=== PATIENT | male | born 1965 | race Caucasian/White ===

== ENCOUNTER 2020-11-12 14:00 | Emergency (ER) | payer OTHER, SELFPAY | END 2020-11-12 17:39 | disposition left against medical advice (07) | PROVIDERS: Emergency Provider Emergency Medicine | DX: L02.91 Cutaneous abscess, unspecified (principal) ==

== ENCOUNTER 2022-01-31 15:34 | Outpatient (REF) | payer OTHER, SELFPAY ==
--- NOTE | ~2022-01-31 | US_ITS ---
EXAMINATION: US SCROTUM CLINICAL INFORMATION: Orchitis. COMPARISON: None TECHNIQUE: A sonogram of the scrotum was performed assessing diaz-scale appearance and color Doppler flow. Spectral Doppler analysis of the arterial and venous flow were performed in the testes bilaterally. FINDINGS: RIGHT: Right testicle appears atrophic and measures 3.0 x 1.4 x 1.8 cm, volume 4.0 mL. No focal testicular parenchymal lesions are visualized. Spectral Doppler analysis of the arterial and venous flow is normal in the right testis. Right epididymal head is normal in size. A 0.4 cm simple cyst in the right epididymal tail. No right hydrocele or varicocele is seen. Right epididymal Doppler flow is normal. LEFT: Left testicle appears atrophic and measures 3.2 x 1.4 x 1.9 cm, volume 3.2 mL. No focal testicular parenchymal lesions are visualized. Spectral Doppler analysis of the arterial and venous flow is normal in the left testis. Left epididymal head is remarkable for a 7 mm epididymal head cyst. The left epididymal tail is enlarged and hypervascular which could be seen in the setting of epididymitis. Calcifications are noted in the epididymal tail. No left hydrocele or varicocele is seen. Left epididymal Doppler flow is increased. US/US scrotum IMPRESSION: The left epididymal tail is enlarged and hypervascular which could be seen in the setting of epididymitis. Calcifications are also seen within the epididymal tail, which could be seen in the setting of superimposed chronic epididymitis. Testicles are atrophic bilaterally.
== END 2022-01-31 15:35 | disposition home or self-care (01) ==
LOC: HO.US 15:34
PROVIDERS: PCP General Practice; Visit Provider General Practice
DX: N45.2 Orchitis (principal)
CPT/HCPCS: 76870

== ENCOUNTER → 2022-04-09 13:27 | Outpatient (BNVA) | payer OTHER, SELFPAY | PROVIDERS: PCP General Practice; Referring Provider General Practice; Visit Provider Nurse Practitioner Family | DX: Z12.11 Encounter for screening for malignant neoplasm of colon (principal) | CPT/HCPCS: 99202 ==

== ENCOUNTER 2023-03-06 17:06 | Emergency (ER) | payer OTHER, SELFPAY ==
--- NOTE | ~2023-03-06 | XR_ITS ---
EXAMINATION: XR HIP, RIGHT CLINICAL INFORMATION: Fall yesterday COMPARISON: None available. TECHNIQUE: Frontal view of the pelvis with coned frontal and frog-leg lateral views the right hip obtained. FINDINGS: Patient is status post right proximal femoral intramedullary nail with single distal fixation screw. Compression screw seen through the femoral neck extending into the femoral head. Bones are in essentially anatomic alignment. I do not appreciate any evidence for acute superimposed fracture or dislocation. Unremarkable bowel gas pattern. XR/XR hip RT w PEL1V IMPRESSION: Postoperative changes to the right hip. I do not appreciate any acute superimposed fracture or dislocation.
--- NOTE | ~2023-03-06 | CT_ITS ---
EXAMINATION: CT ABDOMEN AND PELVIS WITHOUT CONTRAST CLINICAL INFORMATION: Right hip pain COMPARISON: None available. TECHNIQUE: Multidetector volumetric imaging was performed from the superior aspect of the liver through the pubic symphysis. Sagittal and coronal reformatted images were obtained on the technologist's workstation. This CT examination was performed using dose optimization techniques as appropriate, variously including the following: *Automated exposure control *Adjustment of mA and/or kV according to patient size (this includes techniques or standardized protocols for targeted exams where dose is matched to indication/reason for exam; i.e. extremities or head) *Use of iterative reconstruction technique DLP: 658 mGy-cm FINDINGS: LUNG BASES: The lung bases are clear.. LIVER, GALLBLADDER, AND BILIARY TREE: The liver is slightly heterogeneous and has a nodular contour with perihepatic fluid collection suspicious for cirrhosis. No focal lesion seen. There is no intrahepatic ductal dilatation. The gallbladder is slightly distended with multiple radiopaque gallstones. No pericholecystic fluid collection seen. PANCREAS: Unremarkable. SPLEEN: Unremarkable. ADRENAL GLANDS: Unremarkable. KIDNEYS AND URETERS: The kidneys are normal in size, shape, and attenuation. No hydronephrosis, hydroureter, or calculi seen. No perinephric stranding. BLADDER: Unremarkable. GASTROINTESTINAL TRACT: There is moderate scattered stool in colon without significant distention. The small bowel loops are normal caliber. Appendix is not visualized. There is no obstruction or free air. ABDOMINAL WALL: No significant hernia is appreciated. LYMPH NODES: There are small mesenteric lymph nodes measuring 1.2 x 0.5 cm. No abnormal retroperitoneal lymph nodes seen. VASCULAR: The abdominal aorta is of normal caliber. PELVIC VISCERA: There is small amount of free fluid in the pelvis. The prostate gland is mildly enlarged. No abnormal pelvic lymphadenopathy. OSSEOUS STRUCTURES: There is a right internal medullary femoral hazel and a hip nail for an old healed intertrochanteric/proximal femoral fracture. The hardware is intact. There is no joint space abnormality seen. CT/CT abdomen pelvis wo IV con IMPRESSION: 1. Cirrhotic liver with perihepatic fluid collection and small amount of free fluid in the pelvis. 2. Cholelithiasis without wall thickening. 3. Moderate constipation. 4. No radiopaque urolith or hydroureteronephrosis. 5. Intact right hip hardware. No fracture or joint abnormality seen. Fleischner guidelines were followed.
--- NOTE | ~2023-03-06 | XR_ITS ---
EXAMINATION: XR KNEE, RIGHT CLINICAL INFORMATION: Pain. COMPARISON: None available. TECHNIQUE: Four views of the right knee. FINDINGS: No fracture or joint effusion. Alignment is anatomic. Joint spaces are maintained. No abnormal soft tissue calcification. XR/XR knee RT 3V IMPRESSION: Normal right knee.
[2023-03-06 17:14] VITALS: BP 160/84; BP 167/56; PULSE 72; PULSE 85; RESP 18; TEMP 36.6; O2SAT 95; O2SAT 97; BMI 24.9
[2023-03-06 17:19] VITALS: PULSE 75
--- NOTE | 2023-03-06 17:29 | PC.NURSE ---
pt a&ox3, respirations even and unlabored. pt reports having a mechanical fall last night and hitting his head with no LOC. pt reports that he was walking to leave his house when he slipped. pt denies blood thinners. pt left hip tender to touch with swelling noted. pt reports having a hip replacement of the left hip in 2006 due to a fall. pt denies nausea, vomiting and chest pain. pt normal sinus on tele.
--- NOTE | 2023-03-06 17:48 | ED_ITS ---
HPI - General Adult General Chief complaint: Fall Stated complaint: FALL WITH POSSIBLE HIP FX Time Seen by Provider: 03/06/23 17:08 Source: patient and RN notes reviewed Mode of arrival: EMS Limitations: no limitations History of Present Illness HPI narrative: 57-year-old male presents for evaluation of right hip pain. Patient reports that he suffered a nonsyncopal fall yesterday. He reports that he was clumsy lost his balance and fell down. He denies hitting his head or losing consciousness His only complaint is right hip pain He reports he is unable to bear weight due to the pain The patient has a remote right hip arthroplasty from the year 2006 He states his pain is a 6/10 currently Patient denies any head or neck pain Related Data Home Medications Medication Instructions Recorded Confirmed albuterol sulfate 90 mcg/actuation 90 mcg inhalation NEEDED 04/09/22 03/06/23 aerosol inhaler insulin aspart U-100 100 unit/mL 10 - 12 unit subcut TID 04/09/22 03/06/23 (3 mL) subcutaneous pen (Novolog FlexPen U-100 Insulin aspart) insulin glargine 100 unit/mL (3 45 unit subcut DAILY 04/09/22 03/06/23 mL) subcutaneous pen (Lantus Solostar U-100 Insulin) sildenafil 100 mg tablet (Viagra) 100 mg PO DAILY PRN Erectile 04/09/22 03/06/23 Dysfunction ocrelizumab 30 mg/mL intravenous 600 mg IV [id number] 03/06/23 03/06/23 solution Allergies Allergy/AdvReac Type Severity Reaction Status Date / Time No Known Allergies Allergy Mild NONE Verified 03/06/23 17:19 Review of Systems Constitutional: Constitutional: Denies chills, Denies fever(s), Denies frequent falls and Denies headache(s) Eyes: Eyes: Denies blurry vision ENT: Denies headache(s) Cardiovascular: Cardiovascular: Denies chest pain, Denies syncope and Denies dyspnea Respiratory: Respiratory: Denies cough and Denies dyspnea Gastrointestinal: Gastrointestinal: Denies abdominal pain and Denies vomiting Musculoskeletal: Musculoskeletal: Reports arthralgias, Denies joint swelling, Reports limited range of motion and Reports stiffness Integumentary/Breasts: Skin/Breast: Denies wounds Neurologic: Denies syncope, Denies frequent falls and Denies headache(s) [facility] Past Medical History Medical History Diabetes mellitus Multiple sclerosis Surgical History History of hip surgery Family History Family History (Updated 04/09/22 @ 13:50 by Jorge Arteaga) Mother Diabetes Father HTN (hypertension) Social History Social History (Updated 04/09/22 @ 13:49 by Jorge Arteaga) Household Members: None Alcohol intake: current Alcohol intake frequency: a few times a week Patient Tobacco Use Status: Current everyday Tobacco user Cigarettes Per Day: 1.9 Smoked in Last 30 Days: Yes Use of substances other than those prescribed or required for medical reasons: No Advance Directives: No Advance Directives Information Provided: No Physical Exam ED Vital Signs: Vital Signs - 24 hr 03/06/23 17:14 03/06/23 17:19 03/06/23 19:03 Temperature 97.8 F Pulse Rate 85 75 86 Respiratory Rate 18 18 Blood Pressure 167/56 H 158/55 H Pulse Oximetry 95 94 Oxygen Delivery Method Room Air Room Air 03/06/23 20:25 03/06/23 21:09 03/06/23 22:07 Temperature 99.4 F 99.1 F Pulse Rate 74 89 73 Respiratory Rate 16 14 14 Blood Pressure 146/51 H 137/55 L 135/58 L Pulse Oximetry 96 95 97 Oxygen Delivery Method Room Air Room Air Room Air 03/07/23 04:47 03/07/23 05:45 03/07/23 07:44 Temperature 97.7 F Pulse Rate 75 71 71 Respiratory Rate 16 18 Blood Pressure 144/51 H 123/75 123/75 Pulse Oximetry 97 98 98 Oxygen Delivery Method Room Air Room Air 03/07/23 14:00 Temperature 98.2 F Pulse Rate 74 Respiratory Rate 18 Blood Pressure 134/65 Pulse Oximetry 97 Oxygen Delivery Method Room Air BMI result Body Mass Index 24.9 Const General: healthy appearing, comfortable, no acute distress, alert and awake Nutritional Appearance: well nourished Orientation/consciousness: patient oriented x3 HENMT Head: Yes normocephalic and Yes atraumatic Eyes Eyelids: Yes eyelids normal Conjunctivae: conjunctivae normal Sclerae: sclerae normal Corneas: corneas normal Pupils: Equal, round and reactive pupils present EOM: EOMs intact bilaterally Neck Neck: Yes full ROM Resp Effort & Inspection: normal respiratory effort, able to speak in complete sentences and not labored GI Inspection: No distended Palpation (GI): Soft to palpation, not firm, nontender, no guarding and not rigid Auscultation: normoactive bowel sounds Skin General skin exam: elasticity normal Neuro General: patient oriented x3 Cranial nerves: Yes Equal, round and reactive pupils present and Yes Bilaterally intact EOM present Cognition (Neuro): normal cognition Extrem Other: No shortening or rotation of the right lower extremity. Patient is tender to palpation of the right hip. There is no obvious visual or palpable deformity. He actually has quite good range of motion with flexion and extension of the right hip. He is able to lift the right lower extremity off the bed easily without any assistance. Course Course Course Narrative: 03/07/23--0946--Physician observation continued. Imaging reviewed. Physical therapy evaluated patient this morning and recommended short-term rehab. Pending case management consult -[id number]-- patient accepted to [facility] rehab. Reevaluation(s) Reevaluation #1: Patient's x-ray and CT scan did not show any traumatic injuries. There is no evidence of hardware failure, pelvic fracture. The patient had not been able to ambulate in the emergency department. He does have a walker and a wheelchair at home. I discussed the recommendation for remaining in the hospital overnight for physical therapy and case management evaluation and possibly short-term rehab. After discussing with his at bedside, they initially agreed to remain in the hospital but then recanted and expressed desire to be discharged home. To have wheelchair at home to help get around. I asked the patient if he is still unable to stand after few days he should return to the emergency department to reconsider short-term rehab Time: 22:13 Reevaluation #2: Patient reconsidered again and decided to stay in the hospital for physical therapy and case management evaluation after attempting to stand and fell being unable to do so. When attempting to stand he began complaining of right knee pain, this was not yet x-rays so we will get x-rays of the right knee Time: 22:18 Medications Administered Generic Name Dose Route Start Last Admin Trade Name Freq PRN Reason Stop Dose Admin Insulin Human Lispro 0 unit 03/07/23 11:30 03/07/23 11:45 Insulin Lispro 100 Unit/Ml 3 Ml Vial SUBCUT 8 unit [facility] Administration Protocol Discontinued Medications Generic Name Dose Route Start Last Admin Trade Name Savanna PRN Reason Stop Dose Admin Acetaminophen 650 mg 03/06/23 17:50 03/06/23 18:36 Acetaminophen 325 Mg Tablet PO 03/06/23 17:51 650 mg ONCE ONE Administration Ketorolac Tromethamine 30 mg 03/06/23 19:58 03/06/23 20:06 Ketorolac Tromethamine 30 Mg/Ml Vial IM 03/06/23 19:59 30 mg ONCE ONE Administration Medical Decision Making Medical Decision Making [facility] Narrative: 57-year-old male presents for evaluation of her a mechanical fall per his report. He denies any head strike or loss of consciousness. Denies any dizziness, chest pain or shortness of breath prior to falling. Plan for x-ray the right hip. Given that he is unable to bear weight will consider CT imaging of the pelvis if there is no evidence of hip fracture or hardware failure Differential Diagnosis Differential Diagnoses: The differential diagnosis associated with the presentation includes Hip fracture Hardware failure Hip pain Pelvic fracture Hip dislocation Lab Data Labs: Lab Results 03/07/23 03/07/23 03/07/23 Range/Units 07:19 10:19 11:36 POC Glucose 282 H 316 H (60-115) mg/dL COVID-19 (MELINDA) Negative (Negative) COVID-19 Clin Com See Note Discharge Plan Discharge Clinical Impression: Acute pain of right hip Patient Disposition: Still a Patient Instructions: Hip Pain (ED) Additional Instructions: Your x-ray did not show any fractures or hardware failure. The follow-up CT scan also did not show any fractures or hardware failure. Use Motrin/Tylenol for your pain Prescriptions: No Action ocrelizumab 30 mg/mL Solution 600 mg IV [id number] insulin glargine [Lantus Solostar U-100 Insulin] 100 unit/mL (3 mL) insulin pen 45 unit subcut DAILY insulin aspart U-100 [Novolog FlexPen U-100 Insulin] 100 unit/mL (3 mL) insulin pen 10 - 12 unit subcut TID albuterol sulfate 90 mcg/actuation HFA aerosol inhaler 90 mcg inhalation NEEDED sildenafil [Viagra] 100 mg tablet 100 mg PO DAILY PRN (Reason: Erectile Dysfunction)
[2023-03-06] MEDS: Acetaminophen 325 MG TABLET 650 MG PO (18:36)
[2023-03-06 19:03] VITALS: BP 158/55; PULSE 86; RESP 18; O2SAT 94
--- NOTE | 2023-03-06 19:03 | PC.NURSE ---
Assumed care of pt. Pt lying on stretcher, endorsing 6/10 pain. pt sts will hold for additional pain medication after imaging results. Otherwise, VSS, no acute distress at this time.
[2023-03-06] MEDS: Ketorolac Tromethamine 30 MG/ML VIAL IM (20:06)
[2023-03-06 20:25] VITALS: BP 146/51; PULSE 74; RESP 16; TEMP 37.4; O2SAT 96
[2023-03-06 21:09] VITALS: BP 137/55; PULSE 89; RESP 14; O2SAT 95
[2023-03-06 22:07] VITALS: BP 135/58; PULSE 73; RESP 14; TEMP 37.3; O2SAT 97
--- NOTE | 2023-03-07 00:36 | PC.NURSE ---
pt sleeping, easily rousable, no acute distress at this time. WCTM
--- NOTE | 2023-03-07 02:26 | PC.NURSE ---
At 2200, attempted to ambulate pt for possible trial discharge. Pt unable to bear weight and ambulate on R leg, provider notified. Pt will remain in ED for CM/PT eval.
[2023-03-07 04:47] VITALS: BP 144/51; PULSE 75; RESP 16; O2SAT 97
--- NOTE | 2023-03-07 05:23 | PC.NURSE ---
Report given to ALO Salazar Overflow. Pt to be transfered to OF unit for monitoring for CM/PT.
[2023-03-07 05:45] VITALS: BP 123/75; PULSE 71; RESP 18; TEMP 36.5; O2SAT 98
[2023-03-07 07:23] LABS: Glucose, Whole Blood 282 mg/dL (60-115)
[2023-03-07 07:44] VITALS: BP 123/75; PULSE 71; O2SAT 98
--- NOTE | 2023-03-07 10:39 | PHA.MEDREC ---
Pharmacy Consult ? Medication Reconciliation Pharmacy has completed the medication reconciliation. Reviewed med rec done by nursing
[2023-03-07 11:32] LABS: COVID-19 Test Negative (Negative); IDNOW Serial# 9DB6401D
[2023-03-07 11:40] LABS: Glucose, Whole Blood 316 mg/dL (60-115)
[2023-03-07] MEDS: Insulin Lispro 100 UNIT/ML 3 ML VIAL SUBCUT ×2 (11:45→16:55)
--- NOTE | 2023-03-07 12:12 | PC.NURSE ---
assumed care of this pt at 0745. Physical Therapist at pt's bedside at the time of assuming care of pt. pt a+o x4.
--- NOTE | 2023-03-07 12:41 | MHC.CM.ED ---
Received consult for assessment of d/c needs: met w/pt who states he resides w/spouse and has 70 hours of [employer] care per week provided by his son and daughter in law. They also assist w/transportation. Pt has a w/c and cane and requires straight catheterization prn. PCP is a 'new' provider from [facility]. PT eval recommends STR: referrals made: pt would like [facility] rehab: Auth is in progress. Pt will need S transport. HCP completed and scanned in to [facility]. ED CM to wait for payor auth.
[2023-03-07 14:00] VITALS: BP 134/65; PULSE 74; RESP 18; TEMP 36.8; O2SAT 97
--- NOTE | 2023-03-07 16:04 | MHC.CM.PN ---
CM RECEIVED CALL FROM [facility] REPORTING THEY HAVE RECEIVED INSURANCE AUTH FOR PT, [facility] FOR BLS TRANSPORT
[2023-03-07 16:50] LABS: Glucose, Whole Blood 282 mg/dL (60-115)
--- NOTE | 2023-03-07 17:07 | PC.NURSE ---
Report give to ALO Greer at [facility] [phone]
== END 2023-03-07 18:59 | disposition skilled nursing facility (03) ==
PROVIDERS: Physician Assistant Medical; Emergency Provider Internal Medicine
DX: M25.551 Pain in right hip (principal); Z20.822 Contact with and (suspected) exposure to COVID-19; E11.9 Type 2 diabetes mellitus without complications; G35 Multiple sclerosis; F17.210 Nicotine dependence, cigarettes, uncomplicated; Z96.641 Presence of right artificial hip joint; Z79.4 Long term (current) use of insulin; Z79.899 Other long term (current) drug therapy
CPT/HCPCS: 73502; 73562; 74176; 82947; 87635; 96372; 97162; 99284; 99285; J1885

== ENCOUNTER 2023-05-19 08:30 | Inpatient (IN) | payer OTHER, SELFPAY ==
[2023-05-19] VITALS (8 sets, daily range): BP systolic 144–195; BP diastolic 53–80; PULSE 72–98; RESP 12–20; TEMP 36.6–37.2; O2SAT 95–98; BMI 29.2; BMI 28.3
--- NOTE | ~2023-05-19 | US_ITS ---
EXAMINATION: US GUIDED PARACENTESIS CLINICAL INFORMATION: Ultrasound paracentesis History: Ascites. Risks and benefits and possible complications were discussed with the patient and consent form was signed. A safe pocket of ascitic fluid was identified using ultrasound guidance, and the overlying skin was marked. The abdomen prepped and draped in sterile fashion. 1% lidocaine was used as a local anesthetic. Using ultrasound guidance, a 5 fr catheter was placed into the ascitic pocket. 1.4 liters of yellow fluid was removed . The catheter was then removed. A few patient services representative images from before and after the examination were obtained. US/US paracentesis abd w/image Impression: Ultrasound-guided paracentesis as described above.
--- NOTE | ~2023-05-19 | XR_ITS ---
EXAMINATION: XR CHEST CLINICAL INFORMATION: Cough COMPARISON: Previous chest x-ray from 2019 TECHNIQUE: 2 views of the chest were obtained. FINDINGS: The cardiac and mediastinal contours are stable. There are coarse lung markings and question evidence of interstitial disease. This is new from March 2019 exam. The lungs are otherwise clear. No pleural effusion or pneumothorax. Degenerative changes of the spine. XR/XR chest 2V IMPRESSION: Coarse lung markings and question interstitial disease.
--- NOTE | ~2023-05-19 | US_ITS ---
EXAMINATION: US VENOUS ULTRASOUND WITH DOPPLER LOWER EXTREMITY, BILATERAL CLINICAL INFORMATION: Swelling, sedentary Edema COMPARISON: None available. TECHNIQUE: Ultrasound of the deep veins is performed from the hip to the calf with compression sonography and color and pulse Doppler assessment. Spectral analysis with color-flow imaging is performed. FINDINGS: RIGHT: There is normal venous compression and respiratory variation. The visualized common femoral vein, superficial femoral vein, profunda femoral vein, popliteal vein, and the trifurcation region shows no evidence of deep venous thrombosis. LEFT: There is normal venous compression and respiratory variation. The visualized common femoral vein, superficial femoral vein, profunda femoral vein, popliteal vein, and the trifurcation region shows no evidence of deep venous thrombosis. US/US venous duplex LE BI IMPRESSION: No DVT demonstrated in the right or left lower extremity.
--- NOTE | ~2023-05-19 | MR_ITS ---
EXAMINATION: MR ABDOMEN WITHOUT AND WITH CONTRAST CLINICAL INFORMATION: Hepatic cirrhosis, ascites COMPARISON: CT scan of abdomen and pelvis on 05/19/2023 TECHNIQUE: Examination was performed in a high field strength MRI scanner. Multiplanar multiphasic imaging of the abdomen was performed without IV contrast enhancement. Multiphasic Axial T1 weighted fat suppressed images of the upper abdomen were obtained after IV injection of 8.5 mL Gadavist. Coronal T1 weighted fat-suppressed images of the abdomen were obtained following the dynamic axial series. FINDINGS: Postcontrast multiphasic dynamic images are limited by respiratory motion blurring. LIVER: The liver shows markedly lobulated border. At anterior inferior border of right hepatic lobe segment 5, an observation measuring 3.1 cm in AP diameter, 2.4 cm in width, 2.6 cm in vertical height with arterial phase hyperenhancement, not peripheral washout and enhancing pseudocapsule is seen, series 103 image #74, series 11 image #20. At anterior medial border of right hepatic lobe segment 8, an observation measuring 1.7 cm in AP diameter, 1.6 cm in width, 1.5 cm in vertical height with arterial phase hyperenhancement, not peripheral washout and enhancing pseudocapsule is seen, series 103 image #42, series 11 image #23. At medial inferior right hepatic lobe segment 8, an observation measuring 1.4 cm in AP diameter, 1.9 cm in width, 1.5 cm in vertical height with arterial phase hyperenhancement, not peripheral washout and enhancing pseudocapsule is seen, series 103 image #54, series 11 image #19. The calculated hepatic fat percentage is 0.9%, compatible with normal. There is moderate perihepatic ascites. The main portal vein is patent, measuring 1.6 cm in transverse diameter, consistent with portal venous hypertension. Splenic vein and superior mesenteric vein are patent. HEPATOBILIARY: Gallbladder is distended, measuring 9.0 cm in AP length, without filling defects. Common bile duct is not dilated. PANCREAS: No focal pancreatic lesion with abnormal signal can be seen. SPLEEN: Spleen is moderately enlarged, measuring 15.0 cm in AP length, measuring 12.8 cm in oblique vertical length without focal lesion. ADRENAL: Bilateral adrenal glands are normal in shape and size. KIDNEYS: Bilateral kidneys are normal in size without focal lesion. MR/MR abdomen wo/w con IMPRESSION: 1. Marked hepatic cirrhosis with at least 3 LR 5 observations are seen, highly suspicious of hepatocellular carcinoma. Evaluation is limited by respiratory motion blurring on the postcontrast images. 2. Hydrops gallbladder is present. No evidence of gallstones or hepatobiliary duct dilatation. 3. Portal venous hypertension and moderate splenomegaly are present. 4. Moderate abdominal ascites is seen. 5. No focal pancreatic lesion is found.
--- NOTE | ~2023-05-19 | CT_ITS ---
EXAMINATION: CT ABDOMEN AND PELVIS WITH CONTRAST CLINICAL INFORMATION: Abdominal pain. COMPARISON: CT abdomen/pelvis 03/06/2023. TECHNIQUE: Multidetector volumetric images were obtained from the superior aspect of the liver through the pubic symphysis following administration 85 mL of Omnipaque 350 intravenous contrast. Sagittal and coronal reformatted images were obtained on the technologist's workstation. Oral contrast: No This CT examination was performed using dose optimization techniques as appropriate, variously including the following: *Automated exposure control *Adjustment of mA and/or kV according to patient size (this includes techniques or standardized protocols for targeted exams where dose is matched to indication/reason for exam; i.e. extremities or head) *Use of iterative reconstruction technique DLP: 582 mGy-cm FINDINGS: LUNG BASES: No focal consolidation or pleural effusion. LIVER, GALLBLADDER, AND BILIARY TREE: Cirrhotic liver with nodular contour. Heterogeneous attenuation of the parenchyma more noticeable in the periphery of the right hepatic lobe with scattered areas of low-attenuation. Hydropic gallbladder with tiny layering stones. Pericholecystic free fluid is indeterminate in the context of cirrhosis and ascites. No significant gallbladder wall thickening. No biliary ductal dilatation. Moderate to large volume of ascites, increased compared to 03/06/2023. PANCREAS: No main ductal dilatation. No significant peripancreatic fat stranding or free fluid. SPLEEN: Enlarged measuring 15 cm on anteroposterior diameter. ADRENAL GLANDS: Unremarkable. KIDNEYS AND URETERS: The kidneys are normal in size, shape, and attenuation. No hydronephrosis, hydroureter, or calculi seen. No perinephric stranding. BLADDER: Unremarkable. GASTROINTESTINAL TRACT: Prominent periesophageal varices. No evidence of bowel obstruction. Evaluation of wall thickening and inflammatory changes is limited in the context of underdistention and ascites; there is some questionable mild wall thickening of the small bowel and ascending colon that could be seen with portal enteropathy/colopathy. ABDOMINAL WALL: Moderate anasarca, increased compared to 03/06/2023. LYMPH NODES: Stable prominent periportal lymph nodes. VASCULAR: Normal caliber abdominal aorta. Main portal vein is patent. Portal hypertension with numerous portosystemic collaterals, more prominent surrounding the lower esophagus. PELVIC VISCERA: Unremarkable. OSSEOUS STRUCTURES: Degenerative changes of the spine. No acute or aggressive appearing osseous findings. Partially imaged right femoral hardware. CT/CT abdomen pelvis w IV con IMPRESSION: 1. Cirrhosis of the liver with heterogeneous attenuation of the liver parenchyma which could be related with perfusional changes. However, evaluation of underlying HCC/malignancy is very limited in this examination and further evaluation with outpatient abdominal MRI with and without IV contrast is recommended in this patient with high risk factors in the context of cirrhosis. 2. Portal hypertension with splenomegaly and numerous portosystemic collaterals. 3. Moderate to large volume of ascites, increased compared to 03/06/2023. 4. Moderate anasarca, increased compared to 03/06/2023. 5. No evidence of bowel obstruction. Evaluation of bowel wall thickening and inflammatory changes is limited in the context of underdistention and ascites; however there is suggestion of mild wall thickening of the small bowel and ascending colon that could be seen with portal enteropathy/colopathy. 6. Hydropic gallbladder with cholelithiasis but no significant gallbladder wall thickening. Pericholecystic free fluid is indeterminate in the context of ascites. Further evaluation with right upper quadrant abdominal ultrasound as clinically warranted.
--- NOTE | 2023-05-19 09:03 | ECG_ITS ---
Test Reason : sob when walking Blood Pressure : / mmHG Vent. Rate : 071 BPM Atrial Rate : 071 BPM P-R Int : 120 ms QRS Dur : 096 ms QT Int : 412 ms P-R-T Axes : 000 000 011 degrees QTc Int : 447 ms Normal sinus rhythm Normal ECG When compared with ECG of 30-MAR-2019 00:01, Vent. rate has decreased BY 38 BPM Referred By: Katy Rendon Electronically Signed By:PASHA SALAZAR MD
[2023-05-19 09:53] LABS: INTERNATIONAL NORM RATIO 1.3 (0.9-1.1); Prothrombin Time 15.9 SEC (11.1-13.3)
[2023-05-19 09:56] LABS: Partial Thromboplastin Time 30.4 SEC (26.0-36.4)
[2023-05-19 10:00] LABS: Alanine Aminotransferase 59 U/L (0-40); Albumin Level 2.8 g/dL (3.5-5.0); Alkaline Phosphatase 252 U/L (39-117); Anion Gap 10 (12-20); Aspartate Amino Transferase 101 U/L (5-37); Bilirubin Total 4.4 mg/dL (0.0-1.0); Blood Urea Nitrogen 16 mg/dL (9-16); Calcium 8.5 mg/dL (8.4-10.2); Carbon Dioxide 30 mmol/L (22-29); Chloride 101 mmol/L (96-108); Creatinine Clr Calc Pharmacy 107.6; Estimated Glomerular Filt Rate > 60; Glucose Random 291 mg/dL (60-115); Magnesium 1.7 mg/dL (1.6-2.6); Potassium 4.2 mmol/L (3.3-5.1); Sodium 137 mmol/L (135-145); Total Protein 5.7 g/dL (6.5-8.0)
[2023-05-19 10:04] LABS: B Type Natriuretic Peptide 157 pg/mL (<100)
[2023-05-19 10:05] LABS: Basophils Absolute Auto 0.1 X10*3/uL (0.0-0.2); Basophils Percent Auto 0.5 % (0-2); Eosinophils Absolute Auto 0.2 X10*3/uL (0.0-0.4); Eosinophils Percent Auto 2.5 % (0-4); Hematocrit 33.6 % (42.0-52.0); Hemoglobin 11.6 g/dl (14.0-18.0); Imm Gran Abs Auto 0.04 X10*3/uL (0.00-0.03); Imm Gran Pct Auto 0.4 % (0.0-0.4); Lymphocytes Absolute Auto 0.9 X10*3/uL (1.2-4.9); Lymphocytes Percent Auto 9.5 % (20-40); MANUAL DIFF FLAG SCAN; Mean Corpuscular HGB Conc 34.5 g/dl (31.0-36.0); Mean Corpuscular Hemoglobin 35.7 pg (27.0-33.0); Mean Corpuscular Volume 103.4 fL (80.0-98.0); Mean Platelet Volume 11.1 fL (9.4-12.4); Monocytes Absolute Auto 1.7 X10*3/uL (0.1-1.2); Monocytes Percent Auto 17.4 % (2-11); Neutrophils Absolute Auto 6.7 x10*3/uL (2.0-8.3); Neutrophils Percent Auto 69.7 % (45-73); Red Blood Count 3.25 X10*6/uL (4.60-5.80); Red Cell Distribution Width 15.5 % (11.0-16.0); SCAN SMEAR FLAG 1; White Blood Count 9.6 X10*3/uL (4.8-10.8)
[2023-05-19 10:08] LABS: Troponin-I High Sensitivity 17.2 ng/L (<3.5-35.0)
[2023-05-19 10:09] LABS: Platelet Count 88 X10*3/uL (160-400)
--- NOTE | 2023-05-19 10:14 | ED_ITS ---
HPI - General Adult General Chief complaint: General Medical Stated complaint: Cough x1 month/Swollen legs Time Seen by Provider: 05/19/23 10:14 Source: patient Mode of arrival: ambulatory Limitations: no limitations History of Present Illness HPI narrative: Patient is a 58 year old assigned male at with a history of MS presenting to the emergency department today with a cough x 1 month, SOB with movement, and bilateral lower leg swelling. Patient states that over the last month he has had increased shortness of breath with walking, bilateral lower extremity swelling, and over the last few days - a worsening cough. Patient admits to being a daily drinker with increased drinking around the holiday. Patient states that he has a history of seizures but is not sure if it is related to when he isn't drinking. Patient states that he has shakes when not drinking. Patient denies any dizziness, lightheadedness, abdominal pain, nausea, vomiting, fever, chills, blurry vision, double vision, loss of vision, chest pain, back pain, night sweats, pain with urination, increased urinary frequency, increased urinary urgency, blood in his urine or stool, syncope or a near syncopal episode, recent trauma or falls, bowel incontinence, bladder incontinence, bowel retention, bladder retention, or any other complaints at this time. Onset (ago): week(s) Severity: mild Relieving factors: none Exacerbating factors: none Associated symptoms: shortness of breath Treatments prior to arrival: none Related Data Home Medications Medication Instructions Recorded Confirmed albuterol sulfate 90 mcg/actuation 90 mcg inhalation NEEDED 04/09/22 03/06/23 aerosol inhaler insulin aspart U-100 100 unit/mL 10 - 12 unit subcut TID 04/09/22 03/06/23 (3 mL) subcutaneous pen (Novolog FlexPen U-100 Insulin aspart) insulin glargine 100 unit/mL (3 45 unit subcut DAILY 04/09/22 03/06/23 mL) subcutaneous pen (Lantus Solostar U-100 Insulin) sildenafil 100 mg tablet (Viagra) 100 mg PO DAILY PRN Erectile 04/09/22 03/06/23 Dysfunction ocrelizumab 30 mg/mL intravenous 600 mg IV [id number] 03/06/23 03/06/23 solution Allergies Allergy/AdvReac Type Severity Reaction Status Date / Time No Known Allergies Allergy Mild NONE Verified 03/06/23 17:19 Review of Systems 2 Constitutional: Constitutional: Reports no additional constitutional complaints, Denies chills, Denies fever(s) and Denies night sweats Eyes: Eyes: Reports no additional eye complaints, Denies blurry vision, Denies change in vision, Denies diplopia, Denies eye discharge, Denies loss of vision and Denies eye pain ENT: Denies dizziness Cardiovascular: Cardiovascular: Reports no additional cardiovascular complaints, Denies chest pain, Reports leg edema, Denies lightheadedness, Denies Loss of Consciousness and Reports dyspnea Respiratory: Respiratory: Reports no additional respiratory complaints, Reports cough and Reports dyspnea Gastrointestinal: Gastrointestinal: Reports no additional gastrointestinal complaints, Denies abdominal pain, Denies melena, Denies hematochezia, Denies change in bowel habits and Denies change in stool character Genitourinary: Genitourinary: Reports no additional male genitourinary complaints, Denies hematuria, Denies oliguria, Denies difficulty urinating, Denies dysuria, Denies urinary frequency, Denies urinary hesitancy, Denies urinary incontinence and Denies urinary urgency Musculoskeletal: Musculoskeletal: Reports no additional musculoskeletal complaints, Denies numbness and Denies tingling Neurologic: Denies dizziness, Denies loss of vision, Denies numbness and Denies tingling Psychiatric: Psychiatric: Reports no additional psychiatric complaints Endocrine: Endocrine: Reports no additional endocrine complaints Hematologic/Lymphatic: Hematologic/Lymphatic: Reports no additional hematologic/lymphatic complaints Allergic/Immunologic: Allergic/Immunologic: Reports no additional allergic/immunologic complaints [facility] Past Medical History Attestation statement: The following information was validated with the patient. Source: old records reviewed and nursing notes reviewed Medical History (Updated 05/19/23 @ 14:39 by LUCY Hunter) EtOH dependence Liver cirrhosis Diabetes mellitus Multiple sclerosis Surgical History History of hip surgery Family History Family History Mother Diabetes Father HTN (hypertension) Social History Household Members: None Alcohol intake: current Alcohol intake frequency: a few times a week Patient Tobacco Use Status: Current everyday Tobacco user Cigarettes Per Day: 1.9 Advance Directives: Yes Advance Directives on File: Yes Advance Directives Date on File: 03/11/23 Physical Exam ED Vital Signs: Vital Signs - 24 hr 05/19/23 08:51 05/19/23 12:00 05/19/23 12:54 Temperature 98.9 F 98.8 F Pulse Rate 84 82 84 Respiratory Rate 16 12 Blood Pressure 156/69 H 156/53 H 161/65 H Pulse Oximetry 96 96 97 Oxygen Delivery Method Room Air Room Air BMI result Body Mass Index 29.2 Const General: cooperative, no acute distress, alert and awake Nutritional Appearance: well nourished Orientation/consciousness: patient oriented x3 Limitations: no limitations HENMT Head: Yes normal to inspection and Yes atraumatic Ears: hearing grossly normal bilaterally and external ears normal General nose exam: Normal external nose present, no nasal discharge noted and no epistaxis Face and sinus: Yes normal facial exam, No abrasion and No laceration Mouth: Normal oral and palatal mucosa present, no drooling and no muffled voice Eyes Periorbital: periorbital findings normal Eyelids: Yes eyelids normal Sclerae: scleral abnormal bilateral (bilateral scleral icterus) Pupils: Equal, round and reactive pupils present EOM: EOMs intact bilaterally Neck Neck: Yes normal visual inspection, Yes full ROM and Yes no lymphadenopathy Chest Chest palpation & inspection: normal inspection of the chest Resp Effort & Inspection: normal respiratory effort, able to speak in complete sentences and Actively coughing Quality: dry Auscultation: clear to auscultation bilaterally Cardio Rate: regular rate Rhythm: regular rhythm Peripheral pulses: Peripheral pulses 2+ throughout GI Inspection: Yes distended (midly) Palpation (GI): Soft to palpation, not firm, nontender, no guarding and not rigid Neuro General: patient oriented x3 and moves all extremities Cranial nerves: Yes Equal, round and reactive pupils present Cognition (Neuro): normal cognition Motor exam (neuro): 5/5 motor strength present throughout Sensory Exam: Normal double simultaneous stimulation for sensation Coordination: [id number] test normal Extrem General: Yes full ROM, Yes capillary refill normal and Yes edema (bilateral lower extremities 2+) Psych Appearance: grossly normal Mental Status: mental status grossly normal Affect: normal affect Attitude: cooperative Thought process: Normal thought process present Thought content: Normal thought content present Insight: Good insight present (Psych) Course Reevaluation(s) Reevaluation #1: I discussed the plan with the PA and I agree Time: 13:34 Medications Administered Discontinued Medications Generic Name Dose Route Start Last Admin Trade Name Savanna PRN Reason Stop Dose Admin Iohexol 85 ml 05/19/23 11:27 05/19/23 11:28 Iohexol 350 Mg/Ml 100 Ml Infus..Btl IV 05/19/23 11:28 85 ml ONCE ONE Administration Medical Decision Making Medical Decision Making [facility] Narrative: Patient is a 58 year old assigned male at with a history of MS and seizures presenting to the emergency department today with a cough, increased SOB, and bilateral lower extremity swelling. Patient's physical exam was as noted in the physical exam portion of this note. Patient's blood work showed newly elevated LFTs but were otherwise unremarkable. Patient's abdomen/pelvis CT showed cirrhosis of the liver with recommendation of outpatient abd MRI to definitively rule out HCC/malignancy underlying, portal hypertension, moderate to large volume of ascites, and Hydropic gallbladder with cholelithiasis but no wall thickening. Patient's bilateral lower extremity US showed no acute DVT. Patient's chest XR showed interstitial disease. Patient's COVID-19 test was positive. I spoke to the hospitalist team who agreed to admission. I explained my physical exam findings as well as all test results to the patient. I answered all questions asked by the patient. Patient verbalized agreement and understanding with this treatment plan and admission. Differential Diagnosis Differential Diagnoses: The differential diagnosis associated with the presentation includes Cirrhosis Liver failure COVID-19 Ascites Admission/Observation Consideration of admission/observation: Escalation of care including admission/observation considered Patient admitted. Consult Healthcare Provider Management of the patient was discussed with: Hospitalist (agreed to admitted as noted in the MDM Rationale portion of this note.) Lab Data [facility] Lab Attestation statement: I reviewed the patient's lab results. My interpretation of these results are in the MDM Rationale portion of this note. 05/19/23 09:31 05/19/23 09:31 Labs: Lab Results 05/19/23 05/19/23 Range/Units 09: 13:02 WBC 9.6 (4.8-10.8) X10*3/uL RBC 3.25 L (4.60-5.80) X10*6/uL Hgb 11.6 L (14.0-18.0) g/dl Hct 33.6 L (42.0-52.0) % MCV 103.4 H (80.0-98.0) fL MCH 35.7 H (27.0-33.0) pg MCHC 34.5 (31.0-36.0) g/dl RDW 15.5 (11.0-16.0) % Plt Count 88 L (160-400) X10*3/uL MPV 11.1 (9.4-12.4) fL Immature Gran % (Auto) 0.4 (0.0-0.4) % Neut % (Auto) 69.7 (45-73) % Lymph % (Auto) 9.5 L (20-40) % [place] % (Auto) 17.4 H (2-11) % Eos % (Auto) 2.5 (0-4) % Baso % (Auto) 0.5 (0-2) % Lymph # (Auto) 0.9 L (1.2-4.9) X10*3/uL [place] # (Auto) 1.7 H (0.1-1.2) X10*3/uL Eos # (Auto) 0.2 (0.0-0.4) X10*3/uL Baso # (Auto) 0.1 (0.0-0.2) X10*3/uL Abs Immat Gran (auto) 0.04 H (0.00-0.03) X10*3/uL Absolute Neuts (auto) 6.7 (2.0-8.3) x10*3/uL Absolute Nucleated RBC 0.000 (0.0-0.012) X10*3/uL Nucleated RBC % (auto) 0.0 (0.0-0.2) /100WBC Smear Tech's Comments VERIFIED PT 15.9 H (11.1-13.3) SEC INR 1.3 H (0.9-1.1) APTT 30.4 (26.0-36.4) SEC Sodium 137 (135-145) mmol/L Potassium 4.2 (3.3-5.1) mmol/L Chloride 101 (96-108) mmol/L Carbon Dioxide 30 H (22-29) mmol/L Anion Gap 10 L (12-20) BUN 16 (9-16) mg/dL Creatinine 0.77 (0.5-1.4) mg/dL Estim Creat Clear Calc 107.6 Estimated GFR > 60 Random Glucose 291 H (60-115) mg/dL Calcium 8.5 (8.4-10.2) mg/dL Magnesium 1.7 (1.6-2.6) mg/dL Total Bilirubin 4.4 H (0.0-1.0) mg/dL Direct Bilirubin 2.4 H (0.0-0.5) mg/dL AST 101 H (5-37) U/L ALT 59 H (0-40) U/L Alkaline Phosphatase 252 H (39-117) U/L Troponin I High Sens 17.2 13.0 (<3.5-35.0) ng/L B-Natriuretic Peptide 157 H (<100) pg/mL Total Protein 5.7 L (6.5-8.0) g/dL Albumin 2.8 L (3.5-5.0) g/dL Hepatitis A IgM Ab Nonreactive (Nonreactive) Hep Bs Antigen Negative (Negative) Hep Bs Antibody REACTIVE (Nonreactive) Hep B Core Total Ab Nonreactive (Nonreactive) Hepatitis C Ab (EIA) Nonreactive (Nonreactive) HIV 1&2 Ab/P24 Ag 4thGn Nonreactive (Nonreactive) Influenza Type A (PCR) NEGATIVE (Negative) Influenza Type B (PCR) NEGATIVE (Negative) RSV RNA Qual (PCR) NEGATIVE (Negative) SARS-CoV-2 RNA (RT-PCR) POSITIVE A (Negative) Independent Interpretation I performed an independent interpretation of an: Plain X-Ray, Ultrasound and CT Scan Interpretation: My interpretation is in agreement with the radiologist's impression of these imaging studies. - EXAMINATION: XR CHEST CLINICAL INFORMATION: Cough COMPARISON: Previous chest x-ray from 2019 TECHNIQUE: 2 views of the chest were obtained. FINDINGS: The cardiac and mediastinal contours are stable. There are coarse lung markings and question evidence of interstitial disease. This is new from March 2019 exam. The lungs are otherwise clear. No pleural effusion or pneumothorax. Degenerative changes of the spine. XR/XR chest 2V IMPRESSION: Coarse lung markings and question interstitial disease. Dictated By: Natalia Coon MD Signed By: Electronically signed by Natalia Coon MD 05/19/23 1151 - EXAMINATION: US VENOUS ULTRASOUND WITH DOPPLER LOWER EXTREMITY, BILATERAL CLINICAL INFORMATION: Swelling, sedentary Edema COMPARISON: None available. TECHNIQUE: Ultrasound of the deep veins is performed from the hip to the calf with compression sonography and color and pulse Doppler assessment. Spectral analysis with color-flow imaging is performed. FINDINGS: RIGHT: There is normal venous compression and respiratory variation. The visualized common femoral vein, superficial femoral vein, profunda femoral vein, popliteal vein, and the trifurcation region shows no evidence of deep venous thrombosis. LEFT: There is normal venous compression and respiratory variation. The visualized common femoral vein, superficial femoral vein, profunda femoral vein, popliteal vein, and the trifurcation region shows no evidence of deep venous thrombosis. US/US venous duplex LE BI IMPRESSION: No DVT demonstrated in the right or left lower extremity. Dictated By: Natalia Hernandez MD - EXAMINATION: CT ABDOMEN AND PELVIS WITH CONTRAST CLINICAL INFORMATION: Abdominal pain. COMPARISON: CT abdomen/pelvis 03/06/2023. TECHNIQUE: Multidetector volumetric images were obtained from the superior aspect of the liver through the pubic symphysis following administration 85 mL of Omnipaque 350 intravenous contrast. Sagittal and coronal reformatted images were obtained on the technologist's workstation. Oral contrast: No This CT examination was performed using dose optimization techniques as appropriate, variously including the following: *Automated exposure control *Adjustment of mA and/or kV according to patient size (this includes techniques or standardized protocols for targeted exams where dose is matched to indication/reason for exam; i.e. extremities or head) *Use of iterative reconstruction technique DLP: 582 mGy-cm FINDINGS: LUNG BASES: No focal consolidation or pleural effusion. LIVER, GALLBLADDER, AND BILIARY TREE: Cirrhotic liver with nodular contour. Heterogeneous attenuation of the parenchyma more noticeable in the periphery of the right hepatic lobe with scattered areas of low-attenuation. Hydropic gallbladder with tiny layering stones. Pericholecystic free fluid is indeterminate in the context of cirrhosis and ascites. No significant gallbladder wall thickening. No biliary ductal dilatation. Moderate to large volume of ascites, increased compared to 03/06/2023. PANCREAS: No main ductal dilatation. No significant peripancreatic fat stranding or free fluid. SPLEEN: Enlarged measuring 15 cm on anteroposterior diameter. ADRENAL GLANDS: Unremarkable. KIDNEYS AND URETERS: The kidneys are normal in size, shape, and attenuation. No hydronephrosis, hydroureter, or calculi seen. No perinephric stranding. BLADDER: Unremarkable. GASTROINTESTINAL TRACT: Prominent periesophageal varices. No evidence of bowel obstruction. Evaluation of wall thickening and inflammatory changes is limited in the context of underdistention and ascites; there is some questionable mild wall thickening of the small bowel and ascending colon that could be seen with portal enteropathy/colopathy. ABDOMINAL WALL: Moderate anasarca, increased compared to 03/06/2023. LYMPH NODES: Stable prominent periportal lymph nodes. VASCULAR: Normal caliber abdominal aorta. Main portal vein is patent. Portal hypertension with numerous portosystemic collaterals, more prominent surrounding the lower esophagus. PELVIC VISCERA: Unremarkable. OSSEOUS STRUCTURES: Degenerative changes of the spine. No acute or aggressive appearing osseous findings. Partially imaged right femoral hardware. CT/CT abdomen pelvis w IV con IMPRESSION: 1. Cirrhosis of the liver with heterogeneous attenuation of the liver parenchyma which could be related with perfusional changes. However, evaluation of underlying HCC/malignancy is very limited in this examination and further evaluation with outpatient abdominal MRI with and without IV contrast is recommended in this patient with high risk factors in the context of cirrhosis. 2. Portal hypertension with splenomegaly and numerous portosystemic collaterals. 3. Moderate to large volume of ascites, increased compared to 03/06/2023. 4. Moderate anasarca, increased compared to 03/06/2023. 5. No evidence of bowel obstruction. Evaluation of bowel wall thickening and inflammatory changes is limited in the context of underdistention and ascites; however there is suggestion of mild wall thickening of the small bowel and ascending colon that could be seen with portal enteropathy/colopathy. 6. Hydropic gallbladder with cholelithiasis but no significant gallbladder wall thickening. Pericholecystic free fluid is indeterminate in the context of ascites. Further evaluation with right upper quadrant abdominal ultrasound as clinically warranted. Dictated By: Ivette Ware Signed By: Electronically signed by Ivette Ware 05/19/23 1320 Radiology Impression Discussion of test interpretation with radiology: I have reviewed the radiologist's reading. Chronic Conditions Patient?s care impacted by: Other (MS, alcoholism) Critical Care Time Critical Care Time Critical Care Time: Yes Total Critical Care Time: 55 Attestation: I spent 55 minutes of Critical Care Time with this patient. This does not include time spent on separately reported billable procedures. Discharge Plan Discharge Clinical Impression: Liver cirrhosis, EtOH dependence, COVID Patient Disposition: Admitted As Inpatient
[2023-05-19 10:23] LABS: Influenza A PCR NEGATIVE (Negative); Influenza B PCR NEGATIVE (Negative); Resp Syncy Virus RNA Qual PCR NEGATIVE (Negative); SARS COV2 PCR INHOUSE POSITIVE (Negative)
[2023-05-19 11:05] LABS: SLIDE REVIEW VERIFIED
[2023-05-19] MEDS: iohexoL 350 MG/ML 100 ML INFUS..BTL 85 ML IV (11:28)
[2023-05-19 13:47] LABS: HBS Num1 42.13 mIU/mL (0-7.99); HBc Num1 0.18 S/CO (0.00-0.79); HBsAGNum1 0.25 S/CO (0.00-0.99); HIV AB/AG Nonreactive (Nonreactive); HIV Num 1 0.05 S/CO (0.00-0.99); Hepatitis A Antibody IgM 0.12 Index (0-0.79); Hepatitis B Core Antibody Nonreactive (Nonreactive); Hepatitis B Surface Antigen Negative (Negative); ~HepC Num1 0.11 S/CO (0.00-0.79); ~Hepatitis A Antibody IgM Nonreactive (Nonreactive); ~Hepatitis B Surface Antibody REACTIVE (Nonreactive); ~Hepatitis C Antibody Nonreactive (Nonreactive)
[2023-05-19 14:24] LABS: Bilirubin Direct 2.4 mg/dL (0.0-0.5)
--- NOTE | 2023-05-19 14:29 | P.HPHOSP_ITS ---
History of Present Illness Date of Service: 05/19/23 Chief Complaint: sob 58M PMH etoh dependence, DM, MS, Presented with shortness of breath. Patient also complaining of a cough for about 6 weeks prior to presentation. He reports using prednisone and albuterol as outpatient without improvement. Also complaining of intermittent bilateral lower extremity edema, abdominal distention, jaundice. Reports drinking about 12 nips of vodka per day. But has been decreasing over the last few weeks. Last drink 2 days prior to presentation. Denies any withdrawal symptoms. In ED found to have bilirubin of 4.4, CT abdomen showed liver cirrhosis with ascites. COVID positive. Chest x- ray with interstitial disease. [facility] Medical History (Updated 05/19/23 @ 14:32 by Ba Chang MD) EtOH dependence Liver cirrhosis Diabetes mellitus Multiple sclerosis Family History Mother Diabetes Father HTN (hypertension) Surgical History History of hip surgery Household Members: None Alcohol intake: current Alcohol intake frequency: a few times a week Patient Tobacco Use Status: Current everyday Tobacco user Cigarettes Per Day: 1.9 Advance Directives: Yes Advance Directives on File: Yes Advance Directives Date on File: 03/11/23 Meds Allergies Allergy/AdvReac Type Severity Reaction Status Date / Time No Known Allergies Allergy Mild NONE Verified 03/06/23 17:19 Home Medications Medication Instructions Recorded Confirmed Last Taken Type albuterol sulfate 90 mcg/actuation 90 mcg inhalation NEEDED 04/09/22 03/06/23 Unknown History aerosol inhaler insulin aspart U-100 100 unit/mL 10 - 12 unit subcut TID 04/09/22 03/06/23 Unknown History (3 mL) subcutaneous pen (Novolog FlexPen U-100 Insulin aspart) insulin glargine 100 unit/mL (3 45 unit subcut DAILY 04/09/22 03/06/23 Unknown History mL) subcutaneous pen (Lantus Solostar U-100 Insulin) sildenafil 100 mg tablet (Viagra) 100 mg PO DAILY PRN Erectile 04/09/22 03/06/23 Unknown History Dysfunction ocrelizumab 30 mg/mL intravenous 600 mg IV [id number] 03/06/23 03/06/23 Unknown History solution Physical Exam 2 Vital Signs and Narrative: Vital Signs: Last Vital Signs Temp 98.8 F 05/19/23 12:54 Pulse 84 05/19/23 12:54 Resp 12 05/19/23 12:54 BP 161/65 H 05/19/23 12:54 Pulse Ox 97 05/19/23 12:54 O2 Del Method Room Air 05/19/23 12:54 BMI result Body Mass Index 29.2 General: AO X 3, no acute distress, jaundiced Resp: CTA bilateral, no accessory muscles used CVS: S1,S2,RRR, 2+ edema GI: soft, non tender, distended Neuro: motor grossly intact, alert Psych: appropriate affect, appropriate insight Results Labs 05/19/23 09:31 05/19/23 09:31 Labs: Laboratory Results - last 24 hr 05/19/23 05/19/23 09:31 13:02 MCV 103.4 H MCH 35.7 H MCHC 34.5 RDW 15.5 Plt Count 88 L MPV 11.1 Immature Gran % (Auto) 0.4 Neut % (Auto) 69.7 Lymph % (Auto) 9.5 L [place] % (Auto) 17.4 H Eos % (Auto) 2.5 Baso % (Auto) 0.5 Lymph # (Auto) 0.9 L [place] # (Auto) 1.7 H Eos # (Auto) 0.2 Baso # (Auto) 0.1 Abs Immat Gran (auto) 0.04 H Absolute Neuts (auto) 6.7 Absolute Nucleated RBC 0.000 Nucleated RBC % (auto) 0.0 Smear Tech's Comments VERIFIED PT 15.9 H INR 1.3 H APTT 30.4 Anion Gap 10 L Estim Creat Clear Calc 107.6 Estimated GFR > 60 Random Glucose 291 H Calcium 8.5 Magnesium 1.7 Total Bilirubin 4.4 H Direct Bilirubin 2.4 H AST 101 H ALT 59 H Alkaline Phosphatase 252 H B-Natriuretic Peptide 157 H Total Protein 5.7 L Albumin 2.8 L Hepatitis A IgM Ab Nonreactive Hep Bs Antigen Negative Hep Bs Antibody REACTIVE Hep B Core Total Ab Nonreactive Hepatitis C Ab (EIA) Nonreactive HIV 1&2 Ab/P24 Ag 4thGn Nonreactive Influenza Type A (PCR) NEGATIVE Influenza Type B (PCR) NEGATIVE RSV RNA Qual (PCR) NEGATIVE SARS-CoV-2 RNA (RT-PCR) POSITIVE A Imaging Radiologist's Impressions: Impressions Chest X-Ray 05/19/23 09:59 IMPRESSION: Coarse lung markings and question interstitial disease. Venous Duplex 05/19/23 10:54 IMPRESSION: No DVT demonstrated in the right or left lower extremity. Abdomen/Pelvis CT 05/19/23 11:29 IMPRESSION: 1. Cirrhosis of the liver with heterogeneous attenuation of the liver parenchyma which could be related with perfusional changes. However, evaluation of underlying HCC/malignancy is very limited in this examination and further evaluation with outpatient abdominal MRI with and without IV contrast is recommended in this patient with high risk factors in the context of cirrhosis. 2. Portal hypertension with splenomegaly and numerous portosystemic collaterals. 3. Moderate to large volume of ascites, increased compared to 03/06/2023. 4. Moderate anasarca, increased compared to 03/06/2023. 5. No evidence of bowel obstruction. Evaluation of bowel wall thickening and inflammatory changes is limited in the context of underdistention and ascites; however there is suggestion of mild wall thickening of the small bowel and ascending colon that could be seen with portal enteropathy/colopathy. 6. Hydropic gallbladder with cholelithiasis but no significant gallbladder wall thickening. Pericholecystic free fluid is indeterminate in the context of ascites. Further evaluation with right upper quadrant abdominal ultrasound as clinically warranted. Assessment and Plan (1) COVID: Status: Acute (2) Liver cirrhosis: Status: Acute (3) EtOH dependence: Status: Acute Plan 58M PMH etoh dependence, DM, MS, Presented with shortness of breath Shortness of breath Multifactorial Question interstitial lung disease on chest x-ray versus COVID - prednisone, DuoNebs Symptomatic ascites Rule out cardiac disease - check echo New diagnosis of alcoholic cirrhosis with ascites, thrombocytopenia GI eval Aldactone Diagnostic and therapeutic paracentesis Diabetes with hyperglycemia Basal bolus insulin Multiple sclerosis Outpatient follow-up with Neurology DVT prophylaxis-mechanical due to thrombocytopenia Full code Patient with significant shortness of breath, ascites, requires multiple diagnostic and therapeutic interventions, likely to require at least 2 midnights inpatient Quality Stroke Does the patient have a stroke diagnosis?: No VTE Prior VTE?: No VTE Risk Level:: Medical - moderate - high VTE Device Contraindication: N/A - Device Ordered VTE Drug Contraindication: Treatment Not Tolerated
--- NOTE | 2023-05-19 15:59 | PM.EVENT ---
Event Note Date of Service: 05/19/23 Event Note: GI Consult-Full note dictated--History from patient, his , and the EMR Imp: Cirrhosis due to chronic EtOH abuse with associated complications of ascites, thrombocytopenia, jaundice, and evidence of portal HTN on CT scan. He does not show any clinical signs nor have any symptoms of GI bleeding, SBP, nor hepatic encephalopthy at this time. Rec: Agree with paracentesis with diagnostic studies as ordered. Check AFP and MRI of liver. Liver w/u ordered to R/O less likely contributing causes of liver disease aside from just EtOH. I ordered a Na+ restriction and increased his Spironolactone to 50mg QD. May need to increase Spironolactone and/or add Furosemide depending upon his clinical course and tolerance from a renal standpoint. Caution with steroids and fluid retention. I advised the patient and his of the severity of his liver disease along with the importance of complete sobriety going forward. They were comfortable with this plan. Thanks. Time Spent With Patient Time: Total time managing care of this patient today ____ minutes.
[2023-05-19] MEDS: Lidocaine HCl 1 % 20 ML VIAL 5 ML SUBCUT (16:48)
--- NOTE | 2023-05-19 16:49 | PHA.MEDREC ---
Pharmacy Consult ? Medication Reconciliation Pharmacy has completed the medication reconciliation.PT WAS ABLE TO CONFIRM MEDICATIONS WELL INSULIN DOSES. HE HAS NO IDEA WHEN THE LAST DOSE OF MEDICATIONS WAS TAKEN AT HOME.
[2023-05-19] MEDS: 0.9 % Sodium Chloride Flush 3 ML SYRINGE IVFLUSH ×2 (17:03→22:11)
[2023-05-19] MEDS: Omeprazole 20 MG CAPSULE.DR PO (17:03)
[2023-05-19 17:18] LABS: MN% 74.3 %; PMN% 25.7 %; WBC Peritoneal Fluid 0.454 X10*3/uL
[2023-05-19 17:34] LABS: Glucose, Whole Blood 285 mg/dL (60-115)
[2023-05-19 17:39] LABS: RBC Peritoneal Fluid < 0.002 X10*6/uL
--- NOTE | 2023-05-19 18:00 | PC.NURSE ---
no transporters at this time per charge/board- in line for a tech to bring pt to floor
[2023-05-19] MEDS: Insulin Lispro 100 UNIT/ML 3 ML VIAL SUBCUT ×2 (18:07→22:09)
--- NOTE | 2023-05-19 18:11 | PC.NURSE ---
sitting up eating food well. no distress. cvoid precautions remains
[2023-05-19 18:27] LABS: BF Shift QC OK YES; Lymphocyte Peritoneal Fl 9 %; Monocytes Peritoneal Fl 38 %; Neutrophils Peritoneal Fluid 27 %; Other Peritioneal Fl 26 %
[2023-05-19 21:21] LABS: Glucose, Whole Blood 259 mg/dL (60-115)
[2023-05-19] MEDS: Insulin Glargine,Hum.rec.anlog 100 UNIT/ML 10 ML VIAL 20 UNIT SUBCUT (22:10)
[2023-05-20] VITALS: BP 155/65; PULSE 94; RESP 20; TEMP 37.2; O2SAT 97
--- NOTE | 2023-05-20 02:10 | CONS_ITS ---
DATE OF SERVICE: 05/19/2023 REASON FOR CONSULTATION: Alcohol-related cirrhosis and ascites. HISTORY OF PRESENT ILLNESS: This has been obtained from the patient, his , the medical record. The patient is a 58-year-old male with a long-standing history of alcohol abuse consisting of at least 5 or 6 nips of alcohol daily. He denies ever having been told of previous liver disease. The patient came to the ER today primarily for shortness of breath but was found to have ascites and peripheral edema. Imaging studies were consistent with cirrhosis. The patient denies any known history of liver disease in family members. He denies any history of hepatitis nor jaundice in himself. He has had increasing abdominal girth for at least a month and increasing lower extremity edema for least 1 or 2 weeks prior to that. He denies any specific abdominal pain nor fever. He has been eating fairly well and denies any chronic heartburn or dysphagia. His bowel movements have been loose, but there has been no melena nor hematochezia. He denies the use of any significant amounts of acetaminophen nor NSAIDs. He denies any drug use presently nor in the past. He does describe having been treated with some antibiotics and prednisone as an outpatient for respiratory infection. He was told of a positive COVID infection about 7 or 10 days ago, but continues to test positive today in the ER. MEDICATION: List at home included albuterol inhaler, fluticasone nasal spray, insulin, ocrelizumab infusion every 6 months for multiple sclerosis. His current medications in the hospital include spironolactone 25 mg daily, albuterol inhaler p.r.n., insulin, and prednisone 40 mg daily. PAST MEDICAL HISTORY: Multiple sclerosis. Insulin-dependent diabetes mellitus. Alcohol abuse. He denies any history of [place], stroke, lung disease, nor kidney disease. He has had a fractured right hip repaired surgically. SOCIAL HISTORY: He is . Alcohol as above. Denies any drug use. He does smoke. FAMILY HISTORY: Noncontributory. REVIEW OF SYSTEMS: CONSTITUTIONAL: He has been feeling somewhat poorly due to his respiratory infection and edema. SKIN: No rash. No pruritus. CARDIAC: No chest pain. PULMONARY: He has had coughing, but no hemoptysis. GI: As above. URINARY: No dysuria, no hematuria, although he is incontinent in relation to the multiple sclerosis. PHYSICAL EXAMINATION: GENERAL: The patient is a pleasant, alert, cooperative male in no distress. There is no asterixis and he seems to answer all questions appropriately. He is oriented to person, place, and time. Minimally icteric sclerae. NECK: Supple. CARDIAC: Normal S1, S2. ABDOMEN: Soft and somewhat distended with ascites. There is no focal tenderness, mass, no rebound. EXTREMITIES: Reveal pretibial edema. LABORATORY DATA: Normal electrolytes. BUN 16, creatinine 0.8, total bilirubin 4.4, direct bilirubin 2.4, AST 101, ALT 59, alkaline phosphatase 252, albumin 2.8. In 2019, he had a normal liver profile. His PT was 15.9 with INR 1.3, hemoglobin 11.6, white blood cell count 9.6, platelets 88,000. Hepatitis A IgM negative, hepatitis B antigen negative, positive hepatitis B surface antibody, negative hepatitis C antibody. HIV is negative. COVID was positive. CT scan of the abdomen and pelvis described changes consistent with cirrhosis, ascites, splenomegaly, and a patent portal vein. There was evidence of portal hypertension with some portosystemic collaterals. The scan describes prominent periesophageal varices as well. The liver shows nodularity consistent with cirrhosis and a heterogeneous appearance. Also noted were gallstones. Ultrasound of his legs was negative for DVT. IMPRESSION: The patient is a 58-year-old male with advanced liver disease in relation to chronic alcohol abuse. Complications include ascites, jaundice, thrombocytopenia, and evidence of portal hypertension on his imaging study. He has not had any apparent complicating features such as spontaneous bacterial peritonitis, GI bleeding, nor encephalopathy at the present time. At this point, he appears to be clinically stable. I would agree with a paracentesis with the diagnostic studies as already ordered. Given the CT scan findings, I would order an alpha fetoprotein level and MRI of the liver. I have ordered a workup to rule out less likely contributing causes of liver disease aside from just alcohol. I would put him on a sodium restriction and I increased the Aldactone to 50 mg daily. This may need to be increased further and/or have the addition of furosemide depending upon the clinical course and the stability of his renal function. He is on prednisone and this needs to be watched in regard to fluid retention on that basis. I did have a detailed discussion with the patient and his regarding the severity of his current liver disease and the importance of long-term sobriety from alcohol going forward in hopes of maintaining some stability of the liver disease and avoid any worsening. The patient and his were comfortable with the plan. Thanks for the consultation. MD JANNET Suarez/KALIN / [id number] MTDD
[2023-05-20 04:00] VITALS: BP 155/63; PULSE 98; RESP 20; TEMP 37.7; O2SAT 98
[2023-05-20] MEDS: guaiFENesin 100 MG/5 ML LIQUID PO (04:26)
[2023-05-20] MEDS: Albuterol/Iprat 2.5/0.5MG 3 ML AMPUL.NEB INHALE (04:26)
--- NOTE | 2023-05-20 04:35 | PC.NURSE ---
0400 pt c/o of sob and frequent coughing. Assessment, O2 sats at 96% on room air. Frequent coarse non productive cough. Exp wheezing noted. MD notified. Pt given duoneb treatment and cough medicine.
[2023-05-20] MEDS: Omeprazole 20 MG CAPSULE.DR PO (05:37)
[2023-05-20 07:13] LABS: Glucose, Whole Blood 157 mg/dL (60-115)
[2023-05-20 07:23] LABS: Hematocrit 30.8 % (42.0-52.0); Hemoglobin 10.8 g/dl (14.0-18.0); Mean Corpuscular HGB Conc 35.1 g/dl (31.0-36.0); Mean Corpuscular Hemoglobin 35.5 pg (27.0-33.0); Mean Corpuscular Volume 101.3 fL (80.0-98.0); Red Blood Count 3.04 X10*6/uL (4.60-5.80); Red Cell Distribution Width 15.2 % (11.0-16.0); White Blood Count 8.6 X10*3/uL (4.8-10.8)
[2023-05-20 07:28] VITALS: BP 141/68; PULSE 100; RESP 20; TEMP 37.8; O2SAT 95
[2023-05-20 07:31] LABS: Platelet Count 73 X10*3/uL (160-400)
[2023-05-20 07:48] LABS: Alanine Aminotransferase 53 U/L (0-40); Albumin Level 2.5 g/dL (3.5-5.0); Alkaline Phosphatase 230 U/L (39-117); Anion Gap 13 (12-20); Aspartate Amino Transferase 88 U/L (5-37); Bilirubin Direct 2.5 mg/dL (0.0-0.5); Bilirubin Total 4.6 mg/dL (0.0-1.0); Blood Urea Nitrogen 14 mg/dL (9-16); Carbon Dioxide 26 mmol/L (22-29); Chloride 102 mmol/L (96-108); Creatinine Clr Calc Pharmacy 127.6; Estimated Glomerular Filt Rate > 60; Glucose Fasting 161 mg/dL (60-99); Iron 141 mcg/dL (45-160); Magnesium 1.7 mg/dL (1.6-2.6); Percent Iron Saturation 83 % (15-50); Potassium 3.7 mmol/L (3.3-5.1); Sodium 137 mmol/L (135-145); Total Iron Binding Capacity 170 mcg/dL (228-428); Unsaturated Iron Binding 29 ug/dL
[2023-05-20 08:04] LABS: Ferritin 647 ng/mL (20-250)
[2023-05-20] MEDS: Insulin Lispro 100 UNIT/ML 3 ML VIAL SUBCUT ×2 (08:20→12:06)
[2023-05-20] MEDS: 0.9 % Sodium Chloride Flush 3 ML SYRINGE IVFLUSH (08:20)
[2023-05-20] MEDS: Spironolactone 25 MG TABLET 50 MG PO (08:21)
[2023-05-20] MEDS: predniSONE 20 MG TABLET 40 MG PO (08:22)
--- NOTE | 2023-05-20 09:57 | MHC.CM.PN ---
IMM 05/20/23 DELIVERED TO PTS /HCP [facility], COPY LEFT AT NURSES STATION FOR [facility] TO [facility] PER DISCUSSION, PER [facility] PT LIVES W/HER, NEEDS ASSISTANCE W/ALL CARE, HAS A WALKER, WC SHOWER CHAIR AND DIABETIC SUPPLIES AT HOME, PT HAS [employer] WHE [facility] IS WORKING AND IS NEVER ALONE. [facility] REPORTS GOAL FOR DC IS HOME W/RESUMP OF [employer] HRS. [facility] VERIFIES PCP IS YANG WILKINS, SANTOSH RODRÍGUEZ AND BOOSTED X1 AND HCP IS ON FILE FROM PREVIOUS ADMIT.
[2023-05-20 11:01] LABS: Glucose, Whole Blood 197 mg/dL (60-115)
--- NOTE | 2023-05-20 11:29 | MHC.CM.PN ---
PER MULTIDISCIPLINARY ROUNDS ANTIC PT MAY D/C LATER TODAY W/RESUMP OF [employer]FAMILY SUPPORT AND [facility] FOR TRANSPORT.
[2023-05-20] MEDS: gadobutroL 10 ML VIAL IVPUSH (11:55)
[2023-05-20 12:00] VITALS: BP 138/66; PULSE 91; RESP 20; TEMP 37.6; O2SAT 97
--- NOTE | 2023-05-20 12:24 | P.DS_ITS ---
DS: Providers Provider Date of Service: 05/20/23 Date of admission: 05/19/23 14:32 Primary care physician: [facility] Consults: 05/19/23 14:25 Consult to Gastroenterology Routine Consulting Provider: Nick Yanez Reason for consultation: new etoh cirrhosis DS: Diagnosis Discharge Diagnosis (1) COVID: Status: Acute (2) Liver cirrhosis: Status: Acute (3) EtOH dependence: Status: Acute DS: Summary Hospital Course Hospital Course: from initial hpi: 58M PMH etoh dependence, DM, MS, Presented with shortness of breath. Patient also complaining of a cough for about 6 weeks prior to presentation. He reports using prednisone and albuterol as outpatient without improvement. Also complaining of intermittent bilateral lower extremity edema, abdominal distention, jaundice. Reports drinking about 12 nips of vodka per day. But has been decreasing over the last few weeks. Last drink 2 days prior to presentation. Denies any withdrawal symptoms. In ED found to have bilirubin of 4.4, CT abdomen showed liver cirrhosis with ascites. COVID positive. Chest x- ray with interstitial disease. hospital course: Patient was admitted for multifactorial shortness of breath. Appears to have some interstitial lung disease with acute decompensation. Also with acute COVID pneumonia. Treated with prednisone and DuoNebs with significant improvement. Shortness of breath also related to new diagnosis of alcoholic cirrhosis with ascites, thrombocytopenia, portal hypertension. Underwent therapeutic and diagnostic paracentesis. 1.5 L removed. Negative for SBP. Seen by GI, MRI performed and alpha-fetoprotein pending. Results should be followed up outpatient. For diabetes with hyperglycemia was given basal bolus insulin. For history of multiple sclerosis will follow up outpatient with Neurology. Patient is feeling better faster than expected and will be discharged home. Time Attestation Discharge coordination time: Greater than 30 minutes Quality: Safe Use of Opioids Does Pt have an Active Cancer Diagnosis on the Problem List?: No Quality: Stroke Does the patient have a stroke diagnosis?: No Physical Exam Vital Signs: Vital Signs: Last Vital Signs Temp 100.1 F 05/20/23 07:28 Pulse 100 05/20/23 07:28 Resp 20 05/20/23 07:28 BP 141/68 H 05/20/23 07:28 Pulse Ox 95 05/20/23 07:28 O2 Del Method Room Air 05/20/23 07:28 BMI result Body Mass Index 28.3 General: AO X 3, no acute distress, jaundice Resp: CTA bilateral, no accessory muscles used CVS: S1,S2,RRR GI: soft, non tender, non distended Neuro: motor grossly intact, alert Psych: appropriate affect, appropriate insight DS: Data Data Completed and Pending Pending studies at discharge: Pending at discharge 05/19/23 16:26 Cytology [PTH] Routine Labs on day of discharge: Laboratory Results - last 24 hr 05/19/23 05/19/23 05/19/23 09:31 13:02 16:28 WBC RBC Hgb Hct MCV MCH MCHC RDW Plt Count MPV Absolute Nucleated RBC Nucleated RBC % (auto) Sodium Potassium Chloride Carbon Dioxide Anion Gap BUN Creatinine Estim Creat Clear Calc Estimated GFR POC Glucose Fasting Glucose Calcium Magnesium Iron TIBC % Saturation Unsat Iron Binding Ferritin Total Bilirubin Direct Bilirubin 2.4 H AST ALT Alkaline Phosphatase Troponin I High Sens 13.0 Total Protein Albumin Peritoneal WBC 0.454 Peritoneal RBC < 0.002 Periton Neutrophils 27 Periton Lymphocytes 9 Peritoneal Monocytes 38 Peritoneal Other Cells 26 Hepatitis A IgM Ab Nonreactive Hep Bs Antigen Negative Hep Bs Antibody REACTIVE Hep B Core Total Ab Nonreactive Hepatitis C Ab (EIA) Nonreactive HIV 1&2 Ab/P24 Ag 4thGn Nonreactive 05/19/23 05/19/23 05/20/23 17:28 21:17 06:51 WBC 8.6 RBC 3.04 L Hgb 10.8 L Hct 30.8 L MCV 101.3 H MCH 35.5 H MCHC 35.1 RDW 15.2 Plt Count 73 L MPV 11.0 Absolute Nucleated RBC 0.000 Nucleated RBC % (auto) 0.0 Sodium 137 Potassium 3.7 Chloride 102 Carbon Dioxide 26 Anion Gap 13 BUN 14 Creatinine 0.64 Estim Creat Clear Calc 127.6 Estimated GFR > 60 POC Glucose 285 H 259 H Fasting Glucose 161 H Calcium 8.0 L Magnesium 1.7 Iron 141 TIBC 170 L % Saturation 83 H Unsat Iron Binding 29 Ferritin 647 H Total Bilirubin 4.6 H Direct Bilirubin 2.5 H AST 88 H ALT 53 H Alkaline Phosphatase 230 H Troponin I High Sens Total Protein 5.0 L Albumin 2.5 L Peritoneal WBC Peritoneal RBC Periton Neutrophils Periton Lymphocytes Peritoneal Monocytes Peritoneal Other Cells Hepatitis A IgM Ab Hep Bs Antigen Hep Bs Antibody Hep B Core Total Ab Hepatitis C Ab (EIA) HIV 1&2 Ab/P24 Ag 4thGn 11/28/23 11/28/23 07:05 10:56 WBC RBC Hgb Hct MCV MCH MCHC RDW Plt Count MPV Absolute Nucleated RBC Nucleated RBC % (auto) Sodium Potassium Chloride Carbon Dioxide Anion Gap BUN Creatinine Estim Creat Clear Calc Estimated GFR POC Glucose 157 H 197 H Fasting Glucose Calcium Magnesium Iron TIBC % Saturation Unsat Iron Binding Ferritin Total Bilirubin Direct Bilirubin AST ALT Alkaline Phosphatase Troponin I High Sens Total Protein Albumin Peritoneal WBC Peritoneal RBC Periton Neutrophils Periton Lymphocytes Peritoneal Monocytes Peritoneal Other Cells Hepatitis A IgM Ab Hep Bs Antigen Hep Bs Antibody Hep B Core Total Ab Hepatitis C Ab (EIA) HIV 1&2 Ab/P24 Ag 4thGn Preliminary micro results at discharge 05/19/23 16:28 Anaerobic Culture - Preliminary Ascites Fluid No growth to date. Body Fluid Culture - Preliminary No growth to date. Discharge Plan Discharge Anticipated Discharge Date/Time: 05/20/23 12:21 Patient Disposition: Home, Self-Care Discharge Diagnosis: liver cirrhosis Referrals: [facility] [Primary Care Provider] - 1 Week Nick Yanez MD [Physician] - 1 Week Discharge Medications: New prednisone 20 mg Tablet 40 mg PO DAILY Qty: 10 0RF spironolactone 25 mg Tablet 50 mg PO DAILY Qty: 30 0RF Protocol: Hold for SBP< HOLD for SBP < : 90 omeprazole 20 mg Capsule,Delayed Release(Dr/Ec) 20 mg PO DAILY@0630 Qty: 30 0RF Continued fluticasone propionate 50 mcg/actuation spray,suspension 1 spray intranasal DAILY PRN (Reason: Congestion) insulin glargine [Lantus Solostar U-100 Insulin] 100 unit/mL (3 mL) insulin pen 46 unit subcut BEDTIME insulin aspart U-100 [Novolog FlexPen U-100 Insulin] 100 unit/mL (3 mL) insulin pen See Protocol subcut TIDWM Protocol: Insulin Correction Scale Less than or equal to 110 ---- Give (units): 0 111 to 150 Give (units): 0 151 to 200 Give (units): 2 201 to 250 Give (units): 4 251 to 300 Give (units): 6 301 to 350 Give (units): 8 Greater than 350 Give (units): 10 Call MD if Blood Glucose > : 350 albuterol sulfate 90 mcg/actuation HFA aerosol inhaler 90 mcg inhalation Q4H PRN (Reason: Shortness Of Breath Or Wheezing) Discharge Orders: Discharge Order (Routine); Ordered 05/20/23 Ordered By: Ba Chang Diet: Advance to usual diet Activity on Discharge: As tolerated Stand Alone Forms: Patient Portal Discharge page Care Plan Goals: manage cirrhosis Health Concerns: cirrhosis Plan of Treatment: no etoh, follow up with gastroenterology, follow up mri results, meds as prescribed Assessment: see above
[2023-05-20 20:11] LABS: Albumin Peritoneal Fluid 0.5 GM/DL; Total Protein Peritoneal Fluid 0.8 GM/DL
[2023-05-21 11:19] LABS: Alpha 1 Anti-trypsin 160 mg/dL (83-199)
[2023-05-21 12:49] LABS: Alpha Fetoprotein 5.1 ng/mL (<6.1)
[2023-05-23 07:22] LABS: Smooth Muscle Antibody <20 U (<20)
[2023-05-23 11:33] LABS: Anti Nuclear Antibody Screen NEGATIVE (NEGATIVE)
[2023-05-23 13:04] LABS: Mitochondrial Antibodies NEGATIVE (NEGATIVE)
== END 2023-05-20 13:49 | disposition home or self-care (01) | DRG 441 ==
LOC: HO.ED 10:31 → HO.EDOVER 14:33 → HO.IMC 17:35
PROVIDERS: Internal Medicine; Physician Assistant Medical; Admitting Provider Internal Medicine; Emergency Provider Emergency Medicine; PCP General Practice; Visit Provider Internal Medicine
DX: K76.6 Portal hypertension (principal); U07.1 COVID-19; G35 Multiple sclerosis; F10.20 Alcohol dependence, uncomplicated; K70.31 Alcoholic cirrhosis of liver with ascites; E11.65 Type 2 diabetes mellitus with hyperglycemia; D69.59 Other secondary thrombocytopenia; Z79.4 Long term (current) use of insulin
CPT/HCPCS: 0241U; 36415; 49083; 71046; 74177; 74183; 80048; 80053; 80076; 82042; 82103; 82105; 82248; 82728; 82947; 83540; 83735; 83880; 84157; 84484; 85025; 85027; 85610; 85730; 86015; 86038; 86381; 86704; 86706; 86709; 86803; 87070; 87073; 87205; 87340; 87389; 88112; 88305; 89051; 93005; 93970; 99285; A9585; Q9967

== ENCOUNTER 2023-05-19 14:32 | Outpatient (BNV) | payer OTHER, SELFPAY | END 2023-05-19 16:00 | PROVIDERS: Admitting Provider Internal Medicine; Emergency Provider Emergency Medicine; PCP General Practice; Visit Provider Student in an Organized Health Care Education/Training Program | DX: R18.8 Other ascites (principal) | CPT/HCPCS: 49083 ==

== ENCOUNTER → 2023-05-19 14:32 | Outpatient (BNV) | payer OTHER, SELFPAY | PROVIDERS: Admitting Provider Internal Medicine; Emergency Provider Emergency Medicine; Visit Provider Internal Medicine | DX: U07.1 COVID-19 (principal); K70.31 Alcoholic cirrhosis of liver with ascites; F10.20 Alcohol dependence, uncomplicated; R06.02 Shortness of breath | CPT/HCPCS: 99223; 99239 ==

== ENCOUNTER 2023-05-30 16:29 | Outpatient (REF) | payer OTHER, SELFPAY ==
[2023-05-30 16:45] LABS: MANUAL DIFF FLAG NO
[2023-05-30 17:43] LABS: Basophils Percent Auto 0.4 % (0-2); Eosinophils Absolute Auto 0.3 X10*3/uL (0.0-0.4); Eosinophils Percent Auto 3.3 % (0-4); Hematocrit 39.4 % (42.0-52.0); Hemoglobin 13.7 g/dl (14.0-18.0); Imm Gran Abs Auto 0.04 X10*3/uL (0.00-0.03); Imm Gran Pct Auto 0.4 % (0.0-0.4); Lymphocytes Absolute Auto 0.8 X10*3/uL (1.2-4.9); Lymphocytes Percent Auto 7.7 % (20-40); Mean Corpuscular HGB Conc 34.8 g/dl (31.0-36.0); Mean Corpuscular Hemoglobin 35.4 pg (27.0-33.0); Mean Corpuscular Volume 101.8 fL (80.0-98.0); Mean Platelet Volume 11.2 fL (9.4-12.4); Monocytes Absolute Auto 1.4 X10*3/uL (0.1-1.2); Neutrophils Absolute Auto 7.5 x10*3/uL (2.0-8.3); Neutrophils Percent Auto 74.2 % (45-73); Red Blood Count 3.87 X10*6/uL (4.60-5.80); White Blood Count 10.1 X10*3/uL (4.8-10.8)
[2023-05-30 17:44] LABS: Platelet Count 92 X10*3/uL (160-400)
[2023-05-30 19:28] LABS: INTERNATIONAL NORM RATIO 1.4 (0.9-1.1); Prothrombin Time 16.5 SEC (11.1-13.3)
[2023-05-30 19:46] LABS: Alanine Aminotransferase 64 U/L (0-40); Albumin Level 2.9 g/dL (3.5-5.0); Alkaline Phosphatase 264 U/L (39-117); Anion Gap 12 (12-20); Aspartate Amino Transferase 68 U/L (5-37); Bilirubin Direct 2.6 mg/dL (0.0-0.5); Bilirubin Total 4.6 mg/dL (0.0-1.0); Blood Urea Nitrogen 14 mg/dL (9-16); Carbon Dioxide 28 mmol/L (22-29); Chloride 100 mmol/L (96-108); Estimated Glomerular Filt Rate > 60; Sodium 135 mmol/L (135-145); Total Protein 6.1 g/dL (6.5-8.0)
[2023-06-10 09:29] LABS: FIB-ALT 56 U/L (9-46); FIB-Alpha-2-Macroglobulin 287 mg/dL (106-279); FIB-Apolipoprotein A1 145 mg/dL (94-176); FIB-GGT 602 U/L (3-85); FIB-Haptoglobin 34 mg/dL (43-212); FIB-Total Bilirubin 4.3 mg/dL (0.2-1.2); Liver Fibrosis Score 0.97; Liver Fibrosis Stage F4; Nec Inflam Act Grade A2; Nec Inflam Act Score 0.58
== END 2023-05-30 16:30 | disposition home or self-care (01) ==
LOC: HO.LAB 16:29
PROVIDERS: PCP General Practice; Visit Provider Internal Medicine
DX: K70.31 Alcoholic cirrhosis of liver with ascites (principal); R60.0 Localized edema
CPT/HCPCS: 36415; 80051; 80076; 81596; 82565; 84520; 85025; 85610

== ENCOUNTER 2023-06-09 00:15 | Inpatient (IN) | payer OTHER, SELFPAY ==
[2023-06-09] VITALS (15 sets, daily range): BP systolic 118–184; BP diastolic 50–78; PULSE 57–137; RESP 15–19; TEMP 36.8–38.1; O2SAT 83–98; BMI 24.7; BMI 24.2
--- NOTE | 2023-06-09 | ECG_ITS ---
Test Reason : SOB Blood Pressure : / mmHG Vent. Rate : 113 BPM Atrial Rate : 113 BPM P-R Int : 118 ms QRS Dur : 082 ms QT Int : 326 ms P-R-T Axes : 007 -12 011 degrees QTc Int : 447 ms Sinus tachycardia Minimal voltage criteria for LVH, may be normal variant ( R in aVL ) Cannot rule out Anterior infarct (cited on or before 09-JUN-2023) Abnormal ECG When compared with ECG of 19-MAY-2023 09:24, Vent. rate has increased BY 42 BPM Referred By: Generic ED Physician Electronically Signed By:TINA ZAFAR MD
--- NOTE | ~2023-06-09 | XR_ITS ---
EXAMINATION: XR CHEST CLINICAL INFORMATION: Shortness breath COMPARISON: 05/19/2023 TECHNIQUE: Frontal view of the chest was obtained. FINDINGS: Chronic diffuse interstitial prominence with increased streaky opacities throughout both lungs compared to the prior and bronchial wall thickening. No pleural effusion or pneumothorax. Normal heart size and pulmonary vascularity. No acute osseous abnormality. XR/XR chest 1V IMPRESSION: Chronic interstitial prominence with increased streaky opacities throughout both lungs and bronchial wall thickening. This could represent acute on bronchitis and/or atypical pneumonitis, superimposed on chronic interstitial lung disease.
--- NOTE | ~2023-06-09 | CT_ITS ---
EXAMINATION: CT CHEST WITHOUT CONTRAST CLINICAL INFORMATION: Pneumonia. COMPARISON: 05/28/2010 TECHNIQUE: Multidetector volumetric CT imaging of the chest was done. Axial MIP volume rendering provided. Sagittal and coronal reformatted images were obtained. This CT examination was performed using dose optimization techniques as appropriate, variously including the following: *Automated exposure control *Adjustment of mA and/or kV according to patient size (this includes techniques or standardized protocols for targeted exams where dose is matched to indication/reason for exam; i.e. extremities or head) *Use of iterative reconstruction technique DLP: 256 mGy-cm FINDINGS: LUNGS: Motion artifact technically degrades image quality and limits the detection of pulmonary nodules. There is multifocal peribronchial airspace disease/consolidation with air bronchograms. Central airways are patent. MEDIASTINUM: No bulky mediastinal or hilar lymphadenopathy. Great vessels are of normal caliber. Heart size is normal. No pericardial effusion. CORONARY ARTERY CALCIFICATION: Mild. PLEURA: There is no pleural effusion. No pleural mass or thickening. AXILLA: No lymphadenopathy. UPPER ABDOMEN: Hepatic cirrhosis. Ascites. OSSEOUS STRUCTURES: No destructive bone lesions. CT/CT chest wo IV con IMPRESSION: Multifocal pneumonia. Follow-up until resolution is advised.
--- NOTE | ~2023-06-09 | US_ITS ---
Ultrasound paracentesis History: Ascites. Risks and benefits and possible complications were discussed with the patient and consent form was signed. A safe pocket of ascitic fluid was identified using ultrasound guidance, and the overlying skin was marked. The abdomen prepped and draped in sterile fashion. 1% lidocaine was used as a local anesthetic. Using ultrasound guidance, a 5 fr catheter was placed into the ascitic pocket. 3.9 liters of yellow fluid was removed passively. The catheter was then removed. A few compliance representative images from before and after the examination were obtained. The procedure was performed by Jhonathan Ng PA-C and supervised by Dr. Michele. US/US paracentesis abd w/image Impression: Ultrasound-guided paracentesis as described above. No immediate complications
--- NOTE | ~2023-06-09 | US_ITS ---
EXAMINATION: US ABDOMEN LIMITED CLINICAL INFORMATION: Abdominal distention, question ascites. COMPARISON: MRI abdomen 05/20/2023. CT abdomen and pelvis 05/19/2023. TECHNIQUE: Real-time imaging of all 4 quadrants of the abdomen. FINDINGS: A moderate amount of ascites is seen. US/US abdomen limited IMPRESSION: A moderate amount of ascites is seen within the abdomen.
[2023-06-09] MEDS: Albuterol Sulfate 5 MG, Albuterol/Iprat 2.5/0.5MG 3 ML 3 ML INHALE (00:36)
--- NOTE | 2023-06-09 00:39 | ED_ITS ---
HPI - SOB/Dyspnea General Chief Complaint: Dyspnea Stated Complaint: sob Time Seen by Provider: 06/09/23 00:30 Source: patient Mode of arrival: EMS Limitations: no limitations History of Present Illness HPI Narrative: Patient comes to the emergency room complaining of shortness of breath. Patient states that he has been coughing for 3 months. Today, the patient states that he was in bed, he looked pale, his made him come to the hospital, called 911. EMS reports that patient's oxygen saturation was 87% on room air and placed on 2 L. Patient denies any chest pain or shortness of breath, states he has been coughing for 3 months. A month ago he was diagnosed with COVID. Patient states that in the last few days, he was tested for COVID and the flu, tested negative. Patient states that he is known to have cirrhosis and multiple sclerosis Related Data Home Medications Medication Instructions Recorded Confirmed albuterol sulfate 90 mcg/actuation 90 mcg inhalation Q4H PRN 04/09/22 05/19/23 aerosol inhaler Shortness Of Breath Or Wheezing insulin aspart U-100 100 unit/mL See Protocol subcut TIDWM 04/09/22 05/19/23 (3 mL) subcutaneous pen (Novolog FlexPen U-100 Insulin aspart) insulin glargine 100 unit/mL (3 46 unit subcut BEDTIME 04/09/22 05/19/23 mL) subcutaneous pen (Lantus Solostar U-100 Insulin) fluticasone propionate 50 1 spray intranasal DAILY PRN 05/19/23 05/19/23 mcg/actuation nasal Congestion spray,suspension Previous Rx's Medication Instructions Recorded omeprazole 20 mg capsule,delayed 20 mg PO DAILY@0630 #30 caps 05/20/23 release prednisone 20 mg tablet 40 mg (2 x 20 mg) PO DAILY #10 tabs 05/20/23 spironolactone 25 mg tablet 50 mg PO DAILY #30 tabs 05/20/23 Allergies Allergy/AdvReac Type Severity Reaction Status Date / Time No Known Allergies Allergy Mild NONE Verified 03/06/23 17:19 Review of Systems 2 Review of Systems: Constitutional : No Weight loss, No Fever, No Chills, No Night Sweats, No Fatigue, No Malaise ENT/Mouth : No Hearing loss, No Ear Pain, No Nasal Congestion, No Sinus Pain, No Hoarseness, No sore throat, No Rhinorrhea, No Swallowing Difficulty Eyes: No Eye Pain, No Swelling, No Redness, No Foreign Body, No Discharge, No Vision Changes Cardiovascular : No Chest Pain, No SOB, No Dyspnea on Exertion, No Orthopnea, No Edema, No Palpitations Respiratory : Complaining of chronic dry cough, No Wheezing, No Smoke Exposure, shortness of breath that self-resolved Gastrointestinal : Complaining of abdominal ascites, No Nausea, No Vomiting, No Diarrhea, No Constipation, No abdominal Pain, No Hematochezia, No Melena Genitourinary : no irregular bleeding, No Dysuria, No Urinary Frequency, No Hematuria, No Urinary Incontinence, No Urgency, No Flank Pain, No Urinary Flow Changes, No Hesitancy Musculoskeletal : No joint pain, No Myalgias, No Joint Swelling Skin : No Skin Lesions, No rash Neuro : No Weakness, No Numbness, No Paresthesias, No Loss of Consciousness, No Dizziness, No Headache Psych : No Anxiety/Panic, No Depression, No SI/HI/AH/VH, No Social Issues, Heme/Lymph: No Bruising, No Bleeding,No Lymphadenopathy Endocrine : No Polyuria, No Polydipsia, No Temperature Intolerance [facility] Past Medical History Medical History EtOH dependence Liver cirrhosis Diabetes mellitus Multiple sclerosis Surgical History History of hip surgery Family History Family History Mother Diabetes Father HTN (hypertension) Social History Social History Household Members: Spouse Housing: House Do you presently have visiting nurse or other home services: Yes Alcohol intake: current Alcohol intake frequency: 3 or more drinks per day Alcohol type: hard liquor Patient Tobacco Use Status: Never used Tobacco Cigarettes Per Day: 1.9 Advance Directives: Yes Advance Directives on File: Yes Advance Directives Date on File: 03/11/23 service: No Physical Exam 2 Vital Signs: Vital Signs: Last Vital Signs Temp 99.1 F 06/09/23 01:04 Pulse 112 H 06/09/23 02:01 Resp 18 06/09/23 00:38 BP 137/71 06/09/23 00:36 Pulse Ox 98 06/09/23 02:01 O2 Del Method Nasal Cannula 06/09/23 02:01 O2 Flow Rate 2 06/09/23 02:01 BMI result Body Mass Index 24.7 Const: Other: Appearance: Alert. Oriented X3. No acute distress. Eyes: Pupils equal, round and reactive to light. ENT: Pharynx normal. Neck: Normal inspection. Neck supple. No lymph nodes noted. No crepitus CVS: Normal heart rate and rhythm. Pulses normal. Normal S1 and S2 oxygen saturation 91% on room air Respiratory: No respiratory distress. Breath sounds normal. No Wheezing. No rales Abdomen: Soft and nontender. No rigidity. No distention. No significant abdominal distention from ascites Skin: Skin warm and dry. Normal skin color. Normal skin turgor. Extremities: No lower extremity edema. No Lacerations. No Rash Neuro: Oriented X 3. No motor deficit. No sensory deficit. Moving all extremities. No slurred speech. CN 2 through 12 grossly intact Psych: calm, cooperative, normal affect Course Course Course Narrative: -a nebulization treatment was started before I saw the patient, at this time, patient does not have any wheezing. Patient does not have history of COPD or asthma -patient is on room air, saturating 92%. -all of patient's labs and imaging pending Medications Administered Discontinued Medications Generic Name Dose Route Start Last Admin Trade Name Freq PRN Reason Stop Dose Admin Albuterol Sulfate 5 mg/ 0 mg 06/09/23 00:27 12 00:36 Albuterol/Ipratropium 3 ml INHALE 06/09/23 00:28 7.5 each ONCE ONE Administration Medical Decision Making Medical Decision Making [facility] Narrative: -my interpretation of labs: Patient's white blood cell count 17.2. Lactic acid and blood cultures pending. Chest x-ray are not obvious for pneumonia. However, patient was ambulated in the ED, patient's oxygen saturation dropped to 82%. Patient was walked back to his bed, put on 2 L nasal cannula. Patient recuperated well. Patient's troponin and BNP within normal limits, patient has no chest pain. Empirically, patient is being treated with IV antibiotics. -normal blood pressure, at this time, sepsis is not suspected. Patient empirically being treated with fluids and antibiotics -discussed the patient with Dr. Sánchez, pt being admitted Differential Diagnosis Differential Diagnoses: The differential diagnosis associated with the presentation includes (CHF,, COVID, pneumonia, ascites) Admission/Observation Consideration of admission/observation: Escalation of care including admission/observation considered Consult Healthcare Provider Management of the patient was discussed with: Hospitalist Lab Data MDM Lab Attestation statement: I reviewed the patient's lab results. 06/09/23 01:09 06/09/23 01:09 Labs: Lab Results 06/09/23 06/09/23 Range/Units 01:09 01:12 WBC 17.2 H (4.8-10.8) X10*3/uL RBC 3.55 L (4.60-5.80) X10*6/uL Hgb 12.5 L (14.0-18.0) g/dl Hct 35.4 L (42.0-52.0) % MCV 99.7 H (80.0-98.0) fL MCH 35.2 H (27.0-33.0) pg MCHC 35.3 (31.0-36.0) g/dl RDW 14.8 (11.0-16.0) % Plt Count 118 L D (160-400) X10*3/uL MPV 11.2 (9.4-12.4) fL Immature Gran % (Auto) 0.5 H (0.0-0.4) % Neut % (Auto) 72.6 (45-73) % Lymph % (Auto) 10.7 L (20-40) % [place] % (Auto) 15.3 H (2-11) % Eos % (Auto) 0.5 (0-4) % Baso % (Auto) 0.4 (0-2) % Lymph # (Auto) 1.8 (1.2-4.9) X10*3/uL [place] # (Auto) 2.6 H (0.1-1.2) X10*3/uL Eos # (Auto) 0.1 (0.0-0.4) X10*3/uL Baso # (Auto) 0.1 (0.0-0.2) X10*3/uL Abs Immat Gran (auto) 0.08 H (0.00-0.03) X10*3/uL Absolute Neuts (auto) 12.5 H (2.0-8.3) x10*3/uL Absolute Nucleated RBC 0.000 (0.0-0.012) X10*3/uL Nucleated RBC % (auto) 0.0 (0.0-0.2) /100WBC Smear Tech's Comments VERIFIED PT 17.3 H (11.1-13.3) SEC INR 1.4 H (0.9-1.1) APTT 28.5 (26.0-36.4) SEC VBG pH 7.51 H (7.32-7.43) VBG pCO2 30 mmHg VBG pO2 47 mmHg VBG HCO3 24 (22-26) mmol/L VBG O2 Saturation 79.0 % VBG Base Excess 2.6 mmol/L Sodium 130 L (135-145) mmol/L Potassium 4.9 (3.3-5.1) mmol/L Chloride 98 (96-108) mmol/L Carbon Dioxide 22 (22-29) mmol/L Anion Gap 15 (12-20) BUN 15 (9-16) mg/dL Creatinine 0.75 (0.5-1.4) mg/dL Estim Creat Clear Calc 113.5 Estimated GFR > 60 Random Glucose 356 H* (60-115) mg/dL Calcium 8.3 L (8.4-10.2) mg/dL Total Bilirubin 5.4 H (0.0-1.0) mg/dL Direct Bilirubin 3.3 H (0.0-0.5) mg/dL AST 63 H (5-37) U/L ALT 43 H (0-40) U/L Alkaline Phosphatase 271 H (39-117) U/L Troponin I High Sens 8.0 (<3.5-35.0) ng/L B-Natriuretic Peptide 72 (<100) pg/mL Total Protein 5.7 L (6.5-8.0) g/dL Albumin 2.7 L (3.5-5.0) g/dL Ethyl Alcohol < 10 mg/dL Influenza Type A (PCR) NEGATIVE (Negative) Influenza Type B (PCR) NEGATIVE (Negative) RSV RNA Qual (PCR) NEGATIVE (Negative) SARS-CoV-2 RNA (RT-PCR) NEGATIVE (Negative) Independent Interpretation I performed an independent interpretation of an: Plain X-Ray (My interpretation of chest x-ray: Reticular pattern, possible interstitial lung disease) Radiology Impression Discussion of test interpretation with radiology: I have reviewed the radiologist's reading. Radiologist Impression: FINDINGS: Chronic diffuse interstitial prominence with increased streaky opacities throughout both lungs compared to the prior and bronchial wall thickening. No pleural effusion or pneumothorax. Normal heart size and pulmonary vascularity. No acute osseous abnormality. XR/XR chest 1V IMPRESSION: Chronic interstitial prominence with increased streaky opacities throughout both lungs and bronchial wall thickening. This could represent acute on bronchitis and/or atypical pneumonitis, superimposed on chronic interstitial lung disease. Critical Care Time Critical Care Time Critical Care Time: Yes Total Critical Care Time: 60 Attestation: I have personally provided critical care time. Time includes review of lab data, radiology results, discussion with consultants, and monitoring for potential decompensation. Intervention performed as documented. Discharge Plan Discharge Clinical Impression: Pneumonia Patient Disposition: Admitted As Inpatient
[2023-06-09 01:15] LABS: Basophils Absolute Auto 0.1 X10*3/uL (0.0-0.2); Basophils Percent Auto 0.4 % (0-2); Eosinophils Absolute Auto 0.1 X10*3/uL (0.0-0.4); Eosinophils Percent Auto 0.5 % (0-4); Hematocrit 35.4 % (42.0-52.0); Hemoglobin 12.5 g/dl (14.0-18.0); Imm Gran Abs Auto 0.08 X10*3/uL (0.00-0.03); Imm Gran Pct Auto 0.5 % (0.0-0.4); Lymphocytes Absolute Auto 1.8 X10*3/uL (1.2-4.9); Lymphocytes Percent Auto 10.7 % (20-40); MANUAL DIFF FLAG SCAN; Mean Corpuscular HGB Conc 35.3 g/dl (31.0-36.0); Mean Corpuscular Hemoglobin 35.2 pg (27.0-33.0); Mean Corpuscular Volume 99.7 fL (80.0-98.0); Mean Platelet Volume 11.2 fL (9.4-12.4); Monocytes Absolute Auto 2.6 X10*3/uL (0.1-1.2); Monocytes Percent Auto 15.3 % (2-11); Neutrophils Absolute Auto 12.5 x10*3/uL (2.0-8.3); Neutrophils Percent Auto 72.6 % (45-73); Platelet Count 118 X10*3/uL (160-400); Red Blood Count 3.55 X10*6/uL (4.60-5.80); Red Cell Distribution Width 14.8 % (11.0-16.0); SCAN SMEAR FLAG 1; White Blood Count 17.2 X10*3/uL (4.8-10.8)
[2023-06-09 01:17] LABS: Venous Blood Gas Refer to POC result
[2023-06-09 01:19] LABS: VBG Base Excess 2.6 mmol/L; VBG HCO3 24 mmol/L (22-26); VBG pCO2 30 mmHg; VBG pH 7.51 (7.32-7.43); VBG pO2 47 mmHg
[2023-06-09 01:20] LABS: INTERNATIONAL NORM RATIO 1.4 (0.9-1.1); Prothrombin Time 17.3 SEC (11.1-13.3)
[2023-06-09 01:23] LABS: Partial Thromboplastin Time 28.5 SEC (26.0-36.4)
[2023-06-09 01:28] LABS: Ethanol < 10 mg/dL
[2023-06-09 01:32] LABS: SLIDE REVIEW VERIFIED
[2023-06-09 01:35] LABS: Alanine Aminotransferase 43 U/L (0-40); Albumin Level 2.7 g/dL (3.5-5.0); Alkaline Phosphatase 271 U/L (39-117); Anion Gap 15 (12-20); Aspartate Amino Transferase 63 U/L (5-37); B Type Natriuretic Peptide 72 pg/mL (<100); Bilirubin Direct 3.3 mg/dL (0.0-0.5); Bilirubin Total 5.4 mg/dL (0.0-1.0); Blood Urea Nitrogen 15 mg/dL (9-16); Calcium 8.3 mg/dL (8.4-10.2); Carbon Dioxide 22 mmol/L (22-29); Chloride 98 mmol/L (96-108); Creatinine Clr Calc Pharmacy 113.5; Estimated Glomerular Filt Rate > 60; Potassium 4.9 mmol/L (3.3-5.1); Sodium 130 mmol/L (135-145); Total Protein 5.7 g/dL (6.5-8.0)
[2023-06-09 01:36] LABS: Glucose Random 356 mg/dL (60-115)
[2023-06-09 01:51] LABS: Influenza A PCR NEGATIVE (Negative); Influenza B PCR NEGATIVE (Negative); Resp Syncy Virus RNA Qual PCR NEGATIVE (Negative); SARS COV2 PCR INHOUSE NEGATIVE (Negative)
--- NOTE | 2023-06-09 01:54 | PC.NURSE ---
ambulated pt in [place] with pulse ox, he desat to 87 on RA nad HR went to 137. Walked back to bed and pt placed on 2 Land inreased to 97 and HR resting 112. Provider will be notified
--- NOTE | 2023-06-09 02:05 | PC.NURSE ---
With ambulation patient desated to 87 and then when placed back in bed after sat decreased to 83. Placed on 2L and slowly came up to 97 and hear went from 137-112. Provider aware
[2023-06-09] MEDS: 0.9 % Sodium Chloride 1,000 ML 999 ML IVCONT (02:25)
[2023-06-09 02:43] LABS: Lactic Acid 3.6 mmol/L (0.5-2.0)
[2023-06-09] MEDS: Azithromycin 500 MG in 0.9 % Sodium Chloride 250 ML 125 MG IV (03:05)
[2023-06-09 04:27] LABS: Reflex Lactate? Lactic Acid Added
[2023-06-09 04:51] LABS: Appearance Urine Cloudy; Color Urine Dark Yellow; Glucose Urine UA >=1000 mg/dL (Negative); Leukocyte Esterase Urine Small (1+) (Negative); Nitrite Urine Negative (Negative); PH 5.5 (5.0-9.0); Specific Gravity - Urine >= 1.030 (1.005-1.025); UMIC TRIGGER UACC YES; Urine Blood Moderate (2+) (Negative); Urine Ketones Trace mg/dL (Negative); Urine Protein Trace mg/dL (Neg-Trace)
[2023-06-09 05:07] LABS: Bacteria Urine 4+ (None Seen); RBC Urine 0-2 /HPF (0-2); UACC Culture Trigger YES; WBC Urine >50 /HPF (0-5)
[2023-06-09 06:26] LABS: ~Lactic Acid-LAB USE ONLY 2.4 mmol/L (0.5-2.0)
--- NOTE | 2023-06-09 06:42 | PC.NURSE ---
Presents SOB / cough 3 months. 87 RA placed on 2 liters. Ambulation test 02 decreased to 83 on RA and then when placed on 2L increased to 97. Pt has covid one month ago. PMH MS and cirrhosis uses cane to ambulate. WBC 17 Lactic 3.6/2.4 covid /flu/rsv negative Antibiotics / fluids given 20 L AC
[2023-06-09 06:49] LABS: Reflex Lactate? 2 Y
--- NOTE | 2023-06-09 07:30 | P.HPHOSP_ITS ---
History of Present Illness Date of Service: 06/09/23 Chief Complaint: hypoxia 58 year old man presented to the ED with shortness of breath. He reported that he has had a cough for the last 3 months and and was diagnosed with covid 05/19/23. He has a hx of liver cirrhosis. His oxygen sat was noted to be 87% on room air and was placed on 2 liters nc. He denied chest pain, nausea, vomiting, diarrhea, fever. He was noted to have leukocytosis in the ED, no fever, chest CT showing multifocal pneumonia. He was given albuterol, Rocephin, Azithromycin in the ED. He will be admitted for further management and treatment of acute hypoxic respiratory failure Review of Systems 2 Review of Systems: Denies any recent fever chills or decrease in appetite respiratory denies any shortness of breath, reports cough for 3 months cardiovascular denied chest pain gastrointestinal denies any dysphagia abdominal pain nausea vomiting or diarrhea genitourinary denies any dysuria frequency or hematuria musculoskeletal denies any joint pain or swelling neuropsych denies any weakness or seizures all other systems reviewed are negative [facility] Medical History EtOH dependence Liver cirrhosis Diabetes mellitus Multiple sclerosis Family History Mother Diabetes Father HTN (hypertension) Surgical History History of hip surgery Social History Household Members: None Housing: Apartment Do you presently have visiting nurse or other home services: Yes Alcohol intake: current Alcohol intake frequency: 3 or more drinks per day Alcohol type: hard liquor Patient Tobacco Use Status: Former Tobacco user Cigarettes Per Day: 1.9 Smoked in Last 30 Days: No Patient Interested in Nicotine Replacement: No Patient Given Instructions on How to Stop Smoking: No Second Hand Smoke Exposure: No Use of substances other than those prescribed or required for medical reasons: No Currently Displaying Signs/Symptoms of Drug Intoxication Withdrawal: No Any prior treatment program specific to substance use: No Have you been hit, kicked, punched, or otherwise hurt by someone within the past year? If so, by whom?: No Do you feel safe in your current relationship?: Yes Is there a partner from a previous relationship who is making you feel unsafe now?: No Are you made to feel afraid or neglected: No Advance Directives: Yes Advance Directives on File: Yes Advance Directives Date on File: 03/11/23 Do you have thoughts of harming others: None Do you have a plan to hurt others: No Plan Recently lost weight without trying: No Nutrition Risks: No Nutritional Risk Poor oral hygiene: No service: No Meds Allergies Allergy/AdvReac Type Severity Reaction Status Date / Time No Known Allergies Allergy Mild NONE Verified 03/06/23 17:19 Home Medications Medication Instructions Recorded Confirmed Last Taken Type albuterol sulfate 90 mcg/actuation 90 mcg inhalation Q4H PRN 04/09/22 06/09/23 Unknown History aerosol inhaler Shortness Of Breath Or Wheezing insulin aspart U-100 100 unit/mL See Protocol subcut TIDWM 04/09/22 06/09/23 Unknown History (3 mL) subcutaneous pen (Novolog FlexPen U-100 Insulin aspart) insulin glargine 100 unit/mL (3 46 unit subcut BEDTIME 04/09/22 06/09/23 Unknown History mL) subcutaneous pen (Lantus Solostar U-100 Insulin) fluticasone propionate 50 1 spray intranasal DAILY PRN 05/19/23 06/09/23 Unknown History mcg/actuation nasal Congestion spray,suspension loperamide 2 mg capsule 2 - 4 mg PO Q4-6H PRN diarrhea 06/09/23 06/09/23 Unknown History Physical Exam 2 Vital Signs and Narrative: Vital Signs: Last Vital Signs Temp 98.9 F 06/09/23 05:12 Pulse 95 06/09/23 05:12 Resp 15 06/09/23 05:12 BP 118/53 L 06/09/23 05:12 Pulse Ox 97 06/09/23 05:12 O2 Del Method Nasal Cannula 06/09/23 05:12 O2 Flow Rate 2 06/09/23 03:07 BMI result Body Mass Index 24.7 Appearing in no acute distress head is normocephalic atraumatic eyes pupils are PERRLA sclera is anicteric mouth throat mucous membranes are intact and moist neck is supple no lymphadenopathy, no JVD noted lung sounds are clear to auscultation heart regular rate rhythm, clear S1, S2 positive bowel sounds, abdomen is soft, nontender neuro patient is alert x3, no focal deficits Results Labs 06/09/23 01:09 06/09/23 01:09 Labs: Laboratory Results - last 24 hr 06/09/23 06/09/23 06/09/23 01:09 01:12 02:23 MCV 99.7 H MCH 35.2 H MCHC 35.3 RDW 14.8 Plt Count 118 L D MPV 11.2 Immature Gran % (Auto) 0.5 H Neut % (Auto) 72.6 Lymph % (Auto) 10.7 L [place] % (Auto) 15.3 H Eos % (Auto) 0.5 Baso % (Auto) 0.4 Lymph # (Auto) 1.8 [place] # (Auto) 2.6 H Eos # (Auto) 0.1 Baso # (Auto) 0.1 Abs Immat Gran (auto) 0.08 H Absolute Neuts (auto) 12.5 H Absolute Nucleated RBC 0.000 Nucleated RBC % (auto) 0.0 Smear Tech's Comments VERIFIED PT 17.3 H INR 1.4 H APTT 28.5 VBG pH 7.51 H VBG pCO2 30 VBG pO2 47 VBG HCO3 24 VBG O2 Saturation 79.0 VBG Base Excess 2.6 Anion Gap 15 Estim Creat Clear Calc 113.5 Estimated GFR > 60 Random Glucose 356 H* Lactic Acid 3.6 H* Lactic Acid F/U @ 2Hr Calcium 8.3 L Total Bilirubin 5.4 H Direct Bilirubin 3.3 H AST 63 H ALT 43 H Alkaline Phosphatase 271 H B-Natriuretic Peptide 72 Total Protein 5.7 L Albumin 2.7 L Urine Color Urine Appearance Urine pH Ur Specific [place] Urine Protein Urine Glucose (UA) Urine Ketones Urine Blood Urine Nitrite Ur Leukocyte Esterase Urine RBC Urine WBC Ur Squamous Epith Cells Urine Bacteria Hyaline Casts Ethyl Alcohol < 10 Influenza Type A (PCR) NEGATIVE Influenza Type B (PCR) NEGATIVE RSV RNA Qual (PCR) NEGATIVE SARS-CoV-2 RNA (RT-PCR) NEGATIVE 06/09/23 04:42 MCV MCH MCHC RDW Plt Count MPV Immature Gran % (Auto) Neut % (Auto) Lymph % (Auto) [place] % (Auto) Eos % (Auto) Baso % (Auto) Lymph # (Auto) [place] # (Auto) Eos # (Auto) Baso # (Auto) Abs Immat Gran (auto) Absolute Neuts (auto) Absolute Nucleated RBC Nucleated RBC % (auto) Smear Tech's Comments PT INR APTT VBG pH VBG pCO2 VBG pO2 VBG HCO3 VBG O2 Saturation VBG Base Excess Anion Gap Estim Creat Clear Calc Estimated GFR Random Glucose Lactic Acid Lactic Acid F/U @ 2Hr 2.4 H* Calcium Total Bilirubin Direct Bilirubin AST ALT Alkaline Phosphatase B-Natriuretic Peptide Total Protein Albumin Urine Color Dark Yellow Urine Appearance Cloudy Urine pH 5.5 Ur Specific [place] >= 1.030 H Urine Protein Trace Urine Glucose (UA) >=1000 H Urine Ketones Trace Urine Blood Moderate (2+) H Urine Nitrite Negative Ur Leukocyte Esterase Small (1+) H Urine RBC 0-2 Urine WBC >50 H Ur Squamous Epith Cells 6-10 Urine Bacteria 4+ Hyaline Casts 3-5 Ethyl Alcohol Influenza Type A (PCR) Influenza Type B (PCR) RSV RNA Qual (PCR) SARS-CoV-2 RNA (RT-PCR) Imaging Radiologist's Impressions: Impressions Chest X-Ray 06/09/23 00:35 IMPRESSION: Chronic interstitial prominence with increased streaky opacities throughout both lungs and bronchial wall thickening. This could represent acute on bronchitis and/or atypical pneumonitis, superimposed on chronic interstitial lung disease. Assessment and Plan (1) Pneumonia: Status: Acute Plan 58 year old man admitted with acute hypoxic respiratory failure Acute hypoxic respiratory failure secondary to multifocal pneumonia Noted on chest CT follow oxygen status neg covid, flu or RSV Vancomycin and Zosyn Titrate oxygen to oxygen saturation greater than 92% leukocytosis Secondary to pneumonia lactic acidosis Likely secondary to respiratory treatments and pneumonia UTI On Zosyn follow urine cx DM2 ss, ada diet Liver cirrhosis spironolactone follow LFT's Soft abdomen GERD PPI DVT prophylaxis with SCD boots Full code Patient required 2 inpatient midnights for treatment of acute hypoxic respiratory failure secondary to multifocal pneumonia requiring IV antibiotics and close monitoring to avoid decompensation Quality Stroke Does the patient have a stroke diagnosis?: No VTE Prior VTE?: No VTE Risk Level:: Medical - moderate - high VTE Device Contraindication: N/A - Device Ordered VTE Drug Contraindication: Treatment Not Indicated
[2023-06-09 07:44] LABS: Glucose, Whole Blood 296 mg/dL (60-115)
[2023-06-09] MEDS: Insulin Lispro 100 UNIT/ML 3 ML VIAL SUBCUT ×4 (08:14→21:56)
[2023-06-09] MEDS: 0.9 % Sodium Chloride Flush 3 ML SYRINGE IVFLUSH ×2 (08:15→16:23)
[2023-06-09 10:35] LABS: ~Lactic Acid-LAB USE ONLY 3.2 mmol/L (0.5-2.0)
[2023-06-09 11:55] LABS: Glucose, Whole Blood 318 mg/dL (60-115)
--- NOTE | 2023-06-09 13:53 | PHA.MEDREC ---
Pharmacy Consult ? Medication Reconciliation Pharmacy has completed the medication reconciliation. spoke with patient to confirm medications
[2023-06-09 16:40] LABS: Glucose, Whole Blood 291 mg/dL (60-115)
[2023-06-09] MEDS: vancomycin/NS 2,000 MG/500 ML PLAST..BAG 250 MG IV (17:55)
[2023-06-09 20:26] LABS: Glucose, Whole Blood 252 mg/dL (60-115)
[2023-06-09] MEDS: Insulin Glargine,Hum.rec.anlog 100 UNIT/ML 10 ML VIAL 46 UNIT SUBCUT (21:55)
[2023-06-09] MEDS: Piperacillin Sodium/Tazobactam 4.5 GM in 0.9 % Sodium Chloride 100 ML IV (21:56)
[2023-06-10] MEDS: 0.9 % Sodium Chloride Flush 3 ML SYRINGE IVFLUSH ×2 (00:41→07:43)
[2023-06-10] MEDS: Piperacillin Sodium/Tazobactam 4.5 GM in 0.9 % Sodium Chloride 100 ML IV ×4 (02:43→21:55)
[2023-06-10 03:16] VITALS: BP 135/57; PULSE 100; RESP 18; TEMP 37.5; O2SAT 94
[2023-06-10] MEDS: Omeprazole 20 MG CAPSULE.DR PO (05:44)
[2023-06-10 06:19] LABS: Alanine Aminotransferase 31 U/L (0-40); Albumin Level 2.2 g/dL (3.5-5.0); Alkaline Phosphatase 238 U/L (39-117); Anion Gap 11 (12-20); Aspartate Amino Transferase 53 U/L (5-37); Basophils Absolute Auto 0.1 X10*3/uL (0.0-0.2); Basophils Percent Auto 0.4 % (0-2); Bilirubin Total 4.8 mg/dL (0.0-1.0); Blood Urea Nitrogen 15 mg/dL (9-16); Carbon Dioxide 24 mmol/L (22-29); Chloride 104 mmol/L (96-108); Creatinine Clr Calc Pharmacy 123.4; Eosinophils Absolute Auto 0.2 X10*3/uL (0.0-0.4); Eosinophils Percent Auto 1.2 % (0-4); Estimated Glomerular Filt Rate > 60; Glucose Random 222 mg/dL (60-115); Hematocrit 31.4 % (42.0-52.0); Imm Gran Abs Auto 0.08 X10*3/uL (0.00-0.03); Imm Gran Pct Auto 0.5 % (0.0-0.4); Lymphocytes Absolute Auto 0.9 X10*3/uL (1.2-4.9); Lymphocytes Percent Auto 5.6 % (20-40); MANUAL DIFF FLAG SCAN; Mean Corpuscular Hemoglobin 35.1 pg (27.0-33.0); Mean Corpuscular Volume 100.3 fL (80.0-98.0); Mean Platelet Volume 10.7 fL (9.4-12.4); Monocytes Absolute Auto 2.4 X10*3/uL (0.1-1.2); Monocytes Percent Auto 15.2 % (2-11); Neutrophils Absolute Auto 12.1 x10*3/uL (2.0-8.3); Neutrophils Percent Auto 77.1 % (45-73); Platelet Count 105 X10*3/uL (160-400); Potassium 4.5 mmol/L (3.3-5.1); Red Blood Count 3.13 X10*6/uL (4.60-5.80); Red Cell Distribution Width 15.1 % (11.0-16.0); SCAN SMEAR FLAG 1; Sodium 134 mmol/L (135-145); Total Protein 4.7 g/dL (6.5-8.0); White Blood Count 15.6 X10*3/uL (4.8-10.8)
[2023-06-10 06:52] LABS: SLIDE REVIEW VERIFIED
[2023-06-10 07:26] VITALS: BP 140/64; PULSE 94; RESP 20; TEMP 37.3; O2SAT 94
[2023-06-10 07:34] LABS: Glucose, Whole Blood 200 mg/dL (60-115)
[2023-06-10] MEDS: Insulin Lispro 100 UNIT/ML 3 ML VIAL SUBCUT ×4 (07:39→21:55)
[2023-06-10] MEDS: vancomycin HCL 1,250 MG in 0.9 % Sodium Chloride 250 ML 166.67 MG IV ×2 (07:40→20:15)
--- NOTE | 2023-06-10 09:10 | PM.CNPUL ---
History of Present Illness History of Present Illness Consult date: 06/10/23 Requesting physician: Suzette Ingram Reason for consult: dyspnea and pneumonia Chief complaint: Hypoxia Narrative: PULMONARY CONSULTATION I have seen this 58 years old gentleman this morning. Admitted since yesterday with increased shortness of breath, intermittent cough , and evidence of the hypoxemia in the emergency room. This gentleman was admitted 3 weeks ago with increased shortness of breath low-grade fever, and also had increased amount of ascites requiring paracentesis. He tested positive for COVID -19 infection at that time. Chest x-ray had shown increased interstitial marking but no definite consolidation. After paracentesis is the and draining of 1.5 L/minute he did the shortness of breath had improved. At the time of discharge he did not have any fever or chills, he did have mild cough which was mostly nonproductive.. He was treated with IV Solu-Medrol , and azithromycin . Since his discharge home he was doing fairly well except for persistent intermittent cough. And gradually increasing shortness of breath. He has had only minimal a come relation of fluid in the abdomen as per ultrasound of the abdomen. Past history includes , alcohol abuse, cirrhosis of the liver with the portal hypertension and recurrent ascites, diabetes mellitus, , multiple sclerosis and history of smoking up until a few months ago. However he was not being treated with any long-acting inhaled bronchodilators or steroids., has been using Flonase intranasal for mild chronic allergic rhinitis. Review of Systems Review of Systems: As noted above in the history and physical. [facility] Past Medical History Medical History (Updated 06/10/23 @ 09:22 by Arjun Avila MD) Respiratory insufficiency Multifocal pneumonia EtOH dependence Liver cirrhosis Diabetes mellitus Multiple sclerosis Family History Family History Mother Diabetes Father HTN (hypertension) Surgical History Surgical History History of hip surgery Social History Social History Household Members: None Housing: Apartment Do you presently have visiting nurse or other home services: Yes Alcohol intake: current Alcohol intake frequency: 3 or more drinks per day Alcohol type: hard liquor Patient Tobacco Use Status: Former Tobacco user Cigarettes Per Day: 1.9 Second Hand Smoke Exposure: No Advance Directives Date on File: 03/11/23 service: No Meds Allergies Allergy/AdvReac Type Severity Reaction Status Date / Time No Known Allergies Allergy Mild NONE Verified 03/06/23 17:19 Active Medications: Current Medications Acetaminophen (Acetaminophen 325 Mg Tablet) 650 mg PO Q6H PRN PRN Reason: Pain, Mild (Pain Scale 1-3) Dextrose (Dextrose 50 % 25 Gm/50 Ml Syringe) 25 gm IVPUSH Q15M PRN; Protocol PRN Reason: per Hypoglycemia Standing Ord. Glucose (Glucose Gel 15 Gm Gel..Gram.) 15 gm PO Q15M PRN; Protocol PRN Reason: per Hypoglycemia Standing Ord. Vancomycin HCl 1,250 mg/ (Sodium Chloride) 250 mls @ 166.667 mls/hr IV Q12H [facility] Last Admin: 06/10/23 07:40 Dose: 166.67 mls/hr Piperacillin Sod/Tazobactam (Sod 4.5 gm/ Sodium Chloride) 100 mls @ 200 mls/hr IV Q6H [facility] Last Infusion: 06/10/23 03:13 Dose: Infused Insulin Glargine (Insulin Glargine,Hum.Rec.Anlog 100 Unit/Ml 10 Ml Vial) 46 unit SUBCUT BEDTIME [facility] Last Admin: 06/09/23 21:55 Dose: 46 unit Insulin Human Lispro (Insulin Lispro 100 Unit/Ml 3 Ml Vial) 0 unit SUBCUT QIDACHS [facility]; Protocol Last Admin: 06/10/23 07:39 Dose: 2 unit Omeprazole (Omeprazole 20 Mg Capsule.Dr) 20 mg PO DAILY@0630 [facility] Last Admin: 06/10/23 05:44 Dose: 20 mg Ondansetron HCl (Ondansetron Hcl 4 Mg/2 Ml Vial) 4 mg IVPUSH Q8H PRN PRN Reason: Nausea and Vomiting Pharmacy Consult (Consult Rx Vancomycin Dosing) 1 each MISCELLANE DAILY PRN PRN Reason: Consult order Sodium Chloride (0.9 % Sodium Chloride Flush 3 Ml Syringe) 3 ml IVFLUSH QSHIFT [facility] Last Admin: 06/10/23 07:43 Dose: 3 ml Home Medications Medication Instructions Recorded Confirmed Last Taken Type albuterol sulfate 90 mcg/actuation 90 mcg inhalation Q4H PRN 04/09/22 06/09/23 Unknown History aerosol inhaler Shortness Of Breath Or Wheezing insulin aspart U-100 100 unit/mL See Protocol subcut TIDWM 04/09/22 06/09/23 Unknown History (3 mL) subcutaneous pen (Novolog FlexPen U-100 Insulin aspart) insulin glargine 100 unit/mL (3 46 unit subcut BEDTIME 04/09/22 06/09/23 Unknown History mL) subcutaneous pen (Lantus Solostar U-100 Insulin) fluticasone propionate 50 1 spray intranasal DAILY PRN 05/19/23 06/09/23 Unknown History mcg/actuation nasal Congestion spray,suspension loperamide 2 mg capsule 2 - 4 mg PO Q4-6H PRN diarrhea 06/09/23 06/09/23 Unknown History Physical Exam Vital Signs: Vital Signs: Last Vital Signs Temp 99.2 F 06/10/23 07:26 Pulse 94 06/10/23 07:26 Resp 20 06/10/23 07:26 BP 140/64 H 06/10/23 07:26 Pulse Ox 94 06/10/23 07:26 O2 Del Method Nasal Cannula 06/10/23 07:26 O2 Flow Rate 3 06/10/23 07:26 BMI result Body Mass Index 24.2 Const: General: comfortable, no acute distress, alert and awake Orientation/consciousness: patient oriented x3 HEENT: Head: Yes normal to inspection General nose exam: No nasal polyps present and No nasal discharge present Face and sinus: Yes sinuses nontender Mouth: oropharynx normal Throat: Yes posterior oropharynx normal Eyes: General: appearance normal, both eyes and all related structures Neck: Neck: Yes normal visual inspection, Yes no lymphadenopathy, Yes trachea midline and Yes no JVD Thyroid: Thyroid normal Chest: Chest palpation & inspection: normal inspection of the chest, normal palpation of entire chest wall and no tenderness Resp: Other: Percussion note is resonant. Breath sounds are equal on both sides, slightly diminished over the basilar areas. Breath sounds have a harsh quality over the upper lobes, but no definite wheezes or crepitations are heard. Cardio: Palpation: normal PMI Rate: regular rate Rhythm: regular rhythm Heart sounds: no gallops and no murmurs GI: Palpation (GI): Soft to palpation, nontender, No hepatosplenomegaly present and no masses Auscultation: normal bowel sounds Back/Spine/Pelvis: Thoracic/Lumbar Spine: thoracic and lumbar spine normal to inspection Skin: General skin exam: no rashes or lesions noted Neuro: General: patient oriented x3 and No gait normal (Not tested) Cranial nerves: Yes CN's II-XII intact bilaterally Extrem: General: Yes normal to inspection, Yes no clubbing, cyanosis or edema and Yes no calf tenderness Psych: Appearance: grossly normal and well kempt Speech and movement: Normal speech and movement present Results Laboratory Findings 06/10/23 05:49 06/10/23 05:49 ABG, PT/INR, D-dimer: PT/INR, D-dimer PT 17.3 SEC (11.1-13.3) H 06/09/23 01:09 INR 1.4 (0.9-1.1) H 06/09/23 01:09 Abnormal lab findings: Abnormal Labs 06/09/23 06/09/23 06/09/23 01:09 01:12 02:23 WBC 17.2 H RBC 3.55 L Hgb 12.5 L Hct 35.4 L MCV 99.7 H MCH 35.2 H Plt Count 118 L D Immature Gran % (Auto) 0.5 H Neut % (Auto) Lymph % (Auto) 10.7 L [place] % (Auto) 15.3 H Lymph # (Auto) [place] # (Auto) 2.6 H Abs Immat Gran (auto) 0.08 H Absolute Neuts (auto) 12.5 H PT 17.3 H INR 1.4 H VBG pH 7.51 H Sodium 130 L Anion Gap POC Glucose Random Glucose 356 H* Lactic Acid 3.6 H* Lactic Acid F/U @ 2Hr Lactic Acid F/U @ 4Hr Calcium 8.3 L Total Bilirubin 5.4 H Direct Bilirubin 3.3 H AST 63 H ALT 43 H Alkaline Phosphatase 271 H Total Protein 5.7 L Albumin 2.7 L Ur Specific [place] Urine Glucose (UA) Urine Blood Ur Leukocyte Esterase Urine WBC 06/09/23 06/09/23 06/09/23 04:42 07:39 10:06 WBC RBC Hgb Hct MCV MCH Plt Count Immature Gran % (Auto) Neut % (Auto) Lymph % (Auto) [place] % (Auto) Lymph # (Auto) [place] # (Auto) Abs Immat Gran (auto) Absolute Neuts (auto) PT INR VBG pH Sodium Anion Gap POC Glucose 296 H Random Glucose Lactic Acid Lactic Acid F/U @ 2Hr 2.4 H* Lactic Acid F/U @ 4Hr 3.2 H* Calcium Total Bilirubin Direct Bilirubin AST ALT Alkaline Phosphatase Total Protein Albumin Ur Specific [place] >= 1.030 H Urine Glucose (UA) >=1000 H Urine Blood Moderate (2+) H Ur Leukocyte Esterase Small (1+) H Urine WBC >50 H 06/09/23 06/09/23 06/09/23 11:42 16:16 20:21 WBC RBC Hgb Hct MCV MCH Plt Count Immature Gran % (Auto) Neut % (Auto) Lymph % (Auto) [place] % (Auto) Lymph # (Auto) [place] # (Auto) Abs Immat Gran (auto) Absolute Neuts (auto) PT INR VBG pH Sodium Anion Gap POC Glucose 318 H 291 H 252 H Random Glucose Lactic Acid Lactic Acid F/U @ 2Hr Lactic Acid F/U @ 4Hr Calcium Total Bilirubin Direct Bilirubin AST ALT Alkaline Phosphatase Total Protein Albumin Ur Specific [place] Urine Glucose (UA) Urine Blood Ur Leukocyte Esterase Urine WBC 06/10/23 06/10/23 05:49 07:31 WBC 15.6 H RBC 3.13 L Hgb 11.0 L Hct 31.4 L MCV 100.3 H MCH 35.1 H Plt Count 105 L Immature Gran % (Auto) 0.5 H Neut % (Auto) 77.1 H Lymph % (Auto) 5.6 L [place] % (Auto) 15.2 H Lymph # (Auto) 0.9 L [place] # (Auto) 2.4 H Abs Immat Gran (auto) 0.08 H Absolute Neuts (auto) 12.1 H PT INR VBG pH Sodium 134 L Anion Gap 11 L POC Glucose 200 H Random Glucose 222 H Lactic Acid Lactic Acid F/U @ 2Hr Lactic Acid F/U @ 4Hr Calcium 8.0 L Total Bilirubin 4.8 H Direct Bilirubin AST 53 H ALT Alkaline Phosphatase 238 H Total Protein 4.7 L Albumin 2.2 L Ur Specific [place] Urine Glucose (UA) Urine Blood Ur Leukocyte Esterase Urine WBC Microbiology: Microbiology 06/09/23 Unknown Urine clean catch - Clean Catch Midstream Urine Culture - Preliminary Gram negative hazel 06/09/23 02:22 Blood - Venous Blood Culture - Preliminary No growth after 24 hours. 06/09/23 02:22 Blood - Venous Blood Culture - Preliminary No growth after 24 hours. Diagnostic Findings Chest x-ray: report reviewed and image reviewed CT scan - chest: report reviewed and image reviewed Assessment and Plan (1) Liver cirrhosis: Status: Acute (2) EtOH dependence: Status: Acute (3) COVID: Status: Acute (4) Multifocal pneumonia: Status: Acute (5) Respiratory insufficiency: Status: Acute Plan This gentleman does have bilateral multifocal pneumonia, The radiologic findings are very much suggestive of COVID-19 related pneumonia. Respiratory insufficiency causing hypoxemia is secondary to above. Comorbidities including cirrhosis of the liver, portal hypertension,IDDM, multiple sclerosis, history of ETOH abuse, make him a high risk patient. FOR TREATMENT, I agree with the current management, however if blood cultures are negative , then it will be okay to DC broad-spectrum antibiotic coverage. The mainstay treatment is going to be oxygen supplementation. He is doing well at 3 L/minute at this time but this should be watched closely. I think it will be beneficial to treat him with IV Solu-Medrol for a few days then prednisone taper. Repeat CT scan of the chest in 1 week for follow-up. Thank you very much for asthma to see this patient. Please let me know if I can be of any further help. Procedures Date of Service Date of Service: 06/10/23
--- NOTE | 2023-06-10 09:22 | MHC.CM.PN ---
IMM 06/10/23 Male 58 DX PNA He lives with his . He has [employer] services in place. He does not use Home Oxygen. DP home resume [employer] services. Patients will provide transportation home. She is his HCP; which is not on file, copy requested. Patient's son passed, wake is . He plans to attend the wake.
[2023-06-10] MEDS: methylPREDNISolone Sod Succ 40 MG/ML VIAL IVPUSH ×2 (10:27→16:40)
--- NOTE | 2023-06-10 10:50 | PC.NURSE ---
Decrese O2 from 3L to 2L.
[2023-06-10 11:24] LABS: Glucose, Whole Blood 255 mg/dL (60-115)
[2023-06-10 11:40] VITALS: PULSE 105; RESP 22; TEMP 37.1; O2SAT 94
--- NOTE | 2023-06-10 12:00 | P.PNIM_ITS ---
Subjective Subjective Date of Service: 06/10/23 Review of Systems Follow-up multifocal pneumonia Denies shortness of breath Physical Exam 2 Vital Signs: Vital Signs: Last Vital Signs Temp 98.7 F 06/10/23 11:40 Pulse 105 H 06/10/23 11:40 Resp 22 H 06/10/23 11:40 BP 140/64 H 06/10/23 07:26 Pulse Ox 94 06/10/23 11:40 O2 Del Method Nasal Cannula 06/10/23 11:40 O2 Flow Rate 2 06/10/23 11:40 BMI result Body Mass Index 24.2 Appearing in no acute distress lung sounds are clear to auscultation heart regular rate rhythm, clear S1, S2 positive bowel sounds, abdomen is soft, nontender neuro patient is alert x3, no focal deficits Objective Data Active Medications Acetaminophen (Acetaminophen 325 Mg Tablet) 650 mg PO Q6H PRN PRN Reason: Pain, Mild (Pain Scale 1-3) Dextrose (Dextrose 50 % 25 Gm/50 Ml Syringe) 25 gm IVPUSH Q15M PRN; Protocol PRN Reason: per Hypoglycemia Standing Ord. Glucose (Glucose Gel 15 Gm Gel..Gram.) 15 gm PO Q15M PRN; Protocol PRN Reason: per Hypoglycemia Standing Ord. Vancomycin HCl 1,250 mg/ (Sodium Chloride) 250 mls @ 166.667 mls/hr IV Q12H [facility] Last Infusion: 06/10/23 09:19 Dose: Infused Documented By: KIMANI Piperacillin Sod/Tazobactam (Sod 4.5 gm/ Sodium Chloride) 100 mls @ 200 mls/hr IV Q6H [facility] Last Infusion: 06/10/23 10:39 Dose: Infused Documented By: KIMANI Insulin Glargine (Insulin Glargine,Hum.Rec.Anlog 100 Unit/Ml 10 Ml Vial) 46 unit SUBCUT BEDTIME [facility] Last Admin: 06/09/23 21:55 Dose: 46 unit Documented By: SAMAN Insulin Human Lispro (Insulin Lispro 100 Unit/Ml 3 Ml Vial) 0 unit SUBCUT QIDACHS [facility]; Protocol Last Admin: 06/10/23 11:40 Dose: 6 unit Documented By: KIMANI Methylprednisolone Sodium Succinate (Methylprednisolone Sod Succ 40 Mg/Ml Vial) 40 mg IVPUSH Q8H [facility] Last Admin: 06/10/23 10:27 Dose: 40 mg Documented By: KIMANI Omeprazole (Omeprazole 20 Mg Capsule.Dr) 20 mg PO DAILY@0630 [facility] Last Admin: 06/10/23 05:44 Dose: 20 mg Documented By: LEW Ondansetron HCl (Ondansetron Hcl 4 Mg/2 Ml Vial) 4 mg IVPUSH Q8H PRN PRN Reason: Nausea and Vomiting Pharmacy Consult (Consult Rx Vancomycin Dosing) 1 each MISCELLANE DAILY PRN PRN Reason: Consult order Sodium Chloride (0.9 % Sodium Chloride Flush 3 Ml Syringe) 3 ml IVFLUSH QSHIFT [facility] Last Admin: 06/10/23 07:43 Dose: 3 ml Documented By: KIMANI Labs 06/10/23 05:49 06/10/23 05:49 Labs: Laboratory Results - last 24 hr 06/09/23 06/09/23 06/10/23 16:16 20:21 05:49 MCV 100.3 H MCH 35.1 H MCHC 35.0 RDW 15.1 Plt Count 105 L MPV 10.7 Immature Gran % (Auto) 0.5 H Neut % (Auto) 77.1 H Lymph % (Auto) 5.6 L [place] % (Auto) 15.2 H Eos % (Auto) 1.2 Baso % (Auto) 0.4 Lymph # (Auto) 0.9 L [place] # (Auto) 2.4 H Eos # (Auto) 0.2 Baso # (Auto) 0.1 Abs Immat Gran (auto) 0.08 H Absolute Neuts (auto) 12.1 H Absolute Nucleated RBC 0.000 Nucleated RBC % (auto) 0.0 Smear Tech's Comments VERIFIED Anion Gap 11 L Estim Creat Clear Calc 123.4 Estimated GFR > 60 POC Glucose 291 H 252 H Random Glucose 222 H Calcium 8.0 L Total Bilirubin 4.8 H AST 53 H ALT 31 Alkaline Phosphatase 238 H Total Protein 4.7 L Albumin 2.2 L 06/10/23 06/10/23 07:31 11:21 MCV MCH MCHC RDW Plt Count MPV Immature Gran % (Auto) Neut % (Auto) Lymph % (Auto) [place] % (Auto) Eos % (Auto) Baso % (Auto) Lymph # (Auto) [place] # (Auto) Eos # (Auto) Baso # (Auto) Abs Immat Gran (auto) Absolute Neuts (auto) Absolute Nucleated RBC Nucleated RBC % (auto) Smear Tech's Comments Anion Gap Estim Creat Clear Calc Estimated GFR POC Glucose 200 H 255 H Random Glucose Calcium Total Bilirubin AST ALT Alkaline Phosphatase Total Protein Albumin Microbiology Microbiology Results: Microbiology 06/09/23 Unknown Urine Culture - Preliminary Urine clean catch - Clean Catch Midstream Gram negative hazel 06/09/23 02:22 Blood Culture - Preliminary Blood - Venous No growth after 24 hours. 06/09/23 02:22 Blood Culture - Preliminary Blood - Venous No growth after 24 hours. Assessment and Plan (1) Respiratory insufficiency: Status: Acute Plan 58 year old man admitted with acute hypoxic respiratory failure from multifocal pna Acute hypoxic respiratory failure secondary to multifocal pneumonia Noted on chest CT covid dx 05/19/23 follow oxygen status neg covid, flu or RSV Vancomycin and Zosyn Titrate oxygen to oxygen saturation greater than 92% Pulm consult>symptoms suggesive of covid related pna , stop broad spectrum abx if blood cx neg, start solumedrol for a few days then transition to prednisone leukocytosis Secondary to pneumonia lactic acidosis Likely secondary to respiratory treatments and pneumonia UTI On Zosyn follow urine cx DM2 ss, ada diet Liver cirrhosis spironolactone follow LFT's Soft abdomen GERD PPI DVT prophylaxis with SCD boots Attending Dr. Luz Full code continued hospital stay for treatment of acute hypoxic respiratory failure secondary to multifocal pneumonia requiring IV antibiotics and close monitoring to avoid decompensation Quality Stroke Does the patient have a stroke diagnosis?: No VTE Prior VTE?: No VTE Risk Level:: Medical - moderate - high VTE Device Contraindication: N/A - Device Ordered VTE Drug Contraindication: Treatment Not Indicated
[2023-06-10 14:40] LABS: Glucose, Whole Blood 308 mg/dL (60-115)
[2023-06-10 15:56] VITALS: BP 148/67; PULSE 105; RESP 22; TEMP 37.1; O2SAT 94
[2023-06-10 16:21] LABS: Glucose, Whole Blood 364 mg/dL (60-115)
[2023-06-10 19:35] VITALS: BP 142/66; PULSE 100; RESP 22; TEMP 36.8; O2SAT 94
[2023-06-10] MEDS: Loperamide HCl 2 MG CAPSULE PO (20:14)
[2023-06-10 20:51] LABS: Glucose, Whole Blood 389 mg/dL (60-115)
[2023-06-10] MEDS: Insulin Glargine,Hum.rec.anlog 100 UNIT/ML 10 ML VIAL 46 UNIT SUBCUT (21:56)
[2023-06-11] VITALS (8 sets, daily range): BP systolic 119–129; BP diastolic 58–61; PULSE 77–95; RESP 16–20; TEMP 36–36.4; O2SAT 83–96
[2023-06-11] MEDS: methylPREDNISolone Sod Succ 40 MG/ML VIAL IVPUSH ×3 (01:00→16:52)
[2023-06-11] MEDS: 0.9 % Sodium Chloride Flush 3 ML SYRINGE IVFLUSH ×4 (01:01→20:42)
[2023-06-11] MEDS: Piperacillin Sodium/Tazobactam 4.5 GM in 0.9 % Sodium Chloride 100 ML IV (03:53)
[2023-06-11] MEDS: Omeprazole 20 MG CAPSULE.DR PO (05:52)
[2023-06-11 06:47] LABS: Vancomycin Random 15.1 mcg/mL (15-20)
[2023-06-11 06:53] LABS: Alanine Aminotransferase 33 U/L (0-40); Albumin Level 2.3 g/dL (3.5-5.0); Alkaline Phosphatase 247 U/L (39-117); Aspartate Amino Transferase 53 U/L (5-37); Bilirubin Direct 2.4 mg/dL (0.0-0.5); Bilirubin Total 3.7 mg/dL (0.0-1.0); Creatinine Clr Calc Pharmacy 106.4; Estimated Glomerular Filt Rate > 60
--- NOTE | 2023-06-11 06:57 | HE.PHANOTE ---
RE: vanco Trough on 06/11 came back at 15.1; renal function is fluctuating. Changed dose to 1000mg Q12H with predicted AUC of 471 mg/L, trough of 14.3. Next level to be drawn 06/12 @1800
[2023-06-11 07:26] LABS: Glucose, Whole Blood 344 mg/dL (60-115)
[2023-06-11] MEDS: Insulin Lispro 100 UNIT/ML 3 ML VIAL SUBCUT ×4 (08:21→20:40)
[2023-06-11] MEDS: vancomycin HCL 1,000 MG in 0.9 % Sodium Chloride 250 ML 270 MG IV ×2 (08:23→19:22)
--- NOTE | 2023-06-11 10:25 | P.PNIM_ITS ---
Subjective Subjective Date of Service: 06/11/23 Review of Systems Follow-up multifocal pneumonia Denies shortness of breath Physical Exam 2 Vital Signs: Vital Signs: Last Vital Signs Temp 97 F 06/11/23 07:08 Pulse 77 06/11/23 07:08 Resp 16 06/11/23 07:08 BP 122/58 L 06/11/23 07:08 Pulse Ox 95 06/11/23 07:08 O2 Del Method Nasal Cannula 06/11/23 07:08 O2 Flow Rate 3 06/11/23 07:08 BMI result Body Mass Index 24.2 Appearing in no acute distress lung sounds clear heart regular rate rhythm, clear S1, S2 positive bowel sounds, abdomen is soft, nontender neuro patient is alert x3, no focal deficits Objective Data Active Medications Acetaminophen (Acetaminophen 325 Mg Tablet) 650 mg PO Q6H PRN PRN Reason: Pain, Mild (Pain Scale 1-3) Dextrose (Dextrose 50 % 25 Gm/50 Ml Syringe) 25 gm IVPUSH Q15M PRN; Protocol PRN Reason: per Hypoglycemia Standing Ord. Glucose (Glucose Gel 15 Gm Gel..Gram.) 15 gm PO Q15M PRN; Protocol PRN Reason: per Hypoglycemia Standing Ord. Vancomycin HCl 1,000 mg/ (Sodium Chloride) 270 mls @ 270 mls/hr IV Q12H [facility] Last Infusion: 06/11/23 09:35 Dose: Infused Documented By: KAUR Ceftriaxone Sodium 1 gm/ (Sodium Chloride) 50 mls @ 100 mls/hr IV Q24H [facility] Doxycycline Hyclate 100 mg/ (Sodium Chloride) 250 mls @ 166.67 mls/hr IV Q12H [facility] Insulin Glargine (Insulin Glargine,Hum.Rec.Anlog 100 Unit/Ml 10 Ml Vial) 46 unit SUBCUT BEDTIME [facility] Last Admin: 06/10/23 21:56 Dose: 46 unit Documented By: BILLIE Insulin Human Lispro (Insulin Lispro 100 Unit/Ml 3 Ml Vial) 0 unit SUBCUT QIDACHS [facility]; Protocol Last Admin: 06/11/23 08:21 Dose: 8 unit Documented By: KAUR Methylprednisolone Sodium Succinate (Methylprednisolone Sod Succ 40 Mg/Ml Vial) 40 mg IVPUSH Q8H [facility] Last Admin: 06/11/23 09:31 Dose: 40 mg Documented By: KAUR Omeprazole (Omeprazole 20 Mg Capsule.) 20 mg PO DAILY@0630 [facility] Last Admin: 06/11/23 05:52 Dose: 20 mg Documented By: MICHAEL Ondansetron HCl (Ondansetron Hcl 4 Mg/2 Ml Vial) 4 mg IVPUSH Q8H PRN PRN Reason: Nausea and Vomiting Sodium Chloride (0.9 % Sodium Chloride Flush 3 Ml Syringe) 3 ml IVFLUSH QSHIFT [facility] Last Admin: 06/11/23 08:26 Dose: 3 ml Documented By: KAUR Labs 06/10/23 05:49 06/11/23 06:23 Labs: Laboratory Results - last 24 hr 06/10/23 06/10/23 06/10/23 11:21 14:36 16:02 Estim Creat Clear Calc Estimated GFR POC Glucose 255 H 308 H 364 H* Total Bilirubin Direct Bilirubin AST ALT Alkaline Phosphatase Total Protein Albumin Random Vancomycin 06/10/23 06/11/23 06/11/23 20:41 06:23 07:23 Estim Creat Clear Calc 106.4 Estimated GFR > 60 POC Glucose 389 H* 344 H Total Bilirubin 3.7 H Direct Bilirubin 2.4 H AST 53 H ALT 33 Alkaline Phosphatase 247 H Total Protein 5.0 L Albumin 2.3 L Random Vancomycin 15.1 Microbiology Microbiology Results: Microbiology 06/09/23 Unknown Urine Culture - Final Urine clean catch - Clean Catch Midstream Klebsiella pneumoniae 06/09/23 02:22 Blood Culture - Preliminary Blood - Venous No growth after 48 hours. 06/09/23 02:22 Blood Culture - Preliminary Blood - Venous No growth after 48 hours. Assessment and Plan (1) Respiratory insufficiency: Status: Acute Plan 58 year old man admitted with acute hypoxic respiratory failure from multifocal pna Acute hypoxic respiratory failure secondary to multifocal pneumonia Noted on chest CT covid dx 05/19/23 follow oxygen status neg covid, flu or RSV Vancomycin and Zosyn transitioned to Rocephin and Doxycycline Titrate oxygen to oxygen saturation greater than 92% Pulm consult>symptoms suggesive of covid related pna , stop broad spectrum abx if blood cx neg, start solumedrol for a few days then transition to prednisone Liver cirrhosis spironolactone follow LFT's Soft abdomen but moderate amount of ascites noted on abd us, plan for paracentesis as may help decrease hypoxia leukocytosis Secondary to pneumonia lactic acidosis Likely secondary to respiratory treatments and pneumonia UTI On Zosyn follow urine cx DM2 ss, ada diet GERD PPI DVT prophylaxis with SCD boots Attending Dr. Luz Full code continued hospital stay for treatment of acute hypoxic respiratory failure secondary to multifocal pneumonia requiring IV antibiotics and close monitoring to avoid decompensation Quality Stroke Does the patient have a stroke diagnosis?: No VTE Prior VTE?: No VTE Risk Level:: Medical - moderate - high VTE Device Contraindication: N/A - Device Ordered VTE Drug Contraindication: Treatment Not Indicated
--- NOTE | 2023-06-11 10:33 | P.DS_ITS ---
DS: Providers Provider Date of admission: 06/09/23 07:28 Primary care physician: Holley James MD Consults: 06/10/23 07:12 Consult to Pulmonology Routine Consulting Provider: [facility] [place] Pulmonology Services Reason for consultation: cough for 3 months, multifocal pneumonia DS: Diagnosis Discharge Diagnosis (1) Respiratory insufficiency: Status: Acute DS: Summary Hospital Course Hospital Course: 58M PMH etoh dependence, DM, MS, Presented with shortness of breath. Patient also complaining of a cough for about 6 weeks prior to presentation. He reports using prednisone and albuterol as outpatient without improvement. Also complaining of intermittent bilateral lower extremity edema, abdominal distention, jaundice. Reports drinking about 12 nips of vodka per day. But has been decreasing over the last few weeks. Last drink 2 days prior to presentation. Denies any withdrawal symptoms. In ED found to have bilirubin of 4.4, CT abdomen showed liver cirrhosis with ascites. COVID positive. Chest x- ray with interstitial disease. 58-year-old man for acute hypoxic respiratory failure secondary to multifocal pneumonia noted on chest CT. He was diagnosed with COVID-19 on 05/19/2023. He was negative for COVID, flu and RSV on this admission. He was initially started on vancomycin and Zosyn but transition to Rocephin and doxycycline as per pulmonology. Pulmonology had also recommended starting Solu-Medrol which was transitioned to prednisone he will complete a prednisone taper at home. He had a home oxygen evaluation>>>>>> he will be sent home to complete treatment with Ceftin and doxycycline. He was also treat for liver cirrhosis and was found to have moderate amount of ascites which may have also been contributing to the hypoxia, he had paracentesis which yielded>>>>>>> Leukocytosis. Secondary to pneumonia Lactic acidosis secondary to respiratory treatments and pneumonia Klebsiella UTI. Treated with IV Rocephin inpatient, transition to Ceftin to complete treatment at home Diabetes mellitus type 2. Complete home medications GERD. Continue PPI Physical Exam Vital Signs: Vital Signs: Last Vital Signs Temp 97 F 06/11/23 07:08 Pulse 77 06/11/23 07:08 Resp 16 06/11/23 07:08 BP 122/58 L 06/11/23 07:08 Pulse Ox 95 06/11/23 07:08 O2 Del Method Nasal Cannula 06/11/23 07:08 O2 Flow Rate 3 06/11/23 07:08 BMI result Body Mass Index 24.2 DS: Data Data Completed and Pending Completed studies during hospitalization [Text1]: Procedures Drainage of Peritoneal Cavity, Percutaneous Approach (05/19/23) Labs on day of discharge: Laboratory Results - last 24 hr 06/10/23 06/10/23 06/10/23 11:21 14:36 16:02 Creatinine Estim Creat Clear Calc Estimated GFR POC Glucose 255 H 308 H 364 H* Total Bilirubin Direct Bilirubin AST ALT Alkaline Phosphatase Total Protein Albumin Random Vancomycin 06/10/23 06/11/23 06/11/23 20:41 06:23 07:23 Creatinine 0.80 Estim Creat Clear Calc 106.4 Estimated GFR > 60 POC Glucose 389 H* 344 H Total Bilirubin 3.7 H Direct Bilirubin 2.4 H AST 53 H ALT 33 Alkaline Phosphatase 247 H Total Protein 5.0 L Albumin 2.3 L Random Vancomycin 15.1 Preliminary micro results at discharge 06/09/23 02:22 Blood Culture - Preliminary Blood - Venous No growth after 48 hours. 06/09/23 02:22 Blood Culture - Preliminary Blood - Venous No growth after 48 hours. Discharge Plan Discharge Discharge Diagnosis: Acute hypoxic respiratory failure Multifocal pneumonia Ascites Referrals: Holley James MD [Primary Care Provider] - 1 Week Discharge Medications: New prednisone 10 mg tablet See Taper PO DIRECTED Qty: 20 0RF Taper: Prednisone 40 mg daily for 2 Days and 0 Hour 30 mg daily for 2 Days and 0 Hour 20 mg daily for 2 Days and 0 Hour 10 mg daily for 2 Days and 0 Hour Rx Instructions: see taper instructions Continued loperamide 2 mg capsule 2 - 4 mg PO Q4-6H PRN (Reason: diarrhea) fluticasone propionate 50 mcg/actuation spray,suspension 1 spray intranasal DAILY PRN (Reason: Congestion) omeprazole 20 mg Capsule,Delayed Release(Dr/Ec) 20 mg PO DAILY@0630 Qty: 30 0RF insulin glargine [Lantus Solostar U-100 Insulin] 100 unit/mL (3 mL) insulin pen 46 unit subcut BEDTIME insulin aspart U-100 [Novolog FlexPen U-100 Insulin] 100 unit/mL (3 mL) insulin pen See Protocol subcut TIDWM Protocol: Insulin Correction Scale Less than or equal to 110 ---- Give (units): 0 111 to 150 Give (units): 0 151 to 200 Give (units): 2 201 to 250 Give (units): 4 251 to 300 Give (units): 6 301 to 350 Give (units): 8 Greater than 350 Give (units): 10 Call MD if Blood Glucose > : 350 albuterol sulfate 90 mcg/actuation HFA aerosol inhaler 90 mcg inhalation Q4H PRN (Reason: Shortness Of Breath Or Wheezing) Diet: Advance to usual diet Activity on Discharge: As tolerated Care Plan Goals: Return to the hospital if symptoms persist or worsen Health Concerns: Acute hypoxic respiratory failure Multifocal pneumonia Ascites Plan of Treatment: Follow-up with primary care provider as needed Take all medications as prescribed Assessment: See discharge summary
[2023-06-11 11:09] LABS: Glucose, Whole Blood 395 mg/dL (60-115)
[2023-06-11] MEDS: cefTRIAXone sodium 1 GM in 0.9 % Sodium Chloride 50 ML IV (11:32)
--- NOTE | 2023-06-11 12:44 | MHC.CM.PN ---
EMR REVIEWED. PER MD ROUNDS PATIENT IS NOT MEDICALLY CLEARED FOR DC AT THIS TIME R/T O2 REQUIREMENT. CM WILL CONTINUE TO FOLLOW.
[2023-06-11] MEDS: Doxycycline Hyclate 100 MG in 0.9 % Sodium Chloride 250 ML 166.67 MG IV ×2 (13:02→20:41)
[2023-06-11] MEDS: Acetaminophen 325 MG TABLET 650 MG PO (13:55)
[2023-06-11] MEDS: Lidocaine HCl 1 % MPF 5 ML VIAL SUBCUT (15:27)
[2023-06-11 16:17] LABS: Glucose, Whole Blood 335 mg/dL (60-115)
--- NOTE | 2023-06-11 16:47 | P.CDIM_ITS ---
PROVIDER RESPONSE TEXT: To clarify, the appropriate diagnosis supported by the clinical indicators: Acute QUERY TEXT: PHYSICIAN'S DOCUMENTATION REQUEST Date of Query: 06/10/2023 07:45 AM EST Patient Name: Remberto Hawkins Admit Date: 06/09/2023 Dear Suzette Ingram, A review of the medical record indicates additional documentation may be needed. Please review below and update the documentation accordingly. Clinical Indicators: PN: Assessment and plan - lactic acidosis Likely secondary to respiratory treatments and pneumonia Clarify which of the following accurately represents the acuity of the lactic acidosis: Acute Acute on chronic Other Other (explain) Clinically unable to determine (explain) Thank you, Lauren Reeves, CCS, CDIS Use of terms such as suspected, likely, concern for, or probable (associated with a specific diagnosi s that is being evaluated, monitored, or treated as if it exists) are acceptable and can be coded in the inpatient se tting, when documented at the time of discharge. Please use your independent medical judgment in providing your response. THIS QUERY IS PART OF THE PERMANENT MEDICAL RECORD
--- NOTE | 2023-06-11 16:47 | P.CDIM_ITS ---
PROVIDER RESPONSE TEXT: To clarify, the appropriate diagnosis supported by the clinical indicators: Hyponatremia, resolved QUERY TEXT: PHYSICIAN'S DOCUMENTATION REQUEST Date of Query: 06/10/2023 09:23 AM EST Patient Name: Remberto Hawkins Admit Date: 06/09/2023 Dear Suzette Ingram, A review of the medical record indicates additional documentation may be needed. Please review below and update the documentation accordingly. Clinical Indicators: LAB FINDINGS: sodium 130 L Fluids Based on the above, is there a diagnosis that correlates with these lab findings: Hyponatremia, resolved Labs indicate a diagnosis of (please specify) Other (explain) Clinically unable to determine (explain) Thank you, Lauren Reeves, CCS, CDIS Use of terms such as suspected, likely, concern for, or probable (associated with a specific diagnosi s that is being evaluated, monitored, or treated as if it exists) are acceptable and can be coded in the inpatient se tting, when documented at the time of discharge. Please use your independent medical judgment in providing your response. THIS QUERY IS PART OF THE PERMANENT MEDICAL RECORD
[2023-06-11 20:00] LABS: Glucose, Whole Blood 314 mg/dL (60-115)
[2023-06-11] MEDS: Insulin Glargine,Hum.rec.anlog 100 UNIT/ML 10 ML VIAL 46 UNIT SUBCUT (20:41)
[2023-06-11] MEDS: Loperamide HCl 2 MG CAPSULE PO (22:19)
[2023-06-12] MEDS: methylPREDNISolone Sod Succ 40 MG/ML VIAL IVPUSH ×2 (00:59→09:53)
[2023-06-12 03:58] VITALS: BP 115/59; PULSE 87; RESP 21; TEMP 36.3; O2SAT 94
[2023-06-12] MEDS: Omeprazole 20 MG CAPSULE.DR PO (05:59)
[2023-06-12 06:49] LABS: Creatinine Clr Calc Pharmacy 93.5; Estimated Glomerular Filt Rate > 60
[2023-06-12 06:50] VITALS: BP 118/56; PULSE 79; RESP 16; TEMP 36.6; O2SAT 96
[2023-06-12 07:47] LABS: Glucose, Whole Blood 373 mg/dL (60-115)
[2023-06-12 08:13] LABS: Basophils Percent Auto 0.1 % (0-2); Hematocrit 31.1 % (42.0-52.0); Hemoglobin 11.2 g/dl (14.0-18.0); Imm Gran Abs Auto 0.15 X10*3/uL (0.00-0.03); Imm Gran Pct Auto 0.8 % (0.0-0.4); Lymphocytes Absolute Auto 0.3 X10*3/uL (1.2-4.9); Lymphocytes Percent Auto 1.6 % (20-40); MANUAL DIFF FLAG SCAN; Mean Corpuscular Hemoglobin 35.6 pg (27.0-33.0); Mean Corpuscular Volume 98.7 fL (80.0-98.0); Mean Platelet Volume 10.9 fL (9.4-12.4); Monocytes Absolute Auto 1.1 X10*3/uL (0.1-1.2); Monocytes Percent Auto 6.1 % (2-11); Neutrophils Percent Auto 91.4 % (45-73); Platelet Count 104 X10*3/uL (160-400); Red Blood Count 3.15 X10*6/uL (4.60-5.80); Red Cell Distribution Width 14.5 % (11.0-16.0); SCAN SMEAR FLAG 1; White Blood Count 18.6 X10*3/uL (4.8-10.8)
[2023-06-12] MEDS: Insulin Lispro 100 UNIT/ML 3 ML VIAL SUBCUT ×3 (08:16→11:36)
[2023-06-12] MEDS: 0.9 % Sodium Chloride Flush 3 ML SYRINGE IVFLUSH (08:18)
[2023-06-12] MEDS: vancomycin HCL 1,000 MG in 0.9 % Sodium Chloride 250 ML 270 MG IV (08:18)
[2023-06-12 09:13] LABS: SLIDE REVIEW VERIFIED
[2023-06-12] MEDS: Doxycycline Hyclate 100 MG in 0.9 % Sodium Chloride 250 ML 166.67 MG IV (09:52)
--- NOTE | 2023-06-12 10:54 | PM.DS ---
DS: Providers Provider Date of Service: 06/12/23 Date of admission: 06/09/23 07:28 Date of discharge: 06/12/23 Primary care physician: Holley James MD Consults: 06/10/23 07:12 Consult to Pulmonology Routine Consulting Provider: [facility] [place] Pulmonology Services Reason for consultation: cough for 3 months, multifocal pneumonia Attending physician on discharge: Andrew Luz Discharging clinician: Yajaira Guy DS: Diagnosis Discharge Diagnosis (1) Multifocal pneumonia: Status: Acute (2) Liver cirrhosis: Status: Acute DS: Summary Hospital Course Hospital Course: 58M PMH etoh dependence, DM, MS, Presented with shortness of breath. Patient also complaining of a cough for about 6 weeks prior to presentation. He reports using prednisone and albuterol as outpatient without improvement. Also complaining of intermittent bilateral lower extremity edema, abdominal distention, jaundice. Reports drinking about 12 nips of vodka per day. But has been decreasing over the last few weeks. Last drink 2 days prior to presentation. Denies any withdrawal symptoms. In ED found to have bilirubin of 4.4, CT abdomen showed liver cirrhosis with ascites. COVID positive. Chest x-ray with interstitial disease. 58-year-old man for acute hypoxic respiratory failure secondary to multifocal pneumonia noted on chest CT. He was diagnosed with COVID-19 on 05/19/2023. He was negative for COVID, flu and RSV on this admission. He was initially started on vancomycin and Zosyn but transition to Rocephin and doxycycline as per pulmonology. Pulmonology had also recommended starting Solu-Medrol which was transitioned to prednisone he will complete a prednisone taper at home. Unfortunately the patient's son and the patient wants to attend the services. It was discussed with the patient and his significant other at the bedside that given the circumstances he could be discharged temporarily with supplemental oxygen to attend the services. The risks of leaving the hospital prematurely including respiratory failure where discussed. He had a home oxygen evaluation and qualified for 2l at rest and 4 with ambulation via oximyzer pendant. He will also be discharged with antibiotics to complete treatment with Ceftin and doxycycline. THe plan would be for him to return to the hospital following the services or if at any point that he has shortness of breath, fever, etc. He also has a history of liver cirrhosis and was found to have moderate amount of ascites which may have also been contributing to the hypoxia. He had paracentesis with 3L removed, no evidence of SBP Leukocytosis. Secondary to steroids Lactic acidosis secondary to respiratory treatments and pneumonia Klebsiella UTI. Treated with IV Rocephin inpatient, transition to Ceftin to complete treatment at home Diabetes mellitus type 2. Complete home medications GERD. Continue PPI Time Attestation Discharge coordination time: Greater than 30 minutes Quality: Safe Use of Opioids Does Pt have an Active Cancer Diagnosis on the Problem List?: No Quality: Stroke Does the patient have a stroke diagnosis?: No Physical Exam Vital Signs: Vital Signs: Last Vital Signs Temp 98 F 06/12/23 06:50 Pulse 79 06/12/23 06:50 Resp 16 06/12/23 06:50 BP 118/56 L 06/12/23 06:50 Pulse Ox 96 06/12/23 06:50 O2 Del Method Nasal Cannula 06/12/23 06:50 O2 Flow Rate 3 06/12/23 06:50 BMI result Body Mass Index 24.2 Const: General: cooperative, comfortable, no acute distress, alert and awake Nutritional Appearance: average body habitus Orientation/consciousness: patient oriented x3 Resp: Effort & Inspection: normal respiratory effort, able to speak in complete sentences, no respiratory distress and no use of accessory muscles Cardio: Rate: regular rate GI: Inspection: No distended Palpation (GI): Soft to palpation and nontender Neuro: General: patient oriented x3, moves all extremities and CN's II-XI intact bilaterally DS: Data Data Completed and Pending Completed studies during hospitalization [Text1]: Procedures Drainage of Peritoneal Cavity, Percutaneous Approach (05/19/23) Labs on day of discharge: Laboratory Results - last 24 hr 06/11/23 06/11/23 06/11/23 10:58 16:14 19:32 WBC RBC Hgb Hct MCV MCH MCHC RDW Plt Count MPV Immature Gran % (Auto) Neut % (Auto) Lymph % (Auto) [place] % (Auto) Eos % (Auto) Baso % (Auto) Lymph # (Auto) [place] # (Auto) Eos # (Auto) Baso # (Auto) Abs Immat Gran (auto) Absolute Neuts (auto) Absolute Nucleated RBC Nucleated RBC % (auto) Smear Tech's Comments Hold Purple Top Creatinine Estim Creat Clear Calc Estimated GFR POC Glucose 395 H* 335 H 314 H 06/12/23 06/12/23 05:49 06:53 WBC 18.6 H RBC 3.15 L Hgb 11.2 L Hct 31.1 L MCV 98.7 H MCH 35.6 H MCHC 36.0 RDW 14.5 Plt Count 104 L MPV 10.9 Immature Gran % (Auto) 0.8 H Neut % (Auto) 91.4 H Lymph % (Auto) 1.6 L [place] % (Auto) 6.1 Eos % (Auto) 0.0 Baso % (Auto) 0.1 Lymph # (Auto) 0.3 L [place] # (Auto) 1.1 Eos # (Auto) 0.0 Baso # (Auto) 0.0 Abs Immat Gran (auto) 0.15 H Absolute Neuts (auto) 17.0 H Absolute Nucleated RBC 0.000 Nucleated RBC % (auto) 0.0 Smear Tech's Comments VERIFIED Hold Purple Top SEE NOTE Creatinine 0.91 Estim Creat Clear Calc 93.5 Estimated GFR > 60 POC Glucose 373 H* Preliminary micro results at discharge 06/09/23 02:22 Blood Culture - Preliminary Blood - Venous No growth after 48 hours. 06/09/23 02:22 Blood Culture - Preliminary Blood - Venous No growth after 48 hours. Discharge Plan Discharge Anticipated Discharge Date/Time: 06/12/23 11:13 Patient Disposition: Home, Self-Care Discharge Diagnosis: Acute hypoxic respiratory failure Multifocal pneumonia Ascites Referrals: Holley James MD [Primary Care Provider] - 1 Week Discharge Medications: New prednisone 10 mg tablet See Taper PO DIRECTED Qty: 20 0RF Taper: Prednisone 40 mg daily for 2 Days and 0 Hour 30 mg daily for 2 Days and 0 Hour 20 mg daily for 2 Days and 0 Hour 10 mg daily for 2 Days and 0 Hour Rx Instructions: see taper instructions doxycycline hyclate 100 mg tablet 100 mg PO BID 10 Days Qty: 20 0RF cefuroxime axetil 500 mg tablet 500 mg PO Q12H 10 Days Qty: 20 0RF Continued loperamide 2 mg capsule 2 - 4 mg PO Q4-6H PRN (Reason: diarrhea) fluticasone propionate 50 mcg/actuation spray,suspension 1 spray intranasal DAILY PRN (Reason: Congestion) omeprazole 20 mg Capsule,Delayed Release(Dr/Ec) 20 mg PO DAILY@0630 Qty: 30 0RF insulin glargine [Lantus Solostar U-100 Insulin] 100 unit/mL (3 mL) insulin pen 46 unit subcut BEDTIME insulin aspart U-100 [Novolog FlexPen U-100 Insulin] 100 unit/mL (3 mL) insulin pen See Protocol subcut TIDWM Protocol: Insulin Correction Scale Less than or equal to 110 ---- Give (units): 0 111 to 150 Give (units): 0 151 to 200 Give (units): 2 201 to 250 Give (units): 4 251 to 300 Give (units): 6 301 to 350 Give (units): 8 Greater than 350 Give (units): 10 Call MD if Blood Glucose > : 350 albuterol sulfate 90 mcg/actuation HFA aerosol inhaler 90 mcg inhalation Q4H PRN (Reason: Shortness Of Breath Or Wheezing) Discharge Orders: Discharge Order (Routine); Ordered 06/12/23 Ordered By: Yajaira Guy Diet: Advance to usual diet Activity on Discharge: As tolerated Stand Alone Forms: Patient Portal Discharge page Care Plan Goals: Return to the hospital if symptoms persist or worsen Health Concerns: Acute hypoxic respiratory failure Multifocal pneumonia Ascites Plan of Treatment: Follow-up with primary care provider as needed Take all medications as prescribed Return to the hospital after services for re-evaluation Assessment: See discharge summary Discharge Date/Time: 06/12/23 14:26
[2023-06-12 11:09] LABS: Glucose, Whole Blood 427 mg/dL (60-115)
[2023-06-12] MEDS: cefTRIAXone sodium 1 GM in 0.9 % Sodium Chloride 50 ML IV (11:35)
--- NOTE | 2023-06-12 12:07 | MHC.CM.PN ---
EMR REVIEWED. PER MD ROUNDS PATIENT TO DC TODAY, HOME SELF CARE W/ O2. PATIENT'S SON'S SERVICE IS THIS EVENING. WILL TRANSPORT AT APPROX 3PM. RN AND PA AWARE. IMM DELIVERED.
--- NOTE | 2023-06-12 14:26 | PC.NURSE ---
Pt d/c home with family at ~1430. Medications given [place] [facility] [place]. Pt sent with 2 oxygen tanks per respiratory also set up with deborah in home 02. Pt educated about any worsening SOB, fevers etc to come back to hospital. IV removed with catheter tip intact.
== END 2023-06-12 14:26 | disposition home or self-care (01) | DRG 193 ==
LOC: HO.ED 02:09 → HO.EDOVER 07:34 → HO.S3 08:02
PROVIDERS: Physician Assistant Surgical; Admitting Provider Nurse Practitioner Acute Care; Emergency Provider Emergency Medicine; PCP General Practice; Visit Provider Physician Assistant Medical
DX: J18.9 Pneumonia, unspecified organism (principal); J96.01 Acute respiratory failure with hypoxia; N39.0 Urinary tract infection, site not specified; K76.6 Portal hypertension; E87.1 Hypo-osmolality and hyponatremia; E87.21 Acute metabolic acidosis; R18.8 Other ascites; K74.60 Unspecified cirrhosis of liver; B96.1 Klebsiella pneumoniae [K. pneumoniae] as the cause of diseases classified elsewhere; G35 Multiple sclerosis; E11.9 Type 2 diabetes mellitus without complications; F10.20 Alcohol dependence, uncomplicated; Z20.822 Contact with and (suspected) exposure to COVID-19; Z87.891 Personal history of nicotine dependence; Z79.4 Long term (current) use of insulin; Z79.899 Other long term (current) drug therapy
CPT/HCPCS: 0241U; 36415; 49083; 71045; 71250; 76705; 80053; 80076; 80202; 80307; 81001; 82248; 82565; 82803; 82947; 83605; 83880; 84484; 85025; 85610; 85730; 87040; 87086; 87088; 87186; 93005; 94640; 99285; J0456; J0696; J2543; J2920; J3370; J3371

== ENCOUNTER → 2023-06-09 00:28 | Outpatient (BNV) | payer OTHER, SELFPAY | PROVIDERS: Admitting Provider Nurse Practitioner Acute Care; Emergency Provider Emergency Medicine; Visit Provider Internal Medicine Cardiovascular Disease | DX: R00.0 Tachycardia, unspecified (principal); R94.31 Abnormal electrocardiogram [ECG] [EKG] | CPT/HCPCS: 93010 ==

== ENCOUNTER 2023-06-09 07:28 | Outpatient (BNV) | payer OTHER, SELFPAY | END 2023-06-11 15:01 | PROVIDERS: Admitting Provider Nurse Practitioner Acute Care; Emergency Provider Emergency Medicine; PCP General Practice; Visit Provider Student in an Organized Health Care Education/Training Program | DX: R18.8 Other ascites (principal) | CPT/HCPCS: 49083 ==

== ENCOUNTER → 2023-06-09 07:28 | Outpatient (BNV) | payer OTHER, SELFPAY | PROVIDERS: Admitting Provider Nurse Practitioner Acute Care; Emergency Provider Emergency Medicine; PCP General Practice; Visit Provider Nurse Practitioner Acute Care | DX: J96.01 Acute respiratory failure with hypoxia (principal); J18.9 Pneumonia, unspecified organism | CPT/HCPCS: 99222; 99232; 99239 ==

== ENCOUNTER → 2023-06-09 07:28 | Outpatient (BNV) | payer OTHER, SELFPAY | PROVIDERS: Admitting Provider Nurse Practitioner Acute Care; Emergency Provider Emergency Medicine; Visit Provider Internal Medicine | DX: K74.60 Unspecified cirrhosis of liver (principal); F10.20 Alcohol dependence, uncomplicated; U07.1 COVID-19; J18.9 Pneumonia, unspecified organism; R06.89 Other abnormalities of breathing | CPT/HCPCS: 99222 ==

== ENCOUNTER 2023-06-13 13:58 | Inpatient (IN) | payer OTHER, SELFPAY ==
[2023-06-13] VITALS (8 sets, daily range): BP systolic 117–152; BP diastolic 52–70; PULSE 91–128; RESP 16–24; TEMP 36.4–37.2; O2SAT 90–95; BMI 22.6; BMI 26.4
--- NOTE | ~2023-06-13 | XR_ITS ---
EXAMINATION: XR ABDOMEN KUB CLINICAL INDICATION: Rule out perforation. Abdominal pain COMPARISON: None available. TECHNIQUE: AP view of the abdomen. FINDINGS: There is elevated right hemidiaphragm. The bowel gas pattern is nonspecific. No organomegaly. There is diffuse haziness throughout the abdomen which could be secondary to ascites. No radiopaque obvious calculi or calcification seen. No gross bony abnormality. XR/XR KUB IMPRESSION: 1. Elevated right hemidiaphragm. 2. Diffuse haziness throughout the abdomen which could be secondary to ascites. No radiopaque calculi seen.
--- NOTE | ~2023-06-13 | US_ITS ---
EXAMINATION: US ABDOMEN LIMITED CLINICAL INFORMATION: Ascites check. COMPARISON: Limited abdominal ultrasound 06/09/2023 Ultrasound for paracentesis 06/11/2023 TECHNIQUE: Real-time imaging of all 4 quadrants of the abdomen FINDINGS: There is a moderate amount of ascites within the abdomen. It is seen with all 4 quadrants with only a small amount of ascites within the left upper quadrant. US/US abdomen limited IMPRESSION: A moderate amount of ascites is seen within the abdomen.
--- NOTE | ~2023-06-13 | US_ITS ---
Ultrasound paracentesis History: Ascites. Risks and benefits and possible complications were discussed with the patient and consent form was signed. A safe pocket of ascitic fluid was identified using ultrasound guidance, and the overlying skin was marked. The abdomen prepped and draped in sterile fashion. 1% lidocaine was used as a local anesthetic. Using ultrasound guidance, a 5 fr catheter was placed into the ascitic pocket. 2.9 liters of yellow fluid was removed passively. The catheter was then removed. A few international sales representative images from before and after the examination were obtained. US/US paracentesis abd w/image Impression: Ultrasound-guided paracentesis as described above. No immediate complications
--- NOTE | ~2023-06-13 | XR_ITS ---
EXAMINATION: XR CHEST CLINICAL INFORMATION: SOB COMPARISON: None available. TECHNIQUE: 2 views of the chest were obtained. FINDINGS: The lungs are hypoexpanded without acute consolidation or effusion. There is cardiomegaly with increased pulmonary vascularity consistent with CHF. There is moderate distention of stomach with gas. No gross bony abnormality seen. XR/XR chest 2V IMPRESSION: 1. Cardiomegaly with CHF. 2. Moderate distention of stomach with gas.
--- NOTE | ~2023-06-13 | CT_ITS ---
EXAMINATION: CTA CHEST PE STUDY CLINICAL INFORMATION: sob, hypoxia COMPARISON: 06/09/2023 TECHNIQUE: Prior to contrast administration, noncontrast localization images were obtained. After the administration of 65 mL of Omnipaque nonionic IV contrast, contiguous thin slice helical images were obtained through the thorax. Reformatted MIP images in the coronal and sagittal planes were obtained at the acquisition workstation. This CT examination was performed using dose optimization techniques as appropriate, variously including the following: *Automated exposure control *Adjustment of mA and/or kV according to patient size (this includes techniques or standardized protocols for targeted exams where dose is matched to indication/reason for exam; i.e. extremities or head) *Use of iterative reconstruction technique DLP: 302 mGy-cm. FINDINGS: The bolus timing on this study was acceptable for visualization of the pulmonary arterial tree. There are no intraluminal pulmonary arterial filling defects present to suggest pulmonary embolism. Bilateral patchy airspace disease is seen with some areas of more dense consolidation and air bronchograms. This airspace change has progressed from the 06/09/2023 study especially on the right. Superimposed atypical infectious etiology would be suspected. This is not the typical pattern for edema. Clinical correlation would be needed. Central airways unremarkable. No abnormal pulmonary nodules or masses are appreciated. No significant hilar or mediastinal adenopathy. There is no evidence of pleural effusion or pneumothorax. The heart is normal in size. No evidence of ventricular septal bowing or right heart strain. Great vessels are normal. Otherwise the mediastinum is unremarkable. There is no pericardial effusion or pericardial thickening. Limited evaluation of the upper abdominal viscera demonstrates large volume ascites. CT/CT angio chest PE protocol IMPRESSION: 1. No evidence for pulmonary emboli. 2. Bilateral patchy airspace disease is seen with some areas of more dense consolidation and air bronchograms. Superimposed atypical infectious etiology would be suspected. This is not the typical pattern for edema. Clinical correlation would be recommended. 3. VTE: Negative.
--- NOTE | ~2023-06-13 | XR_ITS ---
EXAMINATION: XR CHEST CLINICAL INFORMATION: SOB. COMPARISON: Chest 06/17/2023 CT chest 06/09/2023 TECHNIQUE: Frontal view of the chest was obtained. FINDINGS: The lungs are hypoexpanded with diffuse prominent interstitial markings and some patchy opacities in both lung bases similar previous study. Heart size is borderline normal. Perivascular is normal. No gross bony abnormality seen. XR/XR chest 1V IMPRESSION: Diffuse chronic interstitial lung disease. Patchy opacity seen in both lungs. Superimposed pneumonitis or infiltrate is not excluded. No significant change from 06/17/2023. CT chest from 06/09/2023 revealed airspace disease/ consolidation.
--- NOTE | ~2023-06-13 | XR_ITS ---
EXAMINATION: XR CHEST CLINICAL INFORMATION: Hypoxia COMPARISON: Chest 06/13/2023. TECHNIQUE: Frontal view of the chest was obtained. FINDINGS: The lungs are hypoexpanded with diffuse patchy ill-defined opacities throughout both lungs worse since 06/11/2023 suggestive interstitial pneumonitis or edema. Heart size is normal. No gross bony abnormality. XR/XR chest 1V IMPRESSION: Diffuse interstitial prominence consistent with pneumonitis or edema. The findings have significantly worsened since 06/13/2023.
--- NOTE | 2023-06-13 14:04 | ED_ITS ---
HPI - General Adult General Chief complaint: Dyspnea Stated complaint: trouble breathing Time Seen by Provider: 06/13/23 14:15 History of Present Illness HPI narrative: 58 y/o M patient; PMH alcohol use disorder with cirrhosis, T2DM, multiple sclerosis; presents from home with report of worsening shortness of breath. Patient was discharged from this hospital on 06/12/2023 specifically to attend his son's with plan for him to be re-admitted after the event, or earlier if his shortness of breath should worsen. He arrived on 2L NC with SpO2 80%. The patient was previously admitted for acute hypoxic respiratory failure 2/ to multifocal pneumonia. He was treated with Ceftriaxone and Doxycycline, before transition to Ceftin and Doxycycline. Related Data Home Medications Medication Instructions Recorded Confirmed albuterol sulfate 90 mcg/actuation 90 mcg inhalation Q4H PRN 04/09/22 06/13/23 aerosol inhaler Shortness Of Breath Or Wheezing insulin aspart U-100 100 unit/mL See Protocol subcut TIDWM 04/09/22 06/13/23 (3 mL) subcutaneous pen (Novolog FlexPen U-100 Insulin aspart) insulin glargine 100 unit/mL (3 46 unit subcut BEDTIME 04/09/22 06/13/23 mL) subcutaneous pen (Lantus Solostar U-100 Insulin) fluticasone propionate 50 1 spray intranasal DAILY PRN 05/19/23 06/13/23 mcg/actuation nasal Congestion spray,suspension loperamide 2 mg capsule 2 - 4 mg PO Q4-6H PRN diarrhea 06/09/23 06/13/23 Previous Rx's Medication Instructions Recorded omeprazole 20 mg capsule,delayed 20 mg PO DAILY@0630 #30 caps 05/20/23 release prednisone 10 mg tablet See Taper PO DIRECTED #20 tabs 06/11/23 cefuroxime axetil 500 mg tablet 500 mg PO Q12H 10 days #20 tabs 06/12/23 doxycycline hyclate 100 mg tablet 100 mg PO BID 10 days #20 tabs 06/12/23 Allergies Allergy/AdvReac Type Severity Reaction Status Date / Time No Known Allergies Allergy Mild NONE Verified 03/06/23 17:19 Review of Systems 2 Review of Systems: Yes all other systems are reviewed and are negative PMFSH Past Medical History Attestation statement: The following information was validated with the patient. Source: old records reviewed Medical History Respiratory insufficiency Multifocal pneumonia EtOH dependence Liver cirrhosis Diabetes mellitus Multiple sclerosis Surgical History History of hip surgery Family History Family History Mother Diabetes Father HTN (hypertension) Social History Social History Household Members: None Housing: Apartment Do you presently have visiting nurse or other home services: Yes Alcohol intake: current Alcohol intake frequency: 3 or more drinks per day Alcohol type: hard liquor Patient Tobacco Use Status: Former Tobacco user Cigarettes Per Day: 1.9 Smoked in Last 30 Days: No Second Hand Smoke Exposure: No Use of substances other than those prescribed or required for medical reasons: No Advance Directives: Yes Advance Directives on File: Yes Advance Directives Date on File: 03/11/23 service: No Physical Exam ED Vital Signs: Vital Signs - 24 hr 06/13/23 14:04 06/13/23 14:46 06/13/23 14:50 Temperature 97.6 F Pulse Rate 101 H 91 107 H Respiratory Rate 20 22 H 24 H Blood Pressure 117/53 L 136/52 L Pulse Oximetry 94 90 L Oxygen Delivery Method Nasal Cannula Large Bore Nasal Cannula Oxygen Flow Rate 5 06/13/23 16:56 Temperature Pulse Rate 110 H Respiratory Rate 22 H Blood Pressure 148/70 H Pulse Oximetry 95 Oxygen Delivery Method Large Bore Nasal Cannula Oxygen Flow Rate 5 BMI result Body Mass Index 22.6 Patient is afebrile, mildly tachycardic. 94% on 6L NC. Const General: cooperative HENMT Head: Yes atraumatic Eyes General: appearance normal, both eyes and all related structures Pupils: Equal, round and reactive pupils present EOM: EOMs intact bilaterally Neck Neck: Yes full ROM, Yes supple and No tender Chest Chest palpation & inspection: normal inspection of the chest Resp Other: Mild diffuse bilateral rhonchi Effort & Inspection: normal respiratory effort and able to speak in complete sentences Cardio Other: 2+ bilateral lower extremity edema Rate: tachycardic Rhythm: regular rhythm Peripheral pulses: Peripheral pulses 2+ throughout GI Inspection: Yes distended Palpation (GI): Soft to palpation, not firm, nontender, no guarding and not rigid Auscultation: normal bowel sounds Neuro Cranial nerves: Yes Equal, round and reactive pupils present Course Course Course Narrative: RME performed by Katy Rendon PA-C. Patient is a 58 year old assigned male at presenting to the emergency department with continuing shortness of breath. Patient seen here for this on 06/09/23. Labs, imaging, and swabs ordered. Patient placed back in the waiting room pending room availability and results. Reevaluation(s) Reevaluation #1: Discussed with hospitalist team who will re-admit patient. Agree with work up initiated in triage. Patient has not taken any steroids today, will provide Prednisone dose now. Reevaluation #2: CXR with evidence of fluid overload, patient with 2+ bilateral lower extremity pitting edema. Added BNP. Will treat with Lasix 20mg IV, patient urinates with a quintero catheter. Reevaluation #3: Labs reviewed. Leukocytosis - ? infectious versus steroid induced. Mild hyperkalemia 5.2. Hyperglycemia - ordered betahydroxybuterate. AGAP 17. Betahydroxybuterate <1. Troponin low at 5.2. BNP 116 Plan: Admit to hospitalist for multifocal pneumonia with mild CHF exacerbation Condition: Stable Medications Administered Discontinued Medications Generic Name Dose Route Start Last Admin Trade Name Freq PRN Reason Stop Dose Admin Albuterol/Ipratropium 3 ml 06/13/23 14:42 06/13/23 14:44 Albuterol/Iprat 2.5/0.5mg 3 Ml Ampul.Neb INHALE 06/13/23 14:43 3 ml ONCE ONE Administration Prednisone 40 mg 06/13/23 14:30 06/13/23 14:51 Prednisone 20 Mg Tablet PO 06/13/23 14:31 40 mg ONCE ONE Administration Medical Decision Making Lab Data 06/13/23 15:14 06/13/23 15:14 Labs: Lab Results 06/13/23 Range/Units 15:14 WBC 23.4 H (4.8-10.8) X10*3/uL RBC 3.81 L D (4.60-5.80) X10*6/uL Hgb 13.4 L (14.0-18.0) g/dl Hct 37.9 L D (42.0-52.0) % MCV 99.5 H (80.0-98.0) fL MCH 35.2 H (27.0-33.0) pg MCHC 35.4 (31.0-36.0) g/dl RDW 14.8 (11.0-16.0) % Plt Count 126 L (160-400) X10*3/uL MPV 11.2 (9.4-12.4) fL Immature Gran % (Auto) 1.4 H (0.0-0.4) % Neut % (Auto) 82.4 H (45-73) % Lymph % (Auto) 5.0 L (20-40) % [place] % (Auto) 11.1 H (2-11) % Eos % (Auto) 0.0 (0-4) % Baso % (Auto) 0.1 (0-2) % Lymph # (Auto) 1.2 (1.2-4.9) X10*3/uL [place] # (Auto) 2.6 H (0.1-1.2) X10*3/uL Eos # (Auto) 0.0 (0.0-0.4) X10*3/uL Baso # (Auto) 0.0 (0.0-0.2) X10*3/uL Abs Immat Gran (auto) 0.33 H (0.00-0.03) X10*3/uL Absolute Neuts (auto) 19.3 H (2.0-8.3) x10*3/uL Absolute Nucleated RBC 0.000 (0.0-0.012) X10*3/uL Nucleated RBC % (auto) 0.0 (0.0-0.2) /100WBC Smear Tech's Comments VERIFIED PT 17.9 H (11.1-13.3) SEC INR 1.5 H (0.9-1.1) APTT 22.4 L D (26.0-36.4) SEC Sodium 131 L (135-145) mmol/L Potassium 5.2 H (3.3-5.1) mmol/L Chloride 102 (96-108) mmol/L Carbon Dioxide 17 L (22-29) mmol/L Anion Gap 17 (12-20) BUN 31 H (9-16) mg/dL Creatinine 1.13 (0.5-1.4) mg/dL Estim Creat Clear Calc 65.5 Estimated GFR > 60 Random Glucose 573 H* (60-115) mg/dL Estimat Average Glucose 166 mg/dL Hemoglobin A1c % 7.4 H (<6.0) % Calcium 8.9 D (8.4-10.2) mg/dL Magnesium 2.2 (1.6-2.6) mg/dL Total Bilirubin 3.4 H (0.0-1.0) mg/dL AST 105 H (5-37) U/L ALT 64 H (0-40) U/L Alkaline Phosphatase 320 H (39-117) U/L Troponin I High Sens 5.2 (<3.5-35.0) ng/L B-Natriuretic Peptide 116 H (<100) pg/mL Total Protein 6.1 L (6.5-8.0) g/dL Albumin 2.6 L (3.5-5.0) g/dL Beta-Hydroxybutyrate 0.14 (0.02-0.27) mmol/L Influenza Type A (PCR) NEGATIVE (Negative) Influenza Type B (PCR) NEGATIVE (Negative) RSV RNA Qual (PCR) NEGATIVE (Negative) SARS-CoV-2 RNA (RT-PCR) NEGATIVE (Negative) Independent Interpretation I performed an independent interpretation of an: EKG Interpretation: NSR 89BPM with Qtc 442. Discharge Plan Discharge Clinical Impression: Multifocal pneumonia, Congestive heart failure Patient Disposition: Admitted As Inpatient Prescriptions: No Action loperamide 2 mg capsule 2 - 4 mg PO Q4-6H PRN (Reason: diarrhea) prednisone 10 mg tablet See Taper PO DIRECTED Qty: 20 0RF Taper: Prednisone 40 mg daily for 2 Days and 0 Hour 30 mg daily for 2 Days and 0 Hour 20 mg daily for 2 Days and 0 Hour 10 mg daily for 2 Days and 0 Hour Rx Instructions: see taper instructions doxycycline hyclate 100 mg tablet 100 mg PO BID 10 Days Qty: 20 0RF cefuroxime axetil 500 mg tablet 500 mg PO Q12H 10 Days Qty: 20 0RF fluticasone propionate 50 mcg/actuation spray,suspension 1 spray intranasal DAILY PRN (Reason: Congestion) omeprazole 20 mg Capsule,Delayed Release(Dr/Ec) 20 mg PO DAILY@0630 Qty: 30 0RF insulin glargine [Lantus Solostar U-100 Insulin] 100 unit/mL (3 mL) insulin pen 46 unit subcut BEDTIME insulin aspart U-100 [Novolog FlexPen U-100 Insulin] 100 unit/mL (3 mL) insulin pen See Protocol subcut TIDWM Protocol: Insulin Correction Scale Less than or equal to 110 ---- Give (units): 0 111 to 150 Give (units): 0 151 to 200 Give (units): 2 201 to 250 Give (units): 4 251 to 300 Give (units): 6 301 to 350 Give (units): 8 Greater than 350 Give (units): 10 Call MD if Blood Glucose > : 350 albuterol sulfate 90 mcg/actuation HFA aerosol inhaler 90 mcg inhalation Q4H PRN (Reason: Shortness Of Breath Or Wheezing)
--- NOTE | 2023-06-13 14:05 | ECG_ITS ---
Test Reason : SOB Blood Pressure : / mmHG Vent. Rate : 089 BPM Atrial Rate : 089 BPM P-R Int : 138 ms QRS Dur : 098 ms QT Int : 364 ms P-R-T Axes : 052 -12 004 degrees QTc Int : 442 ms Normal sinus rhythm Minimal voltage criteria for LVH, may be normal variant ( R in aVL ) Borderline ECG When compared with ECG of 09-JUN-2023 00:28, No significant change was found Referred By: Katy Rendon Electronically Signed By:TINA ZAFAR MD
--- NOTE | 2023-06-13 14:16 | PC.NURSE ---
Per pt and family O2 tanks are that arrived with patient are [facility] property
[2023-06-13] MEDS: Albuterol/Iprat 2.5/0.5MG 3 ML AMPUL.NEB INHALE ×2 (14:44→19:27)
[2023-06-13] MEDS: predniSONE 20 MG TABLET 40 MG PO (14:51)
--- NOTE | 2023-06-13 15:00 | PC.NURSE ---
pt is alert and oriented, skin appropriate for ethnicity, respirations slightly labored, ls diminished and wheezing through out, sating at 92-93% on 5l on the oxy cannual, sclera jaundice,
--- NOTE | 2023-06-13 15:16 | PHA.MEDREC ---
Pharmacy Consult ? Medication Reconciliation Pharmacy has completed the medication reconciliation. Patient just discharge yesterday, utlizied discharge summary for med rec. Tiffani Chowdary, PharmD
[2023-06-13 15:22] LABS: Basophils Percent Auto 0.1 % (0-2); Hematocrit 37.9 % (42.0-52.0); Hemoglobin 13.4 g/dl (14.0-18.0); Imm Gran Abs Auto 0.33 X10*3/uL (0.00-0.03); Imm Gran Pct Auto 1.4 % (0.0-0.4); Lymphocytes Absolute Auto 1.2 X10*3/uL (1.2-4.9); MANUAL DIFF FLAG SCAN; Mean Corpuscular HGB Conc 35.4 g/dl (31.0-36.0); Mean Corpuscular Hemoglobin 35.2 pg (27.0-33.0); Mean Corpuscular Volume 99.5 fL (80.0-98.0); Mean Platelet Volume 11.2 fL (9.4-12.4); Monocytes Absolute Auto 2.6 X10*3/uL (0.1-1.2); Monocytes Percent Auto 11.1 % (2-11); Neutrophils Absolute Auto 19.3 x10*3/uL (2.0-8.3); Neutrophils Percent Auto 82.4 % (45-73); Platelet Count 126 X10*3/uL (160-400); Red Blood Count 3.81 X10*6/uL (4.60-5.80); Red Cell Distribution Width 14.8 % (11.0-16.0); SCAN SMEAR FLAG 1; White Blood Count 23.4 X10*3/uL (4.8-10.8)
[2023-06-13 15:27] LABS: INTERNATIONAL NORM RATIO 1.5 (0.9-1.1); Prothrombin Time 17.9 SEC (11.1-13.3)
[2023-06-13 15:35] LABS: Partial Thromboplastin Time 22.4 SEC (26.0-36.4)
[2023-06-13 15:39] LABS: Troponin-I High Sensitivity 5.2 ng/L (<3.5-35.0)
[2023-06-13 15:42] LABS: Alanine Aminotransferase 64 U/L (0-40); Albumin Level 2.6 g/dL (3.5-5.0); Alkaline Phosphatase 320 U/L (39-117); Anion Gap 17 (12-20); Aspartate Amino Transferase 105 U/L (5-37); Bilirubin Total 3.4 mg/dL (0.0-1.0); Blood Urea Nitrogen 31 mg/dL (9-16); Calcium 8.9 mg/dL (8.4-10.2); Carbon Dioxide 17 mmol/L (22-29); Chloride 102 mmol/L (96-108); Creatinine Clr Calc Pharmacy 65.5; Estimated Glomerular Filt Rate > 60; Glucose Random 573 mg/dL (60-115); Magnesium 2.2 mg/dL (1.6-2.6); Potassium 5.2 mmol/L (3.3-5.1); Sodium 131 mmol/L (135-145); Total Protein 6.1 g/dL (6.5-8.0)
[2023-06-13 15:48] LABS: SLIDE REVIEW VERIFIED
[2023-06-13 16:24] LABS: Influenza A PCR NEGATIVE (Negative); Influenza B PCR NEGATIVE (Negative); Resp Syncy Virus RNA Qual PCR NEGATIVE (Negative); SARS COV2 PCR INHOUSE NEGATIVE (Negative)
[2023-06-13 16:54] LABS: Estimated Average Glucose 166 mg/dL; Hemoglobin A1c % 7.4 % (<6.0)
[2023-06-13 17:08] LABS: Beta-Hydroxybutyrate 0.14 mmol/L (0.02-0.27)
[2023-06-13 17:12] LABS: B Type Natriuretic Peptide 116 pg/mL (<100)
[2023-06-13] MEDS: Furosemide 20 MG/2 ML VIAL IVPUSH (17:15)
--- NOTE | 2023-06-13 17:45 | P.HPHOSP_ITS ---
History of Present Illness Date of Service: 06/13/23 Attending physician on admission: Nidhi Gilmore Chief Complaint: shortness of breath This is a 58-year-old Frisian-speaking male with history of alcoholic liver cirrhosis, MS, diabetes who was recently hospitalized for multifocal pneumonia who returns to the emergency department with shortness of breath. Unfortunately the patient's son and he wanted to leave the hospital to attend his son's services. Due to these extenuating circumstances he was discharged with oxygen temporarily for him to be able to attend these services with the understanding that he would need to return for likely readmission and at the time he left he understood the risk of leaving. He has returned and reports persistent shortness of breath with exertion. He reports intermittent dry cough. No fever, chills. He denies chest pain. No change in his lower extremity edema. In the emergency department he was initially hypoxic, tachycardic and tachypneic. He received a dose of IV Lasix, oral prednisone and a breathing treatment in his respiratory status has started to improve. Chest x-ray shows cardiomegaly with CHF. He was noted to have mild hyponatremia with a sodium of 131, mild hyperkalemia with potassium of 5.2, hyperglycemia with sugar of 573, and mild elevation of LFTs. Review of Systems 2 Review of Systems: Yes all other systems are reviewed and are negative Constitutional: Constitutional: Denies chills and Denies fever(s) Cardiovascular: Cardiovascular: Denies chest pain, Denies palpitations and Reports dyspnea Respiratory: Respiratory: Reports cough and Reports dyspnea Gastrointestinal: Gastrointestinal: Denies abdominal pain, Denies nausea and Denies vomiting Endocrine: Endocrine: Denies palpitations [facility] Medical History Respiratory insufficiency Multifocal pneumonia EtOH dependence Liver cirrhosis Diabetes mellitus Multiple sclerosis Family History Mother Diabetes Father HTN (hypertension) Pertinent family history: no history of MS Surgical History History of hip surgery Social History (Updated 06/13/23 @ 17:51 by LUCY Mcdaniels) Household Members: None Housing: Apartment Do you presently have visiting nurse or other home services: Yes Alcohol intake: former Patient Tobacco Use Status: Former Tobacco user Cigarettes Per Day: 1.9 Second Hand Smoke Exposure: No Advance Directives Date on File: 03/11/23 service: No Meds Allergies Allergy/AdvReac Type Severity Reaction Status Date / Time No Known Allergies Allergy Mild NONE Verified 03/06/23 17:19 Active Medications: Current Medications Dextrose (Dextrose 50 % 25 Gm/50 Ml Syringe) 25 gm IVPUSH Q15M PRN; Protocol PRN Reason: per Hypoglycemia Standing Ord. Glucose (Glucose Gel 15 Gm Gel..Gram.) 15 gm PO Q15M PRN; Protocol PRN Reason: per Hypoglycemia Standing Ord. Insulin Human Lispro (Insulin Lispro 100 Unit/Ml 3 Ml Vial) 0 unit SUBCUT [facility]; Protocol Stop: 06/14/23 17:42 Home Medications Medication Instructions Recorded Confirmed Last Taken Type albuterol sulfate 90 mcg/actuation 90 mcg inhalation Q4H PRN 04/09/22 06/13/23 Unknown History aerosol inhaler Shortness Of Breath Or Wheezing insulin aspart U-100 100 unit/mL See Protocol subcut TIDWM 04/09/22 06/13/23 Unknown History (3 mL) subcutaneous pen (Novolog FlexPen U-100 Insulin aspart) insulin glargine 100 unit/mL (3 46 unit subcut BEDTIME 04/09/22 06/13/23 Unknown History mL) subcutaneous pen (Lantus Solostar U-100 Insulin) fluticasone propionate 50 1 spray intranasal DAILY PRN 05/19/23 06/13/23 Unknown History mcg/actuation nasal Congestion spray,suspension loperamide 2 mg capsule 2 - 4 mg PO Q4-6H PRN diarrhea 06/09/23 06/13/23 Unknown History Physical Exam 2 Vital Signs and Narrative: Vital Signs: Last Vital Signs Temp 97.6 F 06/13/23 14:04 Pulse 110 H 06/13/23 16:56 Resp 22 H 06/13/23 16:56 BP 148/70 H 06/13/23 16:56 Pulse Ox 95 06/13/23 16:56 O2 Del Method Large Bore Nasal Cannula 06/13/23 16:56 O2 Flow Rate 5 06/13/23 16:56 Oxygen Flow Rate 6 06/13/23 14:04 BMI result Body Mass Index 22.6 Const: General: cooperative, alert and awake Nutritional Appearance: a verage body habitus Orientation/consciousness: patient oriented x3 Resp: Other: diminished breath sounds, scattered wheeze, no rails Effort & Inspection: able to speak in complete sentences, no respiratory distress and no use of accessory muscles Cardio: Rate: tachycardic GI: Inspection: No distended Palpation (GI): Soft to palpation and nontender Neuro: Other: grossly nonfocal General: patient oriented x3 Extrem: Other: b/l leg edema Results Labs 06/13/23 15:14 06/13/23 15:14 Labs: Laboratory Results - last 24 hr 06/13/23 15:14 MCV 99.5 H MCH 35.2 H MCHC 35.4 RDW 14.8 Plt Count 126 L MPV 11.2 Immature Gran % (Auto) 1.4 H Neut % (Auto) 82.4 H Lymph % (Auto) 5.0 L [place] % (Auto) 11.1 H Eos % (Auto) 0.0 Baso % (Auto) 0.1 Lymph # (Auto) 1.2 [place] # (Auto) 2.6 H Eos # (Auto) 0.0 Baso # (Auto) 0.0 Abs Immat Gran (auto) 0.33 H Absolute Neuts (auto) 19.3 H Absolute Nucleated RBC 0.000 Nucleated RBC % (auto) 0.0 Smear Tech's Comments VERIFIED PT 17.9 H INR 1.5 H APTT 22.4 L D Anion Gap 17 Estim Creat Clear Calc 65.5 Estimated GFR > 60 Random Glucose 573 H* Estimat Average Glucose 166 Hemoglobin A1c % 7.4 H Calcium 8.9 D Magnesium 2.2 Total Bilirubin 3.4 H AST 105 H ALT 64 H Alkaline Phosphatase 320 H B-Natriuretic Peptide 116 H Total Protein 6.1 L Albumin 2.6 L Beta-Hydroxybutyrate 0.14 Influenza Type A (PCR) NEGATIVE Influenza Type B (PCR) NEGATIVE RSV RNA Qual (PCR) NEGATIVE SARS-CoV-2 RNA (RT-PCR) NEGATIVE Imaging Radiologist's Impressions: Impressions Chest X-Ray 06/13/23 15:32 IMPRESSION: 1. Cardiomegaly with CHF. 2. Moderate distention of stomach with gas. Assessment and Plan (1) Multifocal pneumonia: Status: Acute Plan This is a 58-year-old male with history MS, liver cirrhosis, diabetes, recent admission for COVID-19 and subsequent admission for multifocal pneumonia who was discharged to attend his son's and returns with ongoing shortness of breath Acute on chronic respiratory failure with hypoxia no sepsis. wbc r/t steroids, tachycardia r/t breathing treatments, hypoxia Due to underlying multifocal pneumonia, and per pulm imaging suggestive COVID 19 related pneumonia cxr also showing possible CHF, BNP 116. denies history of CHF given IV lasix x1 in ED, will continue IV lasix 20 mg daily will obtain echo will resume IV ceftraixone and doxycycline continue PO prednisone continue supplemental oxygen, wean as tolerated DM2 with hyperglycemia due to steroids sugar 500 in ED, no insulin given yet, will check POC and give insulin accordingly hba1c 7.4 continue lantus follow POCs, cover with SSI, ada diet Liver cirrhosis with portal HTN and thrombocytopenia not on med list but was previously on spironolactone, will hold for now given slight elevation in potassium had paracentesis 06/11 with 3.9L of fluid removed LFT's slightly elevated ?due to fluid overload follow LFTs platlets at baseline recent klebsiella UTI diagnosed on last admission covered with ceftriaxone for pneumonia repeat UA negative Hyperkalemia, mild k 5.2 hold spironolactone follow BMP, if trends up can consider lokelma pseudohyponatremia r/t hyperglycemia GERD PPI MS receives ocrelizumab infusion every 6 months patient straight caths daily at home, quintero placed in ED DVT prophylaxis: lovenox Full code Attending - Dr. Gilmore patient requires ongoing inpatient stay for management of respiratory failure requiring supplemental oxygen, possible new CHF requiring IV lasix Quality Stroke Does the patient have a stroke diagnosis?: No VTE Prior VTE?: No VTE Risk Level:: Medical - moderate - high VTE Device Contraindication: N/A - Device Ordered VTE Drug Contraindication: N/A - Med Ordered
[2023-06-13 17:57] LABS: Appearance Urine Clear; Color Urine Yellow; Glucose Urine UA >=1000 mg/dL (Negative); Leukocyte Esterase Urine Negative (Negative); Nitrite Urine Negative (Negative); PH 5.5 (5.0-9.0); UMIC TRIGGER UACC YES; Urine Blood Trace (Negative); Urine Ketones Negative (Negative); Urine Protein Negative (Neg-Trace)
[2023-06-13] MEDS: Enoxaparin Sodium 40 MG/0.4 ML SYRINGE SUBCUT (17:59)
[2023-06-13] MEDS: Doxycycline Monohydrate 100 MG CAPSULE PO (17:59)
[2023-06-13] MEDS: cefTRIAXone sodium 1 GM in 0.9 % Sodium Chloride 50 ML IV (18:00)
[2023-06-13 18:02] LABS: Bacteria Urine None Seen (None Seen); Hyaline Casts Urine 0-2 /LPF (0-2); RBC Urine 0-2 /HPF (0-2); Squamous Epithelial Cell Urine 0-2 /HPF (0-2); WBC Urine 0-5 /HPF (0-5)
[2023-06-13 18:12] LABS: Glucose, Whole Blood 495 mg/dL (60-115)
[2023-06-13] MEDS: Insulin Regular, Human 100 UNIT/ML 3 ML VIAL 8 UNIT IVPUSH (18:45)
[2023-06-13 20:30] LABS: Glucose, Whole Blood 483 mg/dL (60-115)
[2023-06-13] MEDS: Insulin Glargine,Hum.rec.anlog 100 UNIT/ML 10 ML VIAL 46 UNIT SUBCUT (20:55)
[2023-06-13] MEDS: Insulin Lispro 100 UNIT/ML 3 ML VIAL SUBCUT (20:55)
[2023-06-13 23:08] LABS: Glucose, Whole Blood 442 mg/dL (60-115)
[2023-06-13] MEDS: Insulin Regular, Human 100 UNIT/ML 3 ML VIAL IVPUSH (23:26)
[2023-06-14] VITALS (7 sets, daily range): BP systolic 131–142; BP diastolic 59–70; PULSE 61–115; RESP 16–90; TEMP 36.1–37.1; O2SAT 91–98
[2023-06-14] MEDS: Loperamide HCl 2 MG CAPSULE PO ×2 (00:33→21:08)
[2023-06-14 00:45] LABS: Glucose, Whole Blood 411 mg/dL (60-115)
--- NOTE | 2023-06-14 01:21 | PC.NURSE ---
At about 0040, patient's POC glucose was 411 following 5 units regular insulin IV given at 2326 by previous nurse. MD notified. No new orders at this time. MD asked again by this nurse about further intervention. MD aware patient on 46 units Lantus. This nurse told by MD at 0128 no further interventions. Pt calm in room with . Pt comfortable. Alert and oriented x4. Call marcus in reach, plan of care ongoing.
[2023-06-14] MEDS: Omeprazole 20 MG CAPSULE.DR PO (05:31)
[2023-06-14] MEDS: Doxycycline Monohydrate 100 MG CAPSULE PO ×2 (05:31→17:04)
[2023-06-14 06:17] LABS: Hematocrit 32.8 % (42.0-52.0); Hemoglobin 11.5 g/dl (14.0-18.0); Mean Corpuscular HGB Conc 35.1 g/dl (31.0-36.0); Mean Corpuscular Hemoglobin 35.1 pg (27.0-33.0); Mean Platelet Volume 11.1 fL (9.4-12.4); Red Blood Count 3.28 X10*6/uL (4.60-5.80); White Blood Count 16.2 X10*3/uL (4.8-10.8)
[2023-06-14 06:31] LABS: Platelet Count 67 X10*3/uL (160-400)
[2023-06-14 06:39] LABS: Alanine Aminotransferase 56 U/L (0-40); Albumin Level 2.3 g/dL (3.5-5.0); Alkaline Phosphatase 266 U/L (39-117); Anion Gap 11 (12-20); Aspartate Amino Transferase 70 U/L (5-37); Blood Urea Nitrogen 30 mg/dL (9-16); Carbon Dioxide 27 mmol/L (22-29); Chloride 101 mmol/L (96-108); Creatinine Clr Calc Pharmacy 80.9; Estimated Glomerular Filt Rate > 60; Potassium 5.8 mmol/L (3.3-5.1); Sodium 133 mmol/L (135-145); Total Protein 4.9 g/dL (6.5-8.0)
[2023-06-14 06:40] LABS: Glucose Random 415 mg/dL (60-115)
[2023-06-14] MEDS: Insulin Regular, Human 100 UNIT/ML 3 ML VIAL IVPUSH (06:56)
[2023-06-14 07:22] LABS: Glucose, Whole Blood 278 mg/dL (60-115)
[2023-06-14] MEDS: Albuterol/Iprat 2.5/0.5MG 3 ML AMPUL.NEB INHALE ×2 (07:28→13:54)
[2023-06-14] MEDS: predniSONE 20 MG TABLET 40 MG PO (07:53)
[2023-06-14] MEDS: Furosemide 20 MG/2 ML VIAL IVPUSH (07:54)
[2023-06-14] MEDS: Insulin Lispro 100 UNIT/ML 3 ML VIAL SUBCUT ×4 (07:54→21:01)
[2023-06-14] MEDS: 0.9 % Sodium Chloride Flush 3 ML SYRINGE IVFLUSH ×3 (07:54→21:01)
[2023-06-14 11:19] LABS: Glucose, Whole Blood 294 mg/dL (60-115)
--- NOTE | 2023-06-14 12:26 | P.PNIM_ITS ---
Subjective Subjective Date of Service: 06/14/23 Review of Systems Follow-up multifocal pneumonia CHF Physical Exam 2 Vital Signs: Vital Signs: Last Vital Signs Temp 97.0 F 06/14/23 11:03 Pulse 105 H 06/14/23 11:03 Resp 18 06/14/23 11:03 BP 132/61 06/14/23 11:03 Pulse Ox 92 06/14/23 11:03 O2 Del Method Nasal Cannula 06/14/23 11:03 O2 Flow Rate 3 06/14/23 11:03 Oxygen Flow Rate 6 06/13/23 14:04 BMI result Body Mass Index 26.4 Appearing in no acute distress lung sounds are clear to auscultation heart regular rate rhythm, clear S1, S2 positive bowel sounds, abdomen is soft, nontender neuro patient is alert x3, no focal deficits Objective Data Active Medications Albuterol/Ipratropium (Albuterol/Iprat 2.5/0.5mg 3 Ml Ampul.Neb) 3 ml INHALE RQ6H WHILE AWAKE [facility] Last Admin: 06/14/23 07:28 Dose: 3 ml Documented By: KEE Dextrose (Dextrose 50 % 25 Gm/50 Ml Syringe) 25 gm IVPUSH Q15M PRN; Protocol PRN Reason: per Hypoglycemia Standing Ord. Docusate Sodium (Docusate Sodium 100 Mg Capsule) 100 mg PO DAILY PRN PRN Reason: Constipation Doxycycline Monohydrate (Doxycycline Monohydrate 100 Mg Capsule) 100 mg PO Q12H [facility] Last Admin: 06/14/23 05:31 Dose: 100 mg Documented By: SALOMÓN Enoxaparin Sodium (Enoxaparin Sodium 40 Mg/0.4 Ml Syringe) 40 mg SUBCUT Q24H [facility] Last Admin: 06/13/23 17:59 Dose: 40 mg Documented By: JOE Furosemide (Furosemide 20 Mg/2 Ml Vial) 20 mg IVPUSH DAILY [facility]; Protocol Last Admin: 06/14/23 07:54 Dose: 20 mg Documented By: SAUL Ceftriaxone Sodium 1 gm/ (Sodium Chloride) 50 mls @ 100 mls/hr IV Q24H [facility] Last Infusion: 06/13/23 18:46 Dose: Infused Documented By: JOE Insulin Glargine (Insulin Glargine,Hum.Rec.Anlog 100 Unit/Ml 10 Ml Vial) 46 unit SUBCUT BEDTIME [facility] Last Admin: 06/13/23 20:55 Dose: 46 unit Documented By: JESSICA Insulin Human Lispro (Insulin Lispro 100 Unit/Ml 3 Ml Vial) 0 unit SUBCUT QIDACHS [facility]; Protocol Last Admin: 06/14/23 11:58 Dose: 6 unit Documented By: SAUL Loperamide HCl (Loperamide Hcl 2 Mg Capsule) 2 mg PO Q6H PRN PRN Reason: Diarrhea Last Admin: 06/14/23 00:33 Dose: 2 mg Documented By: SALOMÓN Omeprazole (Omeprazole 20 Mg Capsule.) 20 mg PO DAILY@0630 [facility] Last Admin: 06/14/23 05:31 Dose: 20 mg Documented By: SALOMÓN Prednisone (Prednisone 20 Mg Tablet) 40 mg PO DAILY [facility] Last Admin: 06/14/23 07:53 Dose: 40 mg Documented By: SAUL Sodium Chloride (0.9 % Sodium Chloride Flush 3 Ml Syringe) 3 ml IVFLUSH QSHIFT [facility] Last Admin: 06/14/23 07:54 Dose: 3 ml Documented By: SAUL Labs 06/14/23 05:58 06/14/23 05:58 Labs: Laboratory Results - last 24 hr 06/13/23 06/13/23 06/13/23 15:14 17:50 18:06 MCV 99.5 H MCH 35.2 H MCHC 35.4 RDW 14.8 Plt Count 126 L MPV 11.2 Immature Gran % (Auto) 1.4 H Neut % (Auto) 82.4 H Lymph % (Auto) 5.0 L [place] % (Auto) 11.1 H Eos % (Auto) 0.0 Baso % (Auto) 0.1 Lymph # (Auto) 1.2 [place] # (Auto) 2.6 H Eos # (Auto) 0.0 Baso # (Auto) 0.0 Abs Immat Gran (auto) 0.33 H Absolute Neuts (auto) 19.3 H Absolute Nucleated RBC 0.000 Nucleated RBC % (auto) 0.0 Smear Tech's Comments VERIFIED PT 17.9 H INR 1.5 H APTT 22.4 L D Anion Gap 17 Estim Creat Clear Calc 65.5 Estimated GFR > 60 POC Glucose 495 H* Random Glucose 573 H* Estimat Average Glucose 166 Hemoglobin A1c % 7.4 H Calcium 8.9 D Magnesium 2.2 Total Bilirubin 3.4 H Direct Bilirubin AST 105 H ALT 64 H Alkaline Phosphatase 320 H B-Natriuretic Peptide 116 H Total Protein 6.1 L Albumin 2.6 L Beta-Hydroxybutyrate 0.14 Urine Color Yellow Urine Appearance Clear Urine pH 5.5 Ur Specific [place] 1.010 Urine Protein Negative Urine Glucose (UA) >=1000 H Urine Ketones Negative Urine Blood Trace H Urine Nitrite Negative Ur Leukocyte Esterase Negative Urine RBC 0-2 Urine WBC 0-5 Ur Squamous Epith Cells 0-2 Urine Bacteria None Seen Hyaline Casts 0-2 Influenza Type A (PCR) NEGATIVE Influenza Type B (PCR) NEGATIVE RSV RNA Qual (PCR) NEGATIVE SARS-CoV-2 RNA (RT-PCR) NEGATIVE 06/13/23 06/13/23 06/14/23 20:21 23:05 00:40 MCV MCH MCHC RDW Plt Count MPV Immature Gran % (Auto) Neut % (Auto) Lymph % (Auto) [place] % (Auto) Eos % (Auto) Baso % (Auto) Lymph # (Auto) [place] # (Auto) Eos # (Auto) Baso # (Auto) Abs Immat Gran (auto) Absolute Neuts (auto) Absolute Nucleated RBC Nucleated RBC % (auto) Smear Tech's Comments PT INR APTT Anion Gap Estim Creat Clear Calc Estimated GFR POC Glucose 483 H* 442 H* 411 H* Random Glucose Estimat Average Glucose Hemoglobin A1c % Calcium Magnesium Total Bilirubin Direct Bilirubin AST ALT Alkaline Phosphatase B-Natriuretic Peptide Total Protein Albumin Beta-Hydroxybutyrate Urine Color Urine Appearance Urine pH Ur Specific [place] Urine Protein Urine Glucose (UA) Urine Ketones Urine Blood Urine Nitrite Ur Leukocyte Esterase Urine RBC Urine WBC Ur Squamous Epith Cells Urine Bacteria Hyaline Casts Influenza Type A (PCR) Influenza Type B (PCR) RSV RNA Qual (PCR) SARS-CoV-2 RNA (RT-PCR) 06/14/23 06/14/23 06/14/23 05:58 07:17 11:06 MCV 100.0 H MCH 35.1 H MCHC 35.1 RDW 15.0 Plt Count 67 L D MPV 11.1 Immature Gran % (Auto) Neut % (Auto) Lymph % (Auto) [place] % (Auto) Eos % (Auto) Baso % (Auto) Lymph # (Auto) [place] # (Auto) Eos # (Auto) Baso # (Auto) Abs Immat Gran (auto) Absolute Neuts (auto) Absolute Nucleated RBC 0.000 Nucleated RBC % (auto) 0.0 Smear Tech's Comments PT INR APTT Anion Gap 11 L Estim Creat Clear Calc 80.9 Estimated GFR > 60 POC Glucose 278 H 294 H Random Glucose 415 H* Estimat Average Glucose Hemoglobin A1c % Calcium 9.0 Magnesium Total Bilirubin 3.0 H Direct Bilirubin 2.0 H AST 70 H ALT 56 H Alkaline Phosphatase 266 H B-Natriuretic Peptide Total Protein 4.9 L Albumin 2.3 L Beta-Hydroxybutyrate Urine Color Urine Appearance Urine pH Ur Specific [place] Urine Protein Urine Glucose (UA) Urine Ketones Urine Blood Urine Nitrite Ur Leukocyte Esterase Urine RBC Urine WBC Ur Squamous Epith Cells Urine Bacteria Hyaline Casts Influenza Type A (PCR) Influenza Type B (PCR) RSV RNA Qual (PCR) SARS-CoV-2 RNA (RT-PCR) Assessment and Plan (1) Congestive heart failure: Status: Acute Plan This is a 58-year-old male with history MS, liver cirrhosis, diabetes, recent admission for COVID-19 and subsequent admission for multifocal pneumonia who was discharged to attend his son's and returns with ongoing shortness of breath Acute on chronic respiratory failure with hypoxia no sepsis. wbc r/t steroids, tachycardia r/t breathing treatments, hypoxia Due to underlying multifocal pneumonia, and per pulm imaging suggestive COVID 19 related pneumonia cxr also showing possible CHF, BNP 116. denies history of CHF given IV lasix x1 in ED, will continue IV lasix 20 mg daily will obtain echo will resume IV ceftraixone and doxycycline continue PO prednisone continue supplemental oxygen, wean as tolerated DM2 with hyperglycemia due to steroids sugar 500 in ED, no insulin given yet, will check POC and give insulin accordingly hba1c 7.4 continue lantus follow POCs, cover with SSI, ada diet Liver cirrhosis with portal HTN and thrombocytopenia not on med list but was previously on spironolactone, will hold for now given slight elevation in potassium had paracentesis 06/11 with 3.9L of fluid removed LFT's slightly elevated ?due to fluid overload follow LFTs platlets at baseline recent klebsiella UTI diagnosed on last admission covered with ceftriaxone for pneumonia repeat UA negative Hyperkalemia, mild k 5.8 lokelma pseudohyponatremia r/t hyperglycemia GERD PPI MS receives ocrelizumab infusion every 6 months patient straight caths daily at home, quintero placed in ED DVT prophylaxis: lovenox Full code Attending - Dr. Bustamante patient requires ongoing inpatient stay for management of respiratory failure requiring supplemental oxygen, possible new CHF requiring IV lasix Quality Stroke Does the patient have a stroke diagnosis?: No VTE Prior VTE?: No VTE Risk Level:: Medical - moderate - high VTE Device Contraindication: N/A - Device Ordered VTE Drug Contraindication: N/A - Med Ordered
[2023-06-14] MEDS: Sodium Zirconium Cyclosilicate 10 GM POWD.PACK PO (14:08)
--- NOTE | 2023-06-14 16:08 | MHC.CM.PN ---
CM SPOKE TO PTS SPOUSE, XIOMY [phone] VIA TELEPHONE XIOMY REPORTS THE PT LIVES AT HOME WITH HER AND REQUIRES ASSISTANCE WITH CARE SHE ASSISTS NEEDED AND HE ALSO HAS A SENIOR OPERATOR DAILY A CCA RN ALSO VISITS WHEN INDICATED PT HAS A WHEEL CHAIR, WALKER, TUB BENCH AND DM SUPPLIES HE HAS A HCP ON FILE PCP: YANG WILKINS IMM DELIVERED DCP: HOME, RESUME SENIOR OPERATOR SERVICES XIOMY WILL TRANSPORT
[2023-06-14 16:22] LABS: Glucose, Whole Blood 370 mg/dL (60-115)
[2023-06-14] MEDS: Enoxaparin Sodium 40 MG/0.4 ML SYRINGE SUBCUT (17:04)
[2023-06-14] MEDS: cefTRIAXone sodium 1 GM in 0.9 % Sodium Chloride 50 ML IV (17:15)
[2023-06-14 20:26] LABS: Glucose, Whole Blood 391 mg/dL (60-115)
[2023-06-14] MEDS: Insulin Glargine,Hum.rec.anlog 100 UNIT/ML 10 ML VIAL 46 UNIT SUBCUT (21:01)
[2023-06-15] VITALS (10 sets, daily range): BP systolic 117–154; BP diastolic 56–69; PULSE 68–125; RESP 18–20; TEMP 36.5–37.1; O2SAT 90–98
[2023-06-15] MEDS: Acetaminophen 325 MG TABLET 650 MG PO (01:31)
[2023-06-15] MEDS: Omeprazole 20 MG CAPSULE.DR PO (05:59)
[2023-06-15] MEDS: Doxycycline Monohydrate 100 MG CAPSULE PO ×2 (05:59→17:26)
--- NOTE | 2023-06-15 07:00 | CA_ITS ---
Transthoracic Echocardiogram Patient (Last, First, Middle): Remberto Hawkins, Gender: Male Date of : 1965 Age: 58 Procedure Date: 06/15/2023 Procedure Type: Transthoracic Echocardiogram Location: [facility] [place] Height: 167.64 cm Weight: 73.94 kg BSA: 1.83 m2 Heart Rate: bpm BP: 121 / 56 mmHg Occasional Babysitter: NAHEED/BLADIMIR Referring MD: Yajaira [employer] Team Member: Zuhair Zuniga MD Symptoms: ?chf Study Quality: Adequate ECG Rhythm: Sinus Conclusions: - 1. Mildly reduced LV ejection fraction 45-50% with impaired relaxation filling pattern 2. Normal cardiac valvular Dopplers 3. No gross pericardial effusion Findings Left Ventricle Normal left ventricular cavity size. There is normal left ventricular wall thickness. The left ventricular systolic function is mildly decreased. The visually estimated ejection fraction is between 45-50%. Spectral Doppler is indicative of an impaired relaxation filling pattern. E/E prime ratio is between 8 and 15 consistent with indeterminate filling pressures. Peak GLS is -14.8%, which is moderately reduced. Right Ventricle Normal right ventricular cavity size and systolic function. Atria The left atrium is likely dilated. Interatrial shunt cannot be excluded. The right atrium is normal in size. Aortic Valve Normal aortic valve structure and function. There is no aortic valve stenosis. There is no aortic valve regurgitation. Mitral Valve Normal mitral valve structure and function. There is trace mitral valve regurgitation. There is no mitral valve stenosis. Pulmonic Valve The pulmonic valve is likely normal. There is trace pulmonic valve regurgitation. Tricuspid Valve Normal tricuspid valve structure. Tricuspid regurgitation envelope is inadequate for calculation of right ventricular systolic pressure. Normal right atrial pressure. Great Vessels All visible segments of the aorta are normal in size. The pulmonary artery was not well visualized. Venous The inferior vena cava is normal in size and collapses greater than 50% with inspiration. Pericardium/Pleural There is no evidence of pericardial effusion. Prior Study Comparison No prior study available for comparison. Measurements 2D Linear Measurements IVSd: 0.99 0.6-0.9/0.6-1.0 cm LVIDd: 4.94 3.9-5.3/4.2-5.9 cm LVIDd Index: 2.70 2.4-3.2/2.2-3.1 cm/m2 LVIDs: 3.57 2.0-3.6 cm LVPWd: 1.13 0.7-1.1 cm LA Diam: 4.20 2.7-3.8/3.0-4.0 cm LAIDs Index: 2.30 1.5-2.3 cm/m2 LV Mass: 240.91 67-162/88-224 g LV Mass Index: 131.64 43-95/49-115 g/m2 LVOT Diam: 2.30 3.0+(-)1.3 cm 2D Systolic Function EF 4C: 42.30 >55% EF 2C: 49.60 >55% EF BiP: 45.60 >55% Mitral Valve MV Pk E: 0.69 MV PK A: 0.75 MV Decel Time: 143.00 E/A: 0.90 E'Lateral: 6.31 E'Medial: 6.74 E/E' Med: 10.30 E/E' Lat: 11.00 PHT: 42.00 MVA PHT: 5.24 Decel Todd: 4.87 Aortic Valve AoV Pk Tereso: 1.90 AoV Mn Tereso: 1.40 AoV VTI: 0.35 AoV Pk Grad: 14.00 Aov Mn Grad: 9.00 HUSAM Cont.VTI: 2.26 LVOT LVOT Pk Tereso: 1.02 LVOT Mn Tereso: 0.66 LVOT VTI: 0.19 LVOT Pk Grad: 4.00 LVOT Mn Grad: 2.00 LVOT Diam: 2.30 LVOT Area: 4.15 Diastolic Function MV Pk E: 0.69 MV Pk A: 0.75 E/A: 0.90 E'Medial: 6.74 E/E' Med: 10.30 E' Laterial: 6.31 E/E' Lat: 11.00 Right Ventricle TAPSE (mm): 26.70 TVS' Tereso: 21.40 Tricuspid Valve RA Press: 3.00 Great Vessels Aorta Sinus of Valsalva: 3.40 2.0-3.5 cm Ao Asc: 3.40 2.1-3.4 cm Updated in Other Vendor System with Status of Final uZhair Zuniga MD electronically signed on 06/16/2023 9:17:04 AM with status of Final
[2023-06-15 07:46] LABS: Glucose, Whole Blood 261 mg/dL (60-115)
[2023-06-15] MEDS: Albuterol/Iprat 2.5/0.5MG 3 ML AMPUL.NEB INHALE ×3 (08:08→19:56)
[2023-06-15] MEDS: Furosemide 20 MG/2 ML VIAL IVPUSH (08:31)
[2023-06-15] MEDS: Insulin Lispro 100 UNIT/ML 3 ML VIAL SUBCUT ×4 (08:31→21:05)
[2023-06-15] MEDS: predniSONE 20 MG TABLET 40 MG PO (08:31)
[2023-06-15] MEDS: 0.9 % Sodium Chloride Flush 3 ML SYRINGE IVFLUSH ×2 (08:32→17:39)
[2023-06-15 09:08] LABS: Anion Gap 13 (12-20); Blood Urea Nitrogen 30 mg/dL (9-16); Calcium 8.8 mg/dL (8.4-10.2); Carbon Dioxide 29 mmol/L (22-29); Chloride 101 mmol/L (96-108); Creatinine Clr Calc Pharmacy 82.7; Estimated Glomerular Filt Rate > 60; Glucose Random 255 mg/dL (60-115); Potassium 5.5 mmol/L (3.3-5.1); Sodium 137 mmol/L (135-145)
[2023-06-15 09:16] LABS: B Type Natriuretic Peptide 82 pg/mL (<100)
--- NOTE | 2023-06-15 09:20 | P.PNIM_ITS ---
Subjective Subjective Date of Service: 06/15/23 Review of Systems Follow-up multifocal pneumonia CHF Physical Exam 2 Vital Signs: Vital Signs: Last Vital Signs Temp 98.1 F 06/15/23 08:00 Pulse 68 06/15/23 08:10 Resp 18 06/15/23 08:10 BP 129/60 06/15/23 08:00 Pulse Ox 92 06/15/23 08:00 O2 Del Method Room Air 06/15/23 08:00 O2 Flow Rate 3 06/15/23 03:03 Oxygen Flow Rate 6 06/13/23 14:04 BMI result Body Mass Index 26.4 Appearing in no acute distress lung sounds are clear to auscultation heart regular rate rhythm, clear S1, S2 positive bowel sounds, abdomen is soft, nontender neuro patient is alert x3, no focal deficits Objective Data Active Medications Acetaminophen (Acetaminophen 325 Mg Tablet) 650 mg PO Q4H PRN PRN Reason: Pain, Mild (Pain Scale 1-3) Last Admin: 06/15/23 01:31 Dose: 650 mg Documented By: SALOMÓN Albuterol/Ipratropium (Albuterol/Iprat 2.5/0.5mg 3 Ml Ampul.Neb) 3 ml INHALE RQ6H WHILE AWAKE [facility] Last Admin: 06/15/23 08:08 Dose: 3 ml Documented By: KEE Dextrose (Dextrose 50 % 25 Gm/50 Ml Syringe) 25 gm IVPUSH Q15M PRN; Protocol PRN Reason: per Hypoglycemia Standing Ord. Docusate Sodium (Docusate Sodium 100 Mg Capsule) 100 mg PO DAILY PRN PRN Reason: Constipation Doxycycline Monohydrate (Doxycycline Monohydrate 100 Mg Capsule) 100 mg PO Q12H [facility] Last Admin: 06/15/23 05:59 Dose: 100 mg Documented By: SALOMÓN Enoxaparin Sodium (Enoxaparin Sodium 40 Mg/0.4 Ml Syringe) 40 mg SUBCUT Q24H [facility] Last Admin: 06/14/23 17:04 Dose: 40 mg Documented By: SAUL Furosemide (Furosemide 20 Mg/2 Ml Vial) 20 mg IVPUSH DAILY [facility]; Protocol Last Admin: 06/15/23 08:31 Dose: 20 mg Documented By: HELENA Ceftriaxone Sodium 1 gm/ (Sodium Chloride) 50 mls @ 100 mls/hr IV Q24H [facility] Last Infusion: 06/14/23 17:45 Dose: Infused Documented By: SAUL Insulin Glargine (Insulin Glargine,Hum.Rec.Anlog 100 Unit/Ml 10 Ml Vial) 46 unit SUBCUT BEDTIME [facility] Last Admin: 06/14/23 21:01 Dose: 46 unit Documented By: SALOMÓN Insulin Human Lispro (Insulin Lispro 100 Unit/Ml 3 Ml Vial) 0 unit SUBCUT QIDACHS [facility]; Protocol Last Admin: 06/15/23 08:31 Dose: 6 unit Documented By: HELENA Loperamide HCl (Loperamide Hcl 2 Mg Capsule) 2 mg PO Q6H PRN PRN Reason: Diarrhea Last Admin: 06/14/23 21:08 Dose: 2 mg Documented By: SALOMÓN Omeprazole (Omeprazole 20 Mg Capsule.) 20 mg PO DAILY@0630 [facility] Last Admin: 06/15/23 05:59 Dose: 20 mg Documented By: SALOMÓN Prednisone (Prednisone 20 Mg Tablet) 40 mg PO DAILY [facility] Last Admin: 06/15/23 08:31 Dose: 40 mg Documented By: HELENA Sodium Chloride (0.9 % Sodium Chloride Flush 3 Ml Syringe) 3 ml IVFLUSH QSHIFT [facility] Last Admin: 06/15/23 08:32 Dose: 3 ml Documented By: HELENA Labs 06/14/23 05:58 06/15/23 08:25 Labs: Laboratory Results - last 24 hr 06/14/23 06/14/23 06/14/23 11:06 16:15 20:14 Hold Purple Top Anion Gap Estim Creat Clear Calc Estimated GFR POC Glucose 294 H 370 H* 391 H* Random Glucose Calcium B-Natriuretic Peptide 06/15/23 06/15/23 07:32 08:25 Hold Purple Top SEE NOTE Anion Gap 13 Estim Creat Clear Calc 82.7 Estimated GFR > 60 POC Glucose 261 H Random Glucose 255 H Calcium 8.8 B-Natriuretic Peptide 82 Assessment and Plan (1) Congestive heart failure: Status: Acute Plan This is a 58-year-old male with history MS, liver cirrhosis, diabetes, recent admission for COVID-19 and subsequent admission for multifocal pneumonia who was discharged to attend his son's and returns with ongoing shortness of breath Acute on chronic respiratory failure with hypoxia no sepsis. wbc r/t steroids, tachycardia r/t breathing treatments, hypoxia Due to underlying multifocal pneumonia, and per pulm imaging suggestive COVID 19 related pneumonia cxr also showing possible CHF, BNP 116. denies history of CHF given IV lasix x1 in ED, will continue IV lasix 20 mg daily will resume IV ceftraixone and doxycycline continue PO prednisone continue supplemental oxygen, wean as tolerated echo pending DM2 with hyperglycemia due to steroids sugar 500 in ED, no insulin given yet, will check POC and give insulin accordingly hba1c 7.4 continue lantus follow POCs, cover with SSI, ada diet Liver cirrhosis with portal HTN and thrombocytopenia not on med list but was previously on spironolactone, will hold for now given slight elevation in potassium had paracentesis 06/11 with 3.9L of fluid removed LFT's slightly elevated ?due to fluid overload follow LFTs platlets at baseline recent klebsiella UTI diagnosed on last admission covered with ceftriaxone for pneumonia repeat UA negative Hyperkalemia, mild k 5.5 lokelma pseudohyponatremia r/t hyperglycemia GERD PPI MS receives ocrelizumab infusion every 6 months patient straight caths daily at home, quintero placed in ED DVT prophylaxis: lovenox Full code Attending - Dr. Bustamante patient requires ongoing inpatient stay for management of respiratory failure requiring supplemental oxygen, possible new CHF requiring IV lasix Quality Stroke Does the patient have a stroke diagnosis?: No VTE Prior VTE?: No VTE Risk Level:: Medical - moderate - high VTE Device Contraindication: N/A - Device Ordered VTE Drug Contraindication: N/A - Med Ordered
[2023-06-15] MEDS: Sodium Zirconium Cyclosilicate 10 GM POWD.PACK PO (10:30)
[2023-06-15 11:14] LABS: Glucose, Whole Blood 267 mg/dL (60-115)
[2023-06-15 16:31] LABS: Glucose, Whole Blood 264 mg/dL (60-115)
[2023-06-15] MEDS: cefTRIAXone sodium 1 GM in 0.9 % Sodium Chloride 50 ML IV (17:26)
[2023-06-15] MEDS: Enoxaparin Sodium 40 MG/0.4 ML SYRINGE SUBCUT (17:26)
[2023-06-15 20:25] LABS: Glucose, Whole Blood 356 mg/dL (60-115)
[2023-06-15] MEDS: Insulin Glargine,Hum.rec.anlog 100 UNIT/ML 10 ML VIAL 46 UNIT SUBCUT (21:03)
[2023-06-16] VITALS (9 sets, daily range): BP systolic 126–144; BP diastolic 50–75; PULSE 93–112; RESP 16–20; TEMP 36.1–37.2; O2SAT 88–96
[2023-06-16] MEDS: Omeprazole 20 MG CAPSULE.DR PO (06:18)
[2023-06-16] MEDS: Doxycycline Monohydrate 100 MG CAPSULE PO ×2 (06:18→17:44)
[2023-06-16] MEDS: Albuterol/Iprat 2.5/0.5MG 3 ML AMPUL.NEB INHALE (07:37)
[2023-06-16 08:03] LABS: Glucose, Whole Blood 252 mg/dL (60-115)
[2023-06-16] MEDS: Furosemide 20 MG/2 ML VIAL IVPUSH (08:25)
[2023-06-16] MEDS: Insulin Lispro 100 UNIT/ML 3 ML VIAL SUBCUT ×7 (08:26→21:38)
[2023-06-16] MEDS: predniSONE 20 MG TABLET 40 MG PO (08:26)
--- NOTE | 2023-06-16 09:28 | HO.PM.IMPN ---
Subjective Subjective Date of Service: 06/16/23 Review of Systems Follow-up multifocal pneumonia CHF Physical Exam Vital Signs: Vital Signs: Last Vital Signs Temp 97 F 06/16/23 07:49 Pulse 110 H 06/16/23 07:49 Resp 16 06/16/23 07:49 BP 139/50 L 06/16/23 07:49 Pulse Ox 96 06/16/23 07:49 O2 Del Method Nasal Cannula 06/16/23 07:49 O2 Flow Rate 2 06/16/23 07:49 Oxygen Flow Rate 6 06/13/23 14:04 BMI result Body Mass Index 26.4 Appearing in no acute distress lung sounds are clear to auscultation heart regular rate rhythm, clear S1, S2 positive bowel sounds, abdomen is soft, nontender neuro patient is alert x3, no focal deficits Objective Data Active Medications Acetaminophen (Acetaminophen 325 Mg Tablet) 650 mg PO Q4H PRN PRN Reason: Pain, Mild (Pain Scale 1-3) Last Admin: 06/15/23 01:31 Dose: 650 mg Documented By: SALOMÓN Albuterol/Ipratropium (Albuterol/Iprat 2.5/0.5mg 3 Ml Ampul.Neb) 3 ml INHALE RQ6H WHILE AWAKE [facility] Last Admin: 06/16/23 07:37 Dose: 3 ml Documented By: KARLA Dextrose (Dextrose 50 % 25 Gm/50 Ml Syringe) 25 gm IVPUSH Q15M PRN; Protocol PRN Reason: per Hypoglycemia Standing Ord. Docusate Sodium (Docusate Sodium 100 Mg Capsule) 100 mg PO DAILY PRN PRN Reason: Constipation Doxycycline Monohydrate (Doxycycline Monohydrate 100 Mg Capsule) 100 mg PO Q12H [facility] Last Admin: 06/16/23 06:18 Dose: 100 mg Documented By: SALOMÓN Enoxaparin Sodium (Enoxaparin Sodium 40 Mg/0.4 Ml Syringe) 40 mg SUBCUT Q24H [facility] Last Admin: 06/15/23 17:26 Dose: 40 mg Documented By: HELENA Furosemide (Furosemide 20 Mg/2 Ml Vial) 20 mg IVPUSH DAILY [facility]; Protocol Last Admin: 06/16/23 08:25 Dose: 20 mg Documented By: HELENA Ceftriaxone Sodium 1 gm/ (Sodium Chloride) 50 mls @ 100 mls/hr IV Q24H [facility] Last Infusion: 06/15/23 21:12 Dose: Infused Documented By: SALOMÓN Insulin Glargine (Insulin Glargine,Hum.Rec.Anlog 100 Unit/Ml 10 Ml Vial) 46 unit SUBCUT BEDTIME [facility] Last Admin: 06/15/23 21:03 Dose: 46 unit Documented By: SALOMÓN Insulin Human Lispro (Insulin Lispro 100 Unit/Ml 3 Ml Vial) 0 unit SUBCUT QIDACHS [facility]; Protocol Last Admin: 06/16/23 08:26 Dose: 6 unit Documented By: HELENA Loperamide HCl (Loperamide Hcl 2 Mg Capsule) 2 mg PO Q6H PRN PRN Reason: Diarrhea Last Admin: 06/14/23 21:08 Dose: 2 mg Documented By: SALOMÓN Omeprazole (Omeprazole 20 Mg Capsule.) 20 mg PO DAILY@0630 [facility] Last Admin: 06/16/23 06:18 Dose: 20 mg Documented By: SALOMÓN Prednisone (Prednisone 20 Mg Tablet) 40 mg PO DAILY [facility] Last Admin: 06/16/23 08:26 Dose: 40 mg Documented By: HELENA Sodium Chloride (0.9 % Sodium Chloride Flush 3 Ml Syringe) 3 ml IVFLUSH QSHIFT [facility] Last Admin: 06/16/23 01:10 Dose: Not Given Documented By: SALOMÓN Non-Admin Reason: Previously Administered Labs 06/14/23 05:58 06/15/23 08:25 Labs: Laboratory Results - last 24 hr 06/15/23 06/15/23 06/15/23 11:10 16:22 20:21 POC Glucose 267 H 264 H 356 H* 06/16/23 07:49 POC Glucose 252 H Assessment and Plan (1) Congestive heart failure: Status: Acute Plan This is a 58-year-old male with history MS, liver cirrhosis, diabetes, recent admission for COVID-19 and subsequent admission for multifocal pneumonia who was discharged to attend his son's and returns with ongoing shortness of breath Acute on chronic respiratory failure with hypoxia no sepsis. wbc r/t steroids, tachycardia r/t breathing treatments, hypoxia Due to underlying multifocal pneumonia, and per pulm imaging suggestive COVID 19 related pneumonia cxr also showing possible CHF, BNP 116 initially. denies history of CHF given IV lasix x1 in ED, will continue IV lasix 20 mg daily will resume IV ceftraixone and doxycycline continue PO prednisone, wean continue supplemental oxygen, wean as tolerated echo completed but reading pending DM2 with hyperglycemia due to steroids hba1c 7.4 continue ss, lantus, mealtime insulin Liver cirrhosis with portal HTN and thrombocytopenia had paracentesis 06/11 with 3.9L of fluid removed LFT's slightly elevated ?due to fluid overload follow LFTs platelets at baseline recent klebsiella UTI diagnosed on last admission covered with ceftriaxone for pneumonia repeat UA negative Hyperkalemia, mild k 5.5 lokelma pseudohyponatremia r/t hyperglycemia GERD PPI MS receives ocrelizumab infusion every 6 months patient straight caths daily at home, quintero placed in ED DVT prophylaxis: lovenox Full code Attending - Dr. Hudson patient requires ongoing inpatient stay for management of respiratory failure requiring supplemental oxygen, possible new CHF requiring IV lasix Quality Stroke Does the patient have a stroke diagnosis?: No VTE Prior VTE?: No VTE Risk Level:: Medical - moderate - high VTE Device Contraindication: N/A - Device Ordered VTE Drug Contraindication: N/A - Med Ordered
[2023-06-16 11:41] LABS: Glucose, Whole Blood 246 mg/dL (60-115)
[2023-06-16 16:14] LABS: Glucose, Whole Blood 264 mg/dL (60-115)
[2023-06-16] MEDS: 0.9 % Sodium Chloride Flush 3 ML SYRINGE IVFLUSH (16:55)
[2023-06-16] MEDS: cefTRIAXone sodium 1 GM in 0.9 % Sodium Chloride 50 ML IV (17:44)
[2023-06-16] MEDS: Enoxaparin Sodium 40 MG/0.4 ML SYRINGE SUBCUT (17:44)
--- NOTE | 2023-06-16 17:59 | PC.NURSE ---
Pt alert and oriented X4. Denies pain/discomfort. LS with occasional exp wheezes denies shortness of breath or chest pain, NS/ST on tele. Remains on 2L oxygen via nasal cannula. BSX4 abdomen soft non-tender denies nausea/vomiting. Epperson cath with clear yellow urine. IV antibiotics given per order. Family at bedside throughout shift. Will continue to monitor and report changes
[2023-06-16] MEDS: Albuterol Sulfate 90 MCG 8 GM INHALER 2 PUFF INHALE (20:06)
[2023-06-16 20:11] LABS: Glucose, Whole Blood 255 mg/dL (60-115)
[2023-06-16] MEDS: Insulin Glargine,Hum.rec.anlog 100 UNIT/ML 10 ML VIAL 46 UNIT SUBCUT (21:39)
[2023-06-17] MEDS: 0.9 % Sodium Chloride Flush 3 ML SYRINGE IVFLUSH ×4 (01:14→22:17)
[2023-06-17 04:00] VITALS: PULSE 86; O2SAT 93
[2023-06-17] MEDS: Omeprazole 20 MG CAPSULE.DR PO (05:49)
[2023-06-17] MEDS: Doxycycline Monohydrate 100 MG CAPSULE PO (05:49)
[2023-06-17 07:21] LABS: Glucose, Whole Blood 188 mg/dL (60-115)
[2023-06-17 07:22] LABS: Mean Corpuscular HGB Conc 35.3 g/dl (31.0-36.0); Mean Corpuscular Hemoglobin 34.8 pg (27.0-33.0); Mean Corpuscular Volume 98.6 fL (80.0-98.0); Mean Platelet Volume 10.9 fL (9.4-12.4); Red Blood Count 3.45 X10*6/uL (4.60-5.80); Red Cell Distribution Width 15.7 % (11.0-16.0); White Blood Count 15.3 X10*3/uL (4.8-10.8)
[2023-06-17 07:24] LABS: Platelet Count 59 X10*3/uL (160-400)
[2023-06-17 07:26] VITALS: BP 134/63; PULSE 86; RESP 20; TEMP 36.7; O2SAT 91
--- NOTE | 2023-06-17 07:31 | PM.DS ---
DS: Providers Provider Date of Service: 06/17/23 Date of admission: 06/13/23 17:39 Primary care physician: Unknown Physician Consults: 06/17/23 07:24 Consult to Cardiology Routine [place]ing [place] [facility] [place] [facility] [facility] Reason for consultation: mild HFref DS: Diagnosis Discharge Diagnosis (1) Congestive heart failure: Status: Acute DS: Summary Hospital Course Hospital Course: History and physical as per admitting provider. This is a 58-year-old Ecuadorean-speaking male with history of alcoholic liver cirrhosis, MS, diabetes who was recently hospitalized for multifocal pneumonia who returns to the emergency department with shortness of breath. Unfortunately the patient's son and he wanted to leave the hospital to attend his son's services. Due to these extenuating circumstances he was discharged with oxygen temporarily for him to be able to attend these services with the understanding that he would need to return for likely readmission and at the time he left he understood the risk of leaving. He has returned and reports persistent shortness of breath with exertion. He reports intermittent dry cough. No fever, chills. He denies chest pain. No change in his lower extremity edema. In the emergency department he was initially hypoxic, tachycardic and tachypneic. He received a dose of IV Lasix, oral prednisone and a breathing treatment in his respiratory status has started to improve. Chest x-ray shows cardiomegaly with CHF. He was noted to have mild hyponatremia with a sodium of 131, mild hyperkalemia with potassium of 5.2, hyperglycemia with sugar of 573, and mild elevation of LFTs. 58-year-old man treated for acute on chronic respiratory failure with hypoxia and congestive heart failure. Patient was initially admitted on 06/09/2023 and treated for acute hypoxic respiratory failure secondary to multifocal pneumonia and ascites. High paracentesis yielded 3 L of fluid. Fortunately his son had and he had to attend the and ended up leaving with oxygen and subsequently returning 2 days later with continued shortness of breath. He was found to be in congestive heart failure treated with IV Lasix. Echocardiogram showed EF of 45-50%. His his symptoms did improve and he completed his doses of Rocephin and doxycycline while inpatient. He was also on prednisone which was tapered down and he will complete few more days of this at home. He does have a list history of liver cirrhosis with portal hypertension thrombocytopenia and he should follow-up with his primary care provider for this and monitor for any signs of ascites that with need to be removed. Also continue spironolactone 50 mg daily. He did have some episodes of hyperkalemia treated for Lokelma. He has remained stable and will be discharged home with family. He already had a home oxygen evaluation during last admission and was sent home with oxygen at that time. Diabetes mellitus type 2 with hyperglycemia. Secondary to steroids. Continue home medications GERD. Continue PPI Multiple sclerosis. Continue home regimen Time Attestation Discharge coordination time: Greater than 30 minutes Quality: Safe Use of Opioids Does Pt have an Active Cancer Diagnosis on the Problem List?: No Quality: Stroke Does the patient have a stroke diagnosis?: No Physical Exam Vital Signs: Vital Signs: Last Vital Signs Temp 98.0 F 06/17/23 07:26 Pulse 86 06/17/23 07:26 Resp 20 06/17/23 07:26 BP 134/63 06/17/23 07:26 Pulse Ox 91 L 06/17/23 07:26 O2 Del Method Nasal Cannula 06/17/23 07:26 O2 Flow Rate 3 06/17/23 07:26 Oxygen Flow Rate 6 06/13/23 14:04 BMI result Body Mass Index 26.4 Appearing in no acute distress head is normocephalic atraumatic eyes pupils are PERRLA sclera is anicteric mouth throat mucous membranes are intact and moist neck is supple no lymphadenopathy, no JVD noted lung sounds are clear to auscultation heart regular rate rhythm, clear S1, S2 positive bowel sounds, abdomen is soft, nontender neuro patient is alert x3, no focal deficits DS: Data Data Completed and Pending Completed studies during hospitalization [Text1]: Procedures Drainage of Peritoneal Cavity, Percutaneous Approach (05/19/23) Labs on day of discharge: Laboratory Results - last 24 hr 06/16/23 06/16/23 06/16/23 07:49 11:26 16:09 WBC RBC Hgb Hct MCV MCH MCHC RDW Plt Count MPV Absolute Nucleated RBC Nucleated RBC % (auto) POC Glucose 252 H 246 H 264 H 06/16/23 06/17/23 06/17/23 20:04 07:05 07:13 WBC 15.3 H RBC 3.45 L Hgb 12.0 L Hct 34.0 L MCV 98.6 H MCH 34.8 H MCHC 35.3 RDW 15.7 Plt Count 59 L MPV 10.9 Absolute Nucleated RBC 0.000 Nucleated RBC % (auto) 0.0 POC Glucose 255 H 188 H Discharge Plan Discharge Anticipated Discharge Date/Time: 06/17/23 07:25 Patient Disposition: Home Health Service Discharge Diagnosis: Acute on chronic respiratory failure with hypoxia Heart failure with reduced ejection fraction Liver cirrhosis with ascites Hypokalemia Discharge Medications: New prednisone 10 mg tablet See Taper PO DIRECTED Qty: 9 0RF Taper: Prednisone 30 mg daily for 1 Day and 0 Hour 20 mg daily for 2 Days and 0 Hour 10 mg daily for 2 Days and 0 Hour Rx Instructions: see taper instructions spironolactone 50 mg tablet 50 mg PO DAILY Qty: 30 0RF Continued loperamide 2 mg capsule 2 - 4 mg PO Q4-6H PRN (Reason: diarrhea) fluticasone propionate 50 mcg/actuation spray,suspension 1 spray intranasal DAILY PRN (Reason: Congestion) omeprazole 20 mg Capsule,Delayed Release(Dr/Ec) 20 mg PO DAILY@0630 Qty: 30 0RF insulin glargine [Lantus Solostar U-100 Insulin] 100 unit/mL (3 mL) insulin pen 46 unit subcut BEDTIME insulin aspart U-100 [Novolog FlexPen U-100 Insulin] 100 unit/mL (3 mL) insulin pen See Protocol subcut TIDWM Protocol: Insulin Correction Scale Less than or equal to 110 ---- Give (units): 0 111 to 150 Give (units): 0 151 to 200 Give (units): 2 201 to 250 Give (units): 4 251 to 300 Give (units): 6 301 to 350 Give (units): 8 Greater than 350 Give (units): 10 Call MD if Blood Glucose > : 350 albuterol sulfate 90 mcg/actuation HFA aerosol inhaler 90 mcg inhalation Q4H PRN (Reason: Shortness Of Breath Or Wheezing) Discontinued prednisone 10 mg tablet See Taper PO DIRECTED Qty: 20 0RF Taper: Prednisone 40 mg daily for 2 Days and 0 Hour 30 mg daily for 2 Days and 0 Hour 20 mg daily for 2 Days and 0 Hour 10 mg daily for 2 Days and 0 Hour Rx Instructions: see taper instructions doxycycline hyclate 100 mg tablet 100 mg PO BID 10 Days Qty: 20 0RF cefuroxime axetil 500 mg tablet 500 mg PO Q12H 10 Days Qty: 20 0RF Discharge Orders: Discharge Order (Routine); Ordered 06/17/23 Ordered By: Suzette Ingram Diet: Advance to usual diet Activity on Discharge: As tolerated Stand Alone Forms: Patient Portal Discharge page Care Plan Goals: monitor for signs of ascites continue oxygen therapy at home as needed Health Concerns: Acute on chronic respiratory failure with hypoxia Heart failure with reduced ejection fraction Liver cirrhosis with ascites Hypokalemia Plan of Treatment: Follow-up with primary care provider as needed Take all medications as prescribed Assessment: See discharge summary
[2023-06-17 07:44] LABS: Anion Gap 10 (12-20); Blood Urea Nitrogen 27 mg/dL (9-16); Calcium 8.4 mg/dL (8.4-10.2); Carbon Dioxide 30 mmol/L (22-29); Chloride 100 mmol/L (96-108); Creatinine Clr Calc Pharmacy 104.8; Estimated Glomerular Filt Rate > 60; Glucose Random 213 mg/dL (60-115); Potassium 4.5 mmol/L (3.3-5.1); Sodium 135 mmol/L (135-145)
[2023-06-17] MEDS: Insulin Lispro 100 UNIT/ML 3 ML VIAL SUBCUT ×6 (07:53→22:16)
[2023-06-17] MEDS: Furosemide 20 MG/2 ML VIAL IVPUSH (07:53)
[2023-06-17] MEDS: predniSONE 10 MG TABLET 30 MG PO (07:54)
--- NOTE | 2023-06-17 09:32 | PC.NURSE ---
Pt desatting to low 80s, O2 bumped up to 5.5LNC, satting @ low 90s. No resp distress noted.
--- NOTE | 2023-06-17 10:15 | MHC.CM.PN ---
IMM 06/17/23, pt has been medically cleared for DC. His is bedside and will bring him home. He will resume his home care services.
[2023-06-17 11:52] LABS: Glucose, Whole Blood 253 mg/dL (60-115)
[2023-06-17 12:00] VITALS: BP 143/70; PULSE 90; RESP 20; TEMP 37.1; O2SAT 92
--- NOTE | 2023-06-17 13:18 | P.PNIM_ITS ---
Subjective Subjective Date of Service: 06/17/23 Review of Systems Follow-up multifocal pneumonia CHF Physical Exam 2 Vital Signs: Vital Signs: Last Vital Signs Temp 98.8 F 06/17/23 12:00 Pulse 90 06/17/23 12:00 Resp 20 06/17/23 12:00 BP 143/70 H 06/17/23 12:00 Pulse Ox 92 06/17/23 12:00 O2 Del Method Nasal Cannula 06/17/23 12:00 O2 Flow Rate 7 06/17/23 12:00 Oxygen Flow Rate 6 06/13/23 14:04 BMI result Body Mass Index 26.4 Appearing in no acute distress lung sounds are clear to auscultation heart regular rate rhythm, clear S1, S2 positive bowel sounds, abdomen is soft, nontender neuro patient is alert x3, no focal deficits Objective Data Active Medications Acetaminophen (Acetaminophen 325 Mg Tablet) 650 mg PO Q4H PRN PRN Reason: Pain, Mild (Pain Scale 1-3) Last Admin: 06/15/23 01:31 Dose: 650 mg Documented By: SALOMÓN Albuterol Sulfate (Albuterol Sulfate 90 Mcg 8 Gm Inhaler) 2 puff INHALE RQ4H PRN PRN Reason: sob Last Admin: 06/16/23 20:06 Dose: 2 puff Documented By: CLAY Dextrose (Dextrose 50 % 25 Gm/50 Ml Syringe) 25 gm IVPUSH Q15M PRN; Protocol PRN Reason: per Hypoglycemia Standing Ord. Docusate Sodium (Docusate Sodium 100 Mg Capsule) 100 mg PO DAILY PRN PRN Reason: Constipation Enoxaparin Sodium (Enoxaparin Sodium 40 Mg/0.4 Ml Syringe) 40 mg SUBCUT Q24H [facility] Last Admin: 06/16/23 17:44 Dose: 40 mg Documented By: HELENA Insulin Glargine (Insulin Glargine,Hum.Rec.Anlog 100 Unit/Ml 10 Ml Vial) 46 unit SUBCUT BEDTIME [facility] Last Admin: 06/16/23 21:39 Dose: 46 unit Documented By: EJ Insulin Human Lispro (Insulin Lispro 100 Unit/Ml 3 Ml Vial) 0 unit SUBCUT QIDACHS [facility]; Protocol Last Admin: 06/17/23 11:59 Dose: 6 unit Documented By: CATHY Insulin Human Lispro (Insulin Lispro 100 Unit/Ml 3 Ml Vial) 5 unit SUBCUT QIDACHS [facility] Last Admin: 06/17/23 11:54 Dose: Not Given Documented By: CATHY Non-Admin Reason: No Insulin Coverage Loperamide HCl (Loperamide Hcl 2 Mg Capsule) 2 mg PO Q6H PRN PRN Reason: Diarrhea Last Admin: 06/14/23 21:08 Dose: 2 mg Documented By: SALOMÓN Omeprazole (Omeprazole 20 Mg Capsule.) 20 mg PO DAILY@0630 [facility] Last Admin: 06/17/23 05:49 Dose: 20 mg Documented By: EJ Prednisone (Prednisone 10 Mg Tablet) 30 mg PO DAILY [facility] Last Admin: 06/17/23 07:54 Dose: 30 mg Documented By: CATHY Sodium Chloride (0.9 % Sodium Chloride Flush 3 Ml Syringe) 3 ml IVFLUSH QSHIFT [facility] Last Admin: 06/17/23 07:55 Dose: 3 ml Documented By: CATHY Labs 06/17/23 07:05 06/17/23 07:05 Labs: Laboratory Results - last 24 hr 06/16/23 06/16/23 06/17/23 16:09 20:04 07:05 MCV 98.6 H MCH 34.8 H MCHC 35.3 RDW 15.7 Plt Count 59 L MPV 10.9 Absolute Nucleated RBC 0.000 Nucleated RBC % (auto) 0.0 Anion Gap 10 L Estim Creat Clear Calc 104.8 Estimated GFR > 60 POC Glucose 264 H 255 H Random Glucose 213 H Calcium 8.4 06/17/23 06/17/23 07:13 11:46 MCV MCH MCHC RDW Plt Count MPV Absolute Nucleated RBC Nucleated RBC % (auto) Anion Gap Estim Creat Clear Calc Estimated GFR POC Glucose 188 H 253 H Random Glucose Calcium Assessment and Plan (1) Congestive heart failure: Status: Acute Plan This is a 58-year-old male with history MS, liver cirrhosis, diabetes, recent admission for COVID-19 and subsequent admission for multifocal pneumonia who was discharged to attend his son's and returns with ongoing shortness of breath Acute on chronic respiratory failure with hypoxia no sepsis. wbc r/t steroids, tachycardia r/t breathing treatments, hypoxia Due to underlying multifocal pneumonia, and per pulm imaging suggestive COVID 19 related pneumonia treated with IV lasix for presumed CHF completed IV ceftraixone and doxycycline, total 7 days abx tx continue PO prednisone, wean continue supplemental oxygen, wean as tolerated CXR today showing worsening pneumonitis and edema, re-consulted pulmonology Liver cirrhosis with portal HTN and thrombocytopenia had paracentesis 06/11 with 3.9L of fluid removed platelets at baseline Abd us today showing moderate amount of ascites, Therapeutic paracentesis ordered HFrEF mild reduction in EF treated with IV lasix BNP down to 82 lasix stopped, can continue spironolactone on dc DM2 with hyperglycemia due to steroids hba1c 7.4 continue ss, lantus, mealtime insulin recent klebsiella UTI diagnosed on last admission covered with ceftriaxone for pneumonia repeat UA negative Hyperkalemia, resolved Treated with lokelma pseudohyponatremia r/t hyperglycemia GERD PPI MS receives ocrelizumab infusion every 6 months patient straight caths daily at home, quintero placed in ED DVT prophylaxis: lovenox Full code Attending - Dr. Luz patient requires ongoing inpatient stay for management of respiratory failure requiring supplemental oxygen, possible new CHF requiring IV lasix Quality Stroke Does the patient have a stroke diagnosis?: No VTE Prior VTE?: No VTE Risk Level:: Medical - moderate - high VTE Device Contraindication: N/A - Device Ordered VTE Drug Contraindication: N/A - Med Ordered
[2023-06-17 15:05] VITALS: BP 130/80; PULSE 97; RESP 20; TEMP 36.9; O2SAT 94
[2023-06-17] MEDS: methylPREDNISolone Sod Succ 125 MG/2 ML VIAL IVPUSH (16:06)
[2023-06-17 16:08] LABS: Glucose, Whole Blood 333 mg/dL (60-115)
[2023-06-17] MEDS: Enoxaparin Sodium 40 MG/0.4 ML SYRINGE SUBCUT (16:45)
[2023-06-17 19:21] VITALS: BP 142/64; PULSE 92; TEMP 36.6; O2SAT 96
[2023-06-17 20:34] LABS: Glucose, Whole Blood 341 mg/dL (60-115)
[2023-06-17] MEDS: Insulin Glargine,Hum.rec.anlog 100 UNIT/ML 10 ML VIAL 46 UNIT SUBCUT (22:16)
[2023-06-17 23:40] VITALS: BP 144/73; PULSE 89; RESP 20; TEMP 36.6; O2SAT 95
[2023-06-18 03:45] VITALS: BP 130/61; PULSE 72; RESP 20; TEMP 36.2; O2SAT 96
[2023-06-18] MEDS: Omeprazole 20 MG CAPSULE.DR PO (06:04)
[2023-06-18 07:12] VITALS: BP 132/62; PULSE 79; RESP 18; TEMP 36.5; O2SAT 95
[2023-06-18 07:18] LABS: Glucose, Whole Blood 364 mg/dL (60-115)
[2023-06-18] MEDS: Insulin Lispro 100 UNIT/ML 3 ML VIAL SUBCUT ×8 (07:33→21:28)
[2023-06-18] MEDS: predniSONE 10 MG TABLET 30 MG PO (07:34)
[2023-06-18] MEDS: 0.9 % Sodium Chloride Flush 3 ML SYRINGE IVFLUSH ×3 (07:39→23:47)
--- NOTE | 2023-06-18 09:19 | PM.CNPUL ---
History of Present Illness History of Present Illness Consult date: 06/18/23 Chief complaint: ascites, currently inpatient Narrative: This is an inpatient pulmonary consultation .This is a 58-year-old Burmese-speaking male with history of alcoholic liver cirrhosis, MS, diabetes who was recently hospitalized for multifocal pneumonia who returns to the emergency department with shortness of breath. Unfortunately the patient's son and he wanted to leave the hospital to attend his son's services. Due to these extenuating circumstances he was discharged with oxygen temporarily for him to be able to attend these services with the understanding that he would need to return for likely readmission and at the time he left he understood the risk of leaving. He has returned and reports persistent shortness of breath with exertion. He reports intermittent dry cough. No fever, chills. He denies chest pain. No change in his lower extremity edema. In the emergency department he was initially hypoxic, tachycardic and tachypneic. He received a dose of IV Lasix, oral prednisone and a breathing treatment in his respiratory status has started to improve. Chest x-ray shows cardiomegaly with CHF. He was noted to have mild hyponatremia with a sodium of 131, mild hyperkalemia with potassium of 5.2, hyperglycemia with sugar of 573, and mild elevation of LFTs. He was diuresed aggressively in the hospital and he was making significant improvement. However just the day before discharge she started developing worsening shortness of breath she had a repeat chest x-ray demonstrating recurrent fluffy opacities suggesting of cardiogenic pulmonary edema versus noncardiogenic pulmonary edema. He had already been on steroids and he already had recovered from severe COVID. We did a respiratory viral panel which is pending. The patient received 1 dose of Solu-Medrol. He will also undergo a paracentesis today. He is awaiting his evaluation in [place] for liver transplant. Review of Systems Review of Systems: Yes all other systems are reviewed and are negative Constitutional: Constitutional: Denies chills and Denies fever(s) Cardiovascular: Cardiovascular: Denies chest pain, Denies palpitations and Reports dyspnea Respiratory: Respiratory: Reports cough and Reports dyspnea Gastrointestinal: Gastrointestinal: Denies abdominal pain, Denies nausea and Denies vomiting Endocrine: Endocrine: Denies palpitations PMFSH Past Medical History Medical History Respiratory insufficiency Multifocal pneumonia EtOH dependence Liver cirrhosis Diabetes mellitus Multiple sclerosis Family History Family History Mother Diabetes Father HTN (hypertension) Surgical History Surgical History History of hip surgery Social History Social History Household Members: Spouse Housing: House Do you presently have visiting nurse or other home services: Yes Alcohol intake: former Comment: low fall risk Patient Tobacco Use Status: Former Tobacco user Cigarettes Per Day: 1.9 Smoked in Last 30 Days: No Second Hand Smoke Exposure: No Use of substances other than those prescribed or required for medical reasons: No Currently Displaying Signs/Symptoms of Drug Intoxication Withdrawal: No Have you been hit, kicked, punched, or otherwise hurt by someone within the past year? If so, by whom?: No Do you feel safe in your current relationship?: Yes Is there a partner from a previous relationship who is making you feel unsafe now?: No Are you made to feel afraid or neglected: No Advance Directives: Yes Advance Directives on File: Yes Advance Directives Date on File: 03/11/23 Do you have thoughts of harming others: None Do you have a plan to hurt others: No Plan Recently lost weight without trying: No Eating poorly because of decreased appetite: No Nutrition Risks: No Nutritional Risk Poor oral hygiene: No service: No Meds Allergies Allergy/AdvReac Type Severity Reaction Status Date / Time No Known Allergies Allergy Mild NONE Verified 03/06/23 17:19 Active Medications: Current Medications Acetaminophen (Acetaminophen 325 Mg Tablet) 650 mg PO Q4H PRN PRN Reason: Pain, Mild (Pain Scale 1-3) Last Admin: 06/15/23 01:31 Dose: 650 mg Albuterol Sulfate (Albuterol Sulfate 90 Mcg 8 Gm Inhaler) 2 puff INHALE RQ4H PRN PRN Reason: sob Last Admin: 06/16/23 20:06 Dose: 2 puff Dextrose (Dextrose 50 % 25 Gm/50 Ml Syringe) 25 gm IVPUSH Q15M PRN; Protocol PRN Reason: per Hypoglycemia Standing Ord. Docusate Sodium (Docusate Sodium 100 Mg Capsule) 100 mg PO DAILY PRN PRN Reason: Constipation Enoxaparin Sodium (Enoxaparin Sodium 40 Mg/0.4 Ml Syringe) 40 mg SUBCUT Q24H [facility] Last Admin: 06/17/23 16:45 Dose: 40 mg Insulin Glargine (Insulin Glargine,Hum.Rec.Anlog 100 Unit/Ml 10 Ml Vial) 46 unit SUBCUT BEDTIME [facility] Last Admin: 06/17/23 22:16 Dose: 46 unit Insulin Human Lispro (Insulin Lispro 100 Unit/Ml 3 Ml Vial) 0 unit SUBCUT QIDACHS [facility]; Protocol Last Admin: 06/18/23 07:33 Dose: 10 unit Insulin Human Lispro (Insulin Lispro 100 Unit/Ml 3 Ml Vial) 5 unit SUBCUT QIDACHS [facility] Last Admin: 06/18/23 07:34 Dose: 5 unit Loperamide HCl (Loperamide Hcl 2 Mg Capsule) 2 mg PO Q6H PRN PRN Reason: Diarrhea Last Admin: 06/14/23 21:08 Dose: 2 mg Omeprazole (Omeprazole 20 Mg Capsule.Dr) 20 mg PO DAILY@0630 [facility] Last Admin: 06/18/23 06:04 Dose: 20 mg Prednisone (Prednisone 10 Mg Tablet) 30 mg PO DAILY [facility] Last Admin: 06/18/23 07:34 Dose: 30 mg Sodium Chloride (0.9 % Sodium Chloride Flush 3 Ml Syringe) 3 ml IVFLUSH QSHIFT [facility] Last Admin: 06/18/23 07:39 Dose: 3 ml Home Medications Medication Instructions Recorded Confirmed Last Taken Type albuterol sulfate 90 mcg/actuation 90 mcg inhalation Q4H PRN 04/09/22 06/13/23 Unknown History aerosol inhaler Shortness Of Breath Or Wheezing insulin aspart U-100 100 unit/mL See Protocol subcut TIDWM 04/09/22 06/13/23 Unknown History (3 mL) subcutaneous pen (Novolog FlexPen U-100 Insulin aspart) insulin glargine 100 unit/mL (3 46 unit subcut BEDTIME 04/09/22 06/13/23 Unknown History mL) subcutaneous pen (Lantus Solostar U-100 Insulin) fluticasone propionate 50 1 spray intranasal DAILY PRN 05/19/23 06/13/23 Unknown History mcg/actuation nasal Congestion spray,suspension loperamide 2 mg capsule 2 - 4 mg PO Q4-6H PRN diarrhea 06/09/23 06/13/23 Unknown History Physical Exam Vital Signs: Vital Signs: Last Vital Signs Temp 97.7 F 06/18/23 07:12 Pulse 79 06/18/23 07:12 Resp 18 06/18/23 07:12 BP 132/62 06/18/23 07:12 Pulse Ox 95 06/18/23 07:12 O2 Del Method Nasal Cannula 06/18/23 07:12 O2 Flow Rate 6 06/18/23 07:12 Oxygen Flow Rate 6 06/13/23 14:04 BMI result Body Mass Index 26.4 Appearing in no acute distress lung sounds are clear to auscultation heart regular rate rhythm, clear S1, S2 positive bowel sounds, abdomen is soft, nontender neuro patient is alert x3, no focal deficits Results Laboratory Findings 06/17/23 07:05 06/17/23 07:05 ABG, PT/INR, D-dimer: PT/INR, D-dimer PT 17.9 SEC (11.1-13.3) H 06/13/23 15:14 INR 1.5 (0.9-1.1) H 06/13/23 15:14 Abnormal lab findings: Abnormal Labs 06/13/23 06/13/23 06/13/23 15:14 17:50 18:06 WBC 23.4 H RBC 3.81 L D Hgb 13.4 L Hct 37.9 L D MCV 99.5 H MCH 35.2 H Plt Count 126 L Immature Gran % (Auto) 1.4 H Neut % (Auto) 82.4 H Lymph % (Auto) 5.0 L Mccreary % (Auto) 11.1 H Mccreary # (Auto) 2.6 H Abs Immat Gran (auto) 0.33 H Absolute Neuts (auto) 19.3 H PT 17.9 H INR 1.5 H APTT 22.4 L D Sodium 131 L Potassium 5.2 H Carbon Dioxide 17 L Anion Gap BUN 31 H POC Glucose 495 H* Random Glucose 573 H* Hemoglobin A1c % 7.4 H Total Bilirubin 3.4 H Direct Bilirubin AST 105 H ALT 64 H Alkaline Phosphatase 320 H B-Natriuretic Peptide 116 H Total Protein 6.1 L Albumin 2.6 L Urine Glucose (UA) >=1000 H Urine Blood Trace H 06/13/23 06/13/23 06/14/23 20:21 23:05 00:40 WBC RBC Hgb Hct MCV MCH Plt Count Immature Gran % (Auto) Neut % (Auto) Lymph % (Auto) Mccreary % (Auto) Mccreary # (Auto) Abs Immat Gran (auto) Absolute Neuts (auto) PT INR APTT Sodium Potassium Carbon Dioxide Anion Gap BUN POC Glucose 483 H* 442 H* 411 H* Random Glucose Hemoglobin A1c % Total Bilirubin Direct Bilirubin AST ALT Alkaline Phosphatase B-Natriuretic Peptide Total Protein Albumin Urine Glucose (UA) Urine Blood 06/14/23 06/14/23 06/14/23 05:58 07:17 11:06 WBC 16.2 H RBC 3.28 L Hgb 11.5 L Hct 32.8 L MCV 100.0 H MCH 35.1 H Plt Count 67 L D Immature Gran % (Auto) Neut % (Auto) Lymph % (Auto) Mccreary % (Auto) Mccreary # (Auto) Abs Immat Gran (auto) Absolute Neuts (auto) PT INR APTT Sodium 133 L Potassium 5.8 H Carbon Dioxide Anion Gap 11 L BUN 30 H POC Glucose 278 H 294 H Random Glucose 415 H* Hemoglobin A1c % Total Bilirubin 3.0 H Direct Bilirubin 2.0 H AST 70 H ALT 56 H Alkaline Phosphatase 266 H B-Natriuretic Peptide Total Protein 4.9 L Albumin 2.3 L Urine Glucose (UA) Urine Blood 06/14/23 06/14/23 06/15/23 16:15 20:14 07:32 WBC RBC Hgb Hct MCV MCH Plt Count Immature Gran % (Auto) Neut % (Auto) Lymph % (Auto) Mccreary % (Auto) Mccreary # (Auto) Abs Immat Gran (auto) Absolute Neuts (auto) PT INR APTT Sodium Potassium Carbon Dioxide Anion Gap BUN POC Glucose 370 H* 391 H* 261 H Random Glucose Hemoglobin A1c % Total Bilirubin Direct Bilirubin AST ALT Alkaline Phosphatase B-Natriuretic Peptide Total Protein Albumin Urine Glucose (UA) Urine Blood 06/15/23 06/15/23 06/15/23 08:25 11:10 16:22 WBC RBC Hgb Hct MCV MCH Plt Count Immature Gran % (Auto) Neut % (Auto) Lymph % (Auto) Mccreary % (Auto) Mccreary # (Auto) Abs Immat Gran (auto) Absolute Neuts (auto) PT INR APTT Sodium Potassium 5.5 H Carbon Dioxide Anion Gap BUN 30 H POC Glucose 267 H 264 H Random Glucose 255 H Hemoglobin A1c % Total Bilirubin Direct Bilirubin AST ALT Alkaline Phosphatase B-Natriuretic Peptide Total Protein Albumin Urine Glucose (UA) Urine Blood 06/15/23 06/16/23 06/16/23 20:21 07:49 11:26 WBC RBC Hgb Hct MCV MCH Plt Count Immature Gran % (Auto) Neut % (Auto) Lymph % (Auto) Mccreary % (Auto) Mccreary # (Auto) Abs Immat Gran (auto) Absolute Neuts (auto) PT INR APTT Sodium Potassium Carbon Dioxide Anion Gap BUN POC Glucose 356 H* 252 H 246 H Random Glucose Hemoglobin A1c % Total Bilirubin Direct Bilirubin AST ALT Alkaline Phosphatase B-Natriuretic Peptide Total Protein Albumin Urine Glucose (UA) Urine Blood 06/16/23 06/16/23 06/17/23 16:09 20:04 07:05 WBC 15.3 H RBC 3.45 L Hgb 12.0 L Hct 34.0 L MCV 98.6 H MCH 34.8 H Plt Count 59 L Immature Gran % (Auto) Neut % (Auto) Lymph % (Auto) Mccreary % (Auto) Mccreary # (Auto) Abs Immat Gran (auto) Absolute Neuts (auto) PT INR APTT Sodium Potassium Carbon Dioxide 30 H Anion Gap 10 L BUN 27 H POC Glucose 264 H 255 H Random Glucose 213 H Hemoglobin A1c % Total Bilirubin Direct Bilirubin AST ALT Alkaline Phosphatase B-Natriuretic Peptide Total Protein Albumin Urine Glucose (UA) Urine Blood 06/17/23 06/17/23 06/17/23 07:13 11:46 16:01 WBC RBC Hgb Hct MCV MCH Plt Count Immature Gran % (Auto) Neut % (Auto) Lymph % (Auto) Mccreary % (Auto) Mccreary # (Auto) Abs Immat Gran (auto) Absolute Neuts (auto) PT INR APTT Sodium Potassium Carbon Dioxide Anion Gap BUN POC Glucose 188 H 253 H 333 H Random Glucose Hemoglobin A1c % Total Bilirubin Direct Bilirubin AST ALT Alkaline Phosphatase B-Natriuretic Peptide Total Protein Albumin Urine Glucose (UA) Urine Blood 06/17/23 06/18/23 20:19 07:05 WBC RBC Hgb Hct MCV MCH Plt Count Immature Gran % (Auto) Neut % (Auto) Lymph % (Auto) Mccreary % (Auto) Mccreary # (Auto) Abs Immat Gran (auto) Absolute Neuts (auto) PT INR APTT Sodium Potassium Carbon Dioxide Anion Gap BUN POC Glucose 341 H 364 H* Random Glucose Hemoglobin A1c % Total Bilirubin Direct Bilirubin AST ALT Alkaline Phosphatase B-Natriuretic Peptide Total Protein Albumin Urine Glucose (UA) Urine Blood Assessment and Plan (1) Acute respiratory failure: Qualifiers: Respiratory failure complication: hypoxia Qualified Code(s): J96.01 - Acute respiratory failure with hypoxia Status: Acute (2) Pneumonia: Qualifiers: Pneumonia type: due to unspecified organism Laterality: bilateral Lung location: unspecified part of lung Qualified Code(s): J18.9 - Pneumonia, unspecified organism Status: Acute (3) Pulmonary edema: Qualifiers: Chronicity: acute Qualified Code(s): J81.0 - Acute pulmonary edema Status: Acute Plan completed antibiotics continue prednisone diuresis as tolerated Awaiting paracentesis Diuresis as tolerated Procedures Date of Service Date of Service: 06/18/23
[2023-06-18 10:40] LABS: Adenovirus PCR Not Detected (Not Detect.); Bordetella parapertussis PCR Not Detected (Not Detect.); Bordetella pertussis PCR Not Detected (Not Detect.); Chlamydia pneumoniae PCR Not Detected (Not Detect.); Coronavirus 229E PCR Not Detected (Not Detect.); Coronavirus HKU1 PCR Not Detected (Not Detect.); Coronavirus NL63 PCR Not Detected (Not Detect.); Coronavirus OC43 PCR Not Detected (Not Detect.); Human metapneumovirus PCR Not Detected (Not Detect.); Influenza A PCR Not Detected (Not Detect.); Influenza B PCR Not Detected (Not Detect.); Mycoplasma pneumoniae PCR Not Detected (Not Detect.); Parainfluenza 1 PCR Not Detected (Not Detect.); Parainfluenza 2 PCR Not Detected (Not Detect.); Parainfluenza 3 PCR Not Detected (Not Detect.); Parainfluenza 4 PCR Not Detected (Not Detect.); RSV PCR Not Detected (Not Detect.); Rhino/Enterovirus PCR Not Detected (Not Detect.); SARS-CoV-2 PCR Not Detected (Not Detect.)
[2023-06-18 11:19] VITALS: BP 144/67; PULSE 80; RESP 20; TEMP 36.6; O2SAT 93
--- NOTE | 2023-06-18 12:16 | MHC.CM.PN ---
Patient is not yet medically cleared for dc (waiting for Paracentesis); Home/resume P[facility]ER is the goal and CM will continue to follow.
[2023-06-18 12:17] LABS: Glucose, Whole Blood 325 mg/dL (60-115)
--- NOTE | 2023-06-18 13:48 | HO.PM.IMPN ---
Subjective Subjective Date of Service: 06/18/23 Interval History: feels better today. Still with O2 requirement. Therapeutic paracentesis with good results Review of Systems Denies chest pain Denies shortness of breath Denies nausea vomiting diarrhea Denies fever chil Physical Exam Vital Signs: Vital Signs: Last Vital Signs Temp 97.9 F 06/18/23 11:19 Pulse 80 06/18/23 11:19 Resp 20 06/18/23 11:19 BP 144/67 H 06/18/23 11:19 Pulse Ox 93 06/18/23 11:19 O2 Del Method Nasal Cannula 06/18/23 11:19 O2 Flow Rate 2 06/18/23 11:19 Oxygen Flow Rate 6 06/13/23 14:04 BMI result Body Mass Index 26.4 Const: Other: awake alert no acute distress Resp: Other: diminished at bases with scattered expiratory wheezes Cardio: Other: no S4; positive S1-S2; no S3 murmurs rubs or gallops GI: Other: soft nontender nondistended normoactive bowel sounds. Extrem: Other: No edema bilaterally Objective Data Active Medications Acetaminophen (Acetaminophen 325 Mg Tablet) 650 mg PO Q4H PRN PRN Reason: Pain, Mild (Pain Scale 1-3) Last Admin: 06/15/23 01:31 Dose: 650 mg Documented By: SALOMÓN Albuterol Sulfate (Albuterol Sulfate 90 Mcg 8 Gm Inhaler) 2 puff INHALE RQ4H PRN PRN Reason: sob Last Admin: 06/16/23 20:06 Dose: 2 puff Documented By: CLAY Dextrose (Dextrose 50 % 25 Gm/50 Ml Syringe) 25 gm IVPUSH Q15M PRN; Protocol PRN Reason: per Hypoglycemia Standing Ord. Docusate Sodium (Docusate Sodium 100 Mg Capsule) 100 mg PO DAILY PRN PRN Reason: Constipation Enoxaparin Sodium (Enoxaparin Sodium 40 Mg/0.4 Ml Syringe) 40 mg SUBCUT Q24H [facility] Last Admin: 06/17/23 16:45 Dose: 40 mg Documented By: SHIRA Insulin Glargine (Insulin Glargine,Hum.Rec.Anlog 100 Unit/Ml 10 Ml Vial) 46 unit SUBCUT BEDTIME [facility] Last Admin: 06/17/23 22:16 Dose: 46 unit Documented By: EJ Insulin Human Lispro (Insulin Lispro 100 Unit/Ml 3 Ml Vial) 0 unit SUBCUT QIDACHS [facility]; Protocol Last Admin: 06/18/23 12:11 Dose: 8 unit Documented By: CATHY Insulin Human Lispro (Insulin Lispro 100 Unit/Ml 3 Ml Vial) 5 unit SUBCUT QIDACHS [facility] Last Admin: 06/18/23 12:11 Dose: 5 unit Documented By: CATHY Loperamide HCl (Loperamide Hcl 2 Mg Capsule) 2 mg PO Q6H PRN PRN Reason: Diarrhea Last Admin: 06/14/23 21:08 Dose: 2 mg Documented By: SALOMÓN Omeprazole (Omeprazole 20 Mg Capsule.Dr) 20 mg PO DAILY@0630 [facility] Last Admin: 06/18/23 06:04 Dose: 20 mg Documented By: EJ Prednisone (Prednisone 10 Mg Tablet) 30 mg PO DAILY [facility] Last Admin: 06/18/23 07:34 Dose: 30 mg Documented By: CATHY Sodium Chloride (0.9 % Sodium Chloride Flush 3 Ml Syringe) 3 ml IVFLUSH QSHIFT [facility] Last Admin: 06/18/23 07:39 Dose: 3 ml Documented By: CATHY Labs 06/17/23 07:05 06/17/23 07:05 Labs: Laboratory Results - last 24 hr 06/17/23 06/17/23 06/17/23 16:00 16:01 20:19 POC Glucose 333 H 341 H Respiratory Panel Donovan See Note Adenovirus (Rapid PCR) Not Detected B.pert (TEM-PCR) Not Detected B.parapertussis DNA PCR Not Detected C. pneumoniae DNA (PCR) Not Detected Coronavirus OC43 (PCR) Not Detected Coronavirus HKU1 (PCR) Not Detected Coronavirus 229E (PCR) Not Detected Coronavirus NL63 (PCR) Not Detected Human Metapneumovir PCR Not Detected Influenza A (RT-PCR) Not Detected Influenza B (RT-PCR) Not Detected M. pneumoniae (PCR) Not Detected Parainfluenza 1 (PCR) Not Detected Parainfluenza 2 (PCR) Not Detected Parainfluenza 3 (PCR) Not Detected Parainfluenza 4 (PCR) Not Detected RSV (PCR) Not Detected Entero/Rhino (PCR) Not Detected SARS-CoV-2 RNA (RT-PCR) Not Detected 06/18/23 06/18/23 07:05 11:47 POC Glucose 364 H* 325 H Respiratory Panel [place] Adenovirus (Rapid PCR) B.pert (TEM-PCR) B.parapertussis DNA PCR C. pneumoniae DNA (PCR) Coronavirus OC43 (PCR) Coronavirus HKU1 (PCR) Coronavirus 229E (PCR) Coronavirus NL63 (PCR) Human Metapneumovir PCR Influenza A (RT-PCR) Influenza B (RT-PCR) M. pneumoniae (PCR) Parainfluenza 1 (PCR) Parainfluenza 2 (PCR) Parainfluenza 3 (PCR) Parainfluenza 4 (PCR) RSV (PCR) Entero/Rhino (PCR) SARS-CoV-2 RNA (RT-PCR) Assessment and Plan (1) Acute respiratory failure: Status: Acute (2) Liver cirrhosis: Status: Acute (3) HFrEF (heart failure with reduced ejection fraction): Status: Acute Plan This is a 58-year-old male with history MS, liver cirrhosis, diabetes, recent admission for COVID-19 and subsequent admission for multifocal pneumonia who was discharged to attend his son's and returns with ongoing shortness of breath 1.Acute on chronic respiratory failure with hypoxia Due to underlying multifocal pneumonia, and per pulm imaging suggestive COVID 19 related pneumonia;completed IV ceftraixone/doxycycline(7 days total) -continue PO as ordered - attempt to titrate O2 to maintain sats greater than equal to 92%; if unable to achieve today will need ambulatory evaluation in a.m. - appreciate Pulmonary input 2.Liver cirrhosis with portal HTN Underwent therapeutic paracentesis today with good results -continue current therapies 3.HFrEF Mild reduction in EF; good response with IV Lasix. BNP normalized - Lasix DC - can resume Aldactone upon discharge 4.DM2 with hyperglycemia Noted to be hyperglycemic secondary to steroids. We will need oral prednisone as ordered by Pulmonary so sugars likely to stay elevated. 2nd day of p.o. prednisone follow clinically and adjust insulin as indicated -continue Lantus 46 units at bedtime adjusting as indicated clinically -lisproc orrectional scale 5.MS Outpt therapies as ordered. Patient straight caths at home however in house [place] placed upon initial presentation. Discussed with family; they wish to leave it until patient is discharged and then a will resume p.r.n. straight caths at home as prior to discharge Lovenox Full code requires ongoing hospitalization to titrate O2 in the backdrop of worsening respiratory failure. Now resolving will arrange for ambulatory walking in Quality Stroke Does the patient have a stroke diagnosis?: No VTE Prior VTE?: No VTE Risk Level:: Medical - moderate - high VTE Device Contraindication: N/A - Device Ordered VTE Drug Contraindication: N/A - Med Ordered
[2023-06-18] MEDS: Lidocaine HCl 1 % MPF 5 ML VIAL SUBCUT (13:50)
[2023-06-18 15:10] VITALS: BP 149/67; PULSE 85; RESP 17; TEMP 36.2; O2SAT 94
[2023-06-18 16:28] LABS: Glucose, Whole Blood 266 mg/dL (60-115)
[2023-06-18] MEDS: Enoxaparin Sodium 40 MG/0.4 ML SYRINGE SUBCUT (16:59)
[2023-06-18 19:32] VITALS: BP 153/70; PULSE 83; RESP 18; TEMP 36.2; O2SAT 93
[2023-06-18 20:55] LABS: Glucose, Whole Blood 408 mg/dL (60-115)
[2023-06-18] MEDS: Insulin Glargine,Hum.rec.anlog 100 UNIT/ML 10 ML VIAL 46 UNIT SUBCUT (21:27)
[2023-06-19] VITALS: BP 142/64; PULSE 78; RESP 20; TEMP 36.1; O2SAT 93
[2023-06-19 03:27] VITALS: BP 136/63; PULSE 77; RESP 20; TEMP 36.1; O2SAT 91
[2023-06-19] MEDS: Omeprazole 20 MG CAPSULE.DR PO (05:31)
[2023-06-19 06:19] LABS: Basophils Percent Auto 0.2 % (0-2); Eosinophils Percent Auto 0.1 % (0-4); Hematocrit 36.5 % (42.0-52.0); Hemoglobin 13.1 g/dl (14.0-18.0); Imm Gran Abs Auto 0.19 X10*3/uL (0.00-0.03); Lymphocytes Absolute Auto 0.4 X10*3/uL (1.2-4.9); Lymphocytes Percent Auto 2.1 % (20-40); MANUAL DIFF FLAG SCAN; Mean Corpuscular HGB Conc 35.9 g/dl (31.0-36.0); Mean Corpuscular Hemoglobin 35.7 pg (27.0-33.0); Mean Corpuscular Volume 99.5 fL (80.0-98.0); Mean Platelet Volume 11.7 fL (9.4-12.4); Monocytes Percent Auto 10.3 % (2-11); Neutrophils Absolute Auto 16.9 x10*3/uL (2.0-8.3); Neutrophils Percent Auto 86.3 % (45-73); Red Blood Count 3.67 X10*6/uL (4.60-5.80); Red Cell Distribution Width 15.6 % (11.0-16.0); SCAN SMEAR FLAG 1; White Blood Count 19.5 X10*3/uL (4.8-10.8)
[2023-06-19 06:23] LABS: Platelet Count 61 X10*3/uL (160-400)
[2023-06-19 06:27] LABS: Alanine Aminotransferase 75 U/L (0-40); Albumin Level 2.1 g/dL (3.5-5.0); Alkaline Phosphatase 270 U/L (39-117); Anion Gap 11 (12-20); Aspartate Amino Transferase 77 U/L (5-37); Bilirubin Total 3.1 mg/dL (0.0-1.0); Blood Urea Nitrogen 27 mg/dL (9-16); Calcium 8.3 mg/dL (8.4-10.2); Carbon Dioxide 28 mmol/L (22-29); Chloride 100 mmol/L (96-108); Creatinine Clr Calc Pharmacy 97.9; Estimated Glomerular Filt Rate > 60; Glucose Fasting 363 mg/dL (60-99); Potassium 4.9 mmol/L (3.3-5.1); Sodium 134 mmol/L (135-145); Total Protein 4.6 g/dL (6.5-8.0)
[2023-06-19 06:56] LABS: SLIDE REVIEW VERIFIED
[2023-06-19 07:06] VITALS: BP 142/64; PULSE 73; RESP 14; TEMP 36.5; O2SAT 94
[2023-06-19 07:22] LABS: Glucose, Whole Blood 413 mg/dL (60-115)
[2023-06-19] MEDS: Insulin Lispro 100 UNIT/ML 3 ML VIAL SUBCUT ×5 (07:32→21:17)
[2023-06-19] MEDS: predniSONE 10 MG TABLET 30 MG PO (07:32)
[2023-06-19] MEDS: 0.9 % Sodium Chloride Flush 3 ML SYRINGE IVFLUSH ×2 (08:05→15:21)
[2023-06-19 11:17] VITALS: BP 134/62; PULSE 89; RESP 13; TEMP 36.5; O2SAT 95
[2023-06-19 11:44] LABS: Glucose, Whole Blood 263 mg/dL (60-115)
[2023-06-19] MEDS: Spironolactone 25 MG TABLET 50 MG PO (12:22)
[2023-06-19] MEDS: Insulin Lispro 100 UNIT/ML 3 ML VIAL 10 UNIT SUBCUT ×2 (12:23→17:08)
--- NOTE | 2023-06-19 12:35 | PM.PNPUL ---
Subjective Subjective Date of Service: 06/19/23 Interval history: For the patient was seen on exam. He is feeling better. His thoracentesis done. Has been on the oxygen. He is down to 2 L. The patient already status with oxygen at home. He can use 2 L at rest and 3 L with activity. The patient also will be monitoring closely his sodium intake and will continue with diuresis. He will be set up with an outpatient pulmonary follow-up. The patient does have an appointment in [place] for his liver transplant evaluation. Will do additional testing once he is discharged and followed up as an outpatient. Objective Data Labs 06/19/23 05:48 06/19/23 05:48 Labs: Laboratory Results - last 24 hr 06/18/23 06/18/23 06/19/23 16:20 20:41 05:48 WBC 19.5 H RBC 3.67 L Hgb 13.1 L Hct 36.5 L MCV 99.5 H MCH 35.7 H MCHC 35.9 RDW 15.6 Plt Count 61 L MPV 11.7 Immature Gran % (Auto) 1.0 H Neut % (Auto) 86.3 H Lymph % (Auto) 2.1 L [place] % (Auto) 10.3 Eos % (Auto) 0.1 Baso % (Auto) 0.2 Lymph # (Auto) 0.4 L [place] # (Auto) 2.0 H Eos # (Auto) 0.0 Baso # (Auto) 0.0 Abs Immat Gran (auto) 0.19 H Absolute Neuts (auto) 16.9 H Absolute Nucleated RBC 0.000 Nucleated RBC % (auto) 0.0 Smear Tech's Comments VERIFIED Sodium 134 L Potassium 4.9 Chloride 100 Carbon Dioxide 28 Anion Gap 11 L BUN 27 H Creatinine 0.76 Estim Creat Clear Calc 97.9 Estimated GFR > 60 POC Glucose 266 H 408 H* Fasting Glucose 363 H* Calcium 8.3 L Total Bilirubin 3.1 H AST 77 H ALT 75 H Alkaline Phosphatase 270 H Total Protein 4.6 L Albumin 2.1 L 06/19/23 06/19/23 07:10 11:38 WBC RBC Hgb Hct MCV MCH MCHC RDW Plt Count MPV Immature Gran % (Auto) Neut % (Auto) Lymph % (Auto) [place] % (Auto) Eos % (Auto) Baso % (Auto) Lymph # (Auto) [place] # (Auto) Eos # (Auto) Baso # (Auto) Abs Immat Gran (auto) Absolute Neuts (auto) Absolute Nucleated RBC Nucleated RBC % (auto) Smear Tech's Comments Sodium Potassium Chloride Carbon Dioxide Anion Gap BUN Creatinine Estim Creat Clear Calc Estimated GFR POC Glucose 413 H* 263 H Fasting Glucose Calcium Total Bilirubin AST ALT Alkaline Phosphatase Total Protein Albumin Review of Systems Review of Systems Yes all other systems are reviewed and are negative Constitutional: Denies chills and Denies fever(s) Cardiovascular: Denies chest pain, Denies palpitations and Reports dyspnea Respiratory: Reports cough and Reports dyspnea Gastrointestinal: Denies abdominal pain, Denies nausea and Denies vomiting Endocrine: Denies palpitations Physical Exam Vital Signs: Vital Signs: Last Vital Signs Temp 97.7 F 06/19/23 11:17 Pulse 89 06/19/23 11:17 Resp 13 06/19/23 11:17 BP 134/62 06/19/23 11:17 Pulse Ox 95 06/19/23 11:17 O2 Del Method Nasal Cannula 06/19/23 11:17 O2 Flow Rate 3 06/19/23 11:17 Oxygen Flow Rate 6 06/13/23 14:04 BMI result Body Mass Index 26.4 Appearing in no acute distress lung sounds are clear to auscultation heart regular rate rhythm, clear S1, S2 positive bowel sounds, abdomen is soft, nontender neuro patient is alert x3, no focal deficits Procedures Date of Service Date of Service: 06/19/23 Assessment and Plan Assessment and plan (1) Acute respiratory failure: Status: Acute (2) Pulmonary edema: Status: Acute (3) Congestive heart failure: Status: Acute (4) Liver cirrhosis: Status: Acute Plan Prednisone taper by 10 mg every 5 days until complete Continue oxygen 2 L at rest and 3-4 L with activity Diuresis as tolerated Low-sodium diet Outpatient Pulmonary follow-up a Time Spent With Patient Time: Total time managing care of this patient today ____ minutes. Progress Note: Quality Stroke Does the patient have a stroke diagnosis?: No
--- NOTE | 2023-06-19 13:59 | HO.PM.IMPN ---
Subjective Subjective Date of Service: 06/19/23 Interval History: seen and examined this morning follow up for respiratory failure breathing better blood sugars uncontrolled Review of Systems Review of Systems: Yes all other systems are reviewed and are negative Constitutional Constitutional: Denies chills and Denies fever(s) Cardiovascular Cardiovascular: Denies chest pain, Denies palpitations and Denies dyspnea Respiratory Respiratory: Denies cough and Denies dyspnea Gastrointestinal Gastrointestinal: Denies abdominal pain Endocrine Endocrine: Denies palpitations Physical Exam Vital Signs: Vital Signs: Last Vital Signs Temp 97.7 F 06/19/23 11:17 Pulse 89 06/19/23 11:17 Resp 13 06/19/23 11:17 BP 134/62 06/19/23 11:17 Pulse Ox 95 06/19/23 11:17 O2 Del Method Nasal Cannula 06/19/23 11:17 O2 Flow Rate 3 06/19/23 11:17 Oxygen Flow Rate 6 06/13/23 14:04 BMI result Body Mass Index 26.4 Const: General: cooperative, alert and awake Nutritional Appearance: average body habitus Orientation/consciousness: patient oriented x3 Resp: Other: clear no wheezing Effort & Inspection: normal respiratory effort, able to speak in complete sentences, no respiratory distress and no use of accessory muscles Cardio: Rate: regular rate GI: Inspection: No distended Palpation (GI): Soft to palpation : Other: quintero in place Neuro: General: patient oriented x3, moves all extremities and CN's II-XI intact bilaterally Objective Data Active Medications Acetaminophen (Acetaminophen 325 Mg Tablet) 650 mg PO Q4H PRN PRN Reason: Pain, Mild (Pain Scale 1-3) Last Admin: 06/15/23 01:31 Dose: 650 mg Documented By: SALOMÓN Albuterol Sulfate (Albuterol Sulfate 90 Mcg 8 Gm Inhaler) 2 puff INHALE RQ4H PRN PRN Reason: sob Last Admin: 06/16/23 20:06 Dose: 2 puff Documented By: CLAY Dextrose (Dextrose 50 % 25 Gm/50 Ml Syringe) 25 gm IVPUSH Q15M PRN; Protocol PRN Reason: per Hypoglycemia Standing Ord. Docusate Sodium (Docusate Sodium 100 Mg Capsule) 100 mg PO DAILY PRN PRN Reason: Constipation Enoxaparin Sodium (Enoxaparin Sodium 40 Mg/0.4 Ml Syringe) 40 mg SUBCUT Q24H REPLACED BY [facility] Last Admin: 06/18/23 16:59 Dose: 40 mg Documented By: CATYH Insulin Glargine (Insulin Glargine,Hum.Rec.Anlog 100 Unit/Ml 10 Ml Vial) 55 unit SUBCUT BEDTIME REPLACED BY [facility] Insulin Human Lispro (Insulin Lispro 100 Unit/Ml 3 Ml Vial) 0 unit SUBCUT QIDACHS REPLACED BY [facility]; Protocol Last Admin: 06/19/23 12:22 Dose: 6 unit Documented By: FREDY Insulin Human Lispro (Insulin Lispro 100 Unit/Ml 3 Ml Vial) 10 unit SUBCUT TIDAC REPLACED BY [facility] Last Admin: 06/19/23 12:23 Dose: 10 unit Documented By: FREDY Loperamide HCl (Loperamide Hcl 2 Mg Capsule) 2 mg PO Q6H PRN PRN Reason: Diarrhea Last Admin: 06/14/23 21:08 Dose: 2 mg Documented By: SALOMÓN Omeprazole (Omeprazole 20 Mg Capsule.) 20 mg PO DAILY@0630 REPLACED BY [facility] Last Admin: 06/19/23 05:31 Dose: 20 mg Documented By: SRINATH Prednisone (Prednisone 10 Mg Tablet) 30 mg PO DAILY REPLACED BY [facility] Last Admin: 06/19/23 07:32 Dose: 30 mg Documented By: FREDY Sodium Chloride (0.9 % Sodium Chloride Flush 3 Ml Syringe) 3 ml IVFLUSH QSHIFT REPLACED BY [facility] Last Admin: 06/19/23 08:05 Dose: 3 ml Documented By: FREDY Spironolactone (Spironolactone 25 Mg Tablet) 50 mg PO DAILY REPLACED BY [facility]; Protocol Last Admin: 06/19/23 12:22 Dose: 50 mg Documented By: FREDY Labs 06/19/23 05:48 06/19/23 05:48 Labs: Laboratory Results - last 24 hr 06/18/23 06/18/23 06/19/23 16:20 20:41 05:48 MCV 99.5 H MCH 35.7 H MCHC 35.9 RDW 15.6 Plt Count 61 L MPV 11.7 Immature Gran % (Auto) 1.0 H Neut % (Auto) 86.3 H Lymph % (Auto) 2.1 L [place] % (Auto) 10.3 Eos % (Auto) 0.1 Baso % (Auto) 0.2 Lymph # (Auto) 0.4 L [place] # (Auto) 2.0 H Eos # (Auto) 0.0 Baso # (Auto) 0.0 Abs Immat Gran (auto) 0.19 H Absolute Neuts (auto) 16.9 H Absolute Nucleated RBC 0.000 Nucleated RBC % (auto) 0.0 Smear Tech's Comments VERIFIED Anion Gap 11 L Estim Creat Clear Calc 97.9 Estimated GFR > 60 POC Glucose 266 H 408 H* Fasting Glucose 363 H* Calcium 8.3 L Total Bilirubin 3.1 H AST 77 H ALT 75 H Alkaline Phosphatase 270 H Total Protein 4.6 L Albumin 2.1 L 06/19/23 06/19/23 07:10 11:38 MCV MCH MCHC RDW Plt Count MPV Immature Gran % (Auto) Neut % (Auto) Lymph % (Auto) [place] % (Auto) Eos % (Auto) Baso % (Auto) Lymph # (Auto) Sabine # (Auto) Eos # (Auto) Baso # (Auto) Abs Immat Gran (auto) Absolute Neuts (auto) Absolute Nucleated RBC Nucleated RBC % (auto) Smear Tech's Comments Anion Gap Estim Creat Clear Calc Estimated GFR POC Glucose 413 H* 263 H Fasting Glucose Calcium Total Bilirubin AST ALT Alkaline Phosphatase Total Protein Albumin Assessment and Plan (1) Acute respiratory failure: Status: Acute Plan This is a 58-year-old male with history MS, liver cirrhosis, diabetes, recent admission for COVID-19 and subsequent admission for multifocal pneumonia who was discharged to attend his son's and returns with ongoing shortness of breath 1.Acute on chronic respiratory failure with hypoxia Due to underlying multifocal pneumonia, and per pulm imaging suggestive COVID 19 related pneumonia;completed IV ceftraixone/doxycycline(7 days total) improving, currently on 2-3L RPP negative - continue PO prednisone with plan for slow taper upon discharge - appreciate Pulmonary input - was previously discharged with oxygen and will continue to use upon discharge 2.Liver cirrhosis with portal HTN Underwent therapeutic paracentesis 06/18 with good results -continue current therapies -has outpatient follow up scheduled in [place] 3.HFrEF Mild reduction in EF; good response with IV Lasix. BNP normalized Lasix DC will resume Aldactone upon discharge 4.DM2 with hyperglycemia Noted to be hyperglycemic secondary to steroids. We will need oral prednisone as ordered by Pulmonary so sugars likely to stay elevated. will increase basal insulin increase scheduled premeal insulin continue SSI 5.MS Outpt therapies as ordered. Patient straight caths at home however in house Quintero placed upon initial presentation. Discussed with family; they wish to leave it until patient is discharged and then a will resume p.r.n. straight caths at home as prior to discharge hyperkalemia resolved with lokelma Lovenox Full code attending - dr. Luz requires ongoing hospitalization to titrate O2 in the backdrop of worsening respiratory failure Quality Stroke Does the patient have a stroke diagnosis?: No VTE Prior VTE?: No VTE Risk Level:: Medical - moderate - high VTE Device Contraindication: N/A - Device Ordered VTE Drug Contraindication: N/A - Med Ordered
[2023-06-19 15:17] VITALS: BP 134/59; PULSE 85; RESP 14; TEMP 36; O2SAT 93
[2023-06-19 16:03] LABS: Glucose, Whole Blood 230 mg/dL (60-115)
--- NOTE | 2023-06-19 16:43 | HO.SKINPHOTO ---
Location:coccyx Category:pressure injury Stage: Length: Width: Depth: cm Location: Category: Stage: Length: Width: Depth: cm Location: Category: Stage: Length: Width: Depth: cm Location: Category: Stage: Length: Width: Depth: cm Location: Category: Stage: Length: Width: Depth: cm Location: Category: Stage: Length: Width: Depth: cm
[2023-06-19] MEDS: Enoxaparin Sodium 40 MG/0.4 ML SYRINGE SUBCUT (17:09)
--- NOTE | 2023-06-19 18:46 | PC.NURSE ---
pressure injury stage 2 to coccyx , pt reposition , wound photo done ,wound consult ordered , pt and family educated on position change every 2 hrs
[2023-06-19 19:27] VITALS: BP 140/65; PULSE 89; RESP 18; TEMP 36.8; O2SAT 97
[2023-06-19 20:19] LABS: Glucose, Whole Blood 265 mg/dL (60-115)
[2023-06-19] MEDS: Insulin Glargine,Hum.rec.anlog 100 UNIT/ML 10 ML VIAL 55 UNIT SUBCUT (21:17)
[2023-06-20] VITALS (8 sets, daily range): BP systolic 108–137; BP diastolic 53–76; PULSE 76–98; RESP 16–20; TEMP 36.1–36.5; O2SAT 92–96
[2023-06-20] MEDS: Omeprazole 20 MG CAPSULE.DR PO (05:35)
[2023-06-20 06:25] LABS: Alanine Aminotransferase 97 U/L (0-40); Albumin Level 2.2 g/dL (3.5-5.0); Alkaline Phosphatase 308 U/L (39-117); Anion Gap 11 (12-20); Aspartate Amino Transferase 111 U/L (5-37); Bilirubin Total 4.2 mg/dL (0.0-1.0); Blood Urea Nitrogen 29 mg/dL (9-16); Calcium 7.8 mg/dL (8.4-10.2); Carbon Dioxide 29 mmol/L (22-29); Chloride 100 mmol/L (96-108); Creatinine Clr Calc Pharmacy 101.9; Estimated Glomerular Filt Rate > 60; Glucose Fasting 126 mg/dL (60-99); Potassium 4.9 mmol/L (3.3-5.1); Sodium 135 mmol/L (135-145); Total Protein 4.7 g/dL (6.5-8.0)
--- NOTE | 2023-06-20 07:00 | CA_ITS ---
Transthoracic Echocardiogram Patient (Last, First, Middle): Remberto Hawkins, Gender: Male Date of : 1965 Age: 58 Procedure Date: 06/20/2023 Procedure Type: Transthoracic Echocardiogram Location: [facility] [place] Height: 167.64 cm Weight: 73.94 kg BSA: 1.83 m2 Heart Rate: bpm Commissions Coordinator: Referring MD: Yajaira AYALA Symptoms: recent echo, needs bubble study; sob,?hepatopulm Study Quality: Adequate Conclusions: - Bubble study findings suggestive of pulmonary AVM +/- small PFO. Findings [place] In the resting bubble study, there is late appearance of bubbles suggestive of pulmonary AVM. With valsalva, there is some early appearance of bubbles indicating possible PFO, but much more prominent late appearance from pulmonary AVM. Prior Study Comparison No significant change compared to prior study dated: 06/15/2023. Updated in Other Vendor System with Status of Final Jakob Donovan MD electronically signed on 06/20/2023 3:26:10 PM with status of Final
[2023-06-20 08:12] LABS: Glucose, Whole Blood 127 mg/dL (60-115)
[2023-06-20] MEDS: Insulin Lispro 100 UNIT/ML 3 ML VIAL 10 UNIT SUBCUT (08:23)
[2023-06-20] MEDS: Spironolactone 25 MG TABLET 50 MG PO (08:23)
[2023-06-20] MEDS: predniSONE 10 MG TABLET 30 MG PO (08:23)
[2023-06-20] MEDS: 0.9 % Sodium Chloride Flush 3 ML SYRINGE IVFLUSH ×3 (08:24→21:20)
[2023-06-20 11:53] LABS: Glucose, Whole Blood 136 mg/dL (60-115)
--- NOTE | 2023-06-20 16:04 | HO.PM.IMPN ---
Subjective Subjective Date of Service: 06/20/23 Interval History: seen and examined this morning follow up for respiratory failure feeling well at rest, denies sob became hypoxic with ambulation. denies cough or chest pain Review of Systems Review of Systems: Yes all other systems are reviewed and are negative Constitutional Constitutional: Denies chills and Denies fever(s) Cardiovascular Cardiovascular: Denies chest pain, Denies palpitations and Reports dyspnea on exertion Respiratory Respiratory: Denies cough and Reports dyspnea on exertion Gastrointestinal Gastrointestinal: Denies abdominal pain Endocrine Endocrine: Denies palpitations Physical Exam Vital Signs: Vital Signs: Last Vital Signs Temp 97.4 F 06/20/23 15:24 Pulse 80 06/20/23 15:24 Resp 20 06/20/23 15:24 BP 130/61 06/20/23 15:24 Pulse Ox 95 06/20/23 15:24 O2 Del Method Nasal Cannula 06/20/23 15:24 O2 Flow Rate 4 06/20/23 15:24 Oxygen Flow Rate 6 06/13/23 14:04 BMI result Body Mass Index 26.4 Const: General: cooperative, comfortable, alert and awake Nutritional Appearance: average body habitus Orientation/consciousness: patient oriented x3 Resp: Other: no wheezes or rales Effort & Inspection: normal respiratory effort, able to speak in complete sentences, no respiratory distress and no use of accessory muscles Cardio: Rate: regular rate GI: Inspection: No distended Palpation (GI): Soft to palpation and nontender Neuro: General: patient oriented x3 and moves all extremities Objective Data Active Medications Acetaminophen (Acetaminophen 325 Mg Tablet) 650 mg PO Q4H PRN PRN Reason: Pain, Mild (Pain Scale 1-3) Last Admin: 06/15/23 01:31 Dose: 650 mg Documented By: SALOMÓN Albuterol Sulfate (Albuterol Sulfate 90 Mcg 8 Gm Inhaler) 2 puff INHALE RQ4H PRN PRN Reason: sob Last Admin: 06/16/23 20:06 Dose: 2 puff Documented By: CLAY Dextrose (Dextrose 50 % 25 Gm/50 Ml Syringe) 25 gm IVPUSH Q15M PRN; Protocol PRN Reason: per Hypoglycemia Standing Ord. Docusate Sodium (Docusate Sodium 100 Mg Capsule) 100 mg PO DAILY PRN PRN Reason: Constipation Enoxaparin Sodium (Enoxaparin Sodium 40 Mg/0.4 Ml Syringe) 40 mg SUBCUT Q24H [facility] Last Admin: 06/19/23 17:09 Dose: 40 mg Documented By: NADYA Insulin Glargine (Insulin Glargine,Hum.Rec.Anlog 100 Unit/Ml 10 Ml Vial) 55 unit SUBCUT BEDTIME [facility] Last Admin: 06/19/23 21:17 Dose: 55 unit Documented By: NADYA Insulin Human Lispro (Insulin Lispro 100 Unit/Ml 3 Ml Vial) 0 unit SUBCUT QIDACHS [facility]; Protocol Last Admin: 06/20/23 11:54 Dose: Not Given Documented By: BILLIE Non-Admin Reason: No Insulin Coverage Loperamide HCl (Loperamide Hcl 2 Mg Capsule) 2 mg PO Q6H PRN PRN Reason: Diarrhea Last Admin: 06/14/23 21:08 Dose: 2 mg Documented By: SALOMÓN Omeprazole (Omeprazole 20 Mg Capsule.) 20 mg PO DAILY@0630 [facility] Last Admin: 06/20/23 05:35 Dose: 20 mg Documented By: NATI Prednisone (Prednisone 10 Mg Tablet) 30 mg PO DAILY [facility] Last Admin: 06/20/23 08:23 Dose: 30 mg Documented By: BILLIE Sodium Chloride (0.9 % Sodium Chloride Flush 3 Ml Syringe) 3 ml IVFLUSH QSHIFT [facility] Last Admin: 06/20/23 08:24 Dose: 3 ml Documented By: BILLIE Spironolactone (Spironolactone 25 Mg Tablet) 50 mg PO DAILY [facility]; Protocol Last Admin: 06/20/23 08:23 Dose: 50 mg Documented By: BILLIE Labs 06/19/23 05:48 06/20/23 05:56 Labs: Laboratory Results - last 24 hr 06/19/23 06/19/23 06/20/23 15:19 19:26 05:56 Hold Purple Top SEE NOTE Anion Gap 11 L Estim Creat Clear Calc 101.9 Estimated GFR > 60 POC Glucose 230 H 265 H Fasting Glucose 126 H Calcium 7.8 L D Total Bilirubin 4.2 H AST 111 H ALT 97 H Alkaline Phosphatase 308 H Total Protein 4.7 L Albumin 2.2 L 06/20/23 06/20/23 07:48 11:38 Hold Purple Top Anion Gap Estim Creat Clear Calc Estimated GFR POC Glucose 127 H 136 H Fasting Glucose Calcium Total Bilirubin AST ALT Alkaline Phosphatase Total Protein Albumin Assessment and Plan (1) Acute respiratory failure: Status: Acute (2) Liver cirrhosis: Status: Acute Plan This is a 58-year-old male with history MS, liver cirrhosis, diabetes, recent admission for COVID-19 and subsequent admission for multifocal pneumonia who was discharged to attend his son's and returns with ongoing shortness of breath Acute on chronic respiratory failure with hypoxia Due to underlying multifocal pneumonia, and per pulm imaging suggestive COVID 19 related pneumonia;completed IV ceftraixone/doxycycline(7 days total) currently on 2-3L at rest, but desaturates with ambulation RPP negative continue PO prednisone with plan for slow taper upon discharge appreciate Pulmonary input - plan for repeat cxr and limited echo with bubble study was previously discharged with oxygen and will continue to use upon discharge Liver cirrhosis with portal HTN Underwent therapeutic paracentesis 06/18 with good results -continue current therapies -has outpatient follow up scheduled in [place] 06/26 HFrEF Mild reduction in EF; good response with IV Lasix. BNP normalized Lasix DC aldactone resumed DM2 with hyperglycemia Noted to be hyperglycemic secondary to steroids. basal insulin increased, sugars improved continue SSI, diabetic diet MS Outpt therapies as ordered. Patient straight caths at home however in house [place] placed upon initial presentation. Discussed with family; they wish to leave it until patient is discharged and then a will resume p.r.n. straight caths at home hyperkalemia resolved with lokelma stage 2 coccyx wound local wound care and frequent position changes wound care nurse galilea pending Lovenox Full code attending - dr. Luz requires ongoing hospitalization to titrate O2 in the backdrop of worsening respiratory failure Quality Stroke Does the patient have a stroke diagnosis?: No VTE Prior VTE?: No VTE Risk Level:: Medical - moderate - high VTE Device Contraindication: N/A - Device Ordered VTE Drug Contraindication: N/A - Med Ordered
--- NOTE | 2023-06-20 16:14 | P.CDIM_ITS ---
PROVIDER RESPONSE TEXT: To clarify, the appropriate diagnosis supported by the clinical indicators: Pressure (decubitus) injury Stage 2 medial coccyx QUERY TEXT: PHYSICIAN'S DOCUMENTATION REQUEST Date of Query: 06/20/2023 11:02 AM EST Patient Name: Remberto Hawkins Admit Date: 06/13/2023 Dear Yajaira Guy, A review of the medical record indicates additional documentation may be needed. Please review below and update the documentation accordingly. Clinical Indicators: Wound care assessment nursing notes dated 06/19 - Pressure injury medial coccyx Stage 2. Based on the above, could you please provide further information regarding the ulcer/wound/injury: Pressure (decubitus) injury Stage 2 medial coccyx Other Other (explain) Clinically unable to determine (explain) Thank you, Lauren Reeves, CCS, CDIS Use of terms such as suspected, likely, concern for, or probable (associated with a specific diagnosi s that is being evaluated, monitored, or treated as if it exists) are acceptable and can be coded in the inpatient se tting, when documented at the time of discharge. Please use your independent medical judgment in providing your response. THIS QUERY IS PART OF THE PERMANENT MEDICAL RECORD
[2023-06-20 16:20] LABS: Glucose, Whole Blood 167 mg/dL (60-115)
[2023-06-20] MEDS: Insulin Lispro 100 UNIT/ML 3 ML VIAL SUBCUT ×2 (17:08→21:16)
[2023-06-20] MEDS: Enoxaparin Sodium 40 MG/0.4 ML SYRINGE SUBCUT (17:09)
[2023-06-20] MEDS: Furosemide 40 MG TABLET PO (18:33)
[2023-06-20 19:28] LABS: Glucose, Whole Blood 216 mg/dL (60-115)
[2023-06-20] MEDS: Insulin Glargine,Hum.rec.anlog 100 UNIT/ML 10 ML VIAL 55 UNIT SUBCUT (21:17)
[2023-06-20] MEDS: Acetaminophen 325 MG TABLET 650 MG PO (21:24)
[2023-06-21] VITALS (7 sets, daily range): BP systolic 109–129; BP diastolic 59–67; PULSE 74–88; RESP 18–20; TEMP 35.7–36.7; O2SAT 91–100
[2023-06-21] MEDS: Omeprazole 20 MG CAPSULE.DR PO (05:33)
[2023-06-21 07:32] LABS: Glucose, Whole Blood 336 mg/dL (60-115)
[2023-06-21] MEDS: Insulin Lispro 100 UNIT/ML 3 ML VIAL SUBCUT ×4 (07:47→21:59)
[2023-06-21] MEDS: predniSONE 10 MG TABLET 30 MG PO (07:48)
[2023-06-21] MEDS: 0.9 % Sodium Chloride Flush 3 ML SYRINGE IVFLUSH ×2 (07:48→17:33)
[2023-06-21] MEDS: Spironolactone 25 MG TABLET 50 MG PO (07:48)
[2023-06-21 11:39] LABS: Glucose, Whole Blood 239 mg/dL (60-115)
--- NOTE | 2023-06-21 15:33 | PC.NURSE ---
unable to go to the ctscan at this time , pt doesn't have 20 G IV above the wris and is very hard stick. Charge nurse will attempt IV access
--- NOTE | 2023-06-21 16:35 | P.PNIM_ITS ---
Subjective Subjective Date of Service: 06/21/23 Interval History: seen and examined this morning follow up for respiratory failure feels well at rest very weak and gets sob with movement repeat cxr unchanged Review of Systems Review of Systems: Yes all other systems are reviewed and are negative Constitutional Constitutional: Denies chills and Denies fever(s) Cardiovascular Cardiovascular: Denies chest pain, Denies palpitations and Reports dyspnea on exertion Respiratory Respiratory: Denies cough and Reports dyspnea on exertion Gastrointestinal Gastrointestinal: Denies abdominal pain Endocrine Endocrine: Denies palpitations Physical Exam 2 Vital Signs: Vital Signs: Last Vital Signs Temp 97.0 F 06/21/23 15:32 Pulse 74 06/21/23 15:32 Resp 18 06/21/23 15:32 BP 118/62 06/21/23 15:32 Pulse Ox 96 06/21/23 15:32 O2 Del Method Humidified O2 06/21/23 15:32 O2 Flow Rate 4 06/21/23 15:32 Oxygen Flow Rate 6 06/13/23 14:04 BMI result Body Mass Index 26.4 Const: General: cooperative, comfortable, alert and awake Nutritional Appearance: average body habitus Orientation/consciousness: patient oriented x3 Resp: Other: no wheezes or rales Effort & Inspection: normal respiratory effort, able to speak in complete sentences, no respiratory distress and no use of accessory muscles Cardio: Rate: regular rate and tachycardic GI: Inspection: No distended Palpation (GI): Soft to palpation and nontender : Other: quintero in place Neuro: Other: grossly nonfocal General: patient oriented x3, moves all extremities and CN's II-XI intact bilaterally Extrem: Other: b/l leg edema Objective Data Active Medications Acetaminophen (Acetaminophen 325 Mg Tablet) 650 mg PO Q4H PRN PRN Reason: Pain, Mild (Pain Scale 1-3) Last Admin: 06/20/23 21:24 Dose: 650 mg Documented By: KAMAR Albuterol Sulfate (Albuterol Sulfate 90 Mcg 8 Gm Inhaler) 2 puff INHALE RQ4H PRN PRN Reason: sob Last Admin: 06/16/23 20:06 Dose: 2 puff Documented By: CLAY Dextrose (Dextrose 50 % 25 Gm/50 Ml Syringe) 25 gm IVPUSH Q15M PRN; Protocol PRN Reason: per Hypoglycemia Standing Ord. Docusate Sodium (Docusate Sodium 100 Mg Capsule) 100 mg PO DAILY PRN PRN Reason: Constipation Enoxaparin Sodium (Enoxaparin Sodium 40 Mg/0.4 Ml Syringe) 40 mg SUBCUT Q24H [facility] Last Admin: 06/20/23 17:09 Dose: 40 mg Documented By: BILLIE Insulin Glargine (Insulin Glargine,Hum.Rec.Anlog 100 Unit/Ml 10 Ml Vial) 55 unit SUBCUT BEDTIME [facility] Last Admin: 06/20/23 21:17 Dose: 55 unit Documented By: KAMAR Insulin Human Lispro (Insulin Lispro 100 Unit/Ml 3 Ml Vial) 0 unit SUBCUT QIDACHS [facility]; Protocol Last Admin: 06/21/23 11:36 Dose: 4 unit Documented By: BILLIE Loperamide HCl (Loperamide Hcl 2 Mg Capsule) 2 mg PO Q6H PRN PRN Reason: Diarrhea Last Admin: 06/14/23 21:08 Dose: 2 mg Documented By: SALOMÓN Omeprazole (Omeprazole 20 Mg Capsule.) 20 mg PO DAILY@0630 [facility] Last Admin: 06/21/23 05:33 Dose: 20 mg Documented By: KAMAR Prednisone (Prednisone 10 Mg Tablet) 30 mg PO DAILY [facility] Last Admin: 06/21/23 07:48 Dose: 30 mg Documented By: BILLIE Sodium Chloride (0.9 % Sodium Chloride Flush 3 Ml Syringe) [facility] Last Admin: 06/21/23 07:48 Dose: 3 ml Documented By: BILLIE Spironolactone (Spironolactone 25 Mg Tablet) 50 mg PO DAILY [facility]; Protocol Last Admin: 06/21/23 07:48 Dose: 50 mg Documented By: BILLIE Labs 06/19/23 05:48 06/20/23 05:56 Labs: Laboratory Results - last 24 hr 06/20/23 06/21/23 06/21/23 19:18 07:16 11:27 POC Glucose 216 H 336 H 239 H Assessment and Plan (1) Acute respiratory failure: Status: Acute Plan This is a 58-year-old male with history MS, liver cirrhosis, diabetes, recent admission for COVID-19 and subsequent admission for multifocal pneumonia who was discharged to attend his son's and returns with ongoing shortness of breath Acute on chronic respiratory failure with hypoxia Due to underlying multifocal pneumonia, and per pulm imaging suggestive COVID 19 related pneumonia;completed IV ceftraixone/doxycycline(7 days total) currently on 2-3L at rest, but desaturates significantly with ambulation RPP negative continue PO prednisone with plan for slow taper upon discharge repeat CXR 06/20 unchanged from previous - likely chronic changes from covid bubble study c/w pulmonary AVM - nothing further to do inpatient for this per pulm has been on dvt ppx but given persistent hypoxia, will obtain CTA to rule out PE Liver cirrhosis with portal HTN Underwent therapeutic paracentesis 06/18 with good results -continue current therapies -has outpatient follow up scheduled in [place] 06/26 HFrEF Mild reduction in EF; good response with IV Lasix. BNP normalized Lasix DC aldactone resumed DM2 with hyperglycemia Noted to be hyperglycemic secondary to steroids. basal insulin increased, sugars improved continue SSI, diabetic diet MS Outpt therapies as ordered. Patient straight caths at home however in house Quintero placed upon initial presentation. Discussed with family; they wish to leave it until patient is discharged and then a will resume p.r.n. straight caths at home hyperkalemia resolved with lokelma stage 2 coccyx wound local wound care and frequent position changes wound care nurse galilea pending Lovenox Full code attending - dr. post requires ongoing hospitalization to titrate O2 in the backdrop of worsening respiratory failure Quality Stroke Does the patient have a stroke diagnosis?: No VTE Prior VTE?: No VTE Risk Level:: Medical - moderate - high VTE Device Contraindication: N/A - Device Ordered VTE Drug Contraindication: N/A - Med Ordered
[2023-06-21 16:49] LABS: Glucose, Whole Blood 306 mg/dL (60-115)
[2023-06-21] MEDS: iohexoL 350 MG/ML 100 ML INFUS..BTL 65 ML IV (17:08)
[2023-06-21] MEDS: Enoxaparin Sodium 40 MG/0.4 ML SYRINGE SUBCUT (18:40)
[2023-06-21 20:24] LABS: Glucose, Whole Blood 359 mg/dL (60-115)
[2023-06-21] MEDS: Insulin Glargine,Hum.rec.anlog 100 UNIT/ML 10 ML VIAL 55 UNIT SUBCUT (21:59)
--- NOTE | 2023-06-21 23:18 | P.PNPL_ITS ---
Subjective Subjective Date of Service: 06/21/23 Interval history: Seen and examined. Feels well when laying down on nasal cannula oxygen, but significant hypoxia with activity. Bubble study+ suggesting right to left pulmonary shunt from AVMs consistent with hepato-pulmonary disease. This is likely contributing to his hypoxia in addition to interstitial lung disease. We will trial an oximizer pendent today. pt to undergo a CTA to r/o PE as well. Currently on prednisone, diuresis. Objective Data Labs 06/19/23 05:48 06/20/23 05:56 Labs: Laboratory Results - last 24 hr 06/21/23 06/21/23 06/21/23 07:16 11:27 16:37 POC Glucose 336 H 239 H 306 H 06/21/23 20:12 POC Glucose 359 H* Review of Systems Review of Systems Yes all other systems are reviewed and are negative Constitutional: Denies chills and Denies fever(s) Cardiovascular: Denies chest pain, Denies palpitations and Reports dyspnea Respiratory: Reports cough and Reports dyspnea Gastrointestinal: Denies abdominal pain, Denies nausea and Denies vomiting Endocrine: Denies palpitations Physical Exam 2 Vital Signs: Vital Signs: Last Vital Signs Temp 97.2 F 06/21/23 19:04 Pulse 86 06/21/23 19:04 Resp 20 06/21/23 19:04 BP 119/67 06/21/23 19:04 Pulse Ox 91 L 06/21/23 19:04 O2 Del Method Humidified O2 06/21/23 19:04 O2 Flow Rate 4 06/21/23 15:32 Oxygen Flow Rate 6 06/13/23 14:04 BMI result Body Mass Index 26.4 Appearing in no acute distress lung sounds are clear to auscultation heart regular rate rhythm, clear S1, S2 positive bowel sounds, abdomen is soft, nontender neuro patient is alert x3, no focal deficits Procedures Date of Service Date of Service: 06/21/23 Assessment and Plan Assessment and plan (1) Acute and chronic respiratory failure with hypoxia: Status: Acute (2) Pulmonary edema: Status: Acute (3) Congestive heart failure: Status: Resolved (4) Liver cirrhosis: Status: Acute (5) Hepatopulmonary syndrome: Status: Acute (6) ILD (interstitial lung disease): Status: Acute Plan Prednisone, consider mycophenalate, but could worsen liver function Agree with CTA will review once available Continue oxygen, trial oximizer pendant Diuresis as tolerated consider quantitative perfusion study to assess degree of right to left shunting ABG on RA to assess A-a gradient Can not go home if he requieres more than 8L with the oximizer pendant Time Spent With Patient Time: Total time managing care of this patient today ____ minutes. Progress Note: Quality Stroke Does the patient have a stroke diagnosis?: No
--- NOTE | 2023-06-22 | ECG_ITS ---
Test Reason : LAB ARE OFF Blood Pressure : / mmHG Vent. Rate : 072 BPM Atrial Rate : 072 BPM P-R Int : 126 ms QRS Dur : 096 ms QT Int : 384 ms P-R-T Axes : 017 -18 008 degrees QTc Int : 420 ms Normal sinus rhythm Moderate voltage criteria for LVH, may be normal variant ( R in aVL , Winslow product ) Possible Anterolateral infarct , age undetermined Abnormal ECG When compared with ECG of 13-JUN-2023 14:32, Borderline criteria for Anterior infarct are now Present Borderline criteria for Anterolateral infarct are now Present Referred By: Yajaira Guy Electronically Signed By:SENTHIL SULTANA
[2023-06-22 03:34] VITALS: BP 111/77; PULSE 94; RESP 18; TEMP 35.9; O2SAT 98
[2023-06-22] MEDS: Omeprazole 20 MG CAPSULE.DR PO (05:43)
[2023-06-22 06:47] LABS: Anion Gap 10 (12-20); Blood Urea Nitrogen 31 mg/dL (9-16); Calcium 8.2 mg/dL (8.4-10.2); Carbon Dioxide 30 mmol/L (22-29); Chloride 97 mmol/L (96-108); Creatinine Clr Calc Pharmacy 90.7; Estimated Glomerular Filt Rate > 60; Glucose Random 355 mg/dL (60-115); Potassium 5.7 mmol/L (3.3-5.1); Sodium 131 mmol/L (135-145)
[2023-06-22 06:57] LABS: B Type Natriuretic Peptide 48 pg/mL (<100)
[2023-06-22 08:00] VITALS: BP 116/65; PULSE 94; RESP 20; TEMP 36.9; O2SAT 93
[2023-06-22 08:13] LABS: Glucose, Whole Blood 277 mg/dL (60-115)
[2023-06-22] MEDS: Sodium Zirconium Cyclosilicate 10 GM POWD.PACK PO (09:06)
[2023-06-22] MEDS: predniSONE 10 MG TABLET 30 MG PO (09:06)
[2023-06-22] MEDS: 0.9 % Sodium Chloride Flush 3 ML SYRINGE IVFLUSH ×3 (09:09→22:02)
[2023-06-22] MEDS: Insulin Lispro 100 UNIT/ML 3 ML VIAL SUBCUT ×4 (09:09→22:02)
[2023-06-22 11:12] LABS: Glucose, Whole Blood 239 mg/dL (60-115)
[2023-06-22 11:46] VITALS: BP 99/52; PULSE 85; RESP 20; TEMP 36.3; O2SAT 95
--- NOTE | 2023-06-22 11:59 | P.PNPL_ITS ---
Subjective Subjective Date of Service: 06/22/23 Interval history: The patient was seen on exam. Still requiring high doses of oxygen. Currently using the Oxymizer pendant at 4 L. the patient does better when he is laying flat consistent with the tip me augustine. I did review his CT scan of the chest. Again no evidence of any pulmonary emboli which is reassuring. Although there appears to be more pulmonary fibrosis secondary to his viral pneumonitis. The patient is also at risk for conditions such as PCP based on his chronic dose of steroids and also his liver failure. We did talk about his hepatopulmonary syndrome with underlying pulmonary AVMs. While he is still in a hospital will try to give him additional steroids and will start him on Bactrim empirically for PCP to see if this provides any relief. As an outpatient the patient could try the Oxymizer pendant if he is feeling better and is not a an outpatient high-flow unit may also be an option moving forward. Pulmonary rehab may be important as such as an acute rehab although the patient is reluctant to do so. Objective Data Labs 06/19/23 05:48 06/22/23 06:01 Labs: Laboratory Results - last 24 hr 06/21/23 06/21/23 06/22/23 16:37 20:12 06:01 Sodium 131 L Potassium 5.7 H Chloride 97 Carbon Dioxide 30 H Anion Gap 10 L BUN 31 H Creatinine 0.82 Estim Creat Clear Calc 90.7 Estimated GFR > 60 POC Glucose 306 H 359 H* Random Glucose 355 H* Calcium 8.2 L B-Natriuretic Peptide 48 06/22/23 06/22/23 07:57 10:59 Sodium Potassium Chloride Carbon Dioxide Anion Gap BUN Creatinine Estim Creat Clear Calc Estimated GFR POC Glucose 277 H 239 H Random Glucose Calcium B-Natriuretic Peptide Review of Systems Review of Systems Yes all other systems are reviewed and are negative Constitutional: Denies chills and Denies fever(s) Cardiovascular: Denies chest pain, Denies palpitations and Reports dyspnea Respiratory: Reports cough and Reports dyspnea Gastrointestinal: Denies abdominal pain, Denies nausea and Denies vomiting Endocrine: Denies palpitations Physical Exam 2 Vital Signs: Vital Signs: Last Vital Signs Temp 97.4 F 06/22/23 11:46 Pulse 85 06/22/23 11:46 Resp 20 06/22/23 11:46 BP 99/52 L 06/22/23 11:46 Pulse Ox 95 06/22/23 11:46 O2 Del Method Nasal Cannula 06/22/23 11:46 O2 Flow Rate 4 06/22/23 11:46 Oxygen Flow Rate 6 06/13/23 14:04 BMI result Body Mass Index 26.4 Appearing in no acute distress lung sounds are clear to auscultation heart regular rate rhythm, clear S1, S2 positive bowel sounds, abdomen is soft, nontender neuro patient is alert x3, no focal deficits Procedures Date of Service Date of Service: 06/22/23 Assessment and Plan Assessment and plan (1) Acute and chronic respiratory failure with hypoxia: Status: Acute (2) Pulmonary edema: Status: Acute (3) Congestive heart failure: Status: Resolved (4) Liver cirrhosis: Status: Acute (5) Hepatopulmonary syndrome: Status: Acute (6) ILD (interstitial lung disease): Status: Acute Plan Start Solu-Medrol 60 mg t.i.d. and monitor sugars Start empiric Bactrim 3 times a day Consider bronchoscopy for diagnostic purposes. Although likely be low yield. And the fact that he is on high doses of oxygen will be high risk. consider mycophenalate, but could worsen liver function Continue oxygen, trial oximizer pendant Diuresis as tolerated consider quantitative perfusion study to assess degree of right to left shunting ABG on RA to assess A-a gradient Time Spent With Patient Time: Total time managing care of this patient today ____ minutes. Progress Note: Quality Stroke Does the patient have a stroke diagnosis?: No
[2023-06-22] MEDS: methylPREDNISolone Sod Succ 125 MG/2 ML VIAL 60 MG IVPUSH ×2 (12:04→22:00)
--- NOTE | 2023-06-22 13:51 | HO.PM.IMPN ---
Subjective Subjective Date of Service: 06/22/23 Interval History: seen and examined this morning follow up for respiratory failure continues to be asymptomatic at rest Review of Systems Review of Systems: Yes all other systems are reviewed and are negative Constitutional Constitutional: Denies chills and Denies fever(s) Cardiovascular Cardiovascular: Denies chest pain, Denies palpitations and Reports dyspnea on exertion Respiratory Respiratory: Reports dyspnea on exertion Endocrine Endocrine: Denies palpitations Physical Exam Vital Signs: Vital Signs: Last Vital Signs Temp 97.4 F 06/22/23 11:46 Pulse 85 06/22/23 11:46 Resp 20 06/22/23 11:46 BP 99/52 L 06/22/23 11:46 Pulse Ox 95 06/22/23 11:46 O2 Del Method Nasal Cannula 06/22/23 11:46 O2 Flow Rate 4 06/22/23 11:46 Oxygen Flow Rate 6 06/13/23 14:04 BMI result Body Mass Index 26.4 Const: General: cooperative, comfortable, alert and awake Nutritional Appearance: average body habitus Orientation/consciousness: patient oriented x3 Resp: Other: no wheezes or rales Effort & Inspection: normal respiratory effort, able to speak in complete sentences, no respiratory distress and no use of accessory muscles Auscultation: clear to auscultation bilaterally Cardio: Rate: regular rate and tachycardic GI: Inspection: No distended Palpation (GI): Soft to palpation and nontender : Other: quintero in place Neuro: Other: grossly nonfocal General: patient oriented x3, moves all extremities and CN's II-XI intact bilaterally Extrem: Other: b/l leg edema Objective Data Active Medications Acetaminophen (Acetaminophen 325 Mg Tablet) 650 mg PO Q4H PRN PRN Reason: Pain, Mild (Pain Scale 1-3) Last Admin: 06/20/23 21:24 Dose: 650 mg Documented By: KAMAR Albuterol Sulfate (Albuterol Sulfate 90 Mcg 8 Gm Inhaler) 2 puff INHALE RQ4H PRN PRN Reason: sob Last Admin: 06/16/23 20:06 Dose: 2 puff Documented By: CLAY Albuterol/Ipratropium (Albuterol/Iprat 2.5/0.5mg 3 Ml Ampul.Neb) 3 ml INHALE RQ6H WHILE AWAKE PRN PRN Reason: Shortness of Breath/Wheezing Dextrose (Dextrose 50 % 25 Gm/50 Ml Syringe) 25 gm IVPUSH Q15M PRN; Protocol PRN Reason: per Hypoglycemia Standing Ord. Docusate Sodium (Docusate Sodium 100 Mg Capsule) 100 mg PO DAILY PRN PRN Reason: Constipation Enoxaparin Sodium (Enoxaparin Sodium 40 Mg/0.4 Ml Syringe) 40 mg SUBCUT Q24H [facility] Last Admin: 06/21/23 18:40 Dose: 40 mg Documented By: NADYA Insulin Glargine (Insulin Glargine,Hum.Rec.Anlog 100 Unit/Ml 10 Ml Vial) 55 unit SUBCUT BEDTIME [facility] Last Admin: 06/21/23 21:59 Dose: 55 unit Documented By: EJ Insulin Human Lispro (Insulin Lispro 100 Unit/Ml 3 Ml Vial) 0 unit SUBCUT QIDACHS [facility]; Protocol Last Admin: 06/22/23 12:04 Dose: 4 unit Documented By: BILLIE Loperamide HCl (Loperamide Hcl 2 Mg Capsule) 2 mg PO Q6H PRN PRN Reason: Diarrhea Last Admin: 06/14/23 21:08 Dose: 2 mg Documented By: SALOMÓN Methylprednisolone Sodium Succinate (Methylprednisolone Sod Succ 125 Mg/2 Ml Vial) 60 mg IVPUSH Q8H [facility] Last Admin: 06/22/23 12:04 Dose: 60 mg Documented By: BILLIE Omeprazole (Omeprazole 20 Mg Capsule.Dr) 20 mg PO DAILY@0630 [facility] Last Admin: 06/22/23 05:43 Dose: 20 mg Documented By: EJ Sodium Chloride (0.9 % Sodium Chloride Flush 3 Ml Syringe) 3 ml IVFLUSH QSHIFT [facility] Last Admin: 06/22/23 12:05 Dose: 3 ml Documented By: BILLIE Spironolactone (Spironolactone 25 Mg Tablet) 50 mg PO DAILY [facility]; Protocol Last Admin: 06/21/23 07:48 Dose: 50 mg Documented By: BILLIE Labs 06/19/23 05:48 06/22/23 06:01 Labs: Laboratory Results - last 24 hr 06/21/23 06/21/23 06/22/23 16:37 20:12 06:01 Anion Gap 10 L Estim Creat Clear Calc 90.7 Estimated GFR > 60 POC Glucose 306 H 359 H* Random Glucose 355 H* Calcium 8.2 L B-Natriuretic Peptide 48 06/22/23 06/22/23 07:57 10:59 Anion Gap Estim Creat Clear Calc Estimated GFR POC Glucose 277 H 239 H Random Glucose Calcium B-Natriuretic Peptide Assessment and Plan (1) Acute and chronic respiratory failure with hypoxia: Status: Acute (2) ILD (interstitial lung disease): Status: Acute (3) Hepatopulmonary syndrome: Status: Acute (4) Liver cirrhosis: Status: Acute Plan This is a 58-year-old male with history MS, liver cirrhosis, diabetes, recent admission for COVID-19 and subsequent admission for multifocal pneumonia who was discharged to attend his son's and returns with ongoing shortness of breath Acute on chronic respiratory failure with hypoxia seems most likely related to pulmonary fibrosis due to COVID/hepatopulmonary syndrome repeat CXR 06/20 unchanged bubble study c/w pulmonary AVM CTA 06/21 negative for PE completed 7 days of antibiotics (ceftraixone/doxycycline) currently on 2-4L at rest, but desaturates to 70s with ambulation/movement RPP negative pulmonary following - will resume high dose IV steroids, and consider bactrim for PCP (K high this am, will recheck and then start bactrim if improved) can try high flow concentrator for discharge Liver cirrhosis with portal HTN Underwent therapeutic paracentesis 06/18 with good results has outpatient follow up scheduled in [place] 06/26 hold aldactone for hyperkalemia hyperkalemia will give dose of lokelma has had intermittent hyperkalmeia, may not tolerate aldactone follow BMP HFrEF Mild reduction in EF; good response with IV Lasix. BNP normalized Lasix DC DM2 with hyperglycemia Noted to be hyperglycemic secondary to steroids. basal insulin increased to 55U from baseline 46U , sugars improved continue SSI, diabetic diet MS Outpt therapies as ordered. Patient straight caths at home however in house Quintero placed upon initial presentation. Discussed with family; they wish to leave it until patient is discharged and then a will resume p.r.n. straight caths at home stage 2 coccyx wound local wound care and frequent position changes wound care nurse galilea pending Lovenox Full code attending - dr. post dispo - patient wants to return home, but currently oxygen requirements have prevented discharge home. consider trial with high flow concentrator vs STR vs pulm rehab requires ongoing hospitalization to titrate O2 in the backdrop of respiratory failure Quality Stroke Does the patient have a stroke diagnosis?: No VTE Prior VTE?: No VTE Risk Level:: Medical - moderate - high VTE Device Contraindication: N/A - Device Ordered VTE Drug Contraindication: N/A - Med Ordered
[2023-06-22 15:14] VITALS: BP 137/71; PULSE 74; RESP 16; TEMP 36.3; O2SAT 98
--- NOTE | 2023-06-22 15:42 | MHC.CM.PN ---
Per PA patient will likely need pulmonary rehab. Referrals entered in [facility].
[2023-06-22 15:48] LABS: Potassium 6.2 mmol/L (3.3-5.1)
[2023-06-22] MEDS: Dextrose 50 % 25 GM/50 ML SYRINGE IVPUSH (16:19)
[2023-06-22] MEDS: Insulin Regular, Human 100 UNIT/ML 3 ML VIAL 10 UNIT IVPUSH (16:19)
[2023-06-22] MEDS: Sodium Polystyrene Sulfon/Sorb 15 GM/60 ML ORAL.SUSP PO (16:19)
[2023-06-22 16:26] LABS: Glucose, Whole Blood 299 mg/dL (60-115)
[2023-06-22 17:07] LABS: Glucose, Whole Blood 328 mg/dL (60-115)
[2023-06-22] MEDS: Enoxaparin Sodium 40 MG/0.4 ML SYRINGE SUBCUT (17:25)
[2023-06-22 18:42] LABS: Potassium 5.2 mmol/L (3.3-5.1)
[2023-06-22 19:03] VITALS: BP 119/70; PULSE 101; RESP 18; TEMP 36.3; O2SAT 97
[2023-06-22] MEDS: Acetaminophen 325 MG TABLET 650 MG PO (19:25)
[2023-06-22 21:06] LABS: Glucose, Whole Blood 371 mg/dL (60-115)
[2023-06-22] MEDS: Insulin Glargine,Hum.rec.anlog 100 UNIT/ML 10 ML VIAL 55 UNIT SUBCUT (22:01)
[2023-06-22 23:53] VITALS: BP 108/52; PULSE 78; RESP 19; TEMP 37; O2SAT 97
[2023-06-23 04:00] VITALS: BP 126/62; PULSE 56; RESP 18; TEMP 37; O2SAT 96
[2023-06-23] MEDS: methylPREDNISolone Sod Succ 125 MG/2 ML VIAL 60 MG IVPUSH (05:13)
[2023-06-23] MEDS: Omeprazole 20 MG CAPSULE.DR PO (05:13)
[2023-06-23 07:15] LABS: Hematocrit 39.8 % (42.0-52.0); Hemoglobin 14.3 g/dl (14.0-18.0); Mean Corpuscular HGB Conc 35.9 g/dl (31.0-36.0); Mean Corpuscular Hemoglobin 35.2 pg (27.0-33.0); Mean Platelet Volume 12.5 fL (9.4-12.4); Red Blood Count 4.06 X10*6/uL (4.60-5.80); Red Cell Distribution Width 16.2 % (11.0-16.0); White Blood Count 13.9 X10*3/uL (4.8-10.8)
[2023-06-23 07:16] VITALS: BP 118/60; PULSE 86; RESP 18; TEMP 36.6; O2SAT 97
[2023-06-23 07:19] LABS: Platelet Count 54 X10*3/uL (160-400)
[2023-06-23 07:42] LABS: Glucose, Whole Blood 389 mg/dL (60-115)
[2023-06-23] MEDS: Insulin Lispro 100 UNIT/ML 3 ML VIAL SUBCUT ×7 (07:48→20:48)
[2023-06-23] MEDS: 0.9 % Sodium Chloride Flush 3 ML SYRINGE IVFLUSH ×2 (07:53→11:57)
[2023-06-23 07:57] LABS: Anion Gap 13 (12-20); Blood Urea Nitrogen 29 mg/dL (9-16); Calcium 8.5 mg/dL (8.4-10.2); Carbon Dioxide 30 mmol/L (22-29); Chloride 95 mmol/L (96-108); Estimated Glomerular Filt Rate > 60; Glucose Random 413 mg/dL (60-115); Potassium 6.4 mmol/L (3.3-5.1); Sodium 132 mmol/L (135-145)
[2023-06-23] MEDS: Sodium Zirconium Cyclosilicate 10 GM POWD.PACK PO (08:45)
[2023-06-23 11:32] VITALS: BP 110/59; PULSE 91; RESP 16; TEMP 36.5; O2SAT 97
[2023-06-23 11:37] LABS: Glucose, Whole Blood 328 mg/dL (60-115)
--- NOTE | 2023-06-23 13:37 | HO.PM.IMPN ---
Subjective Subjective Date of Service: 06/23/23 Interval History: seen and examined this morning follow up for respiratory failure continues to be asymptomatic at rest, but desat with activity, hyperglycemia d/t steroid Physical Exam Vital Signs: Vital Signs: Last Vital Signs Temp 97.7 F 06/23/23 11:32 Pulse 91 06/23/23 11:32 Resp 16 06/23/23 11:32 BP 110/59 L 06/23/23 11:32 Pulse Ox 97 06/23/23 11:32 O2 Del Method Nasal Cannula 06/23/23 11:32 O2 Flow Rate 3 06/23/23 11:32 Oxygen Flow Rate 6 06/13/23 14:04 BMI result Body Mass Index 26.4 Const: Other: General: AO X 3, no acute distress Resp: CTA bilateral CVS: S1,S2,RRR GI: +BS, NT, no distention Skin: No rash Neuro: motor grossly intact Psych: appropriate affect Objective Data Active Medications Acetaminophen (Acetaminophen 325 Mg Tablet) 650 mg PO Q4H PRN PRN Reason: Pain, Mild (Pain Scale 1-3) Last Admin: 06/22/23 19:25 Dose: 650 mg Documented By: BILLIE Albuterol Sulfate (Albuterol Sulfate 90 Mcg 8 Gm Inhaler) 2 puff INHALE RQ4H PRN PRN Reason: sob Last Admin: 06/16/23 20:06 Dose: 2 puff Documented By: CLAY Albuterol/Ipratropium (Albuterol/Iprat 2.5/0.5mg 3 Ml Ampul.Neb) 3 ml INHALE RQ6H WHILE AWAKE PRN PRN Reason: Shortness of Breath/Wheezing Dextrose (Dextrose 50 % 25 Gm/50 Ml Syringe) 25 gm IVPUSH Q15M PRN; Protocol PRN Reason: per Hypoglycemia Standing Ord. Docusate Sodium (Docusate Sodium 100 Mg Capsule) 100 mg PO DAILY PRN PRN Reason: Constipation Enoxaparin Sodium (Enoxaparin Sodium 40 Mg/0.4 Ml Syringe) 40 mg SUBCUT Q24H [facility] Last Admin: 06/22/23 17:25 Dose: 40 mg Documented By: BILLIE Insulin Glargine (Insulin Glargine,Hum.Rec.Anlog 100 Unit/Ml 10 Ml Vial) 55 unit SUBCUT BEDTIME [facility] Last Admin: 06/22/23 22:01 Dose: 55 unit Documented By: EJ Insulin Human Lispro (Insulin Lispro 100 Unit/Ml 3 Ml Vial) 0 unit SUBCUT QIDACHS [facility]; Protocol Last Admin: 06/23/23 11:56 Dose: 8 unit Documented By: MICKI Insulin Human Lispro (Insulin Lispro 100 Unit/Ml 3 Ml Vial) 5 unit SUBCUT QIDACHS [facility] Last Admin: 06/23/23 11:55 Dose: 5 unit Documented By: MICKI Loperamide HCl (Loperamide Hcl 2 Mg Capsule) 2 mg PO Q6H PRN PRN Reason: Diarrhea Last Admin: 06/14/23 21:08 Dose: 2 mg Documented By: SALOMÓN Methylprednisolone Sodium Succinate (Methylprednisolone Sod Succ 125 Mg/2 Ml Vial) 40 mg IVPUSH Q12H [facility] Omeprazole (Omeprazole 20 Mg Capsule.Dr) 20 mg PO DAILY@0630 [facility] Last Admin: 06/23/23 05:13 Dose: 20 mg Documented By: EJ Sodium Chloride (0.9 % Sodium Chloride Flush 3 Ml Syringe) 3 ml IVFLUSH QSHIFT [facility] Last Admin: 06/23/23 11:57 Dose: 3 ml Documented By: MICKI Spironolactone (Spironolactone 25 Mg Tablet) 50 mg PO DAILY [facility]; Protocol Last Admin: 06/21/23 07:48 Dose: 50 mg Documented By: BILLIE Labs 06/23/23 06:33 06/23/23 06:33 Labs: Laboratory Results - last 24 hr 06/22/23 06/22/23 06/22/23 16:10 17:02 20:39 MCV MCH MCHC RDW Plt Count MPV Absolute Nucleated RBC Nucleated RBC % (auto) Anion Gap Estim Creat Clear Calc Estimated GFR POC Glucose 299 H 328 H 371 H* Random Glucose Calcium 06/23/23 06/23/23 06/23/23 06:33 07:14 11:31 MCV 98.0 MCH 35.2 H MCHC 35.9 RDW 16.2 H Plt Count 54 L MPV 12.5 H Absolute Nucleated RBC 0.000 Nucleated RBC % (auto) 0.0 Anion Gap 13 Estim Creat Clear Calc 80.0 Estimated GFR > 60 POC Glucose 389 H* 328 H Random Glucose 413 H* Calcium 8.5 Assessment and Plan (1) Acute and chronic respiratory failure with hypoxia: Status: Acute (2) ILD (interstitial lung disease): Status: Acute (3) Hepatopulmonary syndrome: Status: Acute (4) Liver cirrhosis: Status: Acute Plan This is a 58-year-old male with history MS, liver cirrhosis, diabetes, recent admission for COVID-19 and subsequent admission for multifocal pneumonia who was discharged to attend his son's and returns with ongoing shortness of breath Acute on chronic respiratory failure with hypoxia seems most likely related to pulmonary fibrosis due to COVID/hepatopulmonary syndrome repeat CXR 06/20 unchanged bubble study c/w pulmonary AVM CTA 06/21 negative for PE completed 7 days of antibiotics (ceftraixone/doxycycline) currently on 2-4L at rest, but desaturates to 70s with ambulation/movement RPP negative pulmonary following, continue IV steroids, and consider bactrim for PCP (K high this am, will recheck and then start bactrim if improved) can try high flow concentrator for discharge Liver cirrhosis with portal HTN Underwent therapeutic paracentesis 06/18 with good results has outpatient follow up scheduled in [place] 06/26 stop aldactone for hyperkalemia hyperkalemia will give dose of lokelma has had intermittent hyperkalmeia, may not tolerate aldactone follow BMP HFrEF Mild reduction in EF; good response with IV Lasix. BNP normalized Lasix DC DM2 with hyperglycemia Noted to be hyperglycemic secondary to steroids. basal insulin increased to 55U, increase to 60 if remains high throughout the day, adding pre meal insulin 5 untis continue SSI, diabetic diet, also reduced steroid MS Outpt therapies as ordered. Patient straight caths at home however in house [place] placed upon initial presentation. Discussed with family; they wish to leave it until patient is discharged and then a will resume p.r.n. straight caths at home stage 2 coccyx wound local wound care and frequent position changes wound care nurse galilea pending Lovenox Full code dispo - patient wants to return home, but currently oxygen requirements have prevented discharge home. consider trial with high flow concentrator vs STR vs pulm rehab requires ongoing hospitalization to titrate O2 in the backdrop of respiratory failure Quality Stroke Does the patient have a stroke diagnosis?: No VTE Prior VTE?: No VTE Risk Level:: Medical - moderate - high VTE Device Contraindication: N/A - Device Ordered VTE Drug Contraindication: N/A - Med Ordered
[2023-06-23 15:43] VITALS: BP 122/67; PULSE 84; RESP 18; TEMP 36.4; O2SAT 96
[2023-06-23 16:18] LABS: Glucose, Whole Blood 293 mg/dL (60-115)
[2023-06-23] MEDS: methylPREDNISolone Sod Succ 125 MG/2 ML VIAL 40 MG IVPUSH (16:36)
[2023-06-23] MEDS: Enoxaparin Sodium 40 MG/0.4 ML SYRINGE SUBCUT (18:23)
[2023-06-23 19:44] VITALS: BP 134/66; PULSE 87; RESP 18; TEMP 36.5; O2SAT 96
[2023-06-23 20:03] LABS: Anion Gap 13 (12-20); Carbon Dioxide 25 mmol/L (22-29); Chloride 97 mmol/L (96-108); Sodium 130 mmol/L (135-145)
[2023-06-23 20:05] LABS: Glucose, Whole Blood 267 mg/dL (60-115)
[2023-06-23] MEDS: Insulin Glargine,Hum.rec.anlog 100 UNIT/ML 10 ML VIAL 55 UNIT SUBCUT (20:48)
[2023-06-23 23:36] VITALS: BP 116/61; PULSE 90; RESP 20; TEMP 36.2; O2SAT 96
[2023-06-24 04:00] VITALS: BP 144/61; PULSE 82; RESP 18; TEMP 36.3; O2SAT 96
[2023-06-24] MEDS: 0.9 % Sodium Chloride Flush 3 ML SYRINGE IVFLUSH ×4 (05:26→20:32)
[2023-06-24] MEDS: methylPREDNISolone Sod Succ 125 MG/2 ML VIAL 40 MG IVPUSH ×2 (05:26→17:47)
[2023-06-24] MEDS: Omeprazole 20 MG CAPSULE.DR PO (05:27)
[2023-06-24 07:51] VITALS: BP 118/62; PULSE 82; RESP 18; TEMP 36.7; O2SAT 97
[2023-06-24 08:00] LABS: Glucose, Whole Blood 196 mg/dL (60-115)
[2023-06-24] MEDS: Insulin Lispro 100 UNIT/ML 3 ML VIAL SUBCUT ×3 (08:04→20:30)
[2023-06-24 11:14] VITALS: BP 107/63; PULSE 82; RESP 20; TEMP 36.4; O2SAT 95
--- NOTE | 2023-06-24 11:25 | HO.PM.IMPN ---
Subjective Subjective Date of Service: 06/24/23 Interval History: Was excited to go home today but now is complaining of 7/10 abdominal pain, exam was bening Physical Exam Vital Signs: Vital Signs: Last Vital Signs Temp 97.5 F 06/24/23 11:14 Pulse 82 06/24/23 11:14 Resp 20 06/24/23 11:14 BP 107/63 06/24/23 11:14 Pulse Ox 95 06/24/23 11:14 O2 Del Method Nasal Cannula 06/24/23 11:14 O2 Flow Rate 2.5 06/24/23 11:14 Oxygen Flow Rate 6 06/13/23 14:04 BMI result Body Mass Index 26.4 Const: Other: General: AO X 3, no acute distress Resp: CTA bilateral CVS: S1,S2,RRR GI: +BS, NT, no distention, no positive fluid wave Skin: No rash Neuro: motor grossly intact Psych: appropriate affect Objective Data Active Medications Acetaminophen (Acetaminophen 325 Mg Tablet) 650 mg PO Q4H PRN PRN Reason: Pain, Mild (Pain Scale 1-3) Last Admin: 06/22/23 19:25 Dose: 650 mg Documented By: BILLIE Albuterol Sulfate (Albuterol Sulfate 90 Mcg 8 Gm Inhaler) 2 puff INHALE RQ4H PRN PRN Reason: sob Last Admin: 06/16/23 20:06 Dose: 2 puff Documented By: CLAY Albuterol/Ipratropium (Albuterol/Iprat 2.5/0.5mg 3 Ml Ampul.Neb) 3 ml INHALE RQ6H WHILE AWAKE PRN PRN Reason: Shortness of Breath/Wheezing Dextrose (Dextrose 50 % 25 Gm/50 Ml Syringe) 25 gm IVPUSH Q15M PRN; Protocol PRN Reason: per Hypoglycemia Standing Ord. Docusate Sodium (Docusate Sodium 100 Mg Capsule) 100 mg PO DAILY PRN PRN Reason: Constipation Enoxaparin Sodium (Enoxaparin Sodium 40 Mg/0.4 Ml Syringe) 40 mg SUBCUT Q24H [facility] Last Admin: 06/23/23 18:23 Dose: 40 mg Documented By: NADYA Insulin Glargine (Insulin Glargine,Hum.Rec.Anlog 100 Unit/Ml 10 Ml Vial) 55 unit SUBCUT BEDTIME [facility] Last Admin: 06/23/23 20:48 Dose: 55 unit Documented By: NADYA Insulin Human Lispro (Insulin Lispro 100 Unit/Ml 3 Ml Vial) [facility]; Protocol Last Admin: 06/24/23 08:04 Dose: 2 unit Documented By: MICKI Insulin Human Lispro (Insulin Lispro 100 Unit/Ml 3 Ml Vial) [facility] Last Admin: 06/24/23 08:04 Dose: 5 unit Documented By: MICKI Loperamide HCl (Loperamide Hcl 2 Mg Capsule) 2 mg PO Q6H PRN PRN Reason: Diarrhea Last Admin: 06/14/23 21:08 Dose: 2 mg Documented By: SALOMÓN Methylprednisolone Sodium Succinate (Methylprednisolone Sod Succ 125 Mg/2 Ml Vial) 40 mg IVPUSH Q12H [facility] Last Admin: 06/24/23 05:26 Dose: 40 mg Documented By: JEAN Omeprazole (Omeprazole 20 Mg Capsule.) 20 mg PO DAILY@0630 [facility] Last Admin: 06/24/23 05:27 Dose: 20 mg Documented By: JEAN Oxycodone HCl (Oxycodone Hcl Immed Release 5 Mg Tablet) 5 mg PO Q6H PRN PRN Reason: Pain, Severe (Pain Scale 7-10) Sodium Chloride (0.9 % Sodium Chloride Flush 3 Ml Syringe) 3 ml IVFLUSH QSHIFT [facility] Last Admin: 06/24/23 08:05 Dose: 3 ml Documented By: MICKI Labs 06/23/23 06:33 06/23/23 19:44 Labs: Laboratory Results - last 24 hr 06/23/23 06/23/23 06/23/23 11:31 16:11 19:44 Anion Gap 13 POC Glucose 328 H 293 H 06/23/23 06/24/23 19:48 07:53 Anion Gap POC Glucose 267 H 196 H Assessment and Plan (1) Acute and chronic respiratory failure with hypoxia: Status: Acute (2) ILD (interstitial lung disease): Status: Acute (3) Hepatopulmonary syndrome: Status: Acute (4) Liver cirrhosis: Status: Acute Plan This is a 58-year-old male with history MS, liver cirrhosis, diabetes, recent admission for COVID-19 and subsequent admission for multifocal pneumonia who was discharged to attend his son's and returns with ongoing shortness of breath Acute on chronic respiratory failure with hypoxia seems most likely related to pulmonary fibrosis due to COVID/hepatopulmonary syndrome repeat CXR 06/20 unchanged bubble study c/w pulmonary AVM CTA 06/21 negative for PE completed 7 days of antibiotics (ceftraixone/doxycycline) currently on 2-L at rest, but desaturates to 70s with ambulation/movement RPP negative pulmonary following, change to PO steroid, no reason to believe he has PCP Liver cirrhosis with portal HTN Underwent therapeutic paracentesis 06/18 with good results has outpatient follow up scheduled in [place] 06/26 stop aldactone for hyperkalemia d/t abdominal pain today, getting CT and consider diagnostic Para to rule out SBP hyperkalemia, resolved after lokelma HFrEF Mild reduction in EF; good response with IV Lasix. BNP normalized DM2 with hyperglycemia d/t steroid Noted to be hyperglycemic secondary to steroids. basal insulin increased to 55U, BS better with Pre meal insulin 5, and SSI MS Outpt therapies as ordered. Patient straight caths at home however in house Epperson placed upon initial presentation. Discussed with family; they wish to leave it until patient is discharged and then a will resume p.r.n. straight caths at home stage 2 coccyx wound local wound care and frequent position changes wound care nurse galilea pending Lovenox Full code dispo - Need for inpatient: management for acute hyoxic resp failure and now, abdominal pain and need to rule out SBP Quality Stroke Does the patient have a stroke diagnosis?: No VTE Prior VTE?: No VTE Risk Level:: Medical - moderate - high VTE Device Contraindication: N/A - Device Ordered VTE Drug Contraindication: N/A - Med Ordered
[2023-06-24 11:49] LABS: Glucose, Whole Blood 120 mg/dL (60-115)
[2023-06-24 11:57] VITALS: BMI 26.4
--- NOTE | 2023-06-24 12:00 | HO.WOUND ---
Addendum entered by Monica Ndiaye RN 06/24/23 12:34: Updated: Topical Wound Care Recommendations: 1. Turn and Reposition every 2 hours and as needed for patient comfort - use pillows to aid in supporting off loading position. Limit sit time to 1 hr increments - wafflle cushion provided to pt to take with him at time of d/c and to use to aid in of loading pressure. 2. Off Load all bony prominences with use of pillows and heel boots if needed.? Apply Preventative foams where needed. ? 3. Monitor for incontinence and moisture control, use barrier creams when needed for prevention and treatment. Discontinue Brief Use. 4. Provide adequate and supplemental nutrition. 5. Order low air loss mattress. 6. Maintain blood glucose levels per Providers orders. 7. Perineal - Discontinue Brief Use - Cleanse with PH balance spray or wipes, pat dry. ?Apply thin layer of Triad to wound bed - only pat and dab no scrub and rub when soiling occurs. Reapply thin layer PRN after each episode of incontinence. 8. Sacrum / Coccyx - Off Load Pressure -Cleanse with PH balance spray or wipes, pat dry. ?Apply thin layer of Triad to wound bed. Do not remove all of paste between applications as this may cause further skin damage.? Cover with foam dressing to aid in off loading and protection from friction. - Foam dressing provided to pt for home use along with barrier cream. Original Note: Wound Consult: Initial 58yr old [place] [facility] [place]13[place]23 17:39 - See progress notes and H&P for detailed history. Wound consult placed for Sacral wound. Arrival to bedside pt was mildly interactive and was answering most questions. Both were agreeable to assessment and photo documentation. Of importance the patient was assessed to be placed in a brief. Pt and educated on the concern with brief use in bed and injury development. The patients states he uses a brief at home as well due to his mixed incontinence. Pt is baseline incontinent of urine and stool. Pt and educated risk associated with chronic moisture and the changes that result when briefs trap moisture against skin changing PH, temperature and moisture level all resulting in changes to tissue strength and resistance to injury development. Patients perineal area was assessed for MASD -IAD (Moisture Associated Skin Damage - Incontinence Associated Dermatitis) red pink blanchable tissue with desquamation noted - mirrored edges consistent with brief use. Brief removed - dry flow disposable pad in place - sacrum / coccyx assessed - irregular pattern wound noted - Pressure injury noted with s/s of moisture component - see below for details. Sacrum / Coccyx Etiology: ??Deep Tissue Injury in Evolution with Moisture Component Measurements:2cm x 4cm x 0.1cm Wound Bed: central maroon purple moist tissue with partial thickness tissue loss - pale pink moist tissue Drainage / Odor: scant serosang noted on foam dressing Edges: ? irregular and attached Ursula wound: Hyperpigmented tissue - No Induration, Fluctuance or Warmth noted Pain: Pt reports pain and tenderness Goals of Treatment: ? Off Load Pressure and triad cream to aid in autolytic healing and foam dressing to protect from friction and aid in off loading. Recommendations: 1. Turn and Reposition every 2 hours and as needed for patient comfort - use pillows to aid in supporting off loading position. 2. Off Load all bony prominences with use of pillows and heel boots if needed.? Apply Preventative foams where needed. ? 3. Monitor for incontinence and moisture control, use barrier creams when needed for prevention and treatment. Discontinue Brief Use. 4. Provide adequate and supplemental nutrition. 5. Order low air loss mattress. 6. Maintain blood glucose levels per Providers orders. 7. Perineal - Discontinue Brief Use - Cleanse with PH balance spray or wipes, pat dry. ?Apply thin layer of Triad to wound bed - only pat and dab no scrub and rub when soiling occurs. Reapply thin layer PRN after each episode of incontinence. 8. Sacrum / Coccyx - Off Load Pressure -Cleanse with PH balance spray or wipes, pat dry. ?Apply thin layer of Triad to wound bed. Do not remove all of paste between applications as this may cause further skin damage.? Cover with foam dressing to aid in off loading and protection from friction. Re-consult wound care Nurse for wound deterioration or wound changes
--- NOTE | 2023-06-24 12:28 | MHC.CM.PN ---
Patient is complaining of 7 out of 10 abdominal pain and he is not yet medically cleared for dc. PT recommends home with services and CM will continue to follow.
[2023-06-24 15:23] VITALS: BP 131/61; PULSE 70; RESP 16; TEMP 36.5; O2SAT 97
--- NOTE | 2023-06-24 15:28 | HO.RADPN ---
RADIOLOGY Narrative Narrative: Diagnostic paracentesis performed. 1.3 L of yellow fluid removed and sent for analysis Jhonathan AYALA
[2023-06-24] MEDS: Lidocaine HCl 1 % 20 ML VIAL 5 ML SUBCUT (15:30)
[2023-06-24 15:55] LABS: MN% 68.4 %; PMN% 31.6 %; WBC Peritoneal Fluid 0.103 X10*3/uL
[2023-06-24 15:57] LABS: RBC Peritoneal Fluid < 0.002 X10*6/uL
[2023-06-24 16:22] LABS: Glucose, Whole Blood 117 mg/dL (60-115)
[2023-06-24 16:26] LABS: BF Shift QC OK YES; Man Diluent Bkgrd OK YES
--- NOTE | 2023-06-24 16:56 | PM.EVENT ---
Event Note Date of Service: 06/24/23 Event Note: pt c/o to RN of 04/01 pain following paracentesis, prior to that aout 12/30 pain. Pt promptly examined with RN, his abdomen is soft, no distendion, no tenderness and no guarding and he's now saying he has zero, after asking repeatedly. Some of paracentesis lab reviewed (most pending) and no evidence of SBP. He's alert, oriented x 3 that time of evaluation. Son and RN Coreen was present. Time Spent With Patient Time: Total time managing care of this patient today ____ minutes.
[2023-06-24] MEDS: Enoxaparin Sodium 40 MG/0.4 ML SYRINGE SUBCUT (17:46)
[2023-06-24] MEDS: oxyCODONE HCl Immed Release 5 MG TABLET PO (17:54)
[2023-06-24 19:41] VITALS: BP 148/69; PULSE 78; TEMP 36.7; O2SAT 96
[2023-06-24 20:00] LABS: pH Peritoneal Fluid 7.67
[2023-06-24 20:22] LABS: Glucose, Whole Blood 192 mg/dL (60-115)
[2023-06-24] MEDS: Insulin Glargine,Hum.rec.anlog 100 UNIT/ML 10 ML VIAL 55 UNIT SUBCUT (20:29)
[2023-06-24 21:05] LABS: Amylase Peritoneal Fluid 8 U/L
[2023-06-24 21:17] LABS: Albumin Peritoneal Fluid 0.2 GM/DL; Glucose Peritoneal Fluid 136 MG/DL; LDH Peritoneal Fluid 45 U/L; Total Protein Peritoneal Fluid 0.3 GM/DL
[2023-06-24 23:10] VITALS: BP 132/61; PULSE 84; RESP 18; TEMP 37.1; O2SAT 97
[2023-06-25 04:00] VITALS: BP 119/63; PULSE 82; RESP 18; TEMP 37.1; O2SAT 98
[2023-06-25] MEDS: methylPREDNISolone Sod Succ 125 MG/2 ML VIAL 40 MG IVPUSH (05:23)
[2023-06-25] MEDS: Omeprazole 20 MG CAPSULE.DR PO (05:23)
[2023-06-25 07:20] VITALS: BP 129/55; PULSE 86; RESP 20; TEMP 36.6; O2SAT 95
[2023-06-25 08:05] LABS: Glucose, Whole Blood 309 mg/dL (60-115)
[2023-06-25] MEDS: Insulin Lispro 100 UNIT/ML 3 ML VIAL SUBCUT ×8 (08:25→21:07)
[2023-06-25] MEDS: oxyCODONE HCl Immed Release 5 MG TABLET PO (08:28)
[2023-06-25] MEDS: 0.9 % Sodium Chloride Flush 3 ML SYRINGE IVFLUSH ×3 (08:32→21:12)
[2023-06-25 11:13] VITALS: BP 144/74; PULSE 82; RESP 20; TEMP 36.4; O2SAT 95
[2023-06-25 11:56] LABS: Anion Gap 11 (12-20); Blood Urea Nitrogen 45 mg/dL (9-16); Calcium 8.3 mg/dL (8.4-10.2); Carbon Dioxide 30 mmol/L (22-29); Chloride 96 mmol/L (96-108); Creatinine Clr Calc Pharmacy 88.6; Estimated Glomerular Filt Rate > 60; Glucose Random 252 mg/dL (60-115); Potassium 5.4 mmol/L (3.3-5.1); Sodium 132 mmol/L (135-145)
--- NOTE | 2023-06-25 12:05 | HO.PM.IMPN ---
Subjective Subjective Date of Service: 06/25/23 Interval History: Patient has been having intermittent abdominal pain, had paracentesis yesterday with no evidence of sBP, had a CT which is still not read, called again, had xray post paracentesis with no free air Physical Exam Vital Signs: Vital Signs: Last Vital Signs Temp 97.5 F 06/25/23 11:13 Pulse 82 06/25/23 11:13 Resp 20 06/25/23 11:13 BP 144/74 H 06/25/23 11:13 Pulse Ox 95 06/25/23 11:13 O2 Del Method Nasal Cannula 06/25/23 11:13 O2 Flow Rate 2.5 06/25/23 11:13 Oxygen Flow Rate 6 06/13/23 14:04 BMI result Body Mass Index 26.4 Const: Other: General: AO X 3, no acute distress Resp: CTA bilateral CVS: S1,S2,RRR GI: +BS, NT, no distention, no positive fluid wave, no guarding Skin: No rash Neuro: motor grossly intact Psych: appropriate affect Objective Data Active Medications Acetaminophen (Acetaminophen 325 Mg Tablet) 650 mg PO Q4H PRN PRN Reason: Pain, Mild (Pain Scale 1-3) Last Admin: 06/22/23 19:25 Dose: 650 mg Documented By: BILLIE Albuterol Sulfate (Albuterol Sulfate 90 Mcg 8 Gm Inhaler) 2 puff INHALE RQ4H PRN PRN Reason: sob Last Admin: 06/16/23 20:06 Dose: 2 puff Documented By: CLAY Albuterol/Ipratropium (Albuterol/Iprat 2.5/0.5mg 3 Ml Ampul.Neb) 3 ml INHALE RQ6H WHILE AWAKE PRN PRN Reason: Shortness of Breath/Wheezing Dextrose (Dextrose 50 % 25 Gm/50 Ml Syringe) 25 gm IVPUSH Q15M PRN; Protocol PRN Reason: per Hypoglycemia Standing Ord. Docusate Sodium (Docusate Sodium 100 Mg Capsule) 100 mg PO DAILY PRN PRN Reason: Constipation Enoxaparin Sodium (Enoxaparin Sodium 40 Mg/0.4 Ml Syringe) 40 mg SUBCUT Q24H [facility] Last Admin: 06/24/23 17:46 Dose: 40 mg Documented By: FOSTEKR Insulin Glargine (Insulin Glargine,Hum.Rec.Anlog 100 Unit/Ml 10 Ml Vial) 55 unit SUBCUT BEDTIME [facility] Last Admin: 06/24/23 20:29 Dose: 55 unit Documented By: ROSALINDARISM Insulin Human Lispro (Insulin Lispro 100 Unit/Ml 3 Ml Vial) 0 unit SUBCUT QIDAS [facility]; Protocol Last Admin: 06/25/23 08:25 Dose: 8 unit Documented By: JULI Insulin Human Lispro (Insulin Lispro 100 Unit/Ml 3 Ml Vial) 5 unit SUBCUT QIDAS [facility] Last Admin: 06/25/23 08:26 Dose: 5 unit Documented By: JULI Loperamide HCl (Loperamide Hcl 2 Mg Capsule) 2 mg PO Q6H PRN PRN Reason: Diarrhea Last Admin: 06/14/23 21:08 Dose: 2 mg Documented By: SALOMÓN Methylprednisolone Sodium Succinate (Methylprednisolone Sod Succ 125 Mg/2 Ml Vial) 40 mg IVPUSH Q12H [facility] Last Admin: 06/25/23 05:23 Dose: 40 mg Documented By: JEAN Morphine Sulfate (Morphine Sulfate 2 Mg/Ml Cartridge) 2 mg IVPUSH Q6H PRN; Protocol PRN Reason: Pain, Severe (Pain Scale 7-10) Omeprazole (Omeprazole 20 Mg Capsule.Dr) 20 mg PO DAILY@0630 [facility] Last Admin: 06/25/23 05:23 Dose: 20 mg Documented By: JEAN Oxycodone HCl (Oxycodone Hcl Immed Release 5 Mg Tablet) 5 mg PO Q6H PRN PRN Reason: Pain, Severe (Pain Scale 7-10) Last Admin: 06/25/23 08:28 Dose: 5 mg Documented By: JULI Sodium Chloride (0.9 % Sodium Chloride Flush 3 Ml Syringe) 3 ml IVFLUSH QSHIFT [facility] Last Admin: 06/25/23 08:32 Dose: 3 ml Documented By: JULI Sodium Zirconium Cyclosilicate (Sodium Zirconium Cyclosilicate 10 Gm Powd.Pack) 10 gm PO ONCE ONE Stop: 06/25/23 12:05 Labs 06/25/23 11:15 06/25/23 11:15 Labs: Laboratory Results - last 24 hr 01/08/1606/24/23 06/24/23 15:00 16:13 19:30 MCV MCH MCHC RDW Plt Count MPV Absolute Nucleated RBC Nucleated RBC % (auto) Anion Gap Estim Creat Clear Calc Estimated GFR POC Glucose 117 H 192 H Random Glucose Calcium Peritoneal pH 7.67 Peritoneal WBC 0.103 Peritoneal RBC < 0.002 Peritoneal Tot Protein 0.3 Peritoneal Albumin 0.2 Peritoneal LDH 45 Peritoneal Glucose 136 Peritoneal Amylase 8 06/25/23 06/25/23 06/25/23 07:19 11:15 11:16 MCV 97.4 MCH 35.6 H MCHC 36.5 H RDW 16.8 H Plt Count 64 L MPV 12.2 Absolute Nucleated RBC 0.000 Nucleated RBC % (auto) 0.0 Anion Gap 11 L Estim Creat Clear Calc 88.6 Estimated GFR > 60 POC Glucose 309 H 261 H Random Glucose 252 H Calcium 8.3 L Peritoneal pH Peritoneal WBC Peritoneal RBC Peritoneal Tot Protein Peritoneal Albumin Peritoneal LDH Peritoneal Glucose Peritoneal Amylase Microbiology Microbiology Results: Microbiology 06/24/23 15:00 Gram Stain - Final Peritoneal Fluid Anaerobic Culture - Preliminary No growth to date. Body Fluid Culture - Preliminary No growth to date. Assessment and Plan (1) Acute and chronic respiratory failure with hypoxia: Status: Acute (2) ILD (interstitial lung disease): Status: Acute (3) Hepatopulmonary syndrome: Status: Acute (4) Liver cirrhosis: Status: Acute Plan This is a 58-year-old male with history MS, liver cirrhosis, diabetes, recent admission for COVID-19 and subsequent admission for multifocal pneumonia who was discharged to attend his son's and returns with ongoing shortness of breath Acute on chronic respiratory failure with hypoxia seems most likely related to pulmonary fibrosis due to COVID/hepatopulmonary syndrome repeat CXR 06/20 unchanged bubble study c/w pulmonary AVM CTA 06/21 negative for PE completed 7 days of antibiotics (ceftraixone/doxycycline) currently on 2-L at rest, but desaturates to 70s with ambulation/movement RPP negative pulmonary following, change to PO steroid, no reason to believe he has PCP Stop IV sterod Liver cirrhosis with portal HTN Underwent therapeutic paracentesis 06/18 with good results, another paracentesis 06/24 has outpatient follow up scheduled in [place] 06/26, probably will miss stopped aldactone for hyperkalemia Intermittent abdominal pain, no SBP, CT result pending, consider GI consult hyperkalemia, persistent, may need Nephro consult HFrEF Mild reduction in EF; good response with IV Lasix. BNP normalized DM2 with hyperglycemia d/t steroid Noted to be hyperglycemic secondary to steroids. basal insulin 55U, BS better with Pre meal insulin 5, and SSI MS Outpt therapies as ordered. Patient straight caths at home however in house Epperson placed upon initial presentation. Discussed with family; they wish to leave it until patient is discharged and then a will resume p.r.n. straight caths at home stage 2 coccyx wound local wound care and frequent position changes wound care nurse eval pending Lovenox Full code dispo - Need for inpatient: management for acute hyoxic resp failure and now, abdominal pain and need to rule out SBP Discussed with signficant other at bedside Quality Stroke Does the patient have a stroke diagnosis?: No VTE Prior VTE?: No VTE Risk Level:: Medical - moderate - high VTE Device Contraindication: N/A - Device Ordered VTE Drug Contraindication: N/A - Med Ordered
--- NOTE | 2023-06-25 12:15 | MHC.CLN ---
F/U PT WITH INCREASED NUTRITION RISK R/T PRESSURE INJURY PO INTAKE FAIR TO GOOD DIET RX: 2200DM 2GM NA-APPROPRIATE PT RECEIVING ENSURE MAX BID TO PROVIDE 300KCALS, 60G PROTEIN TO PROMOTE WOUND HEALING MONITOR PO INTAKE CLOSELY
--- NOTE | 2023-06-25 14:23 | HO.WOUND ---
Wound Consult: Follow up Follow up today to ensure - topical interventions in place at this time. JAILYN mattress currently applied to bed and off loaded with use of pillows. Condom cath in place, barrier cream and foam applied as well. Wound not assessed at todays assessment. Will continue to follow. The follow is from 06/25/23 58yr old male admitted to [facility] on?06/13/23 17:39 - See progress notes and H&P for detailed history. Wound consult placed for Sacral wound. Arrival to bedside pt was mildly interactive and was answering most questions. Both were agreeable to assessment and photo documentation. Of importance the patient was assessed to be placed in a brief. Pt and educated on the concern with brief use in bed and injury development. The patients states he uses a brief at home as well due to his mixed incontinence. Pt is baseline incontinent of urine and stool. Pt and educated risk associated with chronic moisture and the changes that result when briefs trap moisture against skin changing PH, temperature and moisture level all resulting in changes to tissue strength and resistance to injury development. Patients perineal area was assessed for MASD -IAD (Moisture Associated Skin Damage - Incontinence Associated Dermatitis) red pink blanchable tissue with desquamation noted - mirrored edges consistent with brief use. Brief removed - dry flow disposable pad in place - sacrum / coccyx assessed - irregular pattern wound noted - Pressure injury noted with s/s of moisture component - see below for details. Sacrum / Coccyx Etiology: ??Deep Tissue Injury in Evolution with Moisture Component Measurements:2cm x 4cm x 0.1cm Wound Bed: central maroon purple moist tissue with partial thickness tissue loss - pale pink moist tissue Drainage / Odor: scant serosang noted on foam dressing Edges: ? irregular and attached Ursula wound: Hyperpigmented tissue - No Induration, Fluctuance or Warmth noted Pain: Pt reports pain and tenderness Goals of Treatment: ? Off Load Pressure and triad cream to aid in autolytic healing and foam dressing to protect from friction and aid in off loading. Topical Wound Care Recommendations: 1. Turn and Reposition every 2 hours and as needed for patient comfort - use pillows to aid in supporting off loading position. Limit sit time to 1 hr increments - wafflle cushion provided to pt to take with him at time of d/c and to use to aid in of loading pressure. 2. Off Load all bony prominences with use of pillows and heel boots if needed.? Apply Preventative foams where needed. ? 3. Monitor for incontinence and moisture control, use barrier creams when needed for prevention and treatment. Discontinue Brief Use. 4. Provide adequate and supplemental nutrition. 5. Order low air loss mattress. 6. Maintain blood glucose levels per Providers orders. 7. Perineal - Discontinue Brief Use - Cleanse with PH balance spray or wipes, pat dry. ?Apply thin layer of Triad to wound bed - only pat and dab no scrub and rub when soiling occurs. Reapply thin layer PRN after each episode of incontinence. 8. Sacrum / Coccyx - Off Load Pressure -Cleanse with PH balance spray or wipes, pat dry. ?Apply thin layer of Triad to wound bed. Do not remove all of paste between applications as this may cause further skin damage.? Cover with foam dressing to aid in off loading and protection from friction. - Foam dressing provided to pt for home use along with barrier cream.
[2023-06-25 15:51] VITALS: BP 125/65; PULSE 81; RESP 18; TEMP 36.3; O2SAT 96
[2023-06-25] MEDS: Enoxaparin Sodium 40 MG/0.4 ML SYRINGE SUBCUT (17:43)
[2023-06-25 19:38] VITALS: BP 138/73; PULSE 90; RESP 18; TEMP 36.1; O2SAT 96
[2023-06-25] MEDS: Insulin Glargine,Hum.rec.anlog 100 UNIT/ML 10 ML VIAL 55 UNIT SUBCUT (21:07)
[2023-06-26] VITALS (7 sets, daily range): BP systolic 120–149; BP diastolic 69–78; PULSE 83–96; RESP 18–20; TEMP 36.1–36.7; O2SAT 93–96
[2023-06-26] MEDS: oxyCODONE HCl Immed Release 5 MG TABLET PO (00:26)
[2023-06-26 06:19] LABS: Glucose, Whole Blood 164 mg/dL (60-115)
[2023-06-26] MEDS: Insulin Lispro 100 UNIT/ML 3 ML VIAL SUBCUT ×2 (08:12)
[2023-06-26] MEDS: 0.9 % Sodium Chloride Flush 3 ML SYRINGE IVFLUSH ×3 (08:13→21:42)
--- NOTE | 2023-06-26 09:04 | PM.GICN ---
History of Present Illness Data of Consult Service Date: 06/26/23 Requesting physician: Wang Wei Primary Care Provider: Holley James MD [facility] Reason for consult: Cirrhosis, abdominal pain 06/24/[address] SCAN SHOWED: 1. Cirrhosis of liver. 2. Large volume of abdominal ascites. 3. Bilateral diffuse increased reticular and some scattered confluent groundglass opacities at both lung bases. This may be due to CHF or fluid overload developing pulmonary edema though inflammatory or infectious etiology is not excluded [facility] Past Medical History Medical History (Updated 06/26/23 @ 20:42 by Tien Leonardo MD) ILD (interstitial lung disease) Hepatopulmonary syndrome Respiratory insufficiency Multifocal pneumonia EtOH dependence Liver cirrhosis Diabetes mellitus Multiple sclerosis Family History Family History Mother Diabetes Father HTN (hypertension) Surgical History Surgical History History of hip surgery Social History Social History Household Members: Spouse Housing: House Do you presently have visiting nurse or other home services: Yes Alcohol intake: former Comment: refuses bed alarm- at bedside. Patient Tobacco Use Status: Former Tobacco user Cigarettes Per Day: 1.9 Second Hand Smoke Exposure: No Advance Directives Date on File: 03/11/23 service: No Meds Allergies Allergy/AdvReac Type Severity Reaction Status Date / Time No Known Allergies Allergy Mild NONE Verified 03/06/23 17:19 Active Medications: Current Medications Acetaminophen (Acetaminophen 325 Mg Tablet) 650 mg PO Q4H PRN PRN Reason: Pain, Mild (Pain Scale 1-3) Last Admin: 06/22/23 19:25 Dose: 650 mg Albuterol Sulfate (Albuterol Sulfate 90 Mcg 8 Gm Inhaler) 2 puff INHALE RQ4H PRN PRN Reason: sob Last Admin: 06/16/23 20:06 Dose: 2 puff Albuterol/Ipratropium (Albuterol/Iprat 2.5/0.5mg 3 Ml Ampul.Neb) 3 ml INHALE RQ6H WHILE AWAKE PRN PRN Reason: Shortness of Breath/Wheezing Dextrose (Dextrose 50 % 25 Gm/50 Ml Syringe) 25 gm IVPUSH Q15M PRN; Protocol PRN Reason: per Hypoglycemia Standing Ord. Docusate Sodium (Docusate Sodium 100 Mg Capsule) 100 mg PO DAILY PRN PRN Reason: Constipation Enoxaparin Sodium (Enoxaparin Sodium 40 Mg/0.4 Ml Syringe) 40 mg SUBCUT Q24H [facility] Last Admin: 06/25/23 17:43 Dose: 40 mg Insulin Glargine (Insulin Glargine,Hum.Rec.Anlog 100 Unit/Ml 10 Ml Vial) 55 unit SUBCUT BEDTIME [facility] Last Admin: 06/25/23 21:07 Dose: 55 unit Insulin Human Lispro (Insulin Lispro 100 Unit/Ml 3 Ml Vial) 0 unit SUBCUT QIDACHS [facility]; Protocol Last Admin: 06/26/23 08:12 Dose: 8 unit Insulin Human Lispro (Insulin Lispro 100 Unit/Ml 3 Ml Vial) 5 unit SUBCUT QIDACHS [facility] Last Admin: 06/26/23 08:12 Dose: 5 unit Loperamide HCl (Loperamide Hcl 2 Mg Capsule) 2 mg PO Q6H PRN PRN Reason: Diarrhea Last Admin: 06/14/23 21:08 Dose: 2 mg Morphine Sulfate (Morphine Sulfate 2 Mg/Ml Cartridge) 2 mg IVPUSH Q6H PRN; Protocol PRN Reason: Pain, Severe (Pain Scale 7-10) Omeprazole (Omeprazole 20 Mg Capsule.Dr) 20 mg PO DAILY@0630 [facility] Last Admin: 06/26/23 06:27 Dose: Not Given Oxycodone HCl (Oxycodone Hcl Immed Release 5 Mg Tablet) 5 mg PO Q6H PRN PRN Reason: Pain, Severe (Pain Scale 7-10) Last Admin: 06/26/23 00:26 Dose: 5 mg Sodium Chloride (0.9 % Sodium Chloride Flush 3 Ml Syringe) 3 ml IVFLUSH QSHIFT [facility] Last Admin: 06/26/23 08:13 Dose: 3 ml Home Medications Medication Instructions Recorded Confirmed Last Taken Type albuterol sulfate 90 mcg/actuation 90 mcg inhalation Q4H PRN 04/09/22 06/13/23 Unknown History aerosol inhaler Shortness Of Breath Or Wheezing insulin aspart U-100 100 unit/mL See Protocol subcut TIDWM 04/09/22 06/13/23 Unknown History (3 mL) subcutaneous pen (Novolog FlexPen U-100 Insulin aspart) insulin glargine 100 unit/mL (3 46 unit subcut BEDTIME 04/09/22 06/13/23 Unknown History mL) subcutaneous pen (Lantus Solostar U-100 Insulin) fluticasone propionate 50 1 spray intranasal DAILY PRN 05/19/23 06/13/23 Unknown History mcg/actuation nasal Congestion spray,suspension loperamide 2 mg capsule 2 - 4 mg PO Q4-6H PRN diarrhea 06/09/23 06/13/23 Unknown History Physical Exam Vital Signs: Vital Signs: Last Vital Signs Temp 96.9 F 06/26/23 07:10 Pulse 87 06/26/23 07:10 Resp 20 06/26/23 07:10 BP 126/70 06/26/23 07:10 Pulse Ox 93 06/26/23 07:10 O2 Del Method Nasal Cannula 06/26/23 07:10 O2 Flow Rate 2.5 06/26/23 07:10 Oxygen Flow Rate 6 06/13/23 14:04 BMI result Body Mass Index 26.4 Results Labs 06/27/23 07:14 06/27/23 07:14 Labs: Short CBC 06/25/23 Range/Units 11:15 WBC 16.2 H (4.8-10.8) X10*3/uL Hgb 15.2 (14.0-18.0) g/dl Hct 41.6 L (42.0-52.0) % Plt Count 64 L (160-400) X10*3/uL BMP 06/25/23 11:15 Sodium 132 L Potassium 5.4 H Chloride 96 Carbon Dioxide 30 H BUN 45 H Creatinine 0.84 Calcium 8.3 L Microbiology Microbiology Results: Microbiology 06/24/23 15:00 Peritoneal Fluid Gram Stain - Final 06/24/23 15:00 Peritoneal Fluid Anaerobic Culture - Preliminary No growth to date. 06/24/23 15:00 Peritoneal Fluid Body Fluid Culture - Preliminary No growth to date. Assessment and Plan (1) Liver cirrhosis: Status: Acute (2) EtOH dependence: Status: Acute Procedures Date of Service Date of Service: 06/27/23
[2023-06-26] MEDS: Morphine Sulfate 2 MG/ML CARTRIDGE IVPUSH (10:23)
--- NOTE | 2023-06-26 11:43 | PM.CNNEP ---
History of Present Illness Reason for Consult Consult date: 06/27/23 Reason for consult: hyperkalemia Chief Complaint Chief complaint: ascites, currently inpatient History of Present Illness Narrative: 58-year-old Kazakh-speaking male with history of alcoholic liver cirrhosis, MS, diabetes who was recently hospitalized for multifocal pneumonia who returns to the emergency department with shortness of breath. Family at bedside Review of Systems Review of Systems Yes Unobtainable due to mental condition PMFSH Past Medical History Medical History (Updated 06/26/23 @ 20:42 by Tien Leonardo MD) ILD (interstitial lung disease) Hepatopulmonary syndrome Respiratory insufficiency Multifocal pneumonia EtOH dependence Liver cirrhosis Diabetes mellitus Multiple sclerosis Family History Family History Mother Diabetes Father HTN (hypertension) Surgical History Surgical History History of hip surgery Social History Social History Household Members: Spouse Housing: House Do you presently have visiting nurse or other home services: Yes Alcohol intake: former Comment: refuses bed alarm- at bedside. Patient Tobacco Use Status: Former Tobacco user Cigarettes Per Day: 1.9 Second Hand Smoke Exposure: No Advance Directives Date on File: 03/11/23 service: No Meds Allergies Allergy/AdvReac Type Severity Reaction Status Date / Time No Known Allergies Allergy Mild NONE Verified 03/06/23 17:19 Active Medications: Current Medications Acetaminophen (Acetaminophen 325 Mg Tablet) 650 mg PO Q4H PRN PRN Reason: Pain, Mild (Pain Scale 1-3) Last Admin: 06/22/23 19:25 Dose: 650 mg Albuterol Sulfate (Albuterol Sulfate 90 Mcg 8 Gm Inhaler) 2 puff INHALE RQ4H PRN PRN Reason: sob Last Admin: 06/16/23 20:06 Dose: 2 puff Albuterol/Ipratropium (Albuterol/Iprat 2.5/0.5mg 3 Ml Ampul.Neb) 3 ml INHALE RQ6H WHILE AWAKE PRN PRN Reason: Shortness of Breath/Wheezing Dextrose (Dextrose 50 % 25 Gm/50 Ml Syringe) 25 gm IVPUSH Q15M PRN; Protocol PRN Reason: per Hypoglycemia Standing Ord. Docusate Sodium (Docusate Sodium 100 Mg Capsule) 100 mg PO DAILY PRN PRN Reason: Constipation Enoxaparin Sodium (Enoxaparin Sodium 40 Mg/0.4 Ml Syringe) 40 mg SUBCUT Q24H [facility] Last Admin: 06/25/23 17:43 Dose: 40 mg Insulin Glargine (Insulin Glargine,Hum.Rec.Anlog 100 Unit/Ml 10 Ml Vial) 55 unit SUBCUT BEDTIME [facility] Last Admin: 06/25/23 21:07 Dose: 55 unit Insulin Human Lispro (Insulin Lispro 100 Unit/Ml 3 Ml Vial) 0 unit SUBCUT QIDACHS [facility]; Protocol Last Admin: 06/26/23 08:12 Dose: 8 unit Insulin Human Lispro (Insulin Lispro 100 Unit/Ml 3 Ml Vial) 5 unit SUBCUT QIDACHS [facility] Last Admin: 06/26/23 08:12 Dose: 5 unit Loperamide HCl (Loperamide Hcl 2 Mg Capsule) 2 mg PO Q6H PRN PRN Reason: Diarrhea Last Admin: 06/14/23 21:08 Dose: 2 mg Morphine Sulfate (Morphine Sulfate 2 Mg/Ml Cartridge) 2 mg IVPUSH Q6H PRN; Protocol PRN Reason: Pain, Severe (Pain Scale 7-10) Last Admin: 06/26/23 10:23 Dose: 2 mg Omeprazole (Omeprazole 20 Mg Capsule.Dr) 20 mg PO DAILY@0630 [facility] Last Admin: 06/26/23 06:27 Dose: Not Given Oxycodone HCl (Oxycodone Hcl Immed Release 5 Mg Tablet) 5 mg PO Q6H PRN PRN Reason: Pain, Severe (Pain Scale 7-10) Last Admin: 06/26/23 00:26 Dose: 5 mg Sodium Chloride (0.9 % Sodium Chloride Flush 3 Ml Syringe) 3 ml IVFLUSH QSHIFT [facility] Last Admin: 06/26/23 08:13 Dose: 3 ml Home Medications Medication Instructions Recorded Confirmed Last Taken Type albuterol sulfate 90 mcg/actuation 90 mcg inhalation Q4H PRN 04/09/22 06/13/23 Unknown History aerosol inhaler Shortness Of Breath Or Wheezing insulin aspart U-100 100 unit/mL See Protocol subcut TIDWM 04/09/22 06/13/23 Unknown History (3 mL) subcutaneous pen (Novolog FlexPen U-100 Insulin aspart) insulin glargine 100 unit/mL (3 46 unit subcut BEDTIME 04/09/22 06/13/23 Unknown History mL) subcutaneous pen (Lantus Solostar U-100 Insulin) fluticasone propionate 50 1 spray intranasal DAILY PRN 05/19/23 06/13/23 Unknown History mcg/actuation nasal Congestion spray,suspension loperamide 2 mg capsule 2 - 4 mg PO Q4-6H PRN diarrhea 06/09/23 06/13/23 Unknown History Physical Exam Vital Signs: Last Vital Signs Temp 97.3 F 06/26/23 11:17 Pulse 86 06/26/23 11:17 Resp 20 06/26/23 11:17 BP 146/75 H 06/26/23 11:17 Pulse Ox 95 06/26/23 11:17 O2 Del Method Nasal Cannula 06/26/23 11:17 O2 Flow Rate 2.5 06/26/23 11:17 Oxygen Flow Rate 6 06/13/23 14:04 BMI result Body Mass Index 26.4 Const General: ill appearing Neck Neck: Yes supple Resp Auscultation: clear to auscultation bilaterally Cardio Palpation: no palpable S3 Heart sounds: no rubs GI Palpation (GI): Soft to palpation Auscultation: normal bowel sounds Neuro Motor exam (neuro): no asterixis Results Lab Results 06/27/23 07:14 06/27/23 07:14 Lab results: Chemistry 06/23/23 06/25/23 06/26/23 19:44 11:15 09:22 Sodium 130 L 132 L 133 L Potassium 5.0 D 5.4 H 5.7 H Carbon Dioxide 25 30 H 29 BUN 45 H 43 H Creatinine 0.84 0.74 Calcium 8.3 L 8.1 L Hematology 06/25/23 11:15 WBC 16.2 H Hgb 15.2 Plt Count 64 L Assessment and Plan (1) Liver cirrhosis: Status: Acute (2) Hyperkalemia: Status: Acute Plan Hyperkalemia and hyponatremia in a setting of cirrhosis He was on Spironolactone - which ahs been discontinued Suggest Correct hepatic encephalopathy LActulose PO or via NGT Lokelma as needed Hold off on Spiroloactone Procedures Date of Service Date of Service: 06/27/23
--- NOTE | 2023-06-26 12:19 | HO.PM.IMPN ---
Subjective Subjective Date of Service: 06/27/23 Interval History: Pt is more lethargic and sleepy this morning, and has been c/o abd pain, has no fever, got oxycodone 5 mg around midnight and morphine at 10 this morning, he was easily arousable before morphine, respriatory rate around 18, no fever, stat labs including ammonia is pending, high K of 5.7, WBC was high yesterday d/t steroid, Physical Exam Vital Signs: Vital Signs: Last Vital Signs Temp 97.3 F 06/26/23 11:17 Pulse 86 06/26/23 11:17 Resp 20 06/26/23 11:17 BP 146/75 H 06/26/23 11:17 Pulse Ox 95 06/26/23 11:17 O2 Del Method Nasal Cannula 06/26/23 11:17 O2 Flow Rate 2.5 06/26/23 11:17 Oxygen Flow Rate 6 06/13/23 14:04 BMI result Body Mass Index 26.4 Const: Other: General: lethargic this morning, Resp: CTA bilateral CVS: S1,S2,RRR GI: +BS, NT, no distention, no positive fluid wave, no guarding Skin: No rash Neuro: motor grossly intact Psych: appropriate affect Objective Data Active Medications Acetaminophen (Acetaminophen 325 Mg Tablet) 650 mg PO Q4H PRN PRN Reason: Pain, Mild (Pain Scale 1-3) Last Admin: 06/22/23 19:25 Dose: 650 mg Documented By: BILLIE Albuterol Sulfate (Albuterol Sulfate 90 Mcg 8 Gm Inhaler) 2 puff INHALE RQ4H PRN PRN Reason: sob Last Admin: 06/16/23 20:06 Dose: 2 puff Documented By: CLAY Albuterol/Ipratropium (Albuterol/Iprat 2.5/0.5mg 3 Ml Ampul.Neb) 3 ml INHALE RQ6H WHILE AWAKE PRN PRN Reason: Shortness of Breath/Wheezing Dextrose (Dextrose 50 % 25 Gm/50 Ml Syringe) 25 gm IVPUSH Q15M PRN; Protocol PRN Reason: per Hypoglycemia Standing Ord. Docusate Sodium (Docusate Sodium 100 Mg Capsule) 100 mg PO DAILY PRN PRN Reason: Constipation Enoxaparin Sodium (Enoxaparin Sodium 40 Mg/0.4 Ml Syringe) 40 mg SUBCUT Q24H [facility] Last Admin: 06/25/23 17:43 Dose: 40 mg Documented By: JULI Insulin Glargine (Insulin Glargine,Hum.Rec.Anlog 100 Unit/Ml 10 Ml Vial) 55 unit SUBCUT BEDTIME [facility] Last Admin: 06/25/23 21:07 Dose: 55 unit Documented By: ANDREW Insulin Human Lispro (Insulin Lispro 100 Unit/Ml 3 Ml Vial) 0 unit SUBCUT QIDAS [facility]; Protocol Last Admin: 06/26/23 11:45 Dose: Not Given Documented By: ELIZABETH Non-Admin Reason: No Insulin Coverage Insulin Human Lispro (Insulin Lispro 100 Unit/Ml 3 Ml Vial) 5 unit SUBCUT QIDAS [facility] Last Admin: 06/26/23 08:12 Dose: 5 unit Documented By: ELIZABETH Loperamide HCl (Loperamide Hcl 2 Mg Capsule) 2 mg PO Q6H PRN PRN Reason: Diarrhea Last Admin: 06/14/23 21:08 Dose: 2 mg Documented By: SALOMÓN Morphine Sulfate (Morphine Sulfate 2 Mg/Ml Cartridge) 2 mg IVPUSH Q6H PRN; Protocol PRN Reason: Pain, Severe (Pain Scale 7-10) Last Admin: 06/26/23 10:23 Dose: 2 mg Documented By: ELIZABETH Omeprazole (Omeprazole 20 Mg Capsule.Dr) 20 mg PO DAILY@0630 [facility] Last Admin: 06/26/23 06:27 Dose: Not Given Documented By: ANDREW Non-Admin Reason: Patient Refused Oxycodone HCl (Oxycodone Hcl Immed Release 5 Mg Tablet) 5 mg PO Q6H PRN PRN Reason: Pain, Severe (Pain Scale 7-10) Last Admin: 06/26/23 00:26 Dose: 5 mg Sodium Chloride (0.9 % Sodium Chloride Flush 3 Ml Syringe) 3 ml IVFLUSH QSHIFT [facility] Last Admin: 06/26/23 08:13 Dose: 3 ml Documented By: ELIZABETH Labs 06/27/23 07:14 06/27/23 07:14 Labs: Laboratory Results - last 24 hr 06/25/23 06/25/23 06/26/23 16:12 20:50 06:13 Anion Gap Estim Creat Clear Calc Estimated GFR POC Glucose 269 H 252 H 164 H Random Glucose Calcium Total Bilirubin Direct Bilirubin AST ALT Alkaline Phosphatase Total Protein Albumin 06/26/23 06/26/23 06/26/23 07:24 09:22 11:19 Anion Gap 13 Estim Creat Clear Calc 100.5 Estimated GFR > 60 POC Glucose 303 H 147 H Random Glucose 188 H Calcium 8.1 L Total Bilirubin 5.7 H Direct Bilirubin 2.7 H AST 88 H ALT 118 H Alkaline Phosphatase 284 H Total Protein 4.6 L Albumin 2.0 L Microbiology Microbiology Results: Microbiology 06/24/23 15:00 Gram Stain - Final Peritoneal Fluid Anaerobic Culture - Preliminary No growth to date. Body Fluid Culture - Final No growth after 2 days Assessment and Plan (1) Acute and chronic respiratory failure with hypoxia: Status: Acute (2) ILD (interstitial lung disease): Status: Acute (3) Hepatopulmonary syndrome: Status: Acute (4) Liver cirrhosis: Status: Acute Plan This is a 58-year-old male with history MS, liver cirrhosis, diabetes, recent admission for COVID-19 and subsequent admission for multifocal pneumonia who was discharged to attend his son's and returns with ongoing shortness of breath Acute on chronic respiratory failure with hypoxia seems most likely related to pulmonary fibrosis due to COVID/hepatopulmonary syndrome 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 med (narc related), check ammonia, ABG HFrEF Mild reduction in EF; good response with IV Lasix. BNP normalized DM2 with hyperglycemia d/t steroid--blood sugar, overal flutuate, on high dose of insulin Lantus + SSI, hold insulin if NPO MS--outpt therapy as ordered Outpt therapies as ordered. Patient straight caths at home however in house Epperson placed upon initial presentation. Discussed with family; they wish to leave it until patient is discharged and then a will resume p.r.n. straight caths at home stage 2 coccyx wound local wound care and frequent position changes wound care nurse galilea pending Lovenox Full code dispo - Need for inpatient: management for acute hyoxic resp failure and now, abdominal pain and need to rule out SBP Discussed with signficant other at bedside, overall poor prognsosis, and high risk for decompensation, will discuss code with family again Quality Stroke Does the patient have a stroke diagnosis?: No VTE Prior VTE?: No VTE Risk Level:: Medical - moderate - high VTE Device Contraindication: N/A - Device Ordered VTE Drug Contraindication: N/A - Med Ordered
--- NOTE | 2023-06-26 16:09 | HO.WOUND ---
Wound Consult: Follow up 58yr old male admitted to [facility] on?06/13/23 17:39 - See progress notes and H&P for detailed history. Wound consult placed for Sacral wound. Arrival to bedside pt was mildly interactive and was answering most questions. Both were agreeable to assessment and photo documentation. Of importance the patient was assessed to be placed in a brief. Pt and educated on the concern with brief use in bed and injury development. The patients states he uses a brief at home as well due to his mixed incontinence. Pt is baseline incontinent of urine and stool. Pt and educated risk associated with chronic moisture and the changes that result when briefs trap moisture against skin changing PH, temperature and moisture level all resulting in changes to tissue strength and resistance to injury development. Patients perineal area was assessed for MASD -IAD (Moisture Associated Skin Damage - Incontinence Associated Dermatitis) red pink blanchable tissue with desquamation noted - mirrored edges consistent with brief use. Brief removed - dry flow disposable pad in place - sacrum / coccyx assessed - irregular pattern wound noted - Pressure injury noted with s/s of moisture component - see below for details. 06/24/23 Sacrum / Coccyx Etiology: ??Deep Tissue Injury in Evolution with Moisture Component Measurements:2cm x 4cm x 0.1cm Wound Bed: resolving central maroon purple moist tissue with partial thickness tissue loss - pale thin yellow white moist slough noted with granulation buds noted throughout Drainage / Odor: scant serosang noted on foam dressing Edges: ? irregular and attached - wound appears to be healing from edges as wound edges are defined at todays assessment Dayanara wound: remains with hyperpigmented tissue - No Induration, Fluctuance or Warmth noted Pain: Pt was combative throughout much of [facility] assessment Goals of Treatment: ? Off Load Pressure and Santyl for enzymatic debridement 06/26/23 Columella Etiology: ??Device related mucosal injury related to Nasal Cannula Measurements: 0.4cm x 0.4cm x 0.1cm Wound Bed: red moist wound bed Drainage / Odor: scant serosang drainage noted on NC tubing Edges: ? attached Dayanara wound: ?mild erythema noted Pain: pt not verbally responsive at this time Goals of Treatment: ? Off load pressure protect from device and protect with hydrocolloid dressing 06/26/23 Fungal Dermatitis noted at todays assessment - provider notified and will order topical antifungal powder for treatment. Topical Wound Care Recommendations: 1. Turn and Reposition every 2 hours and as needed for patient comfort - use pillows and wedges to aid in supporting off loading position. Wedges provided and in place. Limit sit time to 1 hr increments - wafflle cushion provided to pt to take with him at time of d/c and to use to aid in of loading pressure. 2. Off Load all bony prominences with use of pillows and heel boots if needed.? Apply Preventative foams where needed. ? 3. Monitor for incontinence and moisture control, use barrier creams when needed for prevention and treatment. Discontinue Brief Use. 4. Provide adequate and supplemental nutrition - Pt no longer taking in oral - Nutrition re-consulted. 5. Low air loss mattress in place. 6. Maintain blood glucose levels per Providers orders. 7. Perineal - Discontinue Brief Use - Cleanse with PH balance spray or wipes, pat dry. Apply antifungal power to assist with moisture management.? Be sure to dust of excess powder to prevent caking on skin and in folds. Apply per provider orders. Followed by a thin layer of Triad to wound bed - only pat and dab no scrub and rub when soiling occurs. Reapply thin layer PRN after each episode of incontinence. 8. Sacrum / Coccyx - Off Load Pressure -?Cleanse with normal saline, pat dry. ?Apply barrier to the immediate dayanara wound, apply thick layer of Santyl to entire wound bed, cover with xeroform, secure with foam dressing, change Daily. 9. Columella / Nose - Gently cleanse with NS moist gauze. Apply cut to size hydrocolloid dressing leave in place for up to 3 days. Re-consult wound care Nurse for wound deterioration or wound changes
--- NOTE | 2023-06-26 17:06 | PM.EVENT ---
Event Note Date of Service: 06/26/23 Event Note: GI Consult-Full note Dictated-History from , nursing staff, Dr. Wei, and EMR. Patient is encephalopathic and can't give any type of history. Imp: 58 yo male with advanced alcohol-related liver disease with complications of ascites and encephalopathy, as well as probable hepatocellular carcinoma, with associated significant pulmonary disease and underlying multiple sclerosis. He has had a significant and progressive decline over the past month or so despite attempts at maximal medical and supportive care. At this point he will not allow a NG tube placement due to his poor mental status, and obviously can not take anything po. There has been no sign of SBP nor GI bleeding. At this point in time I did have a detailed discussion with his that I feel his condition, at least from the liver and pulmonary standpoint, is end-stage and irreversible. Recs: Given the above scenario, I advised his that I would recommend avoiding life support measures of CPR and intubation as I do not think those would change the ultimate outcome for him. I would recommend that he be kept comfortable, including avoiding any further lactulose enemas given the associated discomfort and low efficacy. His understood all of this and was in agreement. She will speak with Dr. Wei to formalize the DNR code status. D/W Dr. Wei as well. Please advise me if I can be of any further assistance. Thanks. Time Spent With Patient Time: Total time managing care of this patient today ____ minutes.
--- NOTE | 2023-06-26 18:13 | W.MHC.ACPN ---
Advanced Care Planning Note Advanced Care Planning Note Time spent (in minutes): 20 Narrative: Goals of care conversation with , 2 sons and 1 daughter in light of patient's condition worsening with hepatic encephalopathy from worsening liver disease, family decided on DNR/DNI and completed MOLST and will consider hospice. We discussed possibly inserting NGT for lactulose and for now they prefer trying rectally for now. Dr. Yanez talked to them regarding limitations of care Problems Discussed (1) Acute and chronic respiratory failure with hypoxia: (2) ILD (interstitial lung disease): (3) Hepatopulmonary syndrome: (4) Liver cirrhosis:
--- NOTE | 2023-06-26 19:46 | PM.EVENT ---
Event Note Date of Service: 06/26/23 Event Note: following one dose of lactulose rectally which he did not retained much was able to take some by mouth with improved in mental state and will try to give additional doses by mouth later. Also started empirically on Ceftriaxone given increasing WBC Time Spent With Patient Time: Total time managing care of this patient today ____ minutes.
[2023-06-26] MEDS: Insulin Glargine,Hum.rec.anlog 100 UNIT/ML 10 ML VIAL 55 UNIT SUBCUT (21:20)
--- NOTE | 2023-06-27 01:00 | CONS_ITS ---
DATE OF SERVICE: 06/26/2023 REASON FOR CONSULTATION: Cirrhosis and hepatic encephalopathy. HISTORY OF PRESENT ILLNESS: This has been obtained from his , the nursing staff, the medical record, from Dr. Wei, and from my office notes. The patient is a 58-year-old male, who I met at the end of April as an inpatient consultation when he was admitted with shortness of breath, cirrhosis and ascites. Workup at that time included an MRI of the abdomen, which described at least three highly suspicious lesions, consistent with probable hepatocellular carcinoma. During that admission, his paracentesis was negative for spontaneous bacterial peritonitis. He has a longstanding history of alcohol abuse, but have been abstinent from alcohol since the admission in April. When I saw him in the office on May 30, his mental status was good, although he was having some issues with ascites and edema. I had reviewed the MRI findings with him and his at that time with the strong suspicion of hepatocellular carcinoma. Plans were being made for him to be referred to [facility] for their opinion regarding further diagnostic measures and potential treatment options for the presumed hepatocellular carcinoma. At that point, I did not think he was a liver transplant candidate given the active alcohol abuse up until just shortly before my meeting him, as well as other comorbidities. Unfortunately, since that office visit, he was unable to make it to [facility] despite having two appointments, as he became more ill from his liver disease and pulmonary disease. He was admitted here on June 13 in relation to his shortness of breath as well as ascites. During his time here in the hospital, he has had a progressive decline despite aggressive treatment of both his pulmonary disease and his liver disease. He has had paracenteses, which have been negative for spontaneous bacterial peritonitis. There has been no report of melena, hematochezia, nor hematemesis. Over the past 48 hours, he has had a significant decline in his mental status due to an elevated ammonia level and associated hepatic encephalopathy. Upon my visit with him and his today, he is nonverbal and unable to cooperate. He is currently being tended to by the nursing staff as he had just received a lactulose enema in attempts to treat the hepatic encephalopathy given that he has been unable to take any oral medication and would not tolerate a nasogastric tube. MEDICATIONS: His present medications include albuterol inhaler p.r.n., IV ceftriaxone, Lovenox, insulin, lactulose, loperamide p.r.n., morphine p.r.n., nystatin, omeprazole, oxycodone p.r.n., prednisone 20 mg daily. PAST MEDICAL HISTORY: Advanced cirrhosis with associated ascites and current hepatic encephalopathy. Multiple sclerosis. Probable hepatocellular carcinoma as demonstrated on MRI in April of 2023. Asthma. Diabetes mellitus. Recent pneumonia. There is no history of WI, stroke, nor kidney disease. PAST SURGICAL HISTORY: Surgeries include fractured right hip. FAMILY HISTORY: Noncontributory. SOCIAL HISTORY: He is . He has been a smoker. Alcohol abuse, as above. REVIEW OF SYSTEMS: This is currently not available given his poor mental status, but he clearly has been doing poorly of late, particularly in the past 48 hours. PHYSICAL EXAMINATION: GENERAL: The patient is nonverbal and not cooperative with questions nor on the exam. ABDOMEN: However, his abdominal exam is soft and nondistended at this time. There is no focal tenderness. LABORATORY DATA: White blood cell count 20,800, hemoglobin 14.9, platelets 65,000. PT 17.9 with INR 1.5. Sodium 133, potassium 5.7, BUN 43, creatinine 0.7. Total bilirubin is 5.7 with direct bilirubin 2.7, AST 88, ALT 118, alkaline phosphatase 284, albumin 2.0. Ammonia level was 141. IMPRESSION: The patient is an unfortunate 58-year-old male with advanced liver disease in relation to chronic alcohol abuse, as well as underlying pulmonary disease and multiple sclerosis, who has had a progressive and significant decline while in the hospital, particularly in relation to his mental status and hepatic encephalopathy. There has been no evidence of any spontaneous bacterial peritonitis nor any signs of gastrointestinal bleeding. At this point, it will be difficult to treat his encephalopathy given his inability to maintain oral intake and what I suspect would be a noncooperative status with nasogastric tube placement. The attempt of the lactulose enema was not overly successful, as he was unable to hold on to it rectally and it was uncomfortable for him as well. At this point, I feel he does have very advanced and irreversible liver disease, not to mention significant pulmonary issues. As such, given this situation, I advised his that I would recommend avoiding life-support measures of CPR and intubation, as I do not think those would be beneficial to him nor change his ultimate outcome in regard to the significant illnesses. I have recommended to her that he be kept comfortable and avoid any further invasive and uncomfortable treatments including lactulose enemas. She understood this completely and was in agreement with that plan and recommendation. She will speak with Dr. Wei to have that formalized in the chart. This has been discussed with Dr. Wei as well. Thank you for the consultation. MD JANNET Suarez/KALIN / [phone] MTDD
[2023-06-27 03:22] VITALS: BP 126/66; PULSE 98; RESP 18; TEMP 36.2; O2SAT 92
[2023-06-27] MEDS: Omeprazole 20 MG CAPSULE.DR PO (06:16)
[2023-06-27 07:20] VITALS: BP 139/77; PULSE 94; RESP 20; TEMP 36.2; O2SAT 93
[2023-06-27] MEDS: 0.9 % Sodium Chloride Flush 3 ML SYRINGE IVFLUSH (08:30)
--- NOTE | 2023-06-27 09:20 | HO.WOUND ---
Attempted follow up wound consult - arrival to bedside pt was having bedside procedure / test will reattempt at future time and or date.
--- NOTE | 2023-06-27 10:15 | MHC.CM.PN ---
Per MD in ROUNDS discussion, Patient is ready for dc to home, with Hospice. CM spoke with /HCP/Margot @ [phone], who is agreeable to [facility] Informational.CM has referred to [facility] and has requested that they arrange for the Informational. CM will follow.
--- NOTE | 2023-06-27 10:53 | MHC.CM.PN ---
Per [facility], Liaison/Larisa is on her way to meet with Patient's . CM will follow.
--- NOTE | 2023-06-27 11:02 | MHC.CLN ---
F/U PT NOT TAKING PO REVIEWED LABS NOTED ELEVATED NH3 LEVEL DIET REMAINS 2200DM 2GM NA -RECOMMEND LIBERALIZING DIET R/T VERY POOR PO AND ESLD WILL D/C ENSURE MAX SUPPLEMENT R/T HIGH PO PROTEIN CAN GIVE ENSURE CLEAR IF ABLE TO PROMOTE WOUND HEALING FAMILY MEETING WITH HOSPICE TEAM TODAY PER CM NOTED VERY POOR PROGNOSIS FOLLOWING WITH CARE TEAM
--- NOTE | 2023-06-27 11:42 | MHC.CM.PN ---
Per Core Blower/Larisa, equipment will be ordered today and the goal is dc tomorrow to home with [facility] via BLS. CM will follow.
[2023-06-27 11:53] VITALS: BP 119/74; PULSE 109; RESP 20; TEMP 36.1; O2SAT 92
--- NOTE | 2023-06-27 12:46 | HO.PM.IMPN ---
Subjective Subjective Date of Service: 06/27/23 Interval History: Patient is more alert, not confused, cooperative, and has been takin lactulose Physical Exam Vital Signs: Vital Signs: Last Vital Signs Temp 97.0 F 06/27/23 11:53 Pulse 109 H 06/27/23 11:53 Resp 20 06/27/23 11:53 BP 119/74 06/27/23 11:53 Pulse Ox 92 06/27/23 11:53 O2 Del Method Oxymask 06/27/23 11:53 O2 Flow Rate 3 06/27/23 11:53 Oxygen Flow Rate 6 06/13/23 14:04 BMI result Body Mass Index 26.4 Const: Other: General: alert and oriented, still on high amount of oxygen Resp: CTA bilateral CVS: S1,S2,RRR GI: +BS, NT, no distention, no positive fluid wave, no guarding Skin: No rash Neuro: motor grossly intact Psych: appropriate affect Objective Data Active Medications Acetaminophen (Acetaminophen 325 Mg Tablet) 650 mg PO Q4H PRN PRN Reason: Pain, Mild (Pain Scale 1-3) Last Admin: 06/22/23 19:25 Dose: 650 mg Documented By: BILLIE Albuterol Sulfate (Albuterol Sulfate 90 Mcg 8 Gm Inhaler) 2 puff INHALE RQ4H PRN PRN Reason: sob Last Admin: 06/16/23 20:06 Dose: 2 puff Documented By: CLAY Albuterol/Ipratropium (Albuterol/Iprat 2.5/0.5mg 3 Ml Ampul.Neb) 3 ml INHALE RQ6H WHILE AWAKE PRN PRN Reason: Shortness of Breath/Wheezing Collagenase (Collagenase Clostridium Hist. 30 Gm Tube) 1 appl TOPICAL DAILY RON; Protocol Dextrose (Dextrose 50 % 25 Gm/50 Ml Syringe) 25 gm IVPUSH Q15M PRN; Protocol PRN Reason: per Hypoglycemia Standing Ord. Docusate Sodium (Docusate Sodium 100 Mg Capsule) 100 mg PO DAILY PRN PRN Reason: Constipation Enoxaparin Sodium (Enoxaparin Sodium 40 Mg/0.4 Ml Syringe) 40 mg SUBCUT Q24H RON Last Admin: 06/26/23 18:06 Dose: Not Given Documented By: ELIZABETH Non-Admin Reason: patient combative Ceftriaxone Sodium 1 gm/ (Sodium Chloride) 50 mls @ 100 mls/hr IV Q24H [facility] Last Infusion: 06/26/23 18:17 Dose: Infused Documented By: ELIZABETH Insulin Glargine (Insulin Glargine,Hum.Rec.Anlog 100 Unit/Ml 10 Ml Vial) 55 unit SUBCUT BEDTIME [facility] Last Admin: 06/26/23 21:20 Dose: 27 unit Documented By: TRINA Comments: per MD guillen to lessen dose because pt has low PO intake Insulin Human Lispro (Insulin Lispro 100 Unit/Ml 3 Ml Vial) 0 unit SUBCUT QIDACHS [facility]; Protocol Last Admin: 06/27/23 12:10 Dose: 6 unit Documented By: HELENA Insulin Human Lispro (Insulin Lispro 100 Unit/Ml 3 Ml Vial) 5 unit SUBCUT QIDACHS [facility] Last Admin: 06/27/23 12:09 Dose: 5 unit Documented By: HELENA Lactulose (Lactulose 20 Gm/30 Ml Solution) 20 gm PO Q6H [facility] Last Admin: 06/27/23 08:26 Dose: 20 gm Documented By: HELENA Loperamide HCl (Loperamide Hcl 2 Mg Capsule) 2 mg PO Q6H PRN PRN Reason: Diarrhea Last Admin: 06/14/23 21:08 Dose: 2 mg Documented By: SALOMÓN Morphine Sulfate (Morphine Sulfate 2 Mg/Ml Cartridge) 2 mg IVPUSH Q6H PRN; Protocol PRN Reason: Pain, Severe (Pain Scale 7-10) Last Admin: 06/26/23 10:23 Dose: 2 mg Documented By: ELIZABETH Nystatin (Nystatin Powder 15 Gm Bottle) 1 appl TOPICAL BID [facility]; Protocol Last Admin: 06/27/23 08:31 Dose: 1 appl Documented By: HELENA Omeprazole (Omeprazole 20 Mg Capsule.) 20 mg PO DAILY@0630 [facility] Last Admin: 06/27/23 06:16 Dose: 20 mg Documented By: KAMAR Prednisone (Prednisone 20 Mg Tablet) 20 mg PO DAILY [facility] Last Admin: 06/27/23 08:26 Dose: 20 mg Documented By: HELENA Sodium Chloride (0.9 % Sodium Chloride Flush 3 Ml Syringe) 3 ml IVFLUSH QSHIFT [facility] Last Admin: 06/27/23 08:30 Dose: 3 ml Documented By: HELENA Labs 06/27/23 07:14 06/27/23 07:14 Labs: Laboratory Results - last 24 hr 06/26/23 06/26/23 06/26/23 09:22 13:16 14:50 MCV 101.2 H MCH 35.1 H MCHC 34.7 RDW 17.5 H Plt Count 65 L MPV 12.1 Absolute Nucleated RBC 0.000 Nucleated RBC % (auto) 0.0 O2 Saturation 98.0 ABG pH at Pt Temp 7.55 H ABG pCO2 at Pt Temp 41 ABG pO2 at Pt Temp 88 ABG HCO3 36 H ABG Base Excess (Actual) 13.0 Anion Gap Estim Creat Clear Calc Estimated GFR POC Glucose Random Glucose Calcium Ammonia Cancelled 141 H 06/26/23 06/26/23 06/27/23 16:51 20:08 07:14 MCV 97.2 MCH 34.8 H MCHC 35.8 RDW 17.3 H Plt Count 57 L MPV 12.9 H Absolute Nucleated RBC 0.000 Nucleated RBC % (auto) 0.0 O2 Saturation ABG pH at Pt Temp ABG pCO2 at Pt Temp ABG pO2 at Pt Temp ABG HCO3 ABG Base Excess (Actual) Anion Gap 11 L Estim Creat Clear Calc 114.5 Estimated GFR > 60 POC Glucose 156 H 137 H Random Glucose 252 H Calcium 8.4 Ammonia 06/27/23 06/27/23 07:16 11:56 MCV MCH MCHC RDW Plt Count MPV Absolute Nucleated RBC Nucleated RBC % (auto) O2 Saturation ABG pH at Pt Temp ABG pCO2 at Pt Temp ABG pO2 at Pt Temp ABG HCO3 ABG Base Excess (Actual) Anion Gap Estim Creat Clear Calc Estimated GFR POC Glucose 215 H 252 H Random Glucose Calcium Ammonia Microbiology Microbiology Results: Microbiology 06/24/23 15:00 Gram Stain - Final Peritoneal Fluid Anaerobic Culture - Preliminary No growth to date. Body Fluid Culture - Final No growth after 2 days Assessment and Plan (1) Acute and chronic respiratory failure with hypoxia: Status: Acute (2) ILD (interstitial lung disease): Status: Acute (3) Hepatopulmonary syndrome: Status: Acute (4) Liver cirrhosis: Status: Acute Plan This is a 58-year-old male with history MS, liver cirrhosis, diabetes, recent admission for COVID-19 and subsequent admission for multifocal pneumonia who was discharged to attend his son's and returns with ongoing shortness of breath Acute on chronic respiratory failure with hypoxia seems most likely related to pulmonary fibrosis due to COVID/hepatopulmonary syndrome 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 CTA 06/21 negative for PE completed 7 days of antibiotics (ceftraixone/doxycycline) currently on 2-L at rest, and seems stable seen by pulmonology earlier--see note suportive care,suplemental O2 Liver cirrhosis with portal HTN Underwent therapeutic paracentesis 06/18 with good results, another paracentesis 06/24 has outpatient follow up scheduled in [place] 06/26, probably will miss stopped aldactone for hyperkalemia Intermittent abdominal pain, no SBP, CT abdomen showed no acute finding Patient may possibly have hepatoma with advanced liver disease, ascietes and encephalopathy on top of MS, pulmonoary disease as adela and not candidate for liver transplant. Myself and GI doctor have communicated with family and at this point they have opted for hospice at home hyperkalemia, persistent, Nephrology consult, kayexalate and lokelma to bring level down, ecg done Lethargic, change in status d/t hepatic encephalopathy and has resolved with lactulose, continue lactulose, stop if diarrhea HFrEF Mild reduction in EF; good response with IV Lasix. BNP normalized DM2 with hyperglycemia d/t steroid--blood sugar, overal flutuate, on high dose of insulin Lantus + SSI, hold insulin if NPO MS--outpt therapy as ordered Outpt therapies as ordered. Patient straight caths at home however in house Epperson placed upon initial presentation. Discussed with family; they wish to leave it until patient is discharged and then a will resume p.r.n. straight caths at home stage 2 coccyx wound local wound care and frequent position changes wound care nurse galilea pending Lovenox Full code dispo - Need for inpatient: management for acute hyoxic resp failure and now, abdominal pain and need to rule out SBP Patient to have hospice intake today, and likely home with hospice tomorrow Quality Stroke Does the patient have a stroke diagnosis?: No VTE Prior VTE?: No VTE Risk Level:: Medical - moderate - high VTE Device Contraindication: N/A - Device Ordered VTE Drug Contraindication: N/A - Med Ordered
--- NOTE | 2023-06-27 13:58 | P.PNNP_ITS ---
Subjective Subjective Date of Service: 06/27/23 Interval history: Events noted Physical Exam 2 Vital Signs: Vital Signs: Last Vital Signs Temp 97.0 F 06/27/23 11:53 Pulse 109 H 06/27/23 11:53 Resp 20 06/27/23 11:53 BP 119/74 06/27/23 11:53 Pulse Ox 92 06/27/23 11:53 O2 Del Method Oxymask 06/27/23 11:53 O2 Flow Rate 3 06/27/23 11:53 Oxygen Flow Rate 6 06/13/23 14:04 BMI result Body Mass Index 26.4 Const: General: ill appearing Neck: Neck: Yes supple Resp: Auscultation: clear to auscultation bilaterally Cardio: Palpation: no palpable S3 Heart sounds: no rubs GI: Palpation (GI): Soft to palpation Auscultation: normal bowel sounds Neuro: Motor exam (neuro): no asterixis Objective Data Labs 06/27/23 07:14 06/27/23 07:14 Labs: Laboratory Results - last 24 hr 06/26/23 06/26/23 06/26/23 09:22 14:50 16:51 WBC 20.8 H RBC 4.24 L Hgb 14.9 Hct 42.9 MCV 101.2 H MCH 35.1 H MCHC 34.7 RDW 17.5 H Plt Count 65 L MPV 12.1 Absolute Nucleated RBC 0.000 Nucleated RBC % (auto) 0.0 Sodium Potassium Chloride Carbon Dioxide Anion Gap BUN Creatinine Estim Creat Clear Calc Estimated GFR POC Glucose 156 H Random Glucose Calcium Ammonia Cancelled 141 H 06/26/23 06/27/23 06/27/23 20:08 07:14 07:16 WBC 19.6 H RBC 4.31 L Hgb 15.0 Hct 41.9 L MCV 97.2 MCH 34.8 H MCHC 35.8 RDW 17.3 H Plt Count 57 L MPV 12.9 H Absolute Nucleated RBC 0.000 Nucleated RBC % (auto) 0.0 Sodium 134 L Potassium 6.0 H* Chloride 99 Carbon Dioxide 30 H Anion Gap 11 L BUN 36 H Creatinine 0.65 Estim Creat Clear Calc 114.5 Estimated GFR > 60 POC Glucose 137 H 215 H Random Glucose 252 H Calcium 8.4 Ammonia 06/27/23 11:56 WBC RBC Hgb Hct MCV MCH MCHC RDW Plt Count MPV Absolute Nucleated RBC Nucleated RBC % (auto) Sodium Potassium Chloride Carbon Dioxide Anion Gap BUN Creatinine Estim Creat Clear Calc Estimated GFR POC Glucose 252 H Random Glucose Calcium Ammonia Microbiology Microbiology Results: Microbiology 06/24/23 15:00 Peritoneal Fluid Gram Stain - Final 06/24/23 15:00 Peritoneal Fluid Anaerobic Culture - Preliminary No growth to date. 06/24/23 15:00 Peritoneal Fluid Body Fluid Culture - Final No growth after 2 days Procedures Date of Service Date of Service: 06/27/23 Assessment & Plan Assessment and plan (1) Liver cirrhosis: Status: Acute (2) Hyperkalemia: Status: Acute Plan Hyperkalemia and hyponatremia in a setting of cirrhosis He was on Spironolactone - which has been discontinued Persistent hyperkalemia Suggest Correct hepatic encephalopathy LActulose PO or via NGT Lokelma as needed Hold off on Spiroloactone Time Spent With Patient Time: Total time managing care of this patient today ____ minutes. Progress Note: Quality Stroke Does the patient have a stroke diagnosis?: No
[2023-06-27 14:59] LABS: Anion Gap 11 (12-20); Blood Urea Nitrogen 33 mg/dL (9-16); Calcium 8.6 mg/dL (8.4-10.2); Carbon Dioxide 31 mmol/L (22-29); Chloride 98 mmol/L (96-108); Creatinine Clr Calc Pharmacy 94.2; Estimated Glomerular Filt Rate > 60; Glucose Random 216 mg/dL (60-115); Potassium 5.2 mmol/L (3.3-5.1); Sodium 135 mmol/L (135-145)
--- NOTE | 2023-06-27 15:22 | MHC.CM.PN ---
Patient will be dc to home tomorrow at 1PM, via [facility], with [facility] services. IMM to be addressed with Patient's /HCP.
[2023-06-27 16:00] VITALS: BP 119/62; PULSE 74; RESP 16; TEMP 36.8
--- NOTE | 2023-06-27 17:44 | PC.NURSE ---
Patient alert and oriented x3, pleasant and cooperative. LSCTA remains on 2L via oxymask denies shortness of breath or chest pain, NS/ST on tele. BSx4 abdomen distended semi firm, denies nausea. Incont of stool x4 3pm dose lactulose held per Dr Wei. Epperson cath replaced at 1300 without difficulty urine orange. Frequent repos in bed with foam blocks. Dressing to coccyx changed per order. Denies pain/discomfort. Evening dose lovenox held d/t platelet count [address] Wei. Family at bedside during shift met with Hopm[place] in afternoon, plan for discharge home tomorrow at 1300. Will continue to monitor and report changes
[2023-06-27 20:00] VITALS: BP 122/70; PULSE 109; RESP 20; TEMP 36.4; O2SAT 94
[2023-06-27] MEDS: Insulin Glargine,Hum.rec.anlog 100 UNIT/ML 10 ML VIAL 55 UNIT SUBCUT (20:59)
[2023-06-28] VITALS: BP 132/71; PULSE 101; RESP 20; TEMP 36.6; O2SAT 96
[2023-06-28 03:11] VITALS: BP 125/72; PULSE 107; RESP 16; TEMP 36.1; O2SAT 96
[2023-06-28] MEDS: Omeprazole 20 MG CAPSULE.DR PO (06:23)
--- NOTE | 2023-06-28 07:19 | PM.DS ---
DS: Providers Provider Date of Service: 06/28/23 Date of admission: 06/13/23 17:39 Primary care physician: Holley James MD Consults: 06/19/23 16:40 Consult to Wound Care Routine Reason for consultation: PRESSURE INJURY STAGE 2 ON COCCYX 06/26/23 08:27 Consult to Gastroenterology Routine Consulting Provider: Pancho Craven Reason for consultation: Cirrhosis, abdominal pain Has provider been notified: No 06/26/23 10:25 Consult to Nephrology Routine Consulting Provider: [facility] Reason for consultation: Hyperkalemia Has provider been notified: No DS: Diagnosis Discharge Diagnosis (1) Liver cirrhosis: Status: Acute (2) Hyperkalemia: Status: Acute DS: Summary Hospital Course Hospital Course: History and physical as per admitting provider. This is a 58-year-old Urdu-speaking male with history of alcoholic liver cirrhosis, MS, diabetes who was recently hospitalized for multifocal pneumonia who returns to the emergency department with shortness of breath. Unfortunately the patient's son and he wanted to leave the hospital to attend his son's services. Due to these extenuating circumstances he was discharged with oxygen temporarily for him to be able to attend these services with the understanding that he would need to return for likely readmission and at the time he left he understood the risk of leaving. He has returned and reports persistent shortness of breath with exertion. He reports intermittent dry cough. No fever, chills. He denies chest pain. No change in his lower extremity edema. In the emergency department he was initially hypoxic, tachycardic and tachypneic. He received a dose of IV Lasix, oral prednisone and a breathing treatment in his respiratory status has started to improve. Chest x-ray shows cardiomegaly with CHF. He was noted to have mild hyponatremia with a sodium of 131, mild hyperkalemia with potassium of 5.2, hyperglycemia with sugar of 573, and mild elevation of LFTs. 58-year-old man treated for acute on chronic respiratory failure with hypoxia and congestive heart failure. Patient was initially admitted on 06/09/2023 and treated for acute hypoxic respiratory failure secondary to multifocal pneumonia and ascites. High paracentesis yielded 3 L of fluid. Unfortunately his son had and he had to attend the and ended up leaving with oxygen and subsequently returning 2 days later with continued shortness of breath. He was found to be in congestive heart failure treated with IV Lasix. Echocardiogram showed EF of 45-50%. His his symptoms did improve and he completed his doses of Rocephin and doxycycline while inpatient. He was also on prednisone which was tapered down and he will complete few more days of this at home. He does have a history of liver cirrhosis with portal hypertension thrombocytopenia and he was to follow up with a liver clinic at [facility], unfortunately he was in the hospital and missed the appointment. During hospitalization, he developped hepatic encephalopathy with his overall condition continues to deteliorating. He was evaluated by gasrtoenterologist team and not deem to be a candiate for liver transplant and given his underlying multiple complex medical problem was recommended for hsopice which the family is agreable. He has been having abdoemn pain and has had paracentesis with ascites fluid showing evidence of infection and but was treated empirically with antibiotics but will be stopped at this time. He will be on lactulose to prevent encephalopathy from cirrhosis. Abdominal pain likely from cirrhosis, and possible hepatoma will be symptomatically treated with opioid. He will continue oxygen at home for chronic respiratory failure Diabetes mellitus type 2, associated with hyperglycemaia from steroid. Insulin is adjusted with increased lantus and will continue with sliding scale insulin GERD. Continue PPI Multiple sclerosis. Continue home regimen To go home with hospice services Time Attestation Discharge coordination time: Greater than 30 minutes Quality: Safe Use of Opioids Does Pt have an Active Cancer Diagnosis on the Problem List?: No Quality: Stroke Does the patient have a stroke diagnosis?: No Physical Exam Vital Signs: Vital Signs: Last Vital Signs Temp 96.9 F 06/28/23 03:11 Pulse 107 H 06/28/23 03:11 Resp 16 06/28/23 03:11 BP 125/72 06/28/23 03:11 Pulse Ox 96 06/28/23 03:11 O2 Del Method Oxymask 06/28/23 03:11 O2 Flow Rate 3 06/28/23 03:11 Oxygen Flow Rate 6 06/13/23 14:04 BMI result Body Mass Index 26.4 DS: Data Data Completed and Pending Completed studies during hospitalization [Text1]: Procedures Drainage of Peritoneal Cavity with Drainage Device, Percutaneous Approach (06/09/23) Drainage of Peritoneal Cavity, Percutaneous Approach (05/19/23) Labs on day of discharge: Laboratory Results - last 24 hr 06/27/23 06/27/23 06/27/23 07:14 07:16 11:56 WBC 19.6 H RBC 4.31 L Hgb 15.0 Hct 41.9 L MCV 97.2 MCH 34.8 H MCHC 35.8 RDW 17.3 H Plt Count 57 L MPV 12.9 H Absolute Nucleated RBC 0.000 Nucleated RBC % (auto) 0.0 Sodium 134 L Potassium 6.0 H* Chloride 99 Carbon Dioxide 30 H Anion Gap 11 L BUN 36 H Creatinine 0.65 Estim Creat Clear Calc 114.5 Estimated GFR > 60 POC Glucose 215 H 252 H Random Glucose 252 H Calcium 8.4 Ammonia 06/27/23 06/27/23 06/27/23 14:32 17:24 20:19 WBC RBC Hgb Hct MCV MCH MCHC RDW Plt Count MPV Absolute Nucleated RBC Nucleated RBC % (auto) Sodium 135 Potassium 5.2 H Chloride 98 Carbon Dioxide 31 H Anion Gap 11 L BUN 33 H Creatinine 0.79 Estim Creat Clear Calc 94.2 Estimated GFR > 60 POC Glucose 249 H 162 H Random Glucose 216 H Calcium 8.6 Ammonia 72 H Preliminary micro results at discharge 06/24/23 15:00 Anaerobic Culture - Preliminary Peritoneal Fluid No growth to date. Discharge Plan Discharge Anticipated Discharge Date/Time: 06/28/23 07:20 Patient Disposition: Hospice - Home Discharge Diagnosis: Acute on chronic respiratory failure with hypoxia Heart failure with reduced ejection fraction Liver cirrhosis with ascites Hyperkalemia Referrals: [facility] [Outside] - 1 Week Mk Ingram MD [Physician] - 1 Week Discharge Medications: New nystatin 100,000 unit/gram Powder 1 appl topical BID Qty: 30 0RF Protocol: Apply to: Apply to: afected skin area twice daily lactulose 20 gram/30 mL Solution 20 g PO Q6H Qty: 2880 0RF prednisone 10 mg tablet See Taper PO DIRECTED Qty: 9 0RF Taper: Prednisone 20 mg daily for 3 Days and 0 Hour 10 mg daily for 3 Days and 0 Hour Rx Instructions: see taper instructions oxycodone 5 mg tablet 5 mg PO Q4H PRN (Reason: pain (scale score 7-10)) Qty: 30 0RF Rx Instructions: Partial Fill upon patient request. furosemide [Lasix] 40 mg tablet 40 mg PO QAM Qty: 30 0RF (DME) FreeStyle Lite Strips Strip Qty: 100 0RF Rx Instructions: Test four times a day or as directed. (DME) blood-glucose meter [FreeStyle Lite Meter] Kit Qty: 1 0RF Rx Instructions: As Directed 4 times a day (DME) lancets [FreeStyle Lancets] 28 gauge misc Qty: 100 0RF Rx Instructions: Test four times a day or as directed. Continued loperamide 2 mg capsule 2 - 4 mg PO Q4-6H PRN (Reason: diarrhea) fluticasone propionate 50 mcg/actuation spray,suspension 1 spray intranasal DAILY PRN (Reason: Congestion) omeprazole 20 mg Capsule,Delayed Release(Dr/Ec) 20 mg PO DAILY@0630 Qty: 30 0RF insulin aspart U-100 [Novolog FlexPen U-100 Insulin] 100 unit/mL (3 mL) insulin pen See Protocol subcut TIDWM Protocol: Insulin Correction Scale Less than or equal to 110 ---- Give (units): 0 111 to 150 Give (units): 0 151 to 200 Give (units): 2 201 to 250 Give (units): 4 251 to 300 Give (units): 6 301 to 350 Give (units): 8 Greater than 350 Give (units): 10 Call MD if Blood Glucose > : 350 albuterol sulfate 90 mcg/actuation HFA aerosol inhaler 90 mcg inhalation Q4H PRN (Reason: Shortness Of Breath Or Wheezing) Changed insulin glargine [Lantus Solostar U-100 Insulin] 100 unit/mL (3 mL) insulin pen 55 unit subcut BEDTIME Qty: 15 0RF Discontinued prednisone 10 mg tablet See Taper PO DIRECTED Qty: 20 0RF Taper: Prednisone 40 mg daily for 2 Days and 0 Hour 30 mg daily for 2 Days and 0 Hour 20 mg daily for 2 Days and 0 Hour 10 mg daily for 2 Days and 0 Hour Rx Instructions: see taper instructions doxycycline hyclate 100 mg tablet 100 mg PO BID 10 Days Qty: 20 0RF cefuroxime axetil 500 mg tablet 500 mg PO Q12H 10 Days Qty: 20 0RF Discharge Orders: Discharge Order (Routine); Ordered 06/28/23 Ordered By: Wang Wei Diet: Advance to usual diet Activity on Discharge: As tolerated Stand Alone Forms: Patient Portal Discharge page Activity Restrictions/Additional Instructions: Topical Wound Care Recommendations: 1. Turn and Reposition every 2 hours and as needed for patient comfort - use pillows to aid in supporting off loading position. Limit sit time to 1 hr increments - wafflle cushion provided to pt to take with him at time of d/c and to use to aid in of loading pressure. 2. Monitor for incontinence and moisture control, use barrier creams when needed for prevention and treatment. Discontinue Brief Use. 3. Maintain blood glucose levels 4. Perineal - Discontinue Brief Use - Cleanse with PH balance spray or wipes, pat dry. ?Apply thin layer of Triad to wound bed - only pat and dab no scrub and rub when soiling occurs. Reapply thin layer PRN after each episode of incontinence. 5. Sacrum / Coccyx - Off Load Pressure -Cleanse with PH balance spray or wipes, pat dry. ?Apply thin layer of Triad to wound bed. Do not remove all of paste between applications as this may cause further skin damage.? Cover with foam dressing to aid in off loading and protection from friction. - Foam dressing provided to pt for home use along with barrier cream. Care Plan Goals: monitor for signs of ascites continue oxygen therapy at home as needed Health Concerns: Acute on chronic respiratory failure with hypoxia Heart failure with reduced ejection fraction Liver cirrhosis with ascites HypeRkalemia Plan of Treatment: Follow-up with primary care provider as needed Insulin Lantus dose has been increased to 55 take Prednisone as directed for few more days, You are going home with hospice service take Lasix as directed to reduce ascietes (abdominal fluid) take oxycodone for pain as needed Assessment: See discharge summary
[2023-06-28 07:53] VITALS: BP 136/75; PULSE 100; RESP 18; TEMP 37.2; O2SAT 95
[2023-06-28] MEDS: 0.9 % Sodium Chloride Flush 3 ML SYRINGE IVFLUSH (08:23)
--- NOTE | 2023-06-28 10:39 | MHC.CM.PN ---
Pt is medically cleared for D/C home [facility] Transport via BLS at 1pm today.
[2023-06-28 12:52] VITALS: PULSE 105; PULSE 114; PULSE 121; O2SAT 82; O2SAT 91; O2SAT 92
== END 2023-06-28 13:30 | disposition hospice, home (50) | DRG 432 ==
LOC: HO.ED 17:16 → HO.EDOVER 17:57 → HO.IMC 19:41
PROVIDERS: Hospitalist; Nurse Practitioner Acute Care; Physician Assistant Medical; Physician Assistant Surgical; Student in an Organized Health Care Education/Training Program; Admitting Provider Physician Assistant Medical; Emergency Provider Emergency Medicine; PCP General Practice; Visit Provider Internal Medicine
DX: K70.31 Alcoholic cirrhosis of liver with ascites (principal); I50.21 Acute systolic (congestive) heart failure; J96.21 Acute and chronic respiratory failure with hypoxia; K76.6 Portal hypertension; J84.9 Interstitial pulmonary disease, unspecified; K76.81 Hepatopulmonary syndrome; G35 Multiple sclerosis; K21.9 Gastro-esophageal reflux disease without esophagitis; U09.9 Post COVID-19 condition, unspecified; I28.8 Other diseases of pulmonary vessels; J84.10 Pulmonary fibrosis, unspecified; D69.6 Thrombocytopenia, unspecified; E87.5 Hyperkalemia; K76.82 Hepatic encephalopathy; L89.152 Pressure ulcer of sacral region, stage 2; E11.65 Type 2 diabetes mellitus with hyperglycemia; Z20.822 Contact with and (suspected) exposure to COVID-19; Z87.891 Personal history of nicotine dependence; Z79.4 Long term (current) use of insulin; Z79.899 Other long term (current) drug therapy
CPT/HCPCS: 0241U; 36415; 49083; 71045; 71046; 71275; 74018; 74176; 76705; 80048; 80051; 80053; 80076; 81001; 82010; 82042; 82140; 82150; 82803; 82945; 82947; 83036; 83615; 83735; 83880; 83986; 84132; 84157; 84484; 85025; 85027; 85610; 85730; 87070; 87073; 87205; 87633; 89051; 93005; 93306; 93308; 93356; 94640; 97162; 99285; C1758; J0696; J1650; J1940; J2270; J2930; Q9957; Q9967

== ENCOUNTER → 2023-06-13 14:05 | Outpatient (BNV) | payer OTHER, SELFPAY | PROVIDERS: Admitting Provider Physician Assistant Medical; Emergency Provider Emergency Medicine; Visit Provider Internal Medicine Cardiovascular Disease | DX: R06.02 Shortness of breath (principal) | CPT/HCPCS: 93010 ==

== ENCOUNTER 2023-06-13 17:39 | Outpatient (BNV) | payer OTHER, SELFPAY | END 2023-06-27 08:45 | PROVIDERS: Admitting Provider Physician Assistant Medical; Emergency Provider Emergency Medicine; PCP General Practice; Visit Provider Internal Medicine Cardiovascular Disease | DX: R94.31 Abnormal electrocardiogram [ECG] [EKG] (principal) | CPT/HCPCS: 93010 ==

== ENCOUNTER 2023-06-13 17:39 | Outpatient (BNV) | payer OTHER, SELFPAY | END 2023-06-18 13:15 | PROVIDERS: Admitting Provider Physician Assistant Medical; Emergency Provider Emergency Medicine; PCP General Practice; Visit Provider Student in an Organized Health Care Education/Training Program | DX: R18.8 Other ascites (principal) | CPT/HCPCS: 49083 ==

== ENCOUNTER 2023-06-13 17:39 | Outpatient (BNV) | payer OTHER, SELFPAY | END 2023-06-15 07:00 | PROVIDERS: Admitting Provider Physician Assistant Medical; Emergency Provider Emergency Medicine; Visit Provider Internal Medicine Cardiovascular Disease | DX: I50.9 Heart failure, unspecified (principal) | CPT/HCPCS: 93306 ==

== ENCOUNTER 2023-06-13 17:39 | Outpatient (BNV) | payer OTHER, SELFPAY | END 2023-06-22 15:39 | PROVIDERS: Admitting Provider Physician Assistant Medical; Emergency Provider Emergency Medicine; PCP General Practice; Visit Provider Internal Medicine | DX: R94.31 Abnormal electrocardiogram [ECG] [EKG] (principal) | CPT/HCPCS: 93010 ==

== ENCOUNTER 2023-06-13 17:39 | Outpatient (BNV) | payer OTHER, SELFPAY | END 2023-06-20 07:00 | PROVIDERS: Admitting Provider Physician Assistant Medical; Emergency Provider Emergency Medicine; PCP General Practice; Visit Provider Internal Medicine | DX: Q25.72 Congenital pulmonary arteriovenous malformation (principal) | CPT/HCPCS: 93308 ==

== ENCOUNTER 2023-06-13 17:39 | Outpatient (BNV) | payer OTHER, SELFPAY | END 2023-06-24 15:00 | PROVIDERS: Admitting Provider Physician Assistant Medical; Emergency Provider Emergency Medicine; PCP General Practice; Visit Provider Radiology Diagnostic Radiology | DX: R18.8 Other ascites (principal) | CPT/HCPCS: 49083 ==

== ENCOUNTER → 2023-06-13 17:39 | Outpatient (BNV) | payer OTHER, SELFPAY | PROVIDERS: Admitting Provider Physician Assistant Medical; Emergency Provider Emergency Medicine; Visit Provider Hospitalist | DX: J96.21 Acute and chronic respiratory failure with hypoxia (principal); J81.0 Acute pulmonary edema; I50.9 Heart failure, unspecified; K74.60 Unspecified cirrhosis of liver; K76.81 Hepatopulmonary syndrome; J84.9 Interstitial pulmonary disease, unspecified | CPT/HCPCS: 99223; 99233 ==

== ENCOUNTER → 2023-06-13 17:39 | Outpatient (BNV) | payer OTHER, SELFPAY | PROVIDERS: Admitting Provider Physician Assistant Medical; Emergency Provider Emergency Medicine; PCP General Practice; Visit Provider Internal Medicine Hypertension Specialist | DX: K74.60 Unspecified cirrhosis of liver (principal); E87.5 Hyperkalemia; E87.1 Hypo-osmolality and hyponatremia; E11.8 Type 2 diabetes mellitus with unspecified complications | CPT/HCPCS: 99222; 99231 ==

== ENCOUNTER → 2023-06-13 17:39 | Outpatient (BNV) | payer OTHER, SELFPAY | PROVIDERS: Admitting Provider Physician Assistant Medical; Emergency Provider Emergency Medicine; Visit Provider Physician Assistant Medical | DX: K74.60 Unspecified cirrhosis of liver (principal); E87.5 Hyperkalemia; E11.65 Type 2 diabetes mellitus with hyperglycemia | CPT/HCPCS: 99223; 99232; 99233; 99239; 99497; 99499 ==

== ENCOUNTER 2023-07-01 23:14 | Inpatient (IN) | payer OTHER, SELFPAY ==
--- NOTE | ~2023-07-01 | XR_ITS ---
EXAMINATION: XR CHEST CLINICAL INFORMATION: Shortness of breath COMPARISON: 06/20/2023 TECHNIQUE: 2 views of the chest were obtained. FINDINGS: Cardiomediastinal silhouette is stable. There are low lung volumes with diffusely increased interstitial markings. No large effusion or pneumothorax. XR/XR chest 2V IMPRESSION: Low lung volumes. Diffusely increased interstitial markings may reflect interstitial edema versus atypical infectious process, overall slightly improved compared with prior chest radiograph from 06/20/2023
[2023-07-01 23:20] VITALS: BP 107/71; BP 138/83; PULSE 94; PULSE 97; RESP 16; TEMP 36.7; O2SAT 96; O2SAT 97; BMI 28.5
--- NOTE | 2023-07-01 23:36 | ED_ITS ---
HPI - General Adult General Chief complaint: Abdominal Pain Stated complaint: sob Time Seen by Provider: 07/01/23 23:35 Source: patient and RN notes reviewed Mode of arrival: ambulatory Limitations: no limitations History of Present Illness HPI narrative: This is a 58-year-old male, with a complex medical history history of liver cirrhosis with ascites with end-stage liver disease on hospice, type 2 diabetes, multiple sclerosis, recent hospital admission for liver cirrhosis and hyperkalemia (06/13/2023 - 06/28/2023) presenting to the emergency department via EMS, with complaints of abdominal pain, abdominal distension, and worsening shortness of breath for the last 4 days. Patient reports that he was discharged 4 days ago on hospice care. Patient are hoping to set up palliative care as well as a possible drain as he has had increased swelling in his abdomen since his discharge. He denies any fevers, chills, chest pain, nausea, vomiting or diarrhea. No other complaints or concerns at this time. MD complaint: Abd pain, SOB Onset (ago): day(s) Radiation: non-radiation Relieving factors: none Exacerbating factors: none Associated symptoms: denies other symptoms Treatments prior to arrival: none Related Data Home Medications Medication Instructions Recorded Confirmed albuterol sulfate 90 mcg/actuation 90 mcg inhalation Q4H PRN 04/09/22 07/02/23 aerosol inhaler Shortness Of Breath Or Wheezing insulin aspart U-100 100 unit/mL See Protocol subcut TIDWM 04/09/22 07/02/23 (3 mL) subcutaneous pen (Novolog FlexPen U-100 Insulin aspart) fluticasone propionate 50 1 spray intranasal DAILY PRN 05/19/23 07/02/23 mcg/actuation nasal Congestion spray,suspension Previous Rx's Medication Instructions Recorded blood sugar diagnostic (FreeStyle #100 ea 06/28/23 Lite Strips) blood-glucose meter (FreeStyle #1 ea 06/28/23 Lite Meter kit) insulin glargine 100 unit/mL (3 55 unit (0.55 mL) subcut BEDTIME 06/28/23 mL) subcutaneous pen (Lantus #15 mL Solostar U-100 Insulin) lactulose 20 gram/30 mL oral 20 g (30 mL) PO Q6H #2,880 mL 06/28/23 solution lancets 28 gauge (FreeStyle #100 ea 06/28/23 Lancets) nystatin 100,000 unit/gram topical 1 appl topical BID #30 grams 06/28/23 powder oxycodone 5 mg tablet 5 mg PO Q4H PRN pain (scale score 06/28/23 7-10) #30 tabs furosemide 40 mg tablet 40 mg PO DAILY #30 tabs 07/02/23 hospital bed #1 ea 07/02/23 spironolactone 25 mg tablet 25 mg PO DAILY #30 tabs 07/02/23 Allergies Allergy/AdvReac Type Severity Reaction Status Date / Time No Known Allergies Allergy Mild NONE Verified 03/06/23 17:19 Review of Systems 2 Review of Systems: Yes all other systems are reviewed and are negative Constitutional: Constitutional: Reports as per [facility] Past Medical History Onset Date is defined in the Problem List Problems that require an onset date and time if occurred within 24 hrs of arrival to the ED Aortic Dissection and Rupture; Neurologic impairment; Cardiopulmonary Arrest; Endotracheal Intubation; Insertion or Replacement of Mechanical Circulatory Assist Device Medical History (Updated 07/06/23 @ 00:02 by Nan Taveras) ILD (interstitial lung disease) Hepatopulmonary syndrome Respiratory insufficiency Multifocal pneumonia EtOH dependence Liver cirrhosis Diabetes mellitus Multiple sclerosis Surgical History History of hip surgery Family History Family History Mother Diabetes Father HTN (hypertension) Social History Social History Household Members: Family Housing: House Do you presently have visiting nurse or other home services: No Alcohol intake: former Comment: refuses bed alarm- at bedside. Patient Tobacco Use Status: Former Tobacco user Cigarettes Per Day: 1.9 Second Hand Smoke Exposure: No Advance Directives Date on File: 03/11/23 service: No Physical Exam ED Vital Signs: Vital Signs - 24 hr 07/01/23 23:20 07/02/23 02:33 Temperature 98.1 F 98.0 F Pulse Rate 94 95 Respiratory Rate 16 16 Blood Pressure 138/83 115/76 Pulse Oximetry 96 98 Oxygen Delivery Method Room Air Room Air BMI result Body Mass Index 28.5 Const General: cooperative, comfortable and no acute distress Orientation/consciousness: patient oriented x3 Limitations: no limitations HENMT Head: Yes normal to inspection, Yes normocephalic and Yes atraumatic Ears: hearing grossly normal bilaterally General nose exam: Normal external nose present Face and sinus: Yes normal facial exam Mouth: Normal oral and palatal mucosa present, oropharynx normal and moist mucous membranes Throat: Yes posterior oropharynx normal Eyes Other: Scleral icterus. Right eye: Pupil dilated however reactive. Patient reports this is chronic. Left eye pinpoint, reactive. EOMI General: appearance normal, both eyes and all related structures Eyelids: Yes eyelids normal Conjunctivae: conjunctivae normal Pupils: Equal, round and reactive pupils present EOM: EOMs intact bilaterally Neck Neck: Yes normal visual inspection, Yes full ROM and Yes no lymphadenopathy Lymphatic: no lymphadenopathy noted Chest Chest palpation & inspection: normal inspection of the chest Resp Effort & Inspection: normal respiratory effort and able to speak in complete sentences Auscultation: clear to auscultation bilaterally, no crackles, no rales, no rhonchi and no wheezes Cardio Rate: regular rate Rhythm: regular rhythm Heart sounds: S1 normal heart sound present and S2 normal heart sound present GI Other: Abdomen is distended, with tenderness palpation in the right lower quadrant. No rebound or guarding Inspection: Yes normal to inspection Skin General skin exam: no rashes or lesions noted Trauma: no lacerations or abrasions Wounds: no wounds Neuro General: patient oriented x3 and moves all extremities Cranial nerves: Yes Equal, round and reactive pupils present Extrem General: Yes normal to inspection Right upper extremity: normal to inspection Left upper extremity: normal to inspection Right lower extremity: normal to inspection Left lower extremity: normal to inspection Course Reevaluation(s) Reevaluation #1: Leukocytosis at 14.1k, patient with chronic elevation. Patient hyponatremic at 128, potassium 5.2, chloride 93. BUN 40. Bilirubin has increased to 9.3, AST ALT also elevated to 135/208 respectively. Alk-phos 384. COVID negative. Chest x-ray shows low lung volumes, diffusely increased interstitial markings improved from chest x-ray 06/20/2023. Discussed case with attending physician, Dr. Rasmussen who recommends hospital admission with GI consultation given worsening liver function, and discussion for palliative care versus paracentesis versus drain. Patient is agreeable to hospital admission. Discussed case with hospitalist who accepts transfer of care. Time: 01:58 Medications Administered Discontinued Medications Generic Name Dose Route Start Last Admin Trade Name Freq PRN Reason Stop Dose Admin Furosemide 40 mg 07/02/23 08:45 07/02/23 09:13 Furosemide 40 Mg Tablet PO 40 mg DAILY [facility] Administration Protocol Insulin Human Lispro 0 unit 07/02/23 07:30 07/02/23 17:14 Insulin Lispro 100 Unit/Ml 3 Ml Vial SUBCUT Not Given QIDACHS [facility] Protocol Lactulose 20 gm 07/02/23 04:00 07/02/23 17:13 Lactulose 20 Gm/30 Ml Solution PO Not Given Q6H RON Nystatin 1 appl 07/02/23 09:00 07/02/23 07:31 Nystatin Powder 15 Gm Bottle TOPICAL 1 appl BID [facility] Administration Protocol Oxycodone HCl 5 mg 07/02/23 03:12 07/02/23 17:13 Oxycodone Hcl Immed Release 5 Mg Tablet PO 5 mg Q4H PRN Administration pain (scale score 7-10) Sodium Chloride 3 ml 07/02/23 08:00 07/02/23 13:36 0.9 % Sodium Chloride Flush 3 Ml Syringe IVFLUSH 3 ml QSHIFT RON Administration Sodium Zirconium Cyclosilicate 10 gm 07/02/23 16:24 07/02/23 17:08 Sodium Zirconium Cyclosilicate 10 Gm Powd.Pack PO 07/02/23 16:25 10 gm ONCE ONE Administration Spironolactone 25 mg 07/02/23 09:00 07/02/23 07:31 Spironolactone 25 Mg Tablet PO 25 mg DAILY [facility] Administration Protocol Medical Decision Making Medical Decision Making [facility] Narrative: This is a 58-year-old male, with a complex medical history history of alcohol use disorder with cirrhosis, type 2 diabetes, multiple sclerosis, recent hospital admission for liver cirrhosis and hyperkalemia (06/13/2023 - 06/28/2023) presenting to the emergency department via EMS, with complaints of abdominal pain, abdominal distension, and worsening shortness of breath for the last 4 days. Patient has a complex past medical history. He was initially admitted on June 09, 2023 and treated for acute hypoxic respiratory failure secondary to multi focal pneumonia in ascites. High paracentesis yielded 3 L of fluid. Sadly his son , ultimately having to be discharged. He returned 2 days later with ongoing shortness of breath. He was found to be in congestive heart failure and was treated with IV Lasix. Echocardiogram showed EF of 45-50%. His symptoms improved after receiving doses of Rocephin and doxycycline. During his hospitalization he developed hepatic encephalopathy and his can not dished in continue to deteriorate. He was evaluated by the hazardous waste management specialist team and was not deemed to be a candidate for liver transplant given underlying multiple complex medical problems and was recommended for hospice which the family was agreeable. Patient is here today as he has had worsening abdominal pain and swelling, and ongoing shortness of breath. And this which over hospice care to palliative care and discussed possibility of inserting permanent abdominal drain with the GI team. Plan: Labs, chest x-ray Differential Diagnosis Differential Diagnoses: The differential diagnosis associated with the presentation includes COVID, pneumonia, liver cirrhosis, ascites, metabolic encephalopathy Admission/Observation Consideration of admission/observation: Escalation of care including admission/observation considered Lab Data MDM Lab Attestation statement: I reviewed the patient's lab results. See course 07/02/23 00:18 07/02/23 15:31 Labs: Lab Results 07/02/23 07/02/23 07/02/23 Range/Units 00:18 00:28 00:33 WBC 14.1 H (4.8-10.8) X10*3/uL RBC 4.16 L (4.60-5.80) X10*6/uL Hgb 14.6 (14.0-18.0) g/dl Hct 41.3 L (42.0-52.0) % MCV 99.3 H (80.0-98.0) fL MCH 35.1 H (27.0-33.0) pg MCHC 35.4 (31.0-36.0) g/dl RDW 17.7 H (11.0-16.0) % Plt Count 46 L (160-400) X10*3/uL MPV 12.3 (9.4-12.4) fL Immature Gran % (Auto) 0.9 H (0.0-0.4) % Neut % (Auto) 82.2 H (45-73) % Lymph % (Auto) 3.9 L (20-40) % Howard % (Auto) 10.8 (2-11) % Eos % (Auto) 2.1 (0-4) % Baso % (Auto) 0.1 (0-2) % Lymph # (Auto) 0.6 L (1.2-4.9) X10*3/uL Howard # (Auto) 1.5 H (0.1-1.2) X10*3/uL Eos # (Auto) 0.3 (0.0-0.4) X10*3/uL Baso # (Auto) 0.0 (0.0-0.2) X10*3/uL Abs Immat Gran (auto) 0.13 H (0.00-0.03) X10*3/uL Absolute Neuts (auto) 11.6 H (2.0-8.3) x10*3/uL Absolute Nucleated RBC 0.000 (0.0-0.012) X10*3/uL Nucleated RBC % (auto) 0.0 (0.0-0.2) /100WBC Hold Purple Top SEE NOTE PT 17.2 H (11.1-13.3) SEC INR 1.4 H (0.9-1.1) APTT 35.2 D (26.0-36.4) SEC VBG pH 7.54 H (7.32-7.43) VBG pCO2 35 mmHg VBG pO2 99 mmHg VBG HCO3 31 H (22-26) mmol/L VBG O2 Saturation 99.0 % VBG Base Excess 8.4 mmol/L Sodium 128 L (135-145) mmol/L Potassium 5.2 H (3.3-5.1) mmol/L Chloride 93 L (96-108) mmol/L Carbon Dioxide 27 (22-29) mmol/L Anion Gap 13 (12-20) BUN 40 H (9-16) mg/dL Creatinine 0.74 (0.5-1.4) mg/dL Estim Creat Clear Calc 110.9 Estimated GFR > 60 Random Glucose 290 H (60-115) mg/dL Calcium 8.0 L D (8.4-10.2) mg/dL Magnesium 2.0 (1.6-2.6) mg/dL Total Bilirubin 9.3 H (0.0-1.0) mg/dL AST 135 H (5-37) U/L ALT 208 H (0-40) U/L Alkaline Phosphatase 384 H (39-117) U/L Ammonia (13-55) umol/L Troponin I High Sens 13.7 D (<3.5-35.0) ng/L B-Natriuretic Peptide 84 (<100) pg/mL Total Protein 4.3 L (6.5-8.0) g/dL Albumin 2.0 L (3.5-5.0) g/dL Amylase 61 (28-100) U/L Lipase 43 (8-78) U/L Beta-Hydroxybutyrate 0.06 (0.02-0.27) mmol/L Ethyl Alcohol < 10 mg/dL COVID-19 (MELINDA) Negative (Negative) COVID-19 Clin Com See Note Influenza Type A (BETTIE) Invalid (Negative) Influenza Type B (BETTIE) Invalid (Negative) Influenza A & B Note See Note 07/02/23 07/02/23 Range/Units 01:53 02:07 WBC (4.8-10.8) X10*3/uL RBC (4.60-5.80) X10*6/uL Hgb (14.0-18.0) g/dl Hct (42.0-52.0) % MCV (80.0-98.0) fL MCH (27.0-33.0) pg MCHC (31.0-36.0) g/dl RDW (11.0-16.0) % Plt Count (160-400) X10*3/uL MPV (9.4-12.4) fL Immature Gran % (Auto) (0.0-0.4) % Neut % (Auto) (45-73) % Lymph % (Auto) (20-40) % Howard % (Auto) (2-11) % Eos % (Auto) (0-4) % Baso % (Auto) (0-2) % Lymph # (Auto) (1.2-4.9) X10*3/uL Howard # (Auto) (0.1-1.2) X10*3/uL Eos # (Auto) (0.0-0.4) X10*3/uL Baso # (Auto) (0.0-0.2) X10*3/uL Abs Immat Gran (auto) (0.00-0.03) X10*3/uL Absolute Neuts (auto) (2.0-8.3) x10*3/uL Absolute Nucleated RBC (0.0-0.012) X10*3/uL Nucleated RBC % (auto) (0.0-0.2) /100WBC Hold Purple Top PT (11.1-13.3) SEC INR (0.9-1.1) APTT (26.0-36.4) SEC VBG pH (7.32-7.43) VBG pCO2 mmHg VBG pO2 mmHg VBG HCO3 (22-26) mmol/L VBG O2 Saturation % VBG Base Excess mmol/L Sodium (135-145) mmol/L Potassium (3.3-5.1) mmol/L Chloride (96-108) mmol/L Carbon Dioxide (22-29) mmol/L Anion Gap (12-20) BUN (9-16) mg/dL Creatinine (0.5-1.4) mg/dL Estim Creat Clear Calc Estimated GFR Random Glucose (60-115) mg/dL Calcium (8.4-10.2) mg/dL Magnesium (1.6-2.6) mg/dL Total Bilirubin (0.0-1.0) mg/dL AST (5-37) U/L ALT (0-40) U/L Alkaline Phosphatase (39-117) U/L Ammonia 90 H (13-55) umol/L Troponin I High Sens (<3.5-35.0) ng/L B-Natriuretic Peptide (<100) pg/mL Total Protein (6.5-8.0) g/dL Albumin (3.5-5.0) g/dL Amylase (28-100) U/L Lipase (8-78) U/L Beta-Hydroxybutyrate (0.02-0.27) mmol/L Ethyl Alcohol mg/dL COVID-19 (MELINDA) (Negative) COVID-19 Clin Com Influenza Type A (BETTIE) Invalid (Negative) Influenza Type B (EBTTIE) Invalid (Negative) Influenza A & B Note See Note Radiology Impression Discussion of test interpretation with radiology: I have reviewed the radiologist's reading. Radiologist Impression: EXAMINATION: XR CHEST CLINICAL INFORMATION: Shortness of breath COMPARISON: 06/20/2023 TECHNIQUE: 2 views of the chest were obtained. FINDINGS: Cardiomediastinal silhouette is stable. There are low lung volumes with diffusely increased interstitial markings. No large effusion or pneumothorax. XR/XR chest 2V IMPRESSION: Low lung volumes. Diffusely increased interstitial markings may reflect interstitial edema versus atypical infectious process, overall slightly improved compared with prior chest radiograph from 06/20/2023 Dictated By: Nikc Serrano MD Critical Care Time Critical Care Time Critical Care Time: Yes Total Critical Care Time: 35 Attestation: I have personally provided critical care time exclusive of time spent on separately billable procedures. Time includes review of lab data, radiology results, discussion with consultants, and monitoring for potential decompensation. Intervention performed as documented. Discharge Plan Discharge Clinical Impression: Liver cirrhosis Ascites Qualifiers: Ascites type: due to alcoholic cirrhosis Qualified Code(s): K70.31 - Alcoholic cirrhosis of liver with ascites Patient Disposition: Admitted As Inpatient Interventions: Admission Worksheet (ED) Last Done: 07/02/23 12:36 Discharge Date/Time: 07/02/23 13:19
[2023-07-02 00:26] LABS: Basophils Percent Auto 0.1 % (0-2); Eosinophils Absolute Auto 0.3 X10*3/uL (0.0-0.4); Eosinophils Percent Auto 2.1 % (0-4); Hematocrit 41.3 % (42.0-52.0); Hemoglobin 14.6 g/dl (14.0-18.0); Imm Gran Abs Auto 0.13 X10*3/uL (0.00-0.03); Imm Gran Pct Auto 0.9 % (0.0-0.4); Lymphocytes Absolute Auto 0.6 X10*3/uL (1.2-4.9); Lymphocytes Percent Auto 3.9 % (20-40); Mean Corpuscular HGB Conc 35.4 g/dl (31.0-36.0); Mean Corpuscular Hemoglobin 35.1 pg (27.0-33.0); Mean Corpuscular Volume 99.3 fL (80.0-98.0); Mean Platelet Volume 12.3 fL (9.4-12.4); Monocytes Absolute Auto 1.5 X10*3/uL (0.1-1.2); Monocytes Percent Auto 10.8 % (2-11); Neutrophils Absolute Auto 11.6 x10*3/uL (2.0-8.3); Neutrophils Percent Auto 82.2 % (45-73); Platelet Count 46 X10*3/uL (160-400); Red Blood Count 4.16 X10*6/uL (4.60-5.80); Red Cell Distribution Width 17.7 % (11.0-16.0); SCAN SMEAR FLAG 1; White Blood Count 14.1 X10*3/uL (4.8-10.8)
[2023-07-02 00:27] LABS: MANUAL DIFF FLAG NO
--- NOTE | 2023-07-02 00:34 | MHC.EDTECH ---
Patient came in by ambulance,patient changed into hospital attire, bus monitor placed,labs obtained and sent to lab.Family at bedside and call marcus in reach
[2023-07-02 00:39] LABS: Beta-Hydroxybutyrate 0.06 mmol/L (0.02-0.27)
[2023-07-02 00:40] LABS: VBG Base Excess 8.4 mmol/L; VBG HCO3 31 mmol/L (22-26); VBG pCO2 35 mmHg; VBG pH 7.54 (7.32-7.43); VBG pO2 99 mmHg
[2023-07-02 00:41] LABS: Venous Blood Gas Refer to POC result
[2023-07-02 00:42] LABS: Alanine Aminotransferase 208 U/L (0-40); Alkaline Phosphatase 384 U/L (39-117); Amylase 61 U/L (28-100); Anion Gap 13 (12-20); Aspartate Amino Transferase 135 U/L (5-37); Bilirubin Total 9.3 mg/dL (0.0-1.0); Blood Urea Nitrogen 40 mg/dL (9-16); Carbon Dioxide 27 mmol/L (22-29); Chloride 93 mmol/L (96-108); Creatinine Clr Calc Pharmacy 110.9; Estimated Glomerular Filt Rate > 60; Ethanol < 10 mg/dL; Glucose Random 290 mg/dL (60-115); Lipase 43 U/L (8-78); Potassium 5.2 mmol/L (3.3-5.1); Sodium 128 mmol/L (135-145); Total Protein 4.3 g/dL (6.5-8.0)
[2023-07-02 00:43] LABS: INTERNATIONAL NORM RATIO 1.4 (0.9-1.1); Prothrombin Time 17.2 SEC (11.1-13.3)
[2023-07-02 00:46] LABS: Troponin-I High Sensitivity 13.7 ng/L (<3.5-35.0)
[2023-07-02 00:46] LABS: Partial Thromboplastin Time 35.2 SEC (26.0-36.4)
[2023-07-02 00:55] LABS: B Type Natriuretic Peptide 84 pg/mL (<100)
[2023-07-02 01:15] LABS: COVID-19 Test Negative (Negative); IDNOW Serial# 08D9AD1C
[2023-07-02 01:28] LABS: IDNOW Serial# 9DB6401D; Influenza A Invalid (Negative); Influenza B2 Invalid (Negative)
[2023-07-02 02:15] LABS: Ammonia 90 umol/L (13-55)
[2023-07-02 02:33] VITALS: BP 115/76; PULSE 95; RESP 16; TEMP 36.7; O2SAT 98
--- NOTE | 2023-07-02 02:35 | MHC.EDTECH ---
Hourly rounds and vitals completed, belonging list completed,and copy placed in chart
[2023-07-02 02:51] LABS: IDNOW Serial# 08D9AD1C; Influenza A Invalid (Negative); Influenza B2 Invalid (Negative)
--- NOTE | 2023-07-02 02:53 | PC.NURSE ---
hina came back invalid x4. provider made aware and order is to be cancelled.
--- OUTSIDE RECORDS SUMMARY | 2023-07-02 03:14 | XMS_ITS | Patient Health Record ---
Author Name Unknown Organization [facility] Address [address] [place] [address] Care Team Providers Care Rubber Compounder Name Role Phone Holley James M.D. Primary Care Provider Nick Briseno Unavailable [phone] Pancho Craven Jr Unavailable [phone] ALLERGIES No Known Allergies RESULTS Component Value Reference Range Notes Pathology Reviewed date:05/21/2023 08:00:58 PM Interpretation: Performing Lab:[facility], [address] [place] [phone] Notes/Report: Liver Panel Reviewed date:05/20/2023 09:56:56 AM Interpretation: Performing Lab:[facility], [address] [place] [phone] Notes/Report: Bilirubin Total 4.6 0.0-1.0 mg/dL Bilirubin Direct 2.5 0.0-0.5 mg/dL Aspartate Amino Transferase 88 5-37 U/L Alanine Aminotransferase 53 0-40 U/L Total Protein 5.0 6.5-8.0 g/dL Albumin Level 2.5 3.5-5.0 g/dL Alkaline Phosphatase 230 39-117 U/L Basic Metabolic Panel Fastin g Reviewed date:05/20/2023 09:57:19 AM Interpretation: Performing Lab:[facility], [address] [place] [phone] Notes/Report: Sodium 137 135-145 mmol/L Potassium 3.7 3.3-5.1 mmol/L Chloride 102 96-108 mmol/L Carbon Dioxide 26 22-29 mmol/L Anion Gap 13 12-20 Blood Urea Nitrogen 14 9-16 mg/dL Creatinine 0.64 0.5-1.4 mg/dL Creatinine Clr Calc Pharmacy 127.6 eGFR (calculated from the MDRD study equation) and eCrCl (calculated from the Cockcroft-Gault equation) are based on different parameters and may not yield comparable results. If eCrCl result is absurd, please check patient's height/weight. Estimated Glomerular Filt Rate > 60 NOTE: For -Gambian individuals, multiply the result by 1.210. Chronic Kidney Disease: Estimated GFR < 60 mL/min/1.73m2 Severe Kidney Disease: Estimated GFR < 15 mL/min/1.73m2 Glucose Fasting 161 60-99 mg/dL A fasting glucose of 126 mg/dl or greater on more than one occasion is considered diagnostic of diabetes. Calcium 8.0 8.4-10.2 mg/dL Magnesium Reviewed date:05/20/2023 09:57:24 AM Interpretation: Performing Lab:[address] [phone] Notes/Report: Magnesium 1.7 1.6-2.6 mg/dL IRON PROFILE Reviewed date:05/20/2023 09:57:31 AM Interpretation: Performing Lab:[address] [phone] Notes/Report: Iron 141 45-160 mcg/dL Total Iron Binding Capacity 170 228-428 mcg/d L Percent Iron Saturation 83 15-50 % Unsaturated Iron Binding 29 Ferritin Reviewed date:05/20/2023 09:57:37 AM Interpretation: Performing Lab:[address] [phone] Notes/Report: Ferritin 647 20-250 ng/mL Alpha Fetoprotein Reviewed date:05/22/2023 09:15:31 AM Interpretation: Performing Lab:[address] [phone] Notes/Report: Alpha Fetoprotein 5.1 <6.1 ng/mL This test was performed using the Masha Monroe chemiluminescent method. Values obtained from different assay methods cannot be used interchangeably. AFP levels, regardless of value, should not be interpreted as absolute evidence of the presence or absence of disease. THIS TEST WAS PERFORMED AT: [facility] [address] [place] [phone] NAJMA REID MD Alpha 1 Anti-trypsin Reviewed date:05/22/2023 09:17:19 AM Interpretation: Performing Lab:[facility], [address] [place] [phone] Notes/Report: Alpha 1 Anti-trypsin 160 83-199 mg/dL THIS TEST WAS PERFORMED AT: [facility] [address] [place] [phone] NAJMA REID MD STAS Reflex Titer and Pattern Reviewed date:05/26/2023 10:43:15 PM Interpretation: Performing Lab:[address] [phone] Notes/Report: Anti Nuclear Antibody Screen NEGATIVE NEGATIVE STAS IFA is a first line screen for detecting the presence of up to approximately 150 autoantibodies in various autoimmune diseases. A negative STAS IFA result suggests an STAS-associated autoimmune disease is not present at this time, but is not definitive. If there is high clinical suspicion for Sjogren's syndrome, testing for anti-SS-A/Ro antibody should be considered. Anti-Mounika-1 antibody should be considered for clinically suspected inflammatory myopathies. AC-0: Negative International Consensus on STAS Patterns (https://doi.org/10.1515/ccl m-4587-4637) For additional information, please refer to http://education.Get Me Listed.Stampsy/faq/BBM263 (This link is being provided for informational/ educational purposes only.) THIS TEST WAS PERFORMED AT: [facility] [address] [place] [phone] NAJMA REID MD Anti Nuclear Antibody Titer TNP Anti Nuclear Antibody Pattern TNP STAS Titer 2 TNP STAS Pattern 2 TNP STAS Titer 3 TNP STAS Pattern 3 TNP Mitochondrial Antibody Reviewed date:05/25/2023 12:18:20 PM Interpretation: Performing Lab:[address] [phone] Notes/Report: Mitochondrial Antibodies NEGATIVE NEGATIVE THIS TEST WAS PERFORMED AT: [facility] [address] [place] [phone] NAJMA REID MD Mitochondrial Ab Titer TNP Smooth Muscle Antibody Reviewed date:05/25/2023 12:18:27 PM Interpretation: Performing Lab:[facility], [address] [place] [phone] Notes/Report: Smooth Muscle Antibody <20 <20 U Reference Range: <20 U: Negative >or=20 U: Positive Antibodies recognizing actin are the main component of smooth muscle antibodies associated with auto- immune liver disease. Actin antibodies are found in approximately 75% of patients with autoimmune hepatitis (AIH) type 1, approximately 65% of patients with autoimmune cholangitis, approximately 30% of patients with primary biliary cirrhosis and approximately 2% of healthy controls. High values are closely correlated with AIH type 1. THIS TEST WAS PERFORMED AT: [facility] [address] [address] SHARON REYES MD,PHD MR abdomen wo/w con Reviewed date:05/30/2023 07:33:00 PM Interpretation: Performing Lab: Notes/Report: [address] [address] Magnetic Resonance Report Signed Patient: Remberto Hough MR#: [id number] 8 : 1965 Acct:[id number] Age/Sex: 58 / M ADM Date: 05/19/23 Loc: [facility] 473-[address]: Ba Chang MD Ordering Physician: Nick Yanez Date of Service: 05/20/23 Procedure(s): MR abdomen wo/w con Accession Number(s): [id number] cc: Holley James; Nick Yanez EXAMINATION: MR ABDOMEN WITHOUT AND WITH CONTRAST CLINICAL INFORMATION: Hepatic cirrhosis, ascites COMPARISON: CT scan of abdomen and pelvis on 05/19/2023 TECHNIQUE: Examination was performed in a high field strength MRI scanner. Multiplanar multiphasic imaging of the abdomen was performed without IV contrast enhancement. Multiphasic Axial T1 weighted fat suppressed images of the upper abdomen were obtained after IV injection of 8.5 mL Gadavist. Coronal T1 weighted fat-suppressed images of the abdomen were obtained following the dynamic axial series. FINDINGS: Postcontrast multiphasic dynamic images are limited by respiratory motion blurring. LIVER: The liver shows markedly lobulated border. At anterior inferior border of right hepatic lobe segment 5, an observation measuring 3.1 cm in AP diameter, 2.4 cm in width, 2.6 cm in vertical height with arterial phase hyperenhancement, not peripheral washout and enhancing pseudocapsule is seen, series 103 image #74, series 11 image #20. At anterior medial border of right hepatic lobe segment 8, an observation measuring 1.7 cm in AP diameter, 1.6 cm in width, 1.5 cm in vertical height with arterial phase hyperenhancement, not peripheral washout and enhancing pseudocapsule is seen, series 103 image #42, series 11 image #23. At medial inferior right hepatic lobe segment 8, an observation measuring 1.4 cm in AP diameter, 1.9 cm in width, 1.5 cm in vertical height with arterial phase hyperenhancement, not peripheral washout and enhancing pseudocapsule is seen, series 103 image #54, series 11 image #19. The calculated hepatic fat percentage is 0.9%, compatible with normal. There is moderate perihepatic ascites. The main portal vein is patent, measuring 1.6 cm in transverse diameter, consistent with portal venous hypertension. Splenic vein and superior mesenteric vein are patent. HEPATOBILIARY: Gallbladder is distended, measuring 9.0 cm in AP length, without filling defects. Common bile duct is not dilated. PANCREAS: No focal pancreatic lesion with abnormal signal can be seen. SPLEEN: Spleen is moderately enlarged, measuring 15.0 cm in AP length, measuring 12.8 cm in oblique vertical length without focal lesion. ADRENAL: Bilateral adrenal glands are normal in shape and size. KIDNEYS: Bilateral kidneys are normal in size without focal lesion. MR/MR abdomen wo/w con IMPRESSION: 1. Marked hepatic cirrhosis with at least 3 LR 5 observations are seen, highly suspicious of hepatocellular carcinoma. Evaluation is limited by respiratory motion blurring on the postcontrast images. 2. Hydrops gallbladder is present. No evidence of gallstones or hepatobiliary duct dilatation. 3. Portal venous hypertension and moderate splenomegaly are present. 4. Moderate abdominal ascites is seen. 5. No focal pancreatic lesion is found. Dictated By: Raymond Oliva Signed By: <Electronically signed by Raymond Oliva in OV> 05/21/23 1018 DD/ 1153 TD/TT: Boiler Fitter: Prothrombin Time INR Reviewed date:05/30/2023 07:33:22 PM Interpretation: Performing Lab:[address] [address] Notes/Report: Prothrombin Time 16.5 11.1-13.3 SEC INTERNATIONAL NORM RATIO 1.4 0.9-1.1 INTERNATIONAL NORMALIZED RATIO (INR) REFERENCE RANGES Reference Range For patients not on anticoagulant therapy: 0.9 - 1.1 INR ranges for oral anticoagulant therapy: For prevention and treatment of venous thrombosis and pulmonary embolism: 2.0 - 3.0 For acute myocardial infarction with aspirin therapy: 2.0 - 3.0 For acute myocardial infarction without aspirin therapy: 3.0 - 4.0 For patients with mechanical prosthetic heart valves: 2.5 - 3.5 Electrolytes Reviewed date:05/30/2023 07:51:56 PM Interpretation: Performing Lab:[facility], [address] [place] [phone] Notes/Report: Sodium 135 135-145 mmol/L Potassium 5.0 3.3-5.1 mmol/L Chloride 100 96-108 mmol/L Carbon Dioxide 28 22-29 mmol/L Anion Gap 12 12-20 Creatinine Reviewed date:05/30/2023 07:51:44 PM Interpretation: Performing Lab:[facility], [address] [place] [phone] Notes/Report: Creatinine 0.70 0.5-1.4 mg/dL Estimated Glomerular Filt Rate > 60 NOTE: For -Gambian individuals, multiply the result by 1.210. Chronic Kidney Disease: Estimated GFR < 60 mL/min/1.73m2 Severe Kidney Disease: Estimated GFR < 15 mL/min/1.73m2 Liver Fibrosis Pnl Reviewed date:06/12/2023 10:40:08 PM Interpretation: Performing Lab:[address] [phone] Notes/Report: Liver Fibrosis Score 0.97 Liver Fibrosis Stage F4 Liver Fibrosis Interpretation SEE NOTE severe fibrosis Fibro Test Score (f) Metavir Score f>=0 and f<=0.21 : F0 (no fibrosis) f>0.21 and f<=0.27 : F0-F1 (no fibrosis) f>0.27 and f<=0.31 : F1 (minimal fibrosis) f>0.31 and f<=0.48 : F1-F2 (minimal fibrosis) f>0.48 and f<=0.58 : F2 (moderate fibrosis) f>0.58 and f<=0.72 : F3 (advanced fibrosis) f>0.72 and f<=0.74 : F3-F4 (advanced fibrosis) f>0.74 and f<=1.00 : F4 (severe fibrosis) Nec Inflam Act Score 0.58 Nec Inflam Act Grade A2 Nec Inflam Act Interpretation SEE NOTE significant activity ActiTest Score (a) Metavir Score a>=0 and a<=0.17 : A0 (no activity) a>0.17 and a<=0.29 : A0-A1 (no activity) a>0.29 and a<=0.36 : A1 (minimal activity) a>0.36 and a<=0.52 : A1-A2 (minimal activity) a>0.52 and a<=0.60 : A2 (significant activity) a>0.60 and a<=0.62 : A2-A3 (significant activity) a>0.62 and a<=1.00 : A3 (severe activity) CYE-Lhbit-0-Macroglobulin 287 106-279 mg/dL FIB-Haptoglobin 34 43-212 mg/dL Check if haemolysis as bilirubin is high and haptoglobin low. FIB-Apolipoprotein A1 145 94-176 mg/dL FIB-Total Bilirubin 4.3 0.2-1.2 mg/dL Check if haemolysis as bilirubin is high and haptoglobin low. FIB-GGT 602 3-85 U/L FIB-ALT 56 9-46 U/L Reference ID [id number] Footnote SEE NOTE The reliability of results is dependent on compliance with the preanalytical and analytical conditions recommended by [employer]. The tests have to be deferred for: acute hemolysis, acute hepatitis, acute inflammation, extra hepatic cholestasis. The advice of a specialist should be sought for interpretation in chronic hemolysis and Gilbert's syndrome. The test interpretation is not validated in liver transplant patients. Isolated extreme values of one of the components should lead to caution in interpreting the results. In case of discordance between a biopsy result and a test, it is recommended to seek the advice of a specialist. The causes of these discordances could be due to a flaw of the test or to a flaw in the biopsy: i.e. a liver biopsy has a 33% variability rate for one fibrosis stage. FibroTest is interpretable for chronic hepatitis B and C, alcoholic and non alcoholic steatosis. ActiTest is interpretable for chronic hepatitis B and C. The performance characteristics have been determined by [facility]. It has not been cleared or approved by the U.S. Food and Drug Administration. Performance characteristics refer to the analytical performance of the test. [employer], the associated logo, TierPM and all associated [employer] babb are the registered trademarks of [employer]. All third constitution party babb - (R) and (TM) - are the property of their respective owners. (C) [id number] [employer]. All rights reserved. THIS TEST WAS PERFORMED AT: [employer] [facility] [address] [place] [address] LATHA MIRZA MD,PHD,MICHAEL Complete Blood Count Auto Di ff Reviewed date:05/30/2023 07:33:41 PM Interpretation: Performing Lab:[facility], [address] [place] [phone] Notes/Report: White Blood Count 10.1 4.8-10.8 X10*3/uL Red Blood Count 3.87 4.60-5.80 X10*6/uL Hemoglobin 13.7 14.0-18.0 g/dl Hematocrit 39.4 42.0-52.0 % Mean Corpuscular Volume 101.8 80.0-98.0 fL Mean Corpuscular Hemoglobin 35.4 27.0-33.0 pg Mean Corpuscular HGB Conc 34.8 31.0-36.0 g/dl Red Cell Distribution Width 15.0 11.0-16.0 % Platelet Count 92 160-400 X10*3/uL Mean Platelet Volume 11.2 9.4-12.4 fL Neutrophils Percent Auto 74.2 45-73 % Imm Gran Pct Auto 0.4 0.0-0.4 % Lymphocytes Percent Auto 7.7 20-40 % Monocytes Percent Auto 14.0 2-11 % Eosinophils Percent Auto 3.3 0-4 % Basophils Percent Auto 0.4 0-2 % NRBC Pct Auto 0.0 0.0-0.2 /100WBC Neutrophils Absolute Auto 7.5 2.0-8.3 x10*3/u L Imm Gran Abs Auto 0.04 0.00-0.03 X10*3/uL Lymphocytes Absolute Auto 0.8 1.2-4.9 X10*3/u L Monocytes Absolute Auto 1.4 0.1-1.2 X10*3/uL Eosinophils Absolute Auto 0.3 0.0-0.4 X10*3/u L Basophils Absolute Auto 0.0 0.0-0.2 X10*3/uL NRBC Abs Auto 0.000 0.0-0.012 X10*3/uL Liver Panel Reviewed date:05/31/2023 12:29:55 AM Interpretation: Performing Lab:[facility], [address] [place] [phone] Notes/Report: Bilirubin Total 4.6 0.0-1.0 mg/dL Bilirubin Direct 2.6 0.0-0.5 mg/dL Aspartate Amino Transferase 68 5-37 U/L Alanine Aminotransferase 64 0-40 U/L Total Protein 6.1 6.5-8.0 g/dL Albumin Level 2.9 3.5-5.0 g/dL Alkaline Phosphatase 264 39-117 U/L Blood Urea Nitrogen Reviewed date:05/30/2023 07:51:38 PM Interpretation: Performing Lab:[facility], [address] [place] [phone] Notes/Report: Blood Urea Nitrogen 14 9-16 mg/dL REASON FOR REFERRAL No Information MEDICATIONS Medication SIG (Take, Route, Frequency, Duration) Notes Start Date End Date Status Spironolactone 50 MG 1 tablet Orally Onc e a day for 30 day(s) 06/11/2023 Active Ocrelizumab 300 MG/10ML as directed Intravenous Every 6 months for his MS Active Imodium A-D 2 MG 1 or 2 Orally Every 4 to 6 hours as needed for diarrhea for 30 days 05/30/2023 Active Fluticasone Propionate 50 MCG/ACT Nasal for 90 Active NovoLOG FlexPen 100 UNIT/ML Subcutaneous for 41 Active Omeprazole 20 MG Oral for 30 A ctive Lantus SoloStar 100 UNIT/ML Subcutaneous for 90 Active SOCIAL HISTORY Tobacco Use: Social History Observation Description Date Details (start date - stop date) Current Smoker NA - NA Sex Assigned At : Social History Observation Description Sex Assigned At Unknown Tobacco Use/Smoking Question Answer Notes Patient is a current smoker Alcohol Screen Question Answer Notes Did you have a drink containing alcohol in the p ast year? No Points 0 Interpretation Negative PROBLEMS Problem Type ICD Code Onset Dates Problem Status W/U Status Risk SNOMED Code Notes Problem Alcoholic cirrhosis of liver with ascites (K70.31) Active confirmed Alcoholic cirrhosis (006332681) Problem Lower extremity edema (R60.0) Active confirmed 584034295 Problem Abnormal MRI, liver (R93.2) Active confirmed 799465597 Problem Liver masses (R16.0) Active confirmed 846681963 Problem Diarrhea, unspecified type (R19.7) Active confirmed 50099627 Problem Alcoholic cirrhosis of liver (K70.30) Active confirmed Alcoholic cirrhosis of liver (856799033) Encounters Encounter Location Date Provider Diagnosis [facility] [address] [place] [phone] 05/30/2023 Nick Yanez Alcoholic cirrhosis of liver with ascites K70.31 ; Lower extremity edema R60.0 ; Abnormal MRI, liver R93.2 ; Liver masses R16.0 and Diarrhea, unspecified type R19.7 [facility] [address] [place] [phone] 05/22/2023 Pancho Craven Jr [facility] [address] [place] [phone] 05/22/2023 Nick Yanez [facility] [address] [place] [phone] 05/26/2023 Nick Yanez [facility] [address] [place] [phone] 05/30/2023 Nick Yanez [facility] [address] [place] [phone] 06/02/2023 Nick Yanez [facility] [address] [place] [phone] 06/11/2023 Nick Yanez Alcoholic cirrhosis of liver with ascites K70.31 [facility] [address] [place] [phone] 06/12/2023 Nick Yanez [facility] [address] [place] [address] 06/17/2023 Nick Yanez [facility] [address] [place] [address] 06/29/2023 Nick Yanez [facility] [address] [facility] [address] [place] [address] 07/01/2023 Nick Yanez ASSESSMENTS Encounter Date Diagnosis Assessment Notes Treatment Notes Treatment Clinical Notes 05/30/2023 Alcoholic cirrhosis of liver with ascites (ICD-10 - K70.31) Needs a [facility] referral for alcohol cirrhosis with ascites and suspicion of hepatomas on MRI. Call us if you don't hear from [facility] in [place] by 2 weeks Get a copy of all your xrays on a disc from [facility] Medical Records Department 05/30/2023 Lower extremity edema (ICD-10 - R60.0) 06/11/2023 Alcoholic cirrhosis of liver with ascites (ICD-10 - K70.31) 05/30/2023 Abnormal MRI, liver (ICD-10 - R93.2) 05/30/2023 Liver masses (ICD-10 - R16.0) 05/30/2023 Diarrhea, unspecified type (ICD-10 - R19.7) PLAN OF TREATMENT Pending Test Test Name Order Date CHEM 7 PROFILE 06/11/2023 BUN 05/30/2023 LIVER PROFILE 05/30/2023 CBC w DIFF 05/30/2023 Next Appt Details Provider Name:Nick Yanez , 09/30/2023 02:40:00 PM, [address] [facility], [address], [place], [address], Insurance Providers Payer Name Payer Address Payer Phone Subscriber Number Group Number Insured Name Patient Relationship to Insured Coverage Start Date Coverage End Date [facility] [address] Attn Claims LUCY Mullins [id number] REMBERTO HOUGH Self - patient is the insured MEDICAL (GENERAL) HISTORY Medical History History ICD Code IDDM Multiple sclerosis Hospitalization in April 2023 for alcohol-related cirrhosis with associated ascites, splenomegaly, thrombocytopenia. His liver workup in April 2023 was negative including viral serologies, autoimmune studies, and alpha-1 antitrypsin level. His ferritin was 647, iron saturation was 83% with an iron of 141. Paracentesis was negative for spontaneous bacterial peritonitis. MRI of the abdomen in [facility] of 2022 described 3 suspicious lesions consistent with probable hepatocellular carcinoma. Alpha-fetoprotein level was normal and cytology of ascites was negative. HIV negative Asthma Denies NV,CVA,renal disease Surgical History Surgery Date(Month/Year) Fractured right hip Hospitalization History Reason Date(Month/Year) I met the patient in the [facility] in April 2023 when he was admitted for his alcohol-related cirrhosis, ascites, and the finding of probable hepatoma on his MRI 04/2023
--- NOTE | 2023-07-02 03:24 | PC.NURSE ---
Patient is resting in a stretcher bed with his eyes closed in no apparent distress at this time. Respirations are even and unlabored. Call marcus within patient's reach, patient's spouse at bedside.
--- NOTE | 2023-07-02 03:26 | PM.IMHP ---
History of Present Illness Date of Service: 07/02/23 Attending physician on admission: Inder Newton Chief Complaint: Worsening abdominal distension Remberto Hawkins is a 58 years old man with past medical history significant for chronic liver disease/advanced liver cirrhosis with portal hypertension, multiple sclerosis, chronic oxygen use, type 2 diabetes on insulin, chronic systolic heart failure, presumed hepatocellular carcinoma presents to the hospital complaining of worsening abdominal distention and shortness of breath. He does have chronic abdominal pain and taking oxycodone for this. He did not report any confusion, nausea, no ulcer, edema or diarrhea. He does have some edema to lower extremities which is also a chronic issue. He denies ongoing alcohol abuse. Patient was discharged few days ago on hospice care. His who was at bedside contributed to HPI and hoping gets admitted to the hospital for palliative evaluation. also would like patient to be seen by gastroenterology service for possible drainage placement to multiple visits to the ED. Patient has been taking his medications as prescribed. Patient had not been able to follow-up at [facility] for presumed hepatocellular carcinoma and potential treatment options. In the ED, he was found to have normal bile signs. He is currently on 2 liters/minutes supplemental oxygen which is his baseline. Blood workup showed leukocytosis which is better than prior. Platelets level is 46. Hemoglobin is normal. INR is 1.4. Corrected sodium is 133. LFTs are elevated (increasing). Ammonia is elevated, 90. Review of Systems Review of Systems: All 12 systems were reviewed and normal except as noted in HPI. [facility] Medical History (Updated 07/02/23 @ 04:14 by Inder Newton MD) ILD (interstitial lung disease) Hepatopulmonary syndrome Respiratory insufficiency Multifocal pneumonia EtOH dependence Liver cirrhosis Diabetes mellitus Multiple sclerosis Family History Mother Diabetes Father HTN (hypertension) Surgical History History of hip surgery Social History Household Members: Spouse Housing: House Do you presently have visiting nurse or other home services: Yes Alcohol intake: former Comment: refuses bed alarm- at bedside. Patient Tobacco Use Status: Former Tobacco user Cigarettes Per Day: 1.9 Smoked in Last 30 Days: Yes Second Hand Smoke Exposure: No Use of substances other than those prescribed or required for medical reasons: No Advance Directives: Yes Advance Directives on File: Yes Advance Directives Date on File: 03/11/23 service: No Meds Allergies Allergy/AdvReac Type Severity Reaction Status Date / Time No Known Allergies Allergy Mild NONE Verified 03/06/23 17:19 Active Medications: Current Medications Albuterol Sulfate (Albuterol Sulfate 90 Mcg 8 Gm Inhaler) 1 puff INHALE Q4H PRN PRN Reason: Shortness Of Breath Or Wheezing Dextrose (Dextrose 50 % 25 Gm/50 Ml Syringe) 25 gm IVPUSH Q15M PRN; Protocol PRN Reason: per Hypoglycemia Standing Ord. Fluticasone Propionate (Fluticasone Propionate Nasal 16 Gm [place]) 1 spray NOSTRIL-B DAILY PRN PRN Reason: Congestion Glucose (Glucose Gel 15 Gm Gel..Gram.) 15 gm PO Q15M PRN; Protocol PRN Reason: per Hypoglycemia Standing Ord. Insulin Glargine (Insulin Glargine,Hum.Rec.Anlog 100 Unit/Ml 10 Ml Vial) 55 unit SUBCUT BEDTIME RON Insulin Human Lispro (Insulin Lispro 100 Unit/Ml 3 Ml Vial) 0 unit SUBCUT QIDACHS [facility]; Protocol Lactulose (Lactulose 20 Gm/30 Ml Solution) 20 gm PO Q6H RON Nystatin (Nystatin Powder 15 Gm Bottle) 1 appl TOPICAL BID RON; Protocol Oxycodone HCl (Oxycodone Hcl Immed Release 5 Mg Tablet) 5 mg PO Q4H PRN PRN Reason: pain (scale score 7-10) Sodium Chloride (0.9 % Sodium Chloride Flush 3 Ml Syringe) 3 ml IVFLUSH QSHIFT [facility] Home Medications Medication Instructions Recorded Confirmed Last Taken Type albuterol sulfate 90 mcg/actuation 90 mcg inhalation Q4H PRN 04/09/22 07/02/23 Unknown History aerosol inhaler Shortness Of Breath Or Wheezing insulin aspart U-100 100 unit/mL See Protocol subcut TIDWM 04/09/22 07/02/23 Unknown History (3 mL) subcutaneous pen (Novolog FlexPen U-100 Insulin aspart) fluticasone propionate 50 1 spray intranasal DAILY PRN 05/19/23 07/02/23 Unknown History mcg/actuation nasal Congestion spray,suspension loperamide 2 mg capsule 2 - 4 mg PO Q4-6H PRN diarrhea 06/09/23 07/02/23 Unknown History spironolactone 50 mg tablet 50 mg PO DAILY 07/02/23 07/02/23 Unknown History Physical Exam Vital Signs and Narrative: Vital Signs: Last Vital Signs Temp 98.0 F 07/02/23 02:33 Pulse 95 07/02/23 02:33 Resp 16 07/02/23 02:33 BP 115/76 07/02/23 02:33 Pulse Ox 98 07/02/23 02:33 O2 Del Method Room Air 07/02/23 02:33 BMI result Body Mass Index 28.5 Constitutional - Awake and Alert, No apparent distress HEENT: Atraumatic, normocephalic. No scleral icterus. Cardiovascular - RRR. Respiratory - Normal lung expansion, Normal respiratory effort, No respiratory distress, CTA bilaterally Abdomen - Distended, however right-sided tenderness without guarding or rebound. (+) fluid wave - No CVA tenderness Extremities - Pitting edema to the lower extremities. Musculoskeletal - Normal inspection, normal ROM Skin - Warm/Dry. No jaundice. Neurological - Alert & oriented x3. Psychological - Appropriate affect Results Labs 07/02/23 00:18 07/02/23 00:18 Labs: Laboratory Results - last 24 hr 07/02/23 07/02/23 07/02/23 00:18 00:28 00:33 MCV 99.3 H MCH 35.1 H MCHC 35.4 RDW 17.7 H Plt Count 46 L MPV 12.3 Immature Gran % (Auto) 0.9 H Neut % (Auto) 82.2 H Lymph % (Auto) 3.9 L [place] % (Auto) 10.8 Eos % (Auto) 2.1 Baso % (Auto) 0.1 Lymph # (Auto) 0.6 L [place] # (Auto) 1.5 H Eos # (Auto) 0.3 Baso # (Auto) 0.0 Abs Immat Gran (auto) 0.13 H Absolute Neuts (auto) 11.6 H Absolute Nucleated RBC 0.000 Nucleated RBC % (auto) 0.0 Hold Purple Top SEE NOTE PT 17.2 H INR 1.4 H APTT 35.2 D VBG pH 7.54 H VBG pCO2 35 VBG pO2 99 VBG HCO3 31 H VBG O2 Saturation 99.0 VBG Base Excess 8.4 Anion Gap 13 Estim Creat Clear Calc 110.9 Estimated GFR > 60 Random Glucose 290 H Calcium 8.0 L D Magnesium 2.0 Total Bilirubin 9.3 H AST 135 H ALT 208 H Alkaline Phosphatase 384 H Ammonia B-Natriuretic Peptide 84 Total Protein 4.3 L Albumin 2.0 L Amylase 61 Lipase 43 Beta-Hydroxybutyrate 0.06 Ethyl Alcohol < 10 COVID-19 (MELINDA) Negative COVID-19 Clin Com See Note Influenza Type A (BETTIE) Invalid Influenza Type B (BETTIE) Invalid Influenza A & B Note See Note 07/02/23 07/02/23 01:53 02:07 MCV MCH MCHC RDW Plt Count MPV Immature Gran % (Auto) Neut % (Auto) Lymph % (Auto) [place] % (Auto) Eos % (Auto) Baso % (Auto) Lymph # (Auto) [place] # (Auto) Eos # (Auto) Baso # (Auto) Abs Immat Gran (auto) Absolute Neuts (auto) Absolute Nucleated RBC Nucleated RBC % (auto) Hold Purple Top PT INR APTT VBG pH VBG pCO2 VBG pO2 VBG HCO3 VBG O2 Saturation VBG Base Excess Anion Gap Estim Creat Clear Calc Estimated GFR Random Glucose Calcium Magnesium Total Bilirubin AST ALT Alkaline Phosphatase Ammonia 90 H B-Natriuretic Peptide Total Protein Albumin Amylase Lipase Beta-Hydroxybutyrate Ethyl Alcohol COVID-19 (MELINDA) COVID-19 Clin Com Influenza Type A (BETTIE) Invalid Influenza Type B (BETTIE) Invalid Influenza A & B Note See Note Imaging Radiologist's Impressions: Impressions Chest X-Ray 07/02/23 01:18 IMPRESSION: Low lung volumes. Diffusely increased interstitial markings may reflect interstitial edema versus atypical infectious process, overall slightly improved compared with prior chest radiograph from 06/20/2023 Assessment and Plan (1) Ascites: Qualifiers: Ascites type: due to alcoholic cirrhosis Qualified Code(s): K70.31 - Alcoholic cirrhosis of liver with ascites Status: Acute (2) Hyperkalemia: Status: Acute Plan Remberto Hawkins is a 58 years old man with past medical history significant for chronic liver disease/advanced liver cirrhosis with portal hypertension and presumed hepatocellular carcinoma admitted with: Worsening ascites secondary. Admit to hospitalist service. Continue furosemide and spironolactone. GI consult: family member is hoping for possible drainage placement. Chronic hypoxia. Continue supplemental oxygen. Mild hyperkalemia. Possible secondary to spironolactone. Will not hold spirolactone at this moment as the hyperK is minimal and patient will benefit from diuresis. Continue to monitor or potassium level, if continue to increase will hold spironolactone. Elevated ammonia level. Patient has no symptoms suggesting encephalopathy. Chronic systolic congestive heart failure, not decompensated.. Continue Lasix. Mild hyponatremia, corrected Na+ 133. Likely secondary to 3rd spacing. Continue to monitor. Type 2 diabetes mellitus. Continue Lantus and insulin sliding scale. Blood glucose monitoring monitoring before meals and bedtime. Elevated LFTs secondary to chronic liver disease. Continue to monitor. Thrombocytopenia secondary to liver disease. No obvious active bleeding noted. Continue to monitor. Multiple sclerosis. Follow up as an outpatient. VTE prophylaxis: SCDs only as pharmacological therapy is contraindicated due to thrombocytopenia. Code status: DNR and DNI. Patient will require hospitalization for at least 2 midnight due to worsening ascites which is causing the patient discomfort. Patient will benefit from gastroenterology evaluation to assess for possible drainage placement. Quality Stroke Does the patient have a stroke diagnosis?: No VTE Prior VTE?: No VTE Risk Level:: Medical - moderate - high VTE Device Contraindication: N/A - Device Ordered VTE Drug Contraindication: Treatment Not Tolerated
[2023-07-02] MEDS: Lactulose 20 GM/30 ML SOLUTION PO ×2 (04:31→09:11)
[2023-07-02 05:26] VITALS: BP 104/68; PULSE 93; RESP 16; TEMP 36.3; O2SAT 96
[2023-07-02] MEDS: oxyCODONE HCl Immed Release 5 MG TABLET PO ×3 (05:33→17:13)
--- NOTE | 2023-07-02 06:23 | MHC.EDTECH ---
Patient came in with a Epperosn,emptied 150MLS,hourly rounds and vitals completed.
[2023-07-02 07:00] LABS: Alanine Aminotransferase 223 U/L (0-40); Albumin Level 2.2 g/dL (3.5-5.0); Alkaline Phosphatase 427 U/L (39-117); Anion Gap 14 (12-20); Aspartate Amino Transferase 157 U/L (5-37); Bilirubin Total 9.2 mg/dL (0.0-1.0); Blood Urea Nitrogen 40 mg/dL (9-16); Calcium 8.4 mg/dL (8.4-10.2); Carbon Dioxide 31 mmol/L (22-29); Chloride 90 mmol/L (96-108); Estimated Glomerular Filt Rate > 60; Glucose Random 205 mg/dL (60-115); Potassium 5.2 mmol/L (3.3-5.1); Sodium 130 mmol/L (135-145); Total Protein 4.7 g/dL (6.5-8.0)
[2023-07-02] MEDS: 0.9 % Sodium Chloride Flush 3 ML SYRINGE IVFLUSH ×2 (07:31→13:36)
[2023-07-02] MEDS: Spironolactone 25 MG TABLET PO (07:31)
[2023-07-02] MEDS: Nystatin Powder 15 GM BOTTLE 1 APPL TOPICAL (07:31)
[2023-07-02 07:32] VITALS: BP 96/55; PULSE 106; RESP 20; O2SAT 95
[2023-07-02 07:38] LABS: Glucose, Whole Blood 233 mg/dL (60-115)
[2023-07-02] MEDS: Insulin Lispro 100 UNIT/ML 3 ML VIAL SUBCUT (07:57)
--- NOTE | 2023-07-02 08:16 | PC.NURSE ---
Patient/ requesting to speak with case management regarding getting new hospital equipment. Stating that they took patient off hospice so they took their equipment
--- NOTE | 2023-07-02 08:27 | PHA.MEDREC ---
Pharmacy Consult ? Medication Reconciliation Pharmacy has completed the medication reconciliation. Spoke to patient and confirmed medication list.
[2023-07-02] MEDS: Furosemide 40 MG TABLET PO ×2 (09:12→09:13)
--- NOTE | 2023-07-02 09:43 | PM.EVENT ---
Event Note Date of Service: 07/02/23 Event Note: Day hospitalist update S: no confusion c/o tense abd O: Temp Pulse Resp BP Pulse Ox O2 Del Method O2 Flow Rate 97.4 F 106 H 20 96/55 L 95 Room Air 3 07/02/23 05:26 07/02/23 07:32 07/02/23 07:32 07/02/23 07:32 07/02/23 07:32 07/02/23 07:32 07/02/23 05:26 Gen: in no acute distress HEENT: sclera icteric, moist mucus membranes Neck: supple Lungs: clear to auscultation bilaterally Heart: regular rate and rhythm, no murmurs Abd: tense, fluid wave Ext: 2+ bilateral leg edema Skin: warm/well-perfused Neuro: alert and oriented x3, no focal findings, no asterixis Psych: appropriate affect A/P: d1 58yo M with decompensated cirrhosis, presumed HCC who was sent home on hospice 06/28/23 but returns with refractory ascites, revoked hospice and wishes to be on palliative care refractory ascites - continue furosemide + spironolactone, GI consult re possibility of indwelling drainage catheter hepatic encephalopathy, hx - no current asterixis, continue lactulose, add rifaximin if needed hyperK - mild, recheck level in AM hypoNa - mild, likely baseline due to cirrhosis thrombocytopenia - chronic, due to cirrhosis chronic hypoxic resp failure - continue 3L O2 DM2 - basal-bolus insulin VTE ppx - SCDs dispo - eventual home with VNA In my clinical judgment, the patient requires continued inpatient hospitalization for the following reasons: ascites management Time Spent With Patient Time: Total time managing care of this patient today ____ minutes.
--- NOTE | 2023-07-02 10:46 | PC.NURSE ---
Report given to overflow
--- NOTE | 2023-07-02 10:52 | MHC.CM.PN ---
Addendum entered by Delma Rojas 07/02/23 11:43: CM RECEIVED A RETURN CALL FROM [facility] SHE SAYS THEY CANNOT PROVIDE PALLIATIVE SERVICES, REFERRAL MADE TO [facility] SHE ALSO REPORTS THE HOSPITAL BED RX SHOULD BE SENT TO EITHER [email or web address] OR [email or web address], THEIR CONTRACTED DME SUPPLIERS Addendum entered by Delma Rojas 07/02/23 11:05: CM SPOKE TO [facility], PT WILL NEED A RX FOR A HOSPITAL BED SENT TO A CONTRACTED VENDOR ALONG WITH CLINICALS TO SUPPORT NEED [facility] [employer]OM SUPERVISOR WILL FOLLOW UP ON RX, PT AND ARE AWARE HE WILL NOT HAVE THE BED AT DC [facility] WILL ALSO DETERMINE IF PT CAN BE MANAGED BY THEIR PALLIATIVE TEAM OR IF A REFERRAL SHOULD BE MADE. SHE WILL CALL BACK WITH THAT INFORMATION Original Note: CM MET WITH PT AND AT BEDSIDE THEY REPORT PT WAS ON HOSPICE FOR A COUPLE OF DAYS, BUT THEY DID NOT REALLY UNDERSTAND WHAT THEY SIGNED UP FOR THEY SAID SOON IT WAS CLEAR, THEY SIGNED OFF HOSPICE AND ALL OF PTS EQUIPMENT WAS REMOVED THEY REPORT THEY ARE INTERESTED IN PALLIATIVE CARE AND WOULD LIKE A HOSPITAL BED CM EXPLAINED PALLIATIVE DOES NOT PROVIDE EQUIPMENT HOWEVER THEIR [facility] CM SHOULD BE ABLE TO ASSIST PT AND SAY THEY HAVE NEVER SPOKEN TO THE [facility] CM AND DID NOT REALIZE THEY HAD ONE CM WILL PLACE A CALL TO [facility] TO INFORM THEM OF NEED FOR HOSPITAL BED AND CM INVOLVEMENT PT AND ALSO EXPLAIN HOSPICE SUGGESTED PT SHOULD HAVE A CONTINUOUS DRAIN AND THEY ARE HOPING HE CAN GET ONE WHILE HERE THEY ARE AWARE CM WILL PASS MESSAGE ON TO HOSPITALIST PT LIVES WITH HIS WHO PROVIDES HIS CARE PRN, HE ALSO HAS A DAILY FRAME RUNNER PT HAS HOME O2, A WHEEL CHAIR, A WALKER, A TUB BENCH AND DM SUPPLIES HE HAS A HCP ON FILE PCP: STAS WILKINS IMM DELIVERED DCP: HOME [facility]UME [facility] ? [facility] PALLI[facility]IVE C[facility] BLS TRANSPORT
--- NOTE | 2023-07-02 12:15 | PC.NURSE ---
Transported to [facility] by transport
[2023-07-02 13:25] VITALS: BP 119/73; PULSE 96; RESP 18; TEMP 36.1; O2SAT 97
--- NOTE | 2023-07-02 13:54 | PM.EVENT ---
Event Note Date of Service: 07/02/23 Event Note: An order was placed for a Pleurx catheter for management of ascites due to ESLD. Patient has been receiving multiple low volume paracentesis since . He was discharged to hospice last week, however, returns to [facility] requesting an indwelling catheter for his ascites, and to change to palliative care, rather than hospice. Patient seen in the ED with his and Dr. Yanez. Patient does not wish to receive hospice care at this time and wants to continue medical treatment. I discussed with the patient and his that the Pleurx is for symtomatic relief in patients who are transitioning to end of life care. He would be at risk for infection, malnutrition, dehydration, and subsequent renal failure. It is recommended that he receive scheduled paracenteses as an outpatient for symptom relief at this time. If the patient and his decide in the future to pursue hospice care, a pleurx catheter can be arranged. Jhonathan AYALA Interventional Radiology. Time Spent With Patient Time: Total time managing care of this patient today ____ minutes.
--- NOTE | 2023-07-02 14:36 | P.DS_ITS ---
DS: Providers Provider Date of Service: 07/02/23 Date of admission: 07/02/23 03:02 Date of discharge: 07/02/23 Primary care physician: Holley James MD Consults: 07/02/23 03:15 Consult to Gastroenterology Routine Consulting Provider: Nick Yanez Reason for consultation: Ascites Has provider been notified: No DS: Diagnosis Discharge Diagnosis (1) Ascites: Status: Acute (2) Liver cirrhosis: Status: Acute (3) Hyperkalemia: Status: Acute DS: Summary Hospital Course Hospital Course: from admission H+P by hospitalist Inder Penaloza MD, 07/01/23: Remberto Hawkins is a 58 years old man with past medical history significant for chronic liver disease/advanced liver cirrhosis with portal hypertension, multiple sclerosis, chronic oxygen use, type 2 diabetes on insulin, chronic systolic heart failure, presumed hepatocellular carcinoma presents to the hospital complaining of worsening abdominal distention and shortness of breath. He does have chronic abdominal pain and taking oxycodone for this. He did not report any confusion, nausea, no ulcer, edema or diarrhea. He does have some edema to lower extremities which is also a chronic issue. He denies ongoing alcohol abuse. Patient was discharged few days ago on hospice care. His who was at bedside contributed to HPI and hoping gets admitted to the hospital for palliative evaluation. also would like patient to be seen by gastroenterology service for possible drainage placement to multiple visits to the ED. Patient has been taking his medications as prescribed. Patient had not been able to follow-up at [facility] for presumed hepatocellular carcinoma and potential treatment options. In the ED, he was found to have normal bile signs. He is currently on 2 liters/minutes supplemental oxygen which is his baseline. Blood workup showed leukocytosis which is better than prior. Platelets level is 46. Hemoglobin is normal. INR is 1.4. Corrected sodium is 133. LFTs are elevated (increasing). Ammonia is elevated, 90. 58yo M with decompensated cirrhosis, presumed HCC who was sent home on hospice 06/28/23 but returned with refractory ascites; revoked hospice and wishes to be on palliative care. In-depth discussion with Interventional Radiology and Gastroenterology. An indwelling peritoneal catheter for symptomatic relief of ascites is only appropriate for patients who are transitioning to end-of-life care, i.e. hospice. He would be at high risk of infection, malnutrition, dehydration, and renal failure. As a safer alternative that is more appropriate in a patient on palliative care, scheduled outpatient paracenteses are recommended, and these can be arranged through his gastroenterologists' office. He was discharged home with [facility] services for palliative care. Potassium on discharge day was 5.6. He was 10g of Lokelma and spironolactone dose decreased from 50 to 25 mg daily. BMP should be repeated in 2 days and again in 1 week. Time Attestation Discharge coordination time: Greater than 30 minutes Quality: Safe Use of Opioids Does Pt have an Active Cancer Diagnosis on the Problem List?: No Quality: Stroke Does the patient have a stroke diagnosis?: No Physical Exam Vital Signs: Vital Signs: Last Vital Signs Temp 96.9 F 07/02/23 13:25 Pulse 96 07/02/23 13:25 Resp 18 07/02/23 13:25 BP 119/73 07/02/23 13:25 Pulse Ox 97 07/02/23 13:25 O2 Del Method Nasal Cannula 07/02/23 13:25 O2 Flow Rate 2 07/02/23 13:25 Oxygen Flow Rate 3 07/01/23 23:20 BMI result Body Mass Index 28.5 Gen: in no acute distress HEENT: sclera icteric, moist mucus membranes Neck: supple Lungs: clear to auscultation bilaterally Heart: regular rate and rhythm, no murmurs Abd: nontense, fluid wave Ext: 1+ bilateral leg edema Skin: warm/well-perfused Neuro: alert and oriented x3, no focal findings, no asterixis Psych: appropriate affect DS: Data Data Completed and Pending Completed studies during hospitalization [Text1]: Laboratory Results WBC 14.1 X10*3/uL (4.8-10.8) H 07/02/23 00:18 RBC 4.16 X10*6/uL (4.60-5.80) L 07/02/23 00:18 Hgb 14.6 g/dl (14.0-18.0) 07/02/23 00:18 Hct 41.3 % (42.0-52.0) L 07/02/23 00:18 MCV 99.3 fL (80.0-98.0) H 07/02/23 00:18 MCH 35.1 pg (27.0-33.0) H 07/02/23 00:18 MCHC 35.4 g/dl (31.0-36.0) 07/02/23 00:18 RDW 17.7 % (11.0-16.0) H 07/02/23 00:18 Plt Count 46 X10*3/uL (160-400) L 07/02/23 00:18 MPV 12.3 fL (9.4-12.4) 07/02/23 00:18 Immature Gran % (Auto) 0.9 % (0.0-0.4) H 07/02/23 00:18 Neut % (Auto) 82.2 % (45-73) H 07/02/23 00:18 Lymph % (Auto) 3.9 % (20-40) L 07/02/23 00:18 Laurel % (Auto) 10.8 % (2-11) 07/02/23 00:18 Eos % (Auto) 2.1 % (0-4) 07/02/23 00:18 Baso % (Auto) 0.1 % (0-2) 07/02/23 00:18 Lymph # (Auto) 0.6 X10*3/uL (1.2-4.9) L 07/02/23 00:18 Laurel # (Auto) 1.5 X10*3/uL (0.1-1.2) H 07/02/23 00:18 Eos # (Auto) 0.3 X10*3/uL (0.0-0.4) 07/02/23 00:18 Baso # (Auto) 0.0 X10*3/uL (0.0-0.2) 07/02/23 00:18 Abs Immat Gran (auto) 0.13 X10*3/uL (0.00-0.03) H 07/02/23 00:18 Absolute Neuts (auto) 11.6 x10*3/uL (2.0-8.3) H 07/02/23 00:18 Absolute Nucleated RBC 0.000 X10*3/uL (0.0-0.012) 07/02/23 00:18 Nucleated RBC % (auto) 0.0 /100WBC (0.0-0.2) 07/02/23 00:18 Hold Purple Top SEE NOTE 07/02/23 00:28 PT 17.2 SEC (11.1-13.3) H 07/02/23 00:28 INR 1.4 (0.9-1.1) H 07/02/23 00:28 APTT 35.2 SEC (26.0-36.4) D 07/02/23 00:28 VBG pH 7.54 (7.32-7.43) H 07/02/23 00:33 VBG pCO2 35 mmHg 07/02/23 00:33 VBG pO2 99 mmHg 07/02/23 00:33 VBG HCO3 31 mmol/L (22-26) H 07/02/23 00:33 VBG O2 Saturation 99.0 % 07/02/23 00:33 VBG Base Excess 8.4 mmol/L 07/02/23 00:33 Sodium 130 mmol/L (135-145) L 07/02/23 05:43 Potassium 5.2 mmol/L (3.3-5.1) H 07/02/23 05:43 Chloride 90 mmol/L (96-108) L 07/02/23 05:43 Carbon Dioxide 31 mmol/L (22-29) H 07/02/23 05:43 Anion Gap 14 (12-20) 07/02/23 05:43 BUN 40 mg/dL (9-16) H 07/02/23 05:43 Creatinine 0.72 mg/dL (0.5-1.4) 07/02/23 05:43 Estim Creat Clear Calc 114.0 07/02/23 05:43 Estimated GFR > 60 07/02/23 05:43 POC Glucose 233 mg/dL (60-115) H 07/02/23 07:29 Random Glucose 205 mg/dL (60-115) H 07/02/23 05:43 Calcium 8.4 mg/dL (8.4-10.2) 07/02/23 05:43 Magnesium 2.0 mg/dL (1.6-2.6) 07/02/23 00:18 Total Bilirubin 9.2 mg/dL (0.0-1.0) H 07/02/23 05:43 AST 157 U/L (5-37) H 07/02/23 05:43 ALT 223 U/L (0-40) H 07/02/23 05:43 Alkaline Phosphatase 427 U/L (39-117) H 07/02/23 05:43 Ammonia 90 umol/L (13-55) H 07/02/23 01:53 Troponin I High Sens 13.7 ng/L (<3.5-35.0) D 07/02/23 00:18 B-Natriuretic Peptide 84 pg/mL (<100) 07/02/23 00:28 Total Protein 4.7 g/dL (6.5-8.0) L 07/02/23 05:43 Albumin 2.2 g/dL (3.5-5.0) L 07/02/23 05:43 Amylase 61 U/L (28-100) 07/02/23 00:18 Lipase 43 U/L (8-78) 07/02/23 00:18 Beta-Hydroxybutyrate 0.06 mmol/L (0.02-0.27) 07/02/23 00:18 Ethyl Alcohol < 10 mg/dL 07/02/23 00:18 COVID-19 (MELINDA) Negative (Negative) 07/02/23 00:28 COVID-19 Clin Com See Note 07/02/23 00:28 Influenza Type A (BETTIE) Invalid (Negative) 07/02/23 02:07 Influenza Type B (BETTIE) Invalid (Negative) 07/02/23 02:07 Influenza A & B Note See Note 07/02/23 02:07 Impressions Chest X-Ray 07/02/23 01:18 IMPRESSION: Low lung volumes. Diffusely increased interstitial markings may reflect interstitial edema versus atypical infectious process, overall slightly improved compared with prior chest radiograph from 06/20/2023 Labs on day of discharge: Discharge Plan Discharge Anticipated Discharge Date/Time: 07/02/23 14:33 Patient Disposition: Home Health Service Discharge Diagnosis: ascites, decompensated cirrhosis, likely hepatocellular carcinoma, hyperkalemia Referrals: [facility] [Outside] - 1 Day (-Aguirre JUANITAA will call you to schedule a time to start your palliative services. -[phone] They will deliver the bed sometime next week.) Holley James MD [Primary Care Provider] - 1 Week Nick Yanez MD [Physician] - 2 Weeks Discharge Medications: New furosemide 40 mg Tablet 40 mg PO DAILY Qty: 30 0RF Protocol: Hold for SBP< HOLD for SBP < : 90 (DME) hospital bed Kit See Rx Instructions .Route Qty: 1 0RF Rx Instructions: As directed spironolactone 25 mg Tablet 25 mg PO DAILY Qty: 30 0RF Protocol: Hold for SBP< HOLD for SBP < : 90 Continued nystatin 100,000 unit/gram Powder 1 appl topical BID Qty: 30 0RF Protocol: Apply to: Apply to: afected skin area twice daily lactulose 20 gram/30 mL Solution 20 g PO Q6H Qty: 2880 0RF insulin glargine [Lantus Solostar U-100 Insulin] 100 unit/mL (3 mL) insulin pen 55 unit subcut BEDTIME Qty: 15 0RF oxycodone 5 mg tablet 5 mg PO Q4H PRN (Reason: pain (scale score 7-10)) Qty: 30 0RF Rx Instructions: Partial Fill upon patient request. (DME) FreeStyle Lite Strips Strip Qty: 100 0RF Rx Instructions: Test four times a day or as directed. (DME) blood-glucose meter [FreeStyle Lite Meter] Kit Qty: 1 0RF Rx Instructions: As Directed 4 times a day (DME) lancets [FreeStyle Lancets] 28 gauge misc Qty: 100 0RF Rx Instructions: Test four times a day or as directed. fluticasone propionate 50 mcg/actuation spray,suspension 1 spray intranasal DAILY PRN (Reason: Congestion) insulin aspart U-100 [Novolog FlexPen U-100 Insulin] 100 unit/mL (3 mL) insulin pen See Protocol subcut TIDWM Protocol: Insulin Correction Scale Less than or equal to 110 ---- Give (units): 0 111 to 150 Give (units): 0 151 to 200 Give (units): 2 201 to 250 Give (units): 4 251 to 300 Give (units): 6 301 to 350 Give (units): 8 Greater than 350 Give (units): 10 Call MD if Blood Glucose > : 350 Rx Instructions: 10-12 units tid with meals per sliding scale albuterol sulfate 90 mcg/actuation HFA aerosol inhaler 90 mcg inhalation Q4H PRN (Reason: Shortness Of Breath Or Wheezing) Discontinued spironolactone 50 mg tablet 50 mg PO DAILY Discharge Orders: Discharge Order (Routine); Ordered 07/02/23 Ordered By: Nidhi Gilmore Diet: Low salt diet Activity on Discharge: As tolerated Stand Alone Forms: Patient Portal Discharge page Other Ambulatory Orders: Basic Metabolic Panel (Routine) Timeframe: 1 Week Facility: [facility] - Location: Laboratory Ordered By: Nidhi Gilmore Basic Metabolic Panel (Routine) Timeframe: 2 Days Facility: [facility] - Location: Laboratory Ordered By: Nidhi Gilmore Care Plan Goals: palliative care for cirrhosis/likely HCC Health Concerns: ascites, decompensated cirrhosis, likely hepatocellular carcinoma Plan of Treatment: At patient request, discontinue hospice and refer to palliative care. Continue diuretics- spironolactone plus furosemide. Decrease spironolactone to 25 mg daily. Limit sodium to 1500 mg/d Recheck labs [BMP] in 2 days and then in 1 week Follow up with primary care doctor in 1 week and gastroenterology in 1-2 weeks Can arrange outpatient paracentesis through gastroenterology Assessment: See Discharge Summary.
[2023-07-02 15:19] VITALS: BP 128/73; PULSE 95; RESP 16; TEMP 36.4; O2SAT 96
--- NOTE | 2023-07-02 15:56 | MHC.CM.PN ---
Per MD patient is medically cleared for dc home with palliative services through [facility]. Patient requesting hospital bed. Rx faxed to [facility] per [facility], to be delivered early next week. BLS transport booked for 5:30pm - [facility] auth obtained, booking ID [id number].
[2023-07-02 16:22] LABS: Anion Gap 13 (12-20); Blood Urea Nitrogen 41 mg/dL (9-16); Calcium 8.3 mg/dL (8.4-10.2); Carbon Dioxide 33 mmol/L (22-29); Chloride 89 mmol/L (96-108); Creatinine Clr Calc Pharmacy 93.2; Estimated Glomerular Filt Rate > 60; Glucose Random 295 mg/dL (60-115); Potassium 5.6 mmol/L (3.3-5.1); Sodium 129 mmol/L (135-145)
[2023-07-02] MEDS: Sodium Zirconium Cyclosilicate 10 GM POWD.PACK PO (17:08)
--- NOTE | 2023-07-03 09:06 | CONS_ITS ---
DATE OF SERVICE: 07/02/2023 REASON FOR CONSULTATION: Cirrhosis and ascites. HISTORY OF PRESENT ILLNESS: This has been obtained from the patient, his , and the medical record. The patient is a 58-year-old male, well known to me, with an underlying history of alcohol-induced cirrhosis with associated ascites. Previous workup including a MRI of the abdomen described 3 suspicious lesions in the liver, consistent with probable hepatocellular carcinoma. His main issue has been some underlying pulmonary disease, multiple sclerosis, and his cirrhosis. He had been hospitalized just last week and developed significant hepatic encephalopathy. At that point, given his significant lung disease and liver disease, as well as decline in mental status, the plan had been to send him home with hospice. He did actually go home, but then as his mental status improved with treatment of the encephalopathy he decided not to be on hospice. He was admitted again for evaluation of his ascites. He does describe some abdominal distention and fullness, but no significant abdominal pain. There has been no vomiting. He has been able to eat fairly well. He has been able to lie flat in bed without any shortness of breath. There have been no fevers. All of his previous paracenteses have been negative for spontaneous bacterial peritonitis and negative for cytology. His present medications were all reviewed in the medical record. PAST MEDICAL HISTORY: Advanced cirrhosis in relation to alcohol use with associated ascites and hepatic encephalopathy. His last use of alcohol was in April of 2023. Probable hepatocellular carcinoma seen on MRI in April of 2023. Asthma. Diabetes. Pneumonia. There is no history of MT, stroke, nor kidney disease. He has had surgery on his right hip for a fracture. FAMILY HISTORY: Noncontributory. SOCIAL HISTORY: He has been a smoker. He is . Alcohol abuse, but with sobriety for about almost 2 months now. PHYSICAL EXAMINATION: GENERAL: The patient is alert and appears comfortable, lying almost completely flat in bed. SKIN: Warm and dry. HEENT: Icteric sclerae. NECK: Supple. CARDIAC: Normal S1, S2. ABDOMEN: Soft. He does have some bulging flanks, but the abdomen is not tense. There is no focal tenderness nor mass. EXTREMITIES: Reveal some mild pedal and pretibial edema. NEUROLOGIC: He is alert and appropriate. LABORATORY DATA: Sodium 129, potassium 5.6, chloride 89, CO2 of 33, BUN 41, creatinine 0.9. Total bilirubin 9.2. AST 157, ALT 223, alkaline phosphatase 427, albumin 2.2. White blood cell count 14.1, hemoglobin 14.6, platelets 46,000. PT 17.2 with INR 1.4. His chest x-ray described low lung volumes with diffusely increased interstitial markings, which appeared to be somewhat improved, compared to June 20. IMPRESSION: The patient is a 58-year-old male with advanced liver disease in relation to alcohol abuse with complications including ascites, hepatic encephalopathy, jaundice, coagulopathy, and thrombocytopenia. In regard to his ascites, this does not seem to be overly symptomatic at the present time, and he has no clinical signs of spontaneous bacterial peritonitis. I would continue diuretics as tolerated, but I do note his elevated potassium and BUN. The diuretics may need to be adjusted, or stopped altogether, depending on the course of his renal function and electrolytes. He may need periodic paracenteses to remain comfortable. He has been seen by Interventional Radiology and they have advised us that he is not a candidate for an indwelling peritoneal catheter in regard to the ascites as he is not a hospice patient. Apparently,that is their protocol and they will not put 1 of those catheters in if the patient is not a hospice patient. At this point, I do not think he would be a good candidate for a TIPS procedure in regard to his ascites due to his recent history of encephalopathy. At this point, I would otherwise continue supportive measures with treatment for his encephalopathy on a long-term basis to hopefully prevent a relapse of that. I would continue a PPI for prophylaxis given his coagulopathy and thrombocytopenia, and increased risk of bleeding. I would try to avoid any increased salt intake in regard to the ascites. I did review all this in detail with the patient and his . I did advise them that if he develops significant ascites at home, which becomes symptomatic in regard to breathing, difficulty eating, or difficulty lying in bed; then they should contact us and we could try to arrange for an outpatient paracentesis. However, if the ascites is just mild, then we could simply observe things in that regard. Again, his diuretics may need adjustment as an outpatient or may need to be stopped altogether depending upon his renal function. Of note, the patient was going to be seen at [facility] in [place], for evaluation of the possible hepatocellular carcinoma, but we may put that on hold for the time being. As I have explained to him and his , he is not a candidate for liver transplant due to his underlying lung disease, multiple sclerosis, and the fact that he has only been off alcohol for about 2 months now. Thank you for the consultation. MD JANNET Suarez/KALIN / [id number] MTDAlise
== END 2023-07-02 17:55 | disposition home health service (06) | DRG 433 ==
LOC: HO.ED 07-02 00:29 → HO.EDOVER 07-02 03:12 → HO.S3 07-02 12:29
PROVIDERS: Physician Assistant Medical; Admitting Provider Internal Medicine; Emergency Provider Internal Medicine; PCP General Practice; Visit Provider Family Medicine
DX: K70.31 Alcoholic cirrhosis of liver with ascites (principal); C22.0 Liver cell carcinoma; I50.22 Chronic systolic (congestive) heart failure; E87.1 Hypo-osmolality and hyponatremia; J96.11 Chronic respiratory failure with hypoxia; K72.10 Chronic hepatic failure without coma; Z66 Do not resuscitate; G35 Multiple sclerosis; E11.9 Type 2 diabetes mellitus without complications; J45.909 Unspecified asthma, uncomplicated; D69.59 Other secondary thrombocytopenia; E87.5 Hyperkalemia; Z20.822 Contact with and (suspected) exposure to COVID-19; Z91.199 Patient's noncompliance with other medical treatment and regimen due to unspecified reason; Z99.81 Dependence on supplemental oxygen; Z87.891 Personal history of nicotine dependence; Z79.4 Long term (current) use of insulin; Z79.899 Other long term (current) drug therapy
CPT/HCPCS: 36415; 71046; 80048; 80053; 80307; 82010; 82140; 82150; 82803; 82947; 83690; 83735; 83880; 84484; 85025; 85610; 85730; 87502; 87635; 99221; 99285

== ENCOUNTER → 2023-07-02 03:02 | Outpatient (BNV) | payer OTHER, SELFPAY | PROVIDERS: Admitting Provider Internal Medicine; Emergency Provider Internal Medicine; PCP General Practice; Visit Provider Internal Medicine | DX: K70.31 Alcoholic cirrhosis of liver with ascites (principal); E87.5 Hyperkalemia; Z51.5 Encounter for palliative care | CPT/HCPCS: 99236; 99499 ==

== ENCOUNTER 2023-07-04 12:46 | Outpatient (REF) | payer OTHER, SELFPAY ==
[2023-07-04 13:39] LABS: Anion Gap 14 (12-20); Blood Urea Nitrogen 52 mg/dL (9-16); Calcium 8.3 mg/dL (8.4-10.2); Carbon Dioxide 28 mmol/L (22-29); Chloride 89 mmol/L (96-108); Estimated Glomerular Filt Rate > 60; Glucose Random 288 mg/dL (60-115); Potassium 6.1 mmol/L (3.3-5.1); Sodium 125 mmol/L (135-145)
== END 2023-07-04 12:47 | disposition home or self-care (01) ==
LOC: HO.HVNA 12:46
PROVIDERS: Visit Provider General Practice
DX: K74.60 Unspecified cirrhosis of liver (principal)
CPT/HCPCS: 36415; 80048

== ENCOUNTER 2023-07-05 12:08 | Outpatient (REF) | payer OTHER, SELFPAY ==
[2023-07-05 12:39] LABS: Anion Gap 15 (12-20); Blood Urea Nitrogen 61 mg/dL (9-16); Calcium 8.8 mg/dL (8.4-10.2); Carbon Dioxide 30 mmol/L (22-29); Chloride 88 mmol/L (96-108); Estimated Glomerular Filt Rate > 60; Glucose Random 239 mg/dL (60-115); Potassium 5.9 mmol/L (3.3-5.1); Sodium 127 mmol/L (135-145)
== END 2023-07-05 12:09 | disposition home or self-care (01) ==
LOC: HO.HVNA 12:08
PROVIDERS: Visit Provider General Practice
DX: K74.60 Unspecified cirrhosis of liver (principal)
CPT/HCPCS: 36415; 80048

== ENCOUNTER 2023-07-07 13:27 | Outpatient (REF) | payer OTHER, SELFPAY ==
[2023-07-07 14:24] LABS: Anion Gap 10 (12-20); Blood Urea Nitrogen 50 mg/dL (9-16); Calcium 8.5 mg/dL (8.4-10.2); Carbon Dioxide 36 mmol/L (22-29); Chloride 88 mmol/L (96-108); Estimated Glomerular Filt Rate > 60; Glucose Random 72 mg/dL (60-115); Potassium 5.4 mmol/L (3.3-5.1); Sodium 129 mmol/L (135-145)
== END 2023-07-07 13:28 | disposition home or self-care (01) ==
LOC: HO.HVNA 13:27
PROVIDERS: Visit Provider General Practice
DX: K74.60 Unspecified cirrhosis of liver (principal)
CPT/HCPCS: 36415; 80048

== ENCOUNTER 2023-07-13 13:53 | Emergency (ER) | payer OTHER, SELFPAY ==
--- NOTE | ~2023-07-13 | CT_ITS ---
EXAMINATION: CT ABDOMEN AND PELVIS WITHOUT CONTRAST CLINICAL INFORMATION: Ascites COMPARISON: CT abdomen pelvis June 24, 2023 TECHNIQUE: Multidetector volumetric imaging was performed from the superior aspect of the liver through the pubic symphysis. Sagittal and coronal reformatted images were obtained on the technologist's workstation. This CT examination was performed using dose optimization techniques as appropriate, variously including the following: *Automated exposure control *Adjustment of mA and/or kV according to patient size (this includes techniques or standardized protocols for targeted exams where dose is matched to indication/reason for exam; i.e. extremities or head) *Use of iterative reconstruction technique DLP: 814 mGy-cm FINDINGS: LUNG BASES: Small dependent right pleural effusion. LIVER, GALLBLADDER, AND BILIARY TREE: Cirrhotic liver morphology. Right lower liver measures 12 cm superior-inferior. No focal liver lesion or intrahepatic bile duct dilatation. 3 mm calcified gallstone at the neck of the gallbladder. PANCREAS: Unremarkable. SPLEEN: Unremarkable. ADRENAL GLANDS: Unremarkable. KIDNEYS AND URETERS: The kidneys are normal in size, shape, and attenuation. No hydronephrosis, hydroureter, or calculi seen. No perinephric stranding. BLADDER: Bladder is empty by a Epperson catheter. GASTROINTESTINAL TRACT: The small and large bowel are unremarkable. Moderate volume of stool in colon. The appendix is nonvisualized. Peritoneal cavity: There is a large volume of abdominal ascites. ABDOMINAL WALL: Generalized anasarca. LYMPH NODES: Normal. VASCULAR: Unremarkable. PELVIC VISCERA: Unremarkable OSSEOUS STRUCTURES: Internal fixation right hip. Degenerative spondylosis spine. No acute abnormality. CT/CT abdomen pelvis wo IV con IMPRESSION: 1. Cirrhotic liver. 2. Large volume of abdominal ascites. 3. Cholelithiasis. 4. Small dependent right pleural effusion. Fleischner guidelines were followed.
--- NOTE | ~2023-07-13 | US_ITS ---
ULTRASOUND GUIDED PARACENTESIS HISTORY: Ascites. Risks and benefits and possible complications were discussed with the patient and consent form was signed. A safe pocket of ascitic fluid was identified left lower quadrant using ultrasound guidance, and the overlying skin was marked, prepped and draped in sterile fashion. 1% lidocaine was used as a local anesthetic. Using ultrasound guidance, a 5 fr catheter was placed into the ascitic pocket. 5.0 liters of yellow fluid was removed passively. The catheter was then removed. A few automotive sales representative images from before and after the examination were obtained. The procedure was performed by Jhonathan Ng PA-C and supervised by Dr. Chappell. US/US paracentesis abd w/image IMPRESSION: Ultrasound-guided paracentesis as described above. No immediate complications
[2023-07-13 14:10] VITALS: BP 105/63; BP 124/72; PULSE 78; PULSE 84; RESP 16; TEMP 36.4; O2SAT 98; O2SAT 99; BMI 32.2
--- NOTE | 2023-07-13 14:15 | PC.NURSE ---
a&ox4. vss and up to date. nsr on the monitoring manager. pt presents to the ED from home d/t increase in abdominal discomfort/nausea for the past few days. pt has a hx of ascites. abdomen presents as distended/tender to the touch. pt's generalized appearance is jaundice in nature. yellowing noted to the sclera bilaterally. pt c/o 10/10 abd pain at this time. pt wears 2-4L via NC baseline d/t hx of COPD. pt currently resting at 2L via NC at this time. no sob/wob noted. respirations even and unlabored. pt positioned to comfort. pt waiting to be seen by ED provider at this time. bedside for support. call marcus placed within reach.
--- NOTE | 2023-07-13 14:29 | ED.ABDPAIN ---
HPI - Abdominal Pain General Chief Complaint: Abdominal Pain Stated Complaint: ABD DISTENTION Time Seen by Provider: 07/13/23 14:27 Source: patient, family and EMS Mode of arrival: EMS History of Present Illness HPI narrative: This is a 58 years old male with end-stage liver disease and ascites history also of interstitial lung disease on home oxygen presented to the emergency room complaining of abdominal pain and increasing ascites. He denies any fever chills. MD elicited complaint: abdominal pain Pertinent past history: other (endstage liver disease) Onset (ago): day(s) (2) Severity: moderate Related Data Home Medications Medication Instructions Recorded Confirmed albuterol sulfate 90 mcg/actuation 90 mcg inhalation Q4H PRN 04/09/22 07/02/23 aerosol inhaler Shortness Of Breath Or Wheezing insulin aspart U-100 100 unit/mL See Protocol subcut TIDWM 04/09/22 07/02/23 (3 mL) subcutaneous pen (Novolog FlexPen U-100 Insulin aspart) fluticasone propionate 50 1 spray intranasal DAILY PRN 05/19/23 07/02/23 mcg/actuation nasal Congestion spray,suspension Previous Rx's Medication Instructions Recorded blood sugar diagnostic (FreeStyle #100 ea 06/28/23 Lite Strips) blood-glucose meter (FreeStyle #1 ea 06/28/23 Lite Meter kit) insulin glargine 100 unit/mL (3 55 unit (0.55 mL) subcut BEDTIME 06/28/23 mL) subcutaneous pen (Lantus #15 mL Solostar U-100 Insulin) lactulose 20 gram/30 mL oral 20 g (30 mL) PO Q6H #2,880 mL 06/28/23 solution lancets 28 gauge (FreeStyle #100 ea 06/28/23 Lancets) nystatin 100,000 unit/gram topical 1 appl topical BID #30 grams 06/28/23 powder oxycodone 5 mg tablet 5 mg PO Q4H PRN pain (scale score 06/28/23 7-10) #30 tabs furosemide 40 mg tablet 40 mg PO DAILY #30 tabs 07/02/23 hospital bed #1 ea 07/02/23 spironolactone 25 mg tablet 25 mg PO DAILY #30 tabs 07/02/23 Allergies Allergy/AdvReac Type Severity Reaction Status Date / Time No Known Allergies Allergy Mild NONE Verified 07/13/23 14:09 Review of Systems Constitutional: Reports no additional constitutional complaints Eyes: Reports no additional eye complaints PMFSH Past Medical History Onset Date is defined in the Problem List Problems that require an onset date and time if occurred within 24 hrs of arrival to the ED Aortic Dissection and Rupture; Neurologic impairment; Cardiopulmonary Arrest; Endotracheal Intubation; Insertion or Replacement of Mechanical Circulatory Assist Device Medical History ILD (interstitial lung disease) Hepatopulmonary syndrome Respiratory insufficiency Multifocal pneumonia EtOH dependence Liver cirrhosis Diabetes mellitus Multiple sclerosis Surgical History History of hip surgery Family History Family History Mother Diabetes Father HTN (hypertension) Social History Social History Household Members: Family Housing: House Do you presently have visiting nurse or other home services: No Alcohol intake: former Comment: refuses bed alarm- at bedside. Patient Tobacco Use Status: Former Tobacco user Cigarettes Per Day: 1.9 Smoked in Last 30 Days: No Second Hand Smoke Exposure: No Use of substances other than those prescribed or required for medical reasons: No Advance Directives: Yes Advance Directives on File: Yes Advance Directives Date on File: 03/11/23 service: No Physical Exam ED Vital Signs: Vital Signs - 24 hr 07/13/23 14:10 Temperature 97.6 F Pulse Rate 78 Respiratory Rate 16 Blood Pressure 105/63 Pulse Oximetry 99 Oxygen Delivery Method Room Air BMI result Body Mass Index 32.2 Const General: cooperative and alert Nutritional Appearance: well nourished Orientation/consciousness: patient oriented x3 HENIL Head: Yes normal to inspection General nose exam: Normal external nose present Face and sinus: Yes normal facial exam Mouth: Normal oral and palatal mucosa present Neck Neck: Yes normal visual inspection Resp Effort & Inspection: normal respiratory effort Cardio Rate: regular rate Rhythm: regular rhythm GI Other: ascites present Palpation (GI): Soft to palpation Skin General skin exam: no rashes or lesions noted Lesions: no lesions Rashes: no rashes Neuro General: patient oriented x3 Course Reevaluation(s) Reevaluation #1: At this point we waiting for a CT scan of the abdomen and pelvis, patient will be signed out to the incoming provider Dr Dunne Time: 16:09 Medical Decision Making Medical Decision Making [facility] Narrative: Patient presented with increased abdominal pain he has history of end-stage liver disease, he has history of chronic ascites creatinine is a little be worse 1.8 usually is normal BUN is 87 which is higher than before he has some chronic hyponatremia we are waiting for the scan Differential Diagnosis Differential Diagnoses: The differential diagnosis associated with the presentation includes Admission/Observation Consideration of admission/observation: Escalation of care including admission/observation considered Lab Data [facility] Lab Attestation statement: I reviewed the patient's lab results. 07/13/23 14:52 07/13/23 14:52 Labs: Lab Results 07/13/23 Range/Units 14:52 WBC 12.9 H (4.8-10.8) X10*3/uL RBC 4.05 L (4.60-5.80) X10*6/uL Hgb 14.1 (14.0-18.0) g/dl Hct 38.2 L (42.0-52.0) % MCV 94.3 (80.0-98.0) fL MCH 34.8 H (27.0-33.0) pg MCHC 36.9 H (31.0-36.0) g/dl RDW 18.6 H (11.0-16.0) % Plt Count 68 L D (160-400) X10*3/uL MPV 11.4 (9.4-12.4) fL Immature Gran % (Auto) Cancelled Neut % (Auto) Cancelled Lymph % (Auto) Cancelled [place] % (Auto) Cancelled Eos % (Auto) Cancelled Baso % (Auto) Cancelled Lymph # (Auto) Cancelled [place] # (Auto) Cancelled Eos # (Auto) Cancelled Baso # (Auto) Cancelled Abs Immat Gran (auto) Cancelled Absolute Neuts (auto) Cancelled Absolute Nucleated RBC 0.040 H (0.0-0.012) X10*3/uL Nucleated RBC % (auto) 0.3 H (0.0-0.2) /100WBC Neutrophils % (Manual) 67 (45-73) % Band Neutrophils % 2 L (3-5) % Lymphocytes % (Manual) 8 L (20-40) % Atypical Lymphs % (Man) 1 (0-6) % Monocytes % (Manual) 20 H (2-11) % Eosinophils % (Manual) 2 (0-4) % Abs Neuts (Manual) 8.9 H (2.0-8.3) X10*3/uL Lymphocytes # (Manual) 1.0 L (1.2-4.9) X10*3/uL Atyp Lymphs # (Manual) 0.1 x10*3/uL Monocytes # (Manual) 2.6 H (0.1-1.2) X10*3/uL Eosinophils # (Manual) 0.3 (0.0-0.4) X10*3/uL Toxic Granulation PRESENT Platelet Estimate DECREASED (NORMAL) Plt Morphology Comment NORMAL RBC Morphology NOTED Kimball Cells 3+ (>5) /OIF PT 18.4 H (11.1-13.3) SEC INR 1.5 H (0.9-1.1) APTT 46.5 H D (26.0-36.4) SEC Sodium 127 L (135-145) mmol/L Potassium 5.8 H (3.3-5.1) mmol/L Chloride 86 L (96-108) mmol/L Carbon Dioxide 32 H (22-29) mmol/L Anion Gap 15 (12-20) BUN 87 H (9-16) mg/dL Creatinine 1.81 H (0.5-1.4) mg/dL Estim Creat Clear Calc 46.4 Estimated GFR 39 Random Glucose 155 H (60-115) mg/dL Calcium 8.4 (8.4-10.2) mg/dL Total Bilirubin 15.1 H (0.0-1.0) mg/dL AST 362 H (5-37) U/L ALT 337 H (0-40) U/L Alkaline Phosphatase 572 H (39-117) U/L Total Protein 4.2 L (6.5-8.0) g/dL Albumin 1.9 L (3.5-5.0) g/dL Discharge Plan Discharge Clinical Impression: End stage liver disease, ALBERT (acute kidney injury) Patient Disposition: Still a Patient Prescriptions: No Action nystatin 100,000 unit/gram Powder 1 appl topical BID Qty: 30 0RF Protocol: Apply to: Apply to: afected skin area twice daily lactulose 20 gram/30 mL Solution 20 g PO Q6H Qty: 2880 0RF insulin glargine [Lantus Solostar U-100 Insulin] 100 unit/mL (3 mL) insulin pen 55 unit subcut BEDTIME Qty: 15 0RF oxycodone 5 mg tablet 5 mg PO Q4H PRN (Reason: pain (scale score 7-10)) Qty: 30 0RF Rx Instructions: Partial Fill upon patient request. (DME) FreeStyle Lite Strips Strip Qty: 100 0RF Rx Instructions: Test four times a day or as directed. (DME) blood-glucose meter [FreeStyle Lite Meter] Kit Qty: 1 0RF Rx Instructions: As Directed 4 times a day (DME) lancets [FreeStyle Lancets] 28 gauge misc Qty: 100 0RF Rx Instructions: Test four times a day or as directed. furosemide 40 mg Tablet 40 mg PO DAILY Qty: 30 0RF Protocol: Hold for SBP< HOLD for SBP < : 90 (DME) hospital bed Kit See Rx Instructions .Route Qty: 1 0RF Rx Instructions: As directed spironolactone 25 mg Tablet 25 mg PO DAILY Qty: 30 0RF Protocol: Hold for SBP< HOLD for SBP < : 90 fluticasone propionate 50 mcg/actuation spray,suspension 1 spray intranasal DAILY PRN (Reason: Congestion) insulin aspart U-100 [Novolog FlexPen U-100 Insulin] 100 unit/mL (3 mL) insulin pen See Protocol subcut TIDWM Protocol: Insulin Correction Scale Less than or equal to 110 ---- Give (units): 0 111 to 150 Give (units): 0 151 to 200 Give (units): 2 201 to 250 Give (units): 4 251 to 300 Give (units): 6 301 to 350 Give (units): 8 Greater than 350 Give (units): 10 Call MD if Blood Glucose > : 350 Rx Instructions: 10-12 units tid with meals per sliding scale albuterol sulfate 90 mcg/actuation HFA aerosol inhaler 90 mcg inhalation Q4H PRN (Reason: Shortness Of Breath Or Wheezing)
--- NOTE | 2023-07-13 14:33 | PC.NURSE ---
ED provider bedside assessing pt's abdomen via ultrasound at this time.
[2023-07-13 15:07] LABS: INTERNATIONAL NORM RATIO 1.5 (0.9-1.1); Prothrombin Time 18.4 SEC (11.1-13.3)
[2023-07-13 15:10] LABS: Partial Thromboplastin Time 46.5 SEC (26.0-36.4)
[2023-07-13 15:11] LABS: Alanine Aminotransferase 337 U/L (0-40); Albumin Level 1.9 g/dL (3.5-5.0); Alkaline Phosphatase 572 U/L (39-117); Anion Gap 15 (12-20); Aspartate Amino Transferase 362 U/L (5-37); Bilirubin Total 15.1 mg/dL (0.0-1.0); Blood Urea Nitrogen 87 mg/dL (9-16); Calcium 8.4 mg/dL (8.4-10.2); Carbon Dioxide 32 mmol/L (22-29); Chloride 86 mmol/L (96-108); Creatinine Clr Calc Pharmacy 46.4; Estimated Glomerular Filt Rate 39; Glucose Random 155 mg/dL (60-115); Potassium 5.8 mmol/L (3.3-5.1); Sodium 127 mmol/L (135-145); Total Protein 4.2 g/dL (6.5-8.0)
[2023-07-13 15:12] LABS: Hematocrit 38.2 % (42.0-52.0); Hemoglobin 14.1 g/dl (14.0-18.0); Mean Corpuscular HGB Conc 36.9 g/dl (31.0-36.0); Mean Corpuscular Hemoglobin 34.8 pg (27.0-33.0); Mean Corpuscular Volume 94.3 fL (80.0-98.0); Mean Platelet Volume 11.4 fL (9.4-12.4); NRBC Pct Auto 0.3 /100WBC (0.0-0.2); Red Blood Count 4.05 X10*6/uL (4.60-5.80); Red Cell Distribution Width 18.6 % (11.0-16.0); White Blood Count 12.9 X10*3/uL (4.8-10.8)
[2023-07-13 15:21] LABS: Platelet Count 68 X10*3/uL (160-400)
[2023-07-13 15:40] LABS: Atypical Lymph Absolute Manual 0.1 x10*3/uL; Atypical Lymphs Percent Manual 1 % (0-6); Band Neutrophils Percent 2 % (3-5); Eosinophils Absolute Manual 0.3 X10*3/uL (0.0-0.4); Eosinophils Percent Manual 2 % (0-4); Lymphocytes Percent Manual 8 % (20-40); Monocytes Absolute Manual 2.6 X10*3/uL (0.1-1.2); Monocytes Percent Manual 20 % (2-11); Neutrophils Absolute Manual 8.9 X10*3/uL (2.0-8.3); Neutrophils Percent Manual 67 % (45-73)
[2023-07-13 15:41] LABS: RBC Morphology NOTED
[2023-07-13 15:43] LABS: Burr Cells 3+ (>5) /OIF; Toxic Granulation PRESENT
[2023-07-13 15:44] LABS: Platelet Estimate DECREASED (NORMAL); Platelet Morphology Comment NORMAL
--- NOTE | 2023-07-13 16:20 | ECG_ITS ---
Test Reason : HIGH POTASSIUM Blood Pressure : / mmHG Vent. Rate : 073 BPM Atrial Rate : 073 BPM P-R Int : 134 ms QRS Dur : 096 ms QT Int : 384 ms P-R-T Axes : 036 -14 106 degrees QTc Int : 423 ms Normal sinus rhythm Possible Anterior infarct (cited on or before 22-JUN-2023) Abnormal ECG When compared with ECG of 27-JUN-2023 09:09, No significant change was found Referred By: Marc Ohara Electronically Signed By:Hieu Ellis
--- NOTE | 2023-07-13 16:26 | PC.NURSE ---
vss and up to date at this time. pt remains nsr on the property assessment monitor. medication administered per provider order. pt still verbalizing 9/10 abdominal pain at this time. pt aware that prn medication is ordered if needed. respirations remain even and unlabored. resting comfortably in bed w/ family bedside for support. pt/family aware of plan of care at this time. call marcus placed within reach.
[2023-07-13 16:36] LABS: Lipase 29 U/L (8-78)
[2023-07-13] MEDS: Sodium Polystyrene Sulfon/Sorb 15 GM/60 ML ORAL.SUSP 30 GM PO (16:41)
[2023-07-13 16:42] VITALS: BP 97/54; PULSE 75; RESP 12; O2SAT 99
[2023-07-13] MEDS: Morphine Sulfate Oral Sol 10 MG/5 ML SOLUTION PO (17:47)
--- NOTE | 2023-07-13 17:48 | PC.NURSE ---
prn pain medication administered per provider order.
[2023-07-13 18:00] VITALS: BP 92/65; PULSE 59; RESP 20; TEMP 36.9; O2SAT 94
--- NOTE | 2023-07-13 18:01 | PC.NURSE ---
report given to RN in overflow - transport notified at this time.
[2023-07-13 21:00] VITALS: RESP 16
--- NOTE | 2023-07-13 22:49 | MHC.EDTECH ---
PT HIMS CODER with family present. PT dry at this time. Respirations taken. PT given Oxymask at 2LPM due to bloody nose caused by NC.
--- NOTE | 2023-07-14 08:05 | PC.NURSE ---
assumed care of pt at 0700. pt came out to tell t/w that the pt's poc from home device was elevated in 200s. pt has no home meds/insulin ordered. pt and sts that they want to resume home medications. pharmacy called for med rec. pt stated she gave pt lasix and spironolactone this morning but has not given any other home meds. LUCY Grande updated on situation. diabetic diet order placed with kitchen. plan for repeat poc once pt arrives back from paracentesis and will eat. pt waiting to meet with CM about hospice. at bedside. plan of care ongoing.
--- NOTE | 2023-07-14 08:12 | PHA.MEDREC ---
Pharmacy Consult ? Medication Reconciliation Pharmacy has completed the medication reconciliation. Spoke to patients family member (spouse?), they also had pharmacy bottles with them to show me.
--- NOTE | 2023-07-14 08:14 | MHC.CM.ED ---
Received case management consult overnight. Patient has a history of liver disease. Family is interested in hospice at home. Patient is active with [facility] for palliative care. [facility] has been asked to meet with patient and in regards to hospice at home. Continue to monitor for d/c needs.
[2023-07-14 09:00] VITALS: RESP 16
--- NOTE | 2023-07-14 09:25 | PC.NURSE ---
pt still in overflow, has not gone for paracentesis. called [facility], and OR desk and pt not on their schedule. called IR, no answer, will follow up.
[2023-07-14 11:23] VITALS: BP 81/50; PULSE 74; RESP 16; TEMP 36.1; O2SAT 96
[2023-07-14] MEDS: Lidocaine HCl 1 % MPF 5 ML VIAL SUBCUT (11:24)
--- NOTE | 2023-07-14 11:31 | PC.NURSE ---
pt back from paracentesis. 5L removed per IR RN. pt vitals checked once pt arrived back to unit and noted as 84/51 documented in worklist. checked 2x for verification. pt BP appears to normally run soft pre-procedure. LUCY Grande notified and aware.
[2023-07-14 11:37] LABS: Glucose, Whole Blood 335 mg/dL (60-115)
[2023-07-14] MEDS: 0.9 % Sodium Chloride 1,000 ML 999 ML IV (12:11)
[2023-07-14] MEDS: oxyCODONE HCl Immed Release 5 MG TABLET PO (12:15)
[2023-07-14] MEDS: Lactulose 20 GM/30 ML SOLUTION PO (12:15)
[2023-07-14] MEDS: Omeprazole 20 MG CAPSULE.DR PO (12:15)
--- NOTE | 2023-07-14 12:19 | MHC.EDTECH ---
pt ate 50% of his lunch. 120cc of fluids. present in the room.
--- NOTE | 2023-07-14 12:46 | MHC.CM.ED ---
Received notification from Janeen PRAJAPATI that patient and are not interested in hospice at this time. Met with patient and Margot. They do not agree to hospice. They are still interested in palliative care. They have a bed and oxygen at home. They were interested in having patient have a pluerex catheter placed for continuous paracentesis. After speaking with MIRANDA Mar, they are not interested in this at this time as they are still interested in seeking medical treatment if patient needs it. Patient will go home with resumption of palliative care through [facility]. Wally WILKES boked for 2pm. [facility] with chart. Leonila, Margot, Janeen PRAJAPATI and Christiane AYALA aware. Continue to monitor for d/c needs.
[2023-07-14] MEDS: Insulin Lispro 100 UNIT/ML 3 ML VIAL SUBCUT (12:48)
--- NOTE | 2023-07-14 12:51 | PC.NURSE ---
pt medicated with unscheduled dose of insulin per aug per LUCY Grande. pt consumed <25% of ordered meal but has been consuming pouches and juice provided by pt's . will recheck poc in an hour as well as BP. fluids infusing slowly for decreased BP per LUCY Grande. at bedside. pt getting ready for BLS transport back home. call marcus within reach. plan of care ongoing.
[2023-07-14 13:43] VITALS: BP 92/54; PULSE 70; RESP 16; TEMP 36.2; O2SAT 95
== END 2023-07-14 14:02 | disposition home or self-care (01) ==
PROVIDERS: Emergency Provider Emergency Medicine; PCP General Practice
DX: R14.0 Abdominal distension (gaseous) (principal); K72.10 Chronic hepatic failure without coma; N17.9 Acute kidney failure, unspecified; J84.9 Interstitial pulmonary disease, unspecified; R94.31 Abnormal electrocardiogram [ECG] [EKG]; Z99.81 Dependence on supplemental oxygen; Z87.891 Personal history of nicotine dependence; Z79.899 Other long term (current) drug therapy
CPT/HCPCS: 36415; 49083; 74176; 80053; 82947; 83690; 85007; 85025; 85027; 85610; 85730; 93005; 96360; 96361; 99284; 99285

== ENCOUNTER → 2023-07-13 16:20 | Outpatient (BNV) | payer OTHER, SELFPAY | PROVIDERS: Emergency Provider Emergency Medicine; PCP General Practice; Visit Provider Internal Medicine Cardiovascular Disease | DX: R94.31 Abnormal electrocardiogram [ECG] [EKG] (principal) | CPT/HCPCS: 93010 ==

== ENCOUNTER → 2023-07-14 08:30 | Outpatient (BNV) | payer OTHER, SELFPAY | PROVIDERS: Emergency Provider Emergency Medicine; PCP General Practice; Visit Provider Radiology Diagnostic Radiology | DX: R18.8 Other ascites (principal) | CPT/HCPCS: 49083 ==